=== PATIENT | male | born 1950 | race Caucasian/White ===

== ENCOUNTER → 2018-11-25 | Outpatient (CLI) | payer MEDICARE ==
[2018-11-25 10:20] LABS: Appearance,Urine Clear (Clear); Bilirubin,Urine Negative (Negative); Blood,Urine Small (Negative); Color,Urine Yellow; Glucose,Urine (UA) Negative (Negative); Ketones,Urine Negative (Negative); Leukocyte Esterase,Urine Negative (Negative); Mucus,Urine Rare /hpf; Nitrite,Urine Negative (Negative); Protein,Urine 1+ (Negative); RBC,Urine 2 /hpf (0-5); Specific Gravity,Urine 1.014 (1.001-1.035); Urobilinogen,Urine <2.0 mg/dL (<2.0); WBC,Urine 1 /hpf (0-5)
[2018-11-25 10:28] LABS: HCT 48.7 % (39.0-53.0); HGB 15.4 gm/dL (13.0-17.5); MCH 28.7 pg (25.0-35.0); MCHC 31.6 g/dL (31.0-37.0); MCV 90.8 fL (80.0-100.0); Mean Platelet Volume 8.1; Platelet Count 191 k/uL (150-450); RBC 5.37 m/uL (4.30-5.90); RDW 14.4 % (11.5-15.5); WBC 5.9 k/uL (3.8-10.6)
[2018-11-25 17:35] LABS: Albumin 4.3 g/dL (3.80-4.90); Albumin/Globulin Ratio 1.87 (1.20-2.10); Anion Gap 11.8 mmol/L (4.00-12.00); Carbon Dioxide 26.2 mmol/L (21.6-31.8); Globulin 2.3 g/dL (1.6-3.3); Potassium 4.6 mmol/L (3.5-5.5); Total Bilirubin 0.5 mg/dL (0.2-1.2); Total Protein 6.6 g/dL (6.2-8.2); Uric Acid 7.5 mg/dL (3.7-8.7)
[2018-11-25 17:38] LABS: Iron Saturation 29.25 (15.00-50.00)
[2018-11-25 17:46] LABS: Vitamin D 25 Hydroxy 50.9 ng/mL (30.0-100.0)
[2018-11-25 22:37] LABS: Hemoglobin A1C 7.3 % (4.0-6.0)
== END | disposition home or self-care (01) ==
LOC: LABWHC1 09:20
PROVIDERS: ATTEND Nurse Practitioner Adult Health
DX: E11.65 Type 2 diabetes mellitus with hyperglycemia (principal); I10 Essential (primary) hypertension; E78.5 Hyperlipidemia, unspecified; G47.33 Obstructive sleep apnea (adult) (pediatric); R53.83 Other fatigue
CPT/HCPCS: 80061; 80053; 84443; 82607; 83540; 83550; 84550; 85027; 81001; 82306; 82043; 82570; 83036; 36415; G0103

== ENCOUNTER 2018-12-29 10:50 | Observation (INO) | payer MEDICARE ==
[2018-12-29] MEDS ORDERED: SODIUM CHLORIDE 0.9% 1,000 ML IV STA (11:23)
[2018-12-29] MEDS ORDERED: MECLIZINE 12.5 MG TAB PO STA (11:23)
--- NOTE | 2018-12-29 11:37 | ED ---
General Adult HPI - General Chief complaint: Neuro Symptoms/Deficit Stated complaint: Weakness Time Seen by Provider: 12/29/18 11:15 Source: patient, RN notes reviewed Mode of arrival: wheelchair Limitations: no limitations - History of Present Illness Initial comments: Patient is a pleasant 68-year-old male presenting to the emergency Department with complaints of generalized weakness. Symptoms started a couple of months ago and seem worse over the past day or 2. Patient questions if he may have had some slurred speech this morning however did not notice this. Patient states there is none at this point. Patient feels weak all over and has difficulty getting up and performing his regular tasks. Patient admits to feeling dizzy which she further describes as lightheadedness. Patient denies any isolated area of isolated weakness. No confusion. Patient states his blood sugars have been running high, up to the 400s. - Related Data Home Medications Medication Instructions Recorded Confirmed Chlorthalidone 25 mg PO DAILY 12/29/18 12/29/18 Insulin NPH Hum/Reg Insulin Hm 45 - 50 unit SQ BID 12/29/18 12/29/18 [NovoLIN 70-30 100 UNIT/ML VIAL] Insulin Regular, Human [NovoLIN R] 20 unit SQ AC-TID 12/29/18 12/29/18 Allergies Allergy/AdvReac Type Severity Reaction Status Date / Time glipizide Allergy Swelling Verified 12/29/18 11:46 lisinopril Allergy Swelling Verified 12/29/18 11:46 losartan Allergy Swelling Verified 12/29/18 11:52 amlodipine [From Norvasc] AdvReac DEPRESSION Verified 12/29/18 11:46 atorvastatin [From Lipitor] AdvReac WEAKNESS Verified 12/29/18 11:46 metformin AdvReac Cough Verified 12/29/18 11:46 Review of Systems ROS Statement: Those systems with pertinent positive or pertinent negative responses have been documented in the HPI. ROS Other: All systems not noted in ROS Statement are negative. Constitutional: Denies: fever, chills Eyes: Denies: eye pain ENT: Denies: ear pain Respiratory: Denies: cough, dyspnea Cardiovascular: Denies: chest pain Endocrine: Reports: fatigue Gastrointestinal: Denies: abdominal pain, vomiting Genitourinary: Denies: dysuria Musculoskeletal: Denies: back pain Skin: Denies: rash Neurological: Denies: headache, confusion Past Medical History Past Medical History: Atrial Fibrillation, Diabetes Mellitus, Hyperlipidemia, Hypertension History of Any Multi-Drug Resistant Organisms: None Reported Past Surgical History: Back Surgery, Orthopedic Surgery Past Psychological History: No Psychological Hx Reported Smoking Status: Never smoker Past Alcohol Use History: None Reported Past Drug Use History: None Reported General Exam Limitations: no limitations General appearance: alert, in no apparent distress Head exam: Present: atraumatic, normocephalic Eye exam: Present: normal appearance, PERRL, EOMI. Absent: nystagmus ENT exam: Present: normal oropharynx Neck exam: Present: normal inspection Respiratory exam: Present: normal lung sounds bilaterally Cardiovascular Exam: Present: regular rate, normal rhythm GI/Abdominal exam: Present: soft. Absent: distended, tenderness Extremities exam: Present: normal inspection Neurological exam: Present: alert, oriented X3, CN II-XII intact. Absent: motor sensory deficit Psychiatric exam: Present: normal affect, normal mood Skin exam: Present: normal color Course Vital Signs 12/29/18 12/29/18 12/29/18 10:57 12:48 14:03 Temperature 99.0 F Pulse Rate 76 85 71 Respiratory 18 18 18 Rate Blood Pressure 208/90 173/86 159/95 O2 Sat by Pulse 98 100 95 Oximetry 12/29/18 15:58 Temperature Pulse Rate 80 Respiratory 18 Rate Blood Pressure 161/98 O2 Sat by Pulse 100 Oximetry EKG Findings - EKG Comments: EKG Findings:: Sinus rhythm at 82. MA 154. QRS 100. QT 414. QTC 483. Normal axis. Normal QRS. Inferior and lateral T wave inversion. Medical Decision Making - Medical Decision Making Patient reevaluated. Patient was an related however had difficulty after walking through the department and had to rest. Patient states that has become normal for him at this point. Patient family updated on results and plan. Case was discussed with Dr. Kahn who did come evaluate the patient and will admit. - Lab Data Result diagrams: 12/29/18 11:15 12/29/18 11:15 Lab Results 12/29/18 12/29/18 12/29/18 Range/Units 11:15 11:15 11:15 WBC 8.1 (3.8-10.6) k/uL RBC 5.72 (4.30-5.90) m/uL Hgb 17.1 (13.0-17.5) gm/dL Hct 50.3 (39.0-53.0) % MCV 87.9 (80.0-100.0) fL MCH 30.0 (25.0-35.0) pg MCHC 34.1 (31.0-37.0) g/dL RDW 14.0 (11.5-15.5) % Plt Count 196 (150-450) k/uL Neutrophils % 62 % Lymphocytes % 29 % Monocytes % 6 % Eosinophils % 1 % Basophils % 1 % Neutrophils # 5.0 (1.3-7.7) k/uL Lymphocytes # 2.4 (1.0-4.8) k/uL Monocytes # 0.5 (0-1.0) k/uL Eosinophils # 0.1 (0-0.7) k/uL Basophils # 0.1 (0-0.2) k/uL PT (9.0-12.0) sec INR (<1.2) APTT (22.0-30.0) sec Sodium 141 (137-145) mmol/L Potassium 3.4 L (3.5-5.1) mmol/L Chloride 101 (98-107) mmol/L Carbon Dioxide 28 (22-30) mmol/L Anion Gap 12 mmol/L BUN 30 H (9-20) mg/dL Creatinine 0.87 (0.66-1.25) mg/dL Est GFR (CKD-EPI)AfAm >90 (>60 ml/min/1.73 sqM) Est GFR (CKD-EPI)NonAf 89 (>60 ml/min/1.73 sqM) Glucose 255 H (74-99) mg/dL POC Glucose (mg/dL) (75-99) mg/dL POC Glu Floor Covering Printer Assistant ID Plasma Lactic Acid Celestino (0.7-2.0) mmol/L Calcium 10.1 (8.4-10.2) mg/dL Phosphorus 3.2 (2.5-4.5) mg/dL Magnesium 1.6 (1.6-2.3) mg/dL Total Bilirubin 0.6 (0.2-1.3) mg/dL AST 30 (17-59) U/L ALT 20 L (21-72) U/L Alkaline Phosphatase 140 H (38-126) U/L Total Creatine Kinase 138 (55-170) U/L CK-MB (CK-2) 1.2 (0.0-2.4) ng/mL CK-MB (CK-2) Rel Index 0.9 Troponin I <0.012 (0.000-0.034) ng/mL Total Protein 7.8 (6.3-8.2) g/dL Albumin 4.7 (3.5-5.0) g/dL TSH 1.600 (0.465-4.680) mIU/L Free T4 1.17 (0.78-2.19) ng/dL Free T3 pg/mL 3.5 (2.8-5.3) pg/ml Urine Color Urine Appearance (Clear) Urine pH (5.0-8.0) Ur Specific Carlotta (1.001-1.035) Urine Protein (Negative) Urine Glucose (UA) (Negative) Urine Ketones (Negative) Urine Blood (Negative) Urine Nitrite (Negative) Urine Bilirubin (Negative) Urine Urobilinogen (<2.0) mg/dL Ur Leukocyte Esterase (Negative) Urine RBC (0-5) /hpf Urine WBC (0-5) /hpf Hyaline Casts (0-2) /lpf Urine Mucus (None) /hpf Influenza Type A RNA (Not Detectd) Influenza Type B (PCR) (Not Detectd) 12/29/18 12/29/18 12/29/18 Range/Units 11:15 11:55 11:55 WBC (3.8-10.6) k/uL RBC (4.30-5.90) m/uL Hgb (13.0-17.5) gm/dL Hct (39.0-53.0) % MCV (80.0-100.0) fL MCH (25.0-35.0) pg MCHC (31.0-37.0) g/dL RDW (11.5-15.5) % Plt Count (150-450) k/uL Neutrophils % % Lymphocytes % % Monocytes % % Eosinophils % % Basophils % % Neutrophils # (1.3-7.7) k/uL Lymphocytes # (1.0-4.8) k/uL Monocytes # (0-1.0) k/uL Eosinophils # (0-0.7) k/uL Basophils # (0-0.2) k/uL PT 10.1 (9.0-12.0) sec INR 0.9 (<1.2) APTT 22.6 (22.0-30.0) sec Sodium (137-145) mmol/L Potassium (3.5-5.1) mmol/L Chloride (98-107) mmol/L Carbon Dioxide (22-30) mmol/L Anion Gap mmol/L BUN (9-20) mg/dL Creatinine (0.66-1.25) mg/dL Est GFR (CKD-EPI)AfAm (>60 ml/min/1.73 sqM) Est GFR (CKD-EPI)NonAf (>60 ml/min/1.73 sqM) Glucose (74-99) mg/dL POC Glucose (mg/dL) (75-99) mg/dL POC Glu Floor Covering Printer Assistant ID Plasma Lactic Acid Celestino 1.7 (0.7-2.0) mmol/L Calcium (8.4-10.2) mg/dL Phosphorus (2.5-4.5) mg/dL Magnesium (1.6-2.3) mg/dL Total Bilirubin (0.2-1.3) mg/dL AST (17-59) U/L ALT (21-72) U/L Alkaline Phosphatase (38-126) U/L Total Creatine Kinase (55-170) U/L CK-MB (CK-2) (0.0-2.4) ng/mL CK-MB (CK-2) Rel Index Troponin I (0.000-0.034) ng/mL Total Protein (6.3-8.2) g/dL Albumin (3.5-5.0) g/dL TSH (0.465-4.680) mIU/L Free T4 (0.78-2.19) ng/dL Free T3 pg/mL (2.8-5.3) pg/ml Urine Color Yellow Urine Appearance Clear (Clear) Urine pH 5.5 (5.0-8.0) Ur Specific Carlotta 1.018 (1.001-1.035) Urine Protein 1+ H (Negative) Urine Glucose (UA) Negative (Negative) Urine Ketones Negative (Negative) Urine Blood Trace H (Negative) Urine Nitrite Negative (Negative) Urine Bilirubin Negative (Negative) Urine Urobilinogen <2.0 (<2.0) mg/dL Ur Leukocyte Esterase Negative (Negative) Urine RBC 4 (0-5) /hpf Urine WBC 1 (0-5) /hpf Hyaline Casts 3 H (0-2) /lpf Urine Mucus Rare H (None) /hpf Influenza Type A RNA (Not Detectd) Influenza Type B (PCR) (Not Detectd) 12/29/18 12/29/18 Range/Units 12:05 14:37 WBC (3.8-10.6) k/uL RBC (4.30-5.90) m/uL Hgb (13.0-17.5) gm/dL Hct (39.0-53.0) % MCV (80.0-100.0) fL MCH (25.0-35.0) pg MCHC (31.0-37.0) g/dL RDW (11.5-15.5) % Plt Count (150-450) k/uL Neutrophils % % Lymphocytes % % Monocytes % % Eosinophils % % Basophils % % Neutrophils # (1.3-7.7) k/uL Lymphocytes # (1.0-4.8) k/uL Monocytes # (0-1.0) k/uL Eosinophils # (0-0.7) k/uL Basophils # (0-0.2) k/uL PT (9.0-12.0) sec INR (<1.2) APTT (22.0-30.0) sec Sodium (137-145) mmol/L Potassium (3.5-5.1) mmol/L Chloride (98-107) mmol/L Carbon Dioxide (22-30) mmol/L Anion Gap mmol/L BUN (9-20) mg/dL Creatinine (0.66-1.25) mg/dL Est GFR (CKD-EPI)AfAm (>60 ml/min/1.73 sqM) Est GFR (CKD-EPI)NonAf (>60 ml/min/1.73 sqM) Glucose (74-99) mg/dL POC Glucose (mg/dL) 198 H (75-99) mg/dL POC Glu Floor Covering Printer Assistant Jodi Antonio Plasma Lactic Acid Celestino (0.7-2.0) mmol/L Calcium (8.4-10.2) mg/dL Phosphorus (2.5-4.5) mg/dL Magnesium (1.6-2.3) mg/dL Total Bilirubin (0.2-1.3) mg/dL AST (17-59) U/L ALT (21-72) U/L Alkaline Phosphatase (38-126) U/L Total Creatine Kinase (55-170) U/L CK-MB (CK-2) (0.0-2.4) ng/mL CK-MB (CK-2) Rel Index Troponin I (0.000-0.034) ng/mL Total Protein (6.3-8.2) g/dL Albumin (3.5-5.0) g/dL TSH (0.465-4.680) mIU/L Free T4 (0.78-2.19) ng/dL Free T3 pg/mL (2.8-5.3) pg/ml Urine Color Urine Appearance (Clear) Urine pH (5.0-8.0) Ur Specific Carlotta (1.001-1.035) Urine Protein (Negative) Urine Glucose (UA) (Negative) Urine Ketones (Negative) Urine Blood (Negative) Urine Nitrite (Negative) Urine Bilirubin (Negative) Urine Urobilinogen (<2.0) mg/dL Ur Leukocyte Esterase (Negative) Urine RBC (0-5) /hpf Urine WBC (0-5) /hpf Hyaline Casts (0-2) /lpf Urine Mucus (None) /hpf Influenza Type A RNA Not Detected (Not Detectd) Influenza Type B (PCR) Not Detected (Not Detectd) - Radiology Data Radiology results: report reviewed (Computed tomography scan of the brain shows no acute renal process. Suggestion of minimal periventricular white matter changes.), image reviewed (Chest x-ray shows elevated right hemidiaphragm, no acute process otherwise.) Disposition Clinical Impression: Fatigue, T wave inversion in EKG Disposition: ADMITTED IP TO THIS HOSP Is patient prescribed a controlled substance at d/c from ED?: No Referrals: Ovi Gallagher MD [Primary Care Provider] - 1-2 days Decision Time: 16:49
[2018-12-29 11:39] LABS: Basophils # (A) 0.1 k/uL (0-0.2); Basophils % (A) 1 %; Eosinophils # (A) 0.1 k/uL (0-0.7); Eosinophils % (A) 1 %; HCT 50.3 % (39.0-53.0); HGB 17.1 gm/dL (13.0-17.5); Lymphocytes # (A) 2.4 k/uL (1.0-4.8); Lymphocytes % (A) 29 %; MCHC 34.1 g/dL (31.0-37.0); MCV 87.9 fL (80.0-100.0); Mean Platelet Volume 7.4; Monocytes # (A) 0.5 k/uL (0-1.0); Monocytes % (A) 6 %; Neutrophils % (A) 62 %; Platelet Count 196 k/uL (150-450); RBC 5.72 m/uL (4.30-5.90); WBC 8.1 k/uL (3.8-10.6)
[2018-12-29 11:52] LABS: ALT 20 U/L (21-72); AST 30 U/L (17-59); Albumin 4.7 g/dL (3.5-5.0); Alkaline Phosphatase 140 U/L (38-126); Anion Gap 12 mmol/L; Blood Urea Nitrogen 30 mg/dL (9-20); Calcium 10.1 mg/dL (8.4-10.2); Carbon Dioxide 28 mmol/L (22-30); Chloride 101 mmol/L (98-107); Glucose 255 mg/dL (74-99); Magnesium 1.6 mg/dL (1.6-2.3); Phosphorus 3.2 mg/dL (2.5-4.5); Potassium 3.4 mmol/L (3.5-5.1); Sodium 141 mmol/L (137-145); Total Bilirubin 0.6 mg/dL (0.2-1.3); Total Protein 7.8 g/dL (6.3-8.2)
[2018-12-29 11:56] LABS: Creatine Kinase 138 U/L (55-170)
[2018-12-29 11:59] LABS: INR 0.9 (<1.2); Partial Thromboplastin Time 22.6 sec (22.0-30.0); Prothrombin Time 10.1 sec (9.0-12.0)
[2018-12-29 12:08] LABS: Creatine Kinase MB 1.2 ng/mL (0.0-2.4); Troponin I <0.012 ng/mL (0.000-0.034)
[2018-12-29 12:12] LABS: T4, Free (Free Thyroxine) 1.17 ng/dL (0.78-2.19)
[2018-12-29 12:33] LABS: Appearance,Urine Clear (Clear); Bilirubin,Urine Negative (Negative); Blood,Urine Trace (Negative); Color,Urine Yellow; Glucose,Urine (UA) Negative (Negative); Hyaline Casts,Urine 3 /lpf (0-2); Ketones,Urine Negative (Negative); Leukocyte Esterase,Urine Negative (Negative); Mucus,Urine Rare /hpf; Nitrite,Urine Negative (Negative); PH, Urine 5.5 (5.0-8.0); Protein,Urine 1+ (Negative); RBC,Urine 4 /hpf (0-5); Specific Gravity,Urine 1.018 (1.001-1.035); Urobilinogen,Urine <2.0 mg/dL (<2.0); WBC,Urine 1 /hpf (0-5)
--- NOTE | 2018-12-29 13:11 | CT ---
EXAMINATION TYPE: CT brain wo con DATE OF EXAM: 12/29/2018 COMPARISON: INDICATION: Weakness DLP: 1134.4 mGycm, Automated exposure control for dose reduction was used. CONTRAST: None CT of the brain is performed utilizing 3 mm thick sections through the posterior fossa and 3 mm thick sections through the remaining calvarium. Study is performed within 24 hours of arrival to the hosp ital. No abnormal hyperdensity is present to suggest an acute intracranial hemorrhage. No mass lesion is evident. No acute infarcts are evident. Minimal periventricular white matter hypodensity may be present compat ible some chronic white matter ischemic type changes. Ventricles and sulci are appropriate for the patient age. Paranasal sinuses and mastoid air cells within the [id number] are clear. IMPRESSIONS: 1. Suggestion of minimal periventricular white matter ischemic changes. 2. No acute intracranial process.
--- NOTE | 2018-12-29 13:30 | XR ---
EXAMINATION TYPE: XR chest 2V DATE OF EXAM: 12/29/2018 COMPARISON: 02/03/2013 INDICATION: Weakness TECHNIQUE: Frontal and lateral views of the chest are obtained. FINDINGS: The heart size is normal. The pulmonary vasculature is normal. The lungs are clear. There is elevation of the right diaphragm. This is an interval change. EKG lead s overlie the chest IMPRESSION: 1. No acute pulmonary process. 2. Elevation of the right diaphragm.
[2018-12-29 15:27] LABS: Glucose,Whole Blood 198 mg/dL (75-99)
[2018-12-29] MEDS ORDERED: NALOXONE 0.4 MG/ML 1 ML VIAL IV PRN (16:35)
[2018-12-29] MEDS ORDERED: ONDANSETRON 4 MG/2 ML VIAL IVP PRN (16:35)
[2018-12-29] MEDS ORDERED: ACETAMINOPHEN TAB 325 MG TAB PO PRN (16:35)
--- NOTE | 2018-12-29 16:35 | P.HPIM ---
History of Present Illness H&P Date: 12/29/18 Chief Complaint: fatigue weakness /elevated BP/slurred speech The patient is a left-hand dominant 66-year-old obese male with a past medical history of type 2 diabetes, essential hypertension, dyslipidemia, obstructive sleep apnea on CPAP who presents to the ER via private vehicle with his complaining of increasing lower extremity weakness described as heaviness, fatigue and generalized weakness. Apparently the patient reports these generalized symptoms for the last month, today in particular the patient reports some slurred speech and left facial droop early this morning which seems to have resolved for the most part. He also complains of lightheadedness and dizziness. The patient reports that the patient has been having difficulty finding words over the last month and that his blood sugars have been uncontrolled often in the high 300-400 range. The patient complains of increasing thirst, dry mouth, nocturia and polyuria. The patient reports multiple adverse reactions to blood pressure and diabetic medications and reports that he only takes chlorthalidone and insulin at this time. He reports severe ALLERGY to lisinopril losartan causing swelling and weakness and statin causing myalgias and weakness. The patient denied any shortness of breath chest pain or palpitations or lower extremity swelling. He reports to having an A1c done approximately 2 weeks ago that was approximately 7.5. In the ER the patient was noted to have elevated blood pressures , CT of the head was negative for any acute intracranial pathology only showed periventricular white matter disease, EKG indicated sinus mechanism with nonspecific T-wave changes troponin was negative less than 0.012. The patient' s blood sugar was approximately 198 Review of Systems Pertinent positives per HPI all other review of systems otherwise negative Past Medical History Past Medical History: Atrial Fibrillation, Diabetes Mellitus, Hyperlipidemia, Hypertension History of Any Multi-Drug Resistant Organisms: None Reported Past Surgical History: Back Surgery, Orthopedic Surgery Past Psychological History: No Psychological Hx Reported Smoking Status: Never smoker Past Alcohol Use History: None Reported Past Drug Use History: None Reported - Past Family History Brother(s) Family Medical History: Coronary Artery Disease (CAD), Hypertension Mother Family Medical History: Diabetes Mellitus Additional Family Medical History / Comment(s): in mva Father Additional Family Medical History / Comment(s): bad thyroid Medications and Allergies Home Medications Medication Instructions Recorded Confirmed Type Chlorthalidone 25 mg PO DAILY 12/29/18 12/29/18 History Insulin NPH Hum/Reg Insulin Hm 45 - 50 unit SQ BID 12/29/18 12/29/18 History [NovoLIN 70-30 100 UNIT/ML VIAL] Insulin Regular, Human [NovoLIN R] 20 unit SQ AC-TID 12/29/18 12/29/18 History Allergies Allergy/AdvReac Type Severity Reaction Status Date / Time glipizide Allergy Swelling Verified 12/29/18 11:46 lisinopril Allergy Swelling Verified 12/29/18 11:46 losartan Allergy Swelling Verified 12/29/18 11:52 amlodipine [From Norvasc] AdvReac DEPRESSION Verified 12/29/18 11:46 atorvastatin [From Lipitor] AdvReac WEAKNESS Verified 12/29/18 11:46 metformin AdvReac Cough Verified 12/29/18 11:46 Physical Exam Vitals: Vital Signs Temp Pulse Resp BP Pulse Ox 12/29/18 15:58 80 18 161/98 100 12/29/18 14:03 71 18 159/95 95 12/29/18 12:48 85 18 173/86 100 12/29/18 10:57 99.0 F 76 18 208/90 98 Intake and Output 12/29/18 12/29/18 12/29/18 06:59 14:59 22:59 Other: Weight 136.078 kg Constitutional: No acute distress, conversant, pleasant Eyes: Anicteric sclerae, moist conjunctiva, no lid-lag, PERRLA ENMT: NC/AT,Oropharynx clear, no erythema, exudates Neck:Supple, FROM, no masses, or JVD, No carotid bruits; No thyromegaly Lungs: Clear to auscultation, Clear to percussion, Normal respiratory effort, no accessory muscle use Cardiovascular: Heart regular in rate and rhythm, No murmurs, gallops, or rubs no peripheral edema Abdominal: Soft Nontender, nom distended, no guarding, no rebound or rigidity, Normoactive bowel sounds No hepatomegaly, No splenomegaly, No palpable mass No abdominal wall hernia noted Skin: Normal temperature, tone, texture, turgor, No induration No subcutaneous nodules, No rash, lesions, No ulcers Extremities:No digital cyanosis No clubbing, Pedal pulses intact and symmetrical Radial pulses intact and symmetrical Normal gait and station, No calf tenderness Psychiatric: Alert and oriented to person, place and time, Appropriate affect Intact judgement Neuro: Muscles Strength 5/5 in all 4 extremities, Sensation to light touch grossly present throughout, Cranial nerves II-XII grossly intact. No focal sensory deficits Results CBC & Chem 7: 12/30/18 05:42 12/30/18 05:42 Labs: Abnormal Lab Results - Last 24 Hours (Table) 12/29/18 12/29/18 12/29/18 Range/Units 11:15 11:55 14:37 Potassium 3.4 L (3.5-5.1) mmol/L BUN 30 H (9-20) mg/dL Glucose 255 H (74-99) mg/dL POC Glucose (mg/dL) 198 H (75-99) mg/dL ALT 20 L (21-72) U/L Alkaline Phosphatase 140 H (38-126) U/L Urine Protein 1+ H (Negative) Urine Blood Trace H (Negative) Hyaline Casts 3 H (0-2) /lpf Urine Mucus Rare H (None) /hpf Assessment and Plan (1) TIA (transient ischemic attack) Current Visit: Yes Status: Acute Code(s): G45.9 - TRANSIENT CEREBRAL ISCHEMIC ATTACK, UNSPECIFIED SNOMED Code(s): 072510084 (2) Hypertensive urgency Current Visit: Yes Status: Acute Code(s): I16.0 - HYPERTENSIVE URGENCY SNOMED Code(s): 472954569 (3) Type 2 diabetes mellitus with hyperglycemia Current Visit: Yes Status: Acute Code(s): E11.65 - TYPE 2 DIABETES MELLITUS WITH HYPERGLYCEMIA SNOMED Code(s): 768131518546686 (4) Hypokalemia Current Visit: Yes Status: Acute Code(s): E87.6 - HYPOKALEMIA SNOMED Code( s): 00030375 Plan: The patient is admitted anticipate a less than 2 midnight stay with concern for TIA after presenting with generalized weakness lower extremity swelling, and slurred speech and dizziness which is now resolved. Continue workup with echocardiogram, carotid Dopplers, and MRI. The patient does have uncontrolled is factors including uncontrolled type 2 diabetes with hyperglycemia, and hypertensive urgency and likely has dyslipidemia. We'll trend his cardiac markers, start antiplatelet therapy with aspirin and resume his home blood pressure medications and add Norvasc and metoprolol to his regimen. We'll also check A1c Accu-Cheks resume his insulin regimen along with correctional scale coverage Continue to monitor his vitals. Place the patient on DVT prophylaxis with SCDs CODE STATUS full Anticipated discharge 1-2 days discussed plan of care with : Dagmar Carlos Time with Patient: Greater than 30
[2018-12-29] MEDS ORDERED: amLODIPine 10 MG TAB PO STA (16:40)
[2018-12-29] MEDS ORDERED: METOPROLOL SUCCINATE (ER) 50 MG TAB.ER.24H PO STA (16:40)
[2018-12-29] MEDS ORDERED: ASPIRIN 81 MG PO STA (16:50)
[2018-12-29] MEDS ORDERED: NITROGLYCERIN SL TABS 0.4 MG TAB SUBLINGUAL PRN (16:50)
[2018-12-29] MEDS ORDERED: POTASSIUM CHLORIDE ER 20 MEQ TAB.ER PO ONE (17:34)
[2018-12-29] MEDS: INSULIN ASPART (NovoLOG) 100 UNIT/ML VIAL SQ SCH ×3 (17:40→21:21)
[2018-12-29 17:44] LABS: Glucose,Whole Blood 202 mg/dL (75-99)
[2018-12-29 19:03] LABS: Creatine Kinase MB 1.2 ng/mL (0.0-2.4)
[2018-12-29] MEDS ORDERED: POTASSIUM CHLORIDE ER 20 MEQ TAB.ER PO STA (20:01)
--- NOTE | 2018-12-29 20:57 | US ---
EXAMINATION TYPE: US carotid duplex BILAT DATE OF EXAM: 12/29/2018 COMPARISON: NONE CLINICAL HISTORY: TIA. Fatigue, dizziness EXAM MEASUREMENTS: RIGHT: Peak Systolic Velocity (PSV) cm/sec ----- Right CCA: 58.1 ----- Right ICA: 75.7 ----- Right ECA: 138.7 ICA/CCA ratio: 1.3 RIGHT: End Diastole cm/sec ----- Right CCA: 13.1 ----- Right ICA: 29.6 ----- Right ECA: 11.1 LEFT: Peak Systolic Velocity (PSV) cm/sec ----- Left CCA: 91.9 ----- Left ICA: 125.8 ----- Left ECA: 99.5 ICA/CCA ratio: 1.4 LEFT: End Diastole cm/sec ----- Left CCA: 16.0 ----- Left ICA: 40.2 ----- Left ECA: 11.5 VERTEBRALS (direction of flow): Right Vertebral: Antegrade Left Vertebral: Antegrade Rhythm: Normal Mild plaque bilateral bifurcations. No evidence of significant stenosis IMPRESSION: 1. Atheromatous plaquing contributing to moderate left internal carotid artery stenosis estimated bet ween 50 and 69% based on velocity Criteria for Assigning % of Stenosis / Diameter reduction (Estimation based on the indirect measurements of the internal carotid artery velocities (ICA PSV). 1. Normal (no stenosis)=ICA PSV < 125 cm/s: ratio < 2.0: ICA EDV<40 cm/s. 2. Less than 50% stenosis=ICA PSV < 125 cm/s: ratio < 2.0: ICA EDV<40 cm/s. 3. 50 to 69% stenosis=ICA PSV of 125 to 230 cm/s: ration 2.0 ? 4.0: ICA EDV 40-100 cm/s. 4. Greater than 70% stenosis to near occlusion= ICA PSV > 230 cm/s: ratio > 4.0: ICA EDV > 100 cm/s. 5. Near occlusion= ICA PSV velocities may be low or undetectable: variable ratio and ICA EDV. 6. Total occlusion=unable to detect flow.
[2018-12-29 21:13] LABS: Glucose,Whole Blood 199 mg/dL (75-99)
[2018-12-29] MEDS: INSULIN DETEMIR (LEVEMIR) 100 UNIT/ML SYR SQ SCH (21:21)
[2018-12-30 00:26] LABS: Troponin I 0.017 ng/mL (0.000-0.034)
[2018-12-30 06:27] LABS: Glucose,Whole Blood 204 mg/dL (75-99)
[2018-12-30 06:28] LABS: Basophils % (A) 1 %; Eosinophils # (A) 0.1 k/uL (0-0.7); Eosinophils % (A) 1 %; HCT 45.9 % (39.0-53.0); HGB 14.7 gm/dL (13.0-17.5); Lymphocytes # (A) 2.7 k/uL (1.0-4.8); Lymphocytes % (A) 36 %; MCH 28.6 pg (25.0-35.0); MCHC 32.1 g/dL (31.0-37.0); MCV 89.1 fL (80.0-100.0); Monocytes # (A) 0.5 k/uL (0-1.0); Monocytes % (A) 6 %; Neutrophils % (A) 54 %; Platelet Count 181 k/uL (150-450); RBC 5.15 m/uL (4.30-5.90); WBC 7.4 k/uL (3.8-10.6)
[2018-12-30 06:38] LABS: ALT 14 U/L (21-72); AST 21 U/L (17-59); Albumin 3.9 g/dL (3.5-5.0); Alkaline Phosphatase 110 U/L (38-126); Anion Gap 8 mmol/L; Blood Urea Nitrogen 23 mg/dL (9-20); Calcium 9.5 mg/dL (8.4-10.2); Carbon Dioxide 29 mmol/L (22-30); Chloride 105 mmol/L (98-107); Cholesterol 217 mg/dL (<200); Glucose 247 mg/dL (74-99); HDL Cholesterol 38 mg/dL (40-60); LDL Cholesterol,Calculated 126 mg/dL (0-99); Potassium 3.7 mmol/L (3.5-5.1); Sodium 142 mmol/L (137-145); Total Bilirubin 0.6 mg/dL (0.2-1.3); Total Protein 6.7 g/dL (6.3-8.2); Triglycerides 266 mg/dL (<150)
[2018-12-30] MEDS: INSULIN ASPART (NovoLOG) 100 UNIT/ML VIAL SQ SCH ×7 (07:12→22:20)
[2018-12-30] MEDS: CHLORTHALIDONE 25 MG TAB PO SCH (08:43)
[2018-12-30] MEDS: amLODIPine 10 MG TAB PO SCH (08:43)
[2018-12-30] MEDS: INSULIN DETEMIR (LEVEMIR) 100 UNIT/ML SYR SQ SCH (08:43)
[2018-12-30] MEDS ORDERED: ASPIRIN 325 MG TAB PO SCH (09:00)
--- NOTE | 2018-12-30 10:04 | P.CRDCN ---
History of Present Illness Consult date: 12/30/18 Requesting physician: Chaitanya Kahn Reason for Consult (text): Uncontrolled hypertension, lightheadedness Chief complaint: Lightheadedness History of present illness: This is a pleasant 68-year-old gentleman who has lived in [place] for the past 5 years and recently moved back to this area. He has a known history of hypertension, uncontrolled diabetes, hyperlipidemia, sleep apnea for which she uses a CPAP every night, he is a nonsmoker, no EtOH. Patient states that he has been on most of the statins as well as Crestor and has severe muscle weakening from them. He presents to the hospital on this occasion with symptoms of lightheadedness, weakness and feeling at times like he is going to pass out. According to the patient, his blood sugars for quite some time has been all over the place. He states that in recent weeks due to they have been up in the 500 range of 300 range except for a period according to the patient he could not afford the insulin that he was primarily put on and therefore takes regular insulin as well as 7030, adjusting it himself. He has however been running extremely high blood sugars. He also states that his blood pressure at times has been high. He was in [place] yesterday, states that it was very warm, and he felt lightheaded, like he may pass out. CAT scan of the brain was performed on arrival here, suggestion of minimal periventricular white matter ischemic change, no acute process. Chest x-ray did not reveal any acute pulmonary process. EKG shows a normal sinus rhythm with nonspecific ST-T wave changes. Carotid Doppler study shows atheromatous plaquing contributing to moderate left internal carotid artery stenosis between 50 and 69%. Blood pressure on arrival here 208/90, heart rate in the 70s, 90% on room air. Temperature 99.0. Blood pressure this morning 144/90, heart rate in the 50s, temperature 97.9, 95% on room air. Laboratory data was reviewed, white blood cell count 7.4, hemoglobin 14.7, platelet count 181. Sodium 142, potassium 3.7 , potassium was 3.4 on admission, BUN 23 and creatinine 0.7. Blood sugar on arrival 255, 247 this morning. Magnesium 1.6. ALT 20 alk phos 140 on admission , 14 and 110 this morning. Troponins 0.012, 0.017. Influenza A and B-. At the time of my examination this morning, patient is sitting up in his chair at bedside, he denies any lightheadedness or dizziness this morning, he does feel weak. Cholesterol level 266, LDL 126, HDL 38, and triglycerides 266. Past Medical History Past Medical History: Atrial Fibrillation, Diabetes Mellitus, Hyperlipidemia, Hypertension, Pneumonia, Sleep Apnea/CPAP/BIPAP Additional Past Medical History / Comment(s): uses c-pap at home, pneu as child almost History of Any Multi-Drug Resistant Organisms: None Reported Past Surgical History: Back Surgery, Orthopedic Surgery, Prostate Surgery, Tonsillectomy Additional Past Surgical History / Comment(s): , total left hip, gato carpel tunnel, wire mesh in umbical area, Past Anesthesia/Blood Transfusion Reactions: Previous Problems w/ Anesthesia Additional Past Anesthesia/Blood Transfusion Reaction / Comment(s): last time no problems with anesthia but did have previously Past Psychological History: No Psychological Hx Reported Smoking Status: Never smoker Past Alcohol Use History: None Reported Past Drug Use History: None Reported - Past Family History Brother(s) Family Medical History: Coronary Artery Disease (CAD), Hypertension Mother Family Medical History: Diabetes Mellitus Additional Family Medical History / Comment(s): in mva Father Additional Family Medical History / Comment(s): bad thyroid Medications and Allergies Home Medications Medication Instructions Recorded Confirmed Type Chlorthalidone 25 mg PO DAILY 12/29/18 12/29/18 History Insulin NPH Hum/Reg Insulin Hm 45 - 50 unit SQ BID 12/29/18 12/29/18 History [NovoLIN 70-30 100 UNIT/ML VIAL] Insulin Regular, Human [NovoLIN R] 20 unit SQ AC-TID 12/29/18 12/29/18 History Allergies Allergy/AdvReac Type Severity Reaction Status Date / Time glipizide Allergy Swelling Verified 12/29/18 11:46 lisinopril Allergy Swelling Verified 12/29/18 11:46 losartan Allergy Swelling Verified 12/29/18 11:52 amlodipine [From Norvasc] AdvReac DEPRESSION Verified 12/29/18 11:46 atorvastatin [From Lipitor] AdvReac WEAKNESS Verified 12/29/18 11:46 metformin AdvReac Cough Verified 12/29/18 11:46 Physical Exam Vitals: Vital Signs Temp Pulse Pulse Resp BP BP Pulse Ox 12/30/18 04:00 97.9 F 54 L 20 144/89 95 12/30/18 03:34 20 12/30/18 00:00 20 12/29/18 23:31 98.2 F 20 162/89 96 12/29/18 20:00 97.8 F 59 L 18 146/67 95 12/29/18 18:34 98.1 F 78 14 180/91 94 L 12/29/18 17:23 72 18 154/77 97 12/29/18 17:16 98.7 F 96 12/29/18 15:58 80 18 161/98 100 12/29/18 14:03 71 18 159/95 95 12/29/18 12:48 85 18 173/86 100 12/29/18 10:57 99.0 F 76 18 208/90 98 Intake and Output 12/29/18 12/30/18 12/30/18 22:59 06:59 14:59 Intake Total 300 700 240 Balance 300 700 240 Intake: Amount of Fluid Infused ( 300 ml) Intake, IV Titration 400 Amount Sodium Chloride 0.9% 1, 400 000 ml @ 100 mls/hr IV . Q10H STA Rx#:[id number] Oral 300 240 Other: Voiding Method Toilet Toilet # Voids 2 Weight 137.5 kg PHYSICAL EXAMINATION: GENERAL: 68-year-old gentleman in no acute distress at the time of my examination HEENT: Head is atraumatic, normocephalic. Pupils equal, round. Sclera anicteric. Conjunctiva are clear. Mucous membranes of the mouth are moist. Neck is supple. There is no elevated jugular venous pressure. No carotid bruit is heard. HEART EXAMINATION: Heart S1, S2 normal. No murmur or gallop heard. CHEST EXAMINATION: Lungs are clear to auscultation and precussion. No chest wall tenderness is noted on palpation or with deep breathing. ABDOMEN: Soft, obese, nontender. Bowel sounds are heard. No organomegaly noted. EXTREMITIES: 2+ peripheral pulses with no evidence of peripheral edema and no calf tenderness noted. NEUROLOGIC patient is awake, alert and oriented 3 . . Results 12/30/18 05:42 12/30/18 05:42 Cardiac Enzymes 12/29/18 12/29/18 12/29/18 Range/Units 11:15 11:15 18:16 AST 30 (17-59) U/L CK-MB (CK-2) 1.2 1.2 (0.0-2.4) ng/mL Troponin I <0.012 (0.000-0.034) ng/mL 12/29/18 12/30/18 Range/Units 23:22 05:42 AST 21 (17-59) U/L CK-MB (CK-2) 1.0 (0.0-2.4) ng/mL Troponin I 0.017 (0.000-0.034) ng/mL Coagulation 12/29/18 Range/Units 11:15 PT 10.1 (9.0-12.0) sec APTT 22.6 (22.0-30.0) sec Lipids 12/30/18 Range/Units 05:42 Triglycerides 266 H (<150) mg/dL Cholesterol 217 H (<200) mg/dL HDL Cholesterol 38 L (40-60) mg/dL CBC 12/29/18 12/30/18 Range/Units 11:15 05:42 WBC 8.1 7.4 (3.8-10.6) k/uL RBC 5.72 5.15 (4.30-5.90) m/uL Hgb 17.1 14.7 (13.0-17.5) gm/dL Hct 50.3 45.9 (39.0-53.0) % Plt Count 196 181 (150-450) k/uL Comprehensive Metabolic Panel 12/29/18 12/30/18 Range/Units 11:15 05:42 Sodium 141 142 (137-145) mmol/L Potassium 3.4 L 3.7 (3.5-5.1) mmol/L Chloride 101 105 (98-107) mmol/L Carbon Dioxide 28 29 (22-30) mmol/L BUN 30 H 23 H (9-20) mg/dL Creatinine 0.87 0.72 (0.66-1.25) mg/dL Glucose 255 H 247 H (74-99) mg/dL Calcium 10.1 9.5 (8.4-10.2) mg/dL AST 30 21 (17-59) U/L ALT 20 L 14 L (21-72) U/L Alkaline Phosphatase 140 H 110 (38-126) U/L Total Protein 7.8 6.7 (6.3-8.2) g/dL Albumin 4.7 3.9 (3.5-5.0) g/dL Current Medications Generic Name Dose Route Start Last Admin Trade Name Freq PRN Reason Stop Dose Admin Acetaminophen 650 mg 12/29/18 16:35 Tylenol Tab PO Q6HR PRN Mild Pain or Fever > 100.5 Amlodipine Besylate 10 mg 12/30/18 09:00 12/30/18 08:43 Norvasc PO 10 mg DAILY JELLY Administration Aspirin 325 mg 12/30/18 09:00 12/30/18 08:43 Aspirin PO 325 mg DAILY JELLY Administration Chlorthalidone 25 mg 12/30/18 09:00 12/30/18 08:43 Hygroton PO 25 mg DAILY JELLY Administration Insulin Aspart 20 unit 12/29/18 17:30 12/30/18 07:12 Novolog SQ 20 unit AC-TID JELLY Administration Insulin Aspart 0 unit 12/29/18 17:30 12/30/18 07:12 Novolog SQ 4 unit ACHS JELLY Administration Protocol Insulin Detemir 40 unit 12/29/18 21:00 12/30/18 08:43 Levemir SQ 40 unit BID JELLY Administration Metoprolol Succinate 25 mg 12/30/18 09:00 Toprol Xl PO DAILY [facility] Naloxone HCl 0.2 mg 12/29/18 16:35 Narcan IV Q2M PRN Opioid Reversal Nitroglycerin 0.4 mg 12/29/18 16:50 Nitrostat SUBLINGUAL Q5M PRN Chest Pain Ondansetron HCl 4 mg 12/29/18 16:35 Zofran IVP Q8HR PRN Nausea And Vomiting Intake and Output 12/29/18 12/30/18 12/30/18 22:59 06:59 14:59 Intake Total 300 700 240 Balance 300 700 240 Intake: Amount of Fluid Infused ( 300 ml) Intake, IV Titration 400 Amount Sodium Chloride 0.9% 1, 400 000 ml @ 100 mls/hr IV . Q10H STA Rx#:[id number] Oral 300 240 Other: Voiding Method Toilet Toilet # Voids 2 Weight 137.5 kg 12/30/18 05:42 12/30/18 05:42 EKG Interpretations (text) EKG shows a normal sinus rhythm with nonspecific ST-T wave changes. Assessment and Plan Plan: Assessment and plan #1 symptoms of lightheadedness, dizziness with associated weakness #2 uncontrolled diabetes #3 uncontrolled hypertension #4 hyperlipidemia, intolerant to statins and Crestor because of severe muscle aching #5 sleep apnea, patient regularly uses a CPAP #6 hypokalemia #7 hypomagnesemia Plan We will obtain an echocardiogram with Doppler study. We will also check orthostatic heart rate and blood pressure every shift. Decrease aspirin 81 mg daily. Replace potassium and magnesium. Continue to monitor for any tachycardia or bradycardia arrhythmias. Optimize blood pressure management. Social service consult regarding assistance with medication costs. Further recommendations to follow. DNP note has been reviewed, I agree with a documented findings and plan of care. Patient was seen and examined.
[2018-12-30 11:31] LABS: Glucose,Whole Blood 228 mg/dL (75-99)
[2018-12-30] MEDS: METOPROLOL SUCCINATE (ER) 25 MG TAB.ER.24H PO SCH (12:01)
--- NOTE | 2018-12-30 12:19 | P.PN ---
Subjective Progress Note Date: 12/30/18 Principal diagnosis: Dizziness Patient seen and examined. No acute events overnight. Patient reports complete resolution of his symptoms. He denies any dizziness, chest pain or shortness of breath. No palpitations. He does report generalized weakness, only when his blood glucoses supremely elevated. Objective - Vital Signs Vital signs: Vital Signs Temp 98 F 12/30/18 11:39 Pulse 52 L 12/30/18 11:39 Resp 16 12/30/18 11:39 BP 158/81 12/30/18 11:39 Pulse Ox 97 12/30/18 11:39 Intake & Output 12/29/18 12/30/18 12/30/18 18:59 06:59 18:59 Intake Total 300 700 240 Balance 300 700 240 Weight 136.078 kg 137.5 kg Intake: Amount of Fluid Infused ( 300 ml) Intake, IV Titration 400 Amount Sodium Chloride 0.9% 1, 400 000 ml @ 100 mls/hr IV . Q10H STA Rx#:[id number] Oral 300 240 Other: Voiding Method Toilet # Voids 2 # Bowel Movements 1 - Exam General: [non toxic], [no distress], [appears at stated age] Derm: [warm], [dry] Head: [atraumatic], [normocephalic], [symmetric] Eyes: [EOMI], [no lid lag], [anicteric sclera] Mouth: [no lip lesion], [mucus membranes moist] Cardiovascular: [S1S2 reg], [bradycardia], [positive posterior tibial pulse bilateral], Lungs: [CTA bilateral], [no rhonchi, no rales] , [no accessory muscle use] Abdominal: [soft], [ nontender to palpation], [no guarding], [no appreciable organomegaly] Ext: [no gross muscle atrophy], [no edema], [no contractures] Neuro: [no focal neuro deficits] Psych: [Alert], [oriented], [appropriate affect] - Labs CBC & Chem 7: 12/30/18 05:42 12/30/18 05:42 Labs: Abnormal Lab Results - Last 24 Hours (Table) 12/29/18 12/29/18 12/29/18 Range/Units 11:55 14:37 17:34 BUN (9-20) mg/dL Glucose (74-99) mg/dL POC Glucose (mg/dL) 198 H 202 H (75-99) mg/dL ALT (21-72) U/L Triglycerides (<150) mg/dL Cholesterol (<200) mg/dL LDL Cholesterol, Calc (0-99) mg/dL HDL Cholesterol (40-60) mg/dL Urine Protein 1+ H (Negative) Urine Blood Trace H (Negative) Hyaline Casts 3 H (0-2) /lpf Urine Mucus Rare H (None) /hpf 12/29/18 12/30/18 12/30/18 Range/Units 21:07 05:42 06:25 BUN 23 H (9-20) mg/dL Glucose 247 H (74-99) mg/dL POC Glucose (mg/dL) 199 H 204 H (75-99) mg/dL ALT 14 L (21-72) U/L Triglycerides 266 H (<150) mg/dL Cholesterol 217 H (<200) mg/dL LDL Cholesterol, Calc 126 H (0-99) mg/dL HDL Cholesterol 38 L (40-60) mg/dL Urine Protein (Negative) Urine Blood (Negative) Hyaline Casts (0-2) /lpf Urine Mucus (None) /hpf 12/30/18 Range/Units 11:29 BUN (9-20) mg/dL Glucose (74-99) mg/dL POC Glucose (mg/dL) 228 H (75-99) mg/dL ALT (21-72) U/L Triglycerides (<150) mg/dL Cholesterol (<200) mg/dL LDL Cholesterol, Calc (0-99) mg/dL HDL Cholesterol (40-60) mg/dL Urine Protein (Negative) Urine Blood (Negative) Hyaline Casts (0-2) /lpf Urine Mucus (None) /hpf Assessment and Plan Assessment: Assessment and Plan 1. TIA 2. Hypertension 3. Bradycardia 4. Diabetes Mellitus 5. DVT and GI Prophylaxis 1. Symptoms of dizziness and slurred speech is now resolved. CT brain shows no acute intracranial process. Carotid ultrasound shows moderate left internal carotid stenosis 50-69%. Lipid panel shows elevated LDL at 126, total cholesterol of 217. Initial troponin 0.017, less than 0.012 with EKG showing sinus rhythm, ACS ruled out. Will follow-up echocardiogram, MRI brain, orthostatic vital results. Vascular surgery consulted for carotid stenosis. Follow PT consult. Follow cardiology consult for abnormal EKG. Neurochecks. Telemetry monitoring. 2. BP 158/80. Continue amlodipine 10 mg PO QD, chlorthalidone 25 mg PO QD, metoprolol 25 mg PO QD. Monitor vitals, adjust medications as necessary. 3. Heart rate in the 50s. Possibly secondary to metoprolol. Will rule out ACS. Telemetry monitoring. Follow Cardiology consult. 4. POC glucose 228. Continue Levemir 40 units SUBCUT BID and Lispro 20 units TID along with ISS. Follow A1c results. 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 inclusion paraeducator. Hypoglycemic precautions. Regular accuchecks. Patient admitted for TIA workup. Cardiology following for Bradycardia. Pending MRI and Echocardiogram. Possible discharge in 1-2 days.
[2018-12-30 13:36] LABS: Hemoglobin A1C 8.6 % (4.0-6.0)
--- NOTE | 2018-12-30 14:28 | CONS ---
CONSULTATION This is a 68-year-old gentleman who presented to the emergency room with history of lower extremity weakness and heaviness seen feeling with history of fatigue and generalized weakness. He is having these symptoms for the past 1 month. Then he felt some slurred speech and lightheadedness on the left facial droop which completely recovered. MEDICAL HISTORY: Patient has history of atrial fibrillation, history of diabetes mellitus, history of hyperlipidemia and hypertension and sleep apnea. PERSONAL HISTORY: Never smoked. PHYSICAL EXAMINATION: Patient was seen in his room. He is sitting comfortably. Neck is no bruit appreciated. CHEST: Clear to auscultation. Cardiovascular: 1st and 2nd sounds with regular rate and rhythm. ABDOMEN: Soft, nontender. CENTRAL NERVOUS SYSTEM: Oriented to time and place. No evidence of any motor weakness or symptoms. The patient had a CT of the brain suggestive of no acute intracranial process. The patient had a carotid ultrasound done which showed there is a plaque formation noted in the left internal carotid artery, stenosis with 50-69 percent stenosis per velocity. The patient is scheduled to have a MRI of the brain this evening. In the meantime, the patient is stable. We will follow with you. We will wait for the MRI report. We will discuss Internal Medicine if the patient has to be on antiplatelet therapy. Follow with you. Thank you very much for the consultation. MMODL / IJN: [id number] /
[2018-12-30 16:55] LABS: Glucose,Whole Blood 212 mg/dL (75-99)
[2018-12-30 21:12] LABS: Glucose,Whole Blood 290 mg/dL (75-99)
[2018-12-31] MEDS: INSULIN DETEMIR (LEVEMIR) 100 UNIT/ML SYR SQ SCH ×3 (00:08→21:50)
[2018-12-31 06:07] LABS: Glucose,Whole Blood 201 mg/dL (75-99)
[2018-12-31] MEDS: CHLORTHALIDONE 25 MG TAB PO SCH (08:51)
[2018-12-31] MEDS: INSULIN ASPART (NovoLOG) 100 UNIT/ML VIAL SQ SCH ×7 (08:52→21:51)
[2018-12-31] MEDS: amLODIPine 10 MG TAB PO SCH (08:52)
[2018-12-31] MEDS: ASPIRIN 81 MG PO SCH (08:52)
[2018-12-31] MEDS: METOPROLOL SUCCINATE (ER) 25 MG TAB.ER.24H PO SCH (08:55)
--- NOTE | 2018-12-31 10:45 | P.PN ---
Subjective Progress Note Date: 12/31/18 Principal diagnosis: Weakness Patient was seen and examined. No acute events overnight. Patient reports no symptoms this morning. He denies dizziness, chest pain or shortness of breath. Able to ambulate without any problems. MRI attempted yesterday, patient is too big to fit. Objective - Vital Signs Vital signs: Vital Signs Temp 98.1 F 12/31/18 04:00 Pulse 63 12/31/18 04:00 Resp 18 12/31/18 04:00 BP 126/69 12/31/18 04:00 Pulse Ox 96 12/31/18 04:00 Intake & Output 12/30/18 12/31/18 12/31/18 18:59 06:59 18:59 Intake Total 720 480 Balance 720 480 Weight 138.8 kg Intake: Oral 720 480 Other: Voiding Method Toilet # Voids 2 2 # Bowel Movements 0 - Exam General: [non toxic], [no distress], [appears at stated age] Derm: [warm], [dry] Head: [atraumatic], [normocephalic], [symmetric] Eyes: [EOMI], [no lid lag], [anicteric sclera] Mouth: [no lip lesion], [mucus membranes moist] Cardiovascular: [S1S2 reg], [diastolic murmur], [positive DP pulse bilateral] Lungs: [CTA bilateral], [no rhonchi, no rales] , [no accessory muscle use] Abdominal: [soft], [ nontender to palpation], [no guarding], [no appreciable organomegaly] Ext: [no gross muscle atrophy], [no edema], [no contractures] Neuro: [no focal neuro deficits] Psych: [Alert], [oriented], [appropriate affect] - Labs CBC & Chem 7: 12/30/18 05:42 12/30/18 05:42 Labs: Abnormal Lab Results - Last 24 Hours (Table) 12/29/18 12/30/18 12/30/18 Range/Units 11:15 11:29 16:50 POC Glucose (mg/dL) 228 H 212 H (75-99) mg/dL Hemoglobin A1c 8.6 H (4.0-6.0) % 12/30/18 12/31/18 Range/Units 21:11 06:06 POC Glucose (mg/dL) 290 H 201 H (75-99) mg/dL Hemoglobin A1c (4.0-6.0) % Assessment and Plan Assessment: Assessment and Plan 1. TIA 2. Hypertension 3. Bradycardia 4. Diabetes Mellitus 5. DVT and GI Prophylaxis 1. Symptoms of dizziness and slurred speech is now resolved. CT brain shows no acute intracranial process. Carotid ultrasound shows moderate left internal carotid stenosis 50-69%. Lipid panel shows elevated LDL at 126, total cholesterol of 217. Initial troponin 0.017, less than 0.012 with EKG showing sinus rhythm, ACS ruled out. Orthostats negative. Will follow-up echocardiogram, MRI brain, MRA head and neck. Patient is PT cleared. Follow cardiology consult for abnormal EKG. Follow-up vascular surgery recommendations. Neurochecks. Telemetry monitoring. 2. BP 126/69. Continue amlodipine 10 mg PO QD, chlorthalidone 25 mg PO QD. Monitor vitals, adjust medications as necessary. 3. Heart rate in the 50s. Resolved with discontinuation of metoprolol. Troponin less than 0.0122, ACS ruled out. Telemetry monitoring. Follow Cardiology consult. 4. POC glucose 201. Continue Levemir 40 units SUBCUT BID and Lispro 20 units TID along with ISS. A1c 8.6. 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 Hypoglycemic precautions. Regular accuchecks. 5. Lovenox 40 mg subcutaneous daily. Patient admitted for TIA workup. Patient unable to fit an MRI machine. Social work will attempt to get patient to [place] or outside facility for MRI, MRA. Cardiology following for Bradycardia. Discharge after workup is complete.
--- NOTE | 2018-12-31 11:18 | ECHOF ---
Referral Reason:tia/elevated blood pressure MEASUREMENTS -------- HEIGHT: 185.4 cm WEIGHT: 138.8 kg BP: 145/87 RVIDd: 3.2 cm (< 3.3) IVSd: 1.4 cm (0.6 - 1.1) LVIDd: 4.7 cm (3.9 - 5.3) LVPWd: 1.5 cm (0.6 - 1.1) IVSs: 1.8 cm LVIDs: 3.5 cm LVPWs: 1.7 cm LA Diam: 4.0 cm (2.7 - 3.8) LAESV Index (A-L): 26.68 ml/m Ao Diam: 3.3 cm (2.0 - 3.7) AV Cusp: 2.6 cm (1.5 - 2.6) MV EXCURSION: 20.477 mm (> 18.000) MV EF SLOPE: 89 mm/s (70 - 150) EPSS: 0.6 cm MV E Mohinder: 0.75 m/s MV DecT: 317 ms MV A Mohinder: 0.69 m/s MV E/A Ratio: 1.09 RAP: 5.00 mmHg RVSP: 20.05 mmHg FINDINGS -------- Sinus rhythm. This was a technically adequate study. The left ventricular size is normal. There is moderate concentric left ventricular hypertrophy. O verall left ventricular systolic function is normal with, an EF between 60 - 65 %. The right ventricle is normal in size. Normal LA size by volume 22+/-6 ml/m2. The right atrium is normal in size. There is mild aortic valve sclerosis. Mild mitral annular calcification present. [id number] mitral regurgitation is present. Mild tricuspid regurgitation present. Right ventricular systolic pressure is normal at < 35 mmHg. The pulmonic valve was not well visualized. The aortic root size is normal. IVC Not well visulized. There is no pericardial effusion. CONCLUSIONS -------- 1. Sinus rhythm. 2. This was a technically adequate study. 3. The left ventricular size is normal. 4. There is moderate concentric left ventricular hypertrophy. 5. Overall left ventricular systolic function is normal with, an EF between 60 - 65 %. 6. The right ventricle is normal in size. 7. Normal LA size by volume 22+/-6 ml/m2. 8. The right atrium is normal in size. 9. There is mild aortic valve sclerosis. 10. Mild mitral annular calcification present. 11. [id number] mitral regurgitation is present. 12. Mild tricuspid regurgitation present. 13. Right ventricular systolic pressure is normal at < 35 mmHg. 14. The pulmonic valve was not well visualized. 15. The aortic root size is normal. 16. IVC Not well visulized. 17. There is no pericardial effusion. BARISTA: Jennie Serna RDCS
[2018-12-31 11:45] LABS: Glucose,Whole Blood 160 mg/dL (75-99)
[2018-12-31] MEDS ORDERED: LORazepam 2 MG/ML INJ IV STA (12:09)
[2018-12-31] MEDS: ENOXAPARIN 40 MG/0.4 ML SYRINGE SQ SCH (12:19)
--- NOTE | 2018-12-31 12:54 | PN ---
PROGRESS NOTE Mr. Bills has been admitted with a history of TIA, hypertension, bradycardia, diabetes mellitus. This patient since admission has no evidence of dizziness. No history of slurred speech. No history of any motor deficit. CT scan of the brain, no acute infarcts noted. Patient had a carotid ultrasound which showed 50%-69% stenosis on the left side. Patient is scheduled to have a MRI, but patient does not fit into the MRI machine, most likely patient will go out of the facility for MRI of the brain. At this point, patient is stable. Follow with you. MMODL / IJN: [id number] /
--- NOTE | 2018-12-31 13:51 | P.PN ---
Subjective Progress Note Date: 12/31/18 This is a pleasant 68-year-old gentleman who has lived in [place] for the past 5 years and recently moved back to this area. He has a known history of hypertension, uncontrolled diabetes, hyperlipidemia, sleep apnea for which she uses a CPAP every night, he is a nonsmoker, no EtOH. Patient states that he has been on most of the statins as well as Crestor and has severe muscle weakening from them. He presents to the hospital on this occasion with symptoms of lightheadedness, weakness and feeling at times like he is going to pass out. According to the patient, his blood sugars for quite some time has been all over the place. He states that in recent weeks due to they have been up in the 500 range of 300 range except for a period according to the patient he could not afford the insulin that he was primarily put on and therefore takes regular insulin as well as 7030, adjusting it himself. He has however been running extremely high blood sugars. He also states that his blood pressure at times has been high. He was in [place] yesterday, states that it was very warm, and he felt lightheaded, like he may pass out. CAT scan of the brain was performed on arrival here, suggestion of minimal periventricular white matter ischemic change, no acute process. Chest x-ray did not reveal any acute pulmonary process. EKG shows a normal sinus rhythm with nonspecific ST-T wave changes. Carotid Doppler study shows atheromatous plaquing contributing to moderate left internal carotid artery stenosis between 50 and 69%. Blood pressure on arrival here 208/90, heart rate in the 70s, 90% on room air. Temperature 99.0. Blood pressure this morning 144/90, heart rate in the 50s, temperature 97.9, 95% on room air. Laboratory data was reviewed, white blood cell count 7.4, hemoglobin 14.7, platelet count 181. Sodium 142, potassium 3.7 , potassium was 3.4 on admission, BUN 23 and creatinine 0.7. Blood sugar on arrival 255, 247 this morning. Magnesium 1.6. ALT 20 alk phos 140 on admission , 14 and 110 this morning. Troponins 0.012, 0.017. Influenza A and B-. At the time of my examination this morning, patient is sitting up in his chair at bedside, he denies any lightheadedness or dizziness this morning, he does feel weak. Cholesterol level 266, LDL 126, HDL 38, and triglycerides 266. 12/31/2018 A shunt seen and examined this morning, blood pressure is significantly improved at 126/70. Echo revealed a normal left ventricular systolic function. Mild to moderate MR with mild TR noted. Patient refusing to take beta ngozi , apparently he has taken it in the past and his heart rate has gone quite slow. From our perspective we will continue with current medications. Plan on possible discharge home in the morning from our perspective. He is scheduled today to undergo an MRI of the brain. Objective - Vital Signs Vital signs: Vital Signs Temp 98.1 F 12/31/18 08:00 Pulse 77 12/31/18 12:00 Resp 18 12/31/18 12:00 BP 162/77 12/31/18 12:00 Pulse Ox 94 L 12/31/18 12:00 Intake & Output 12/30/18 12/31/18 12/31/18 18:59 06:59 18:59 Intake Total 720 480 Balance 720 480 Weight 138.8 kg Intake: Oral 720 480 Other: Voiding Method Toilet # Voids 2 2 2 # Bowel Movements 0 - Exam PHYSICAL EXAMINATION: GENERAL: 68-year-old gentleman in no acute distress at the time of my examination HEENT: Head is atraumatic, normocephalic. Pupils equal, round. Sclera anicteric. Conjunctiva are clear. Mucous membranes of the mouth are moist. Neck is supple. There is no elevated jugular venous pressure. No carotid bruit is heard. HEART EXAMINATION: Heart S1, S2 systolic murmur heard. CHEST EXAMINATION: Lungs are clear to auscultation and precussion. No chest wall tenderness is noted on palpation or with deep breathing. ABDOMEN: Soft, obese, nontender. Bowel sounds are heard. No organomegaly noted. EXTREMITIES: 2+ peripheral pulses with no evidence of peripheral edema and no calf tenderness noted. NEUROLOGIC patient is awake, alert and oriented 3 . - Labs CBC & Chem 7: 12/30/18 05:42 12/30/18 05:42 Labs: Abnormal Lab Results - Last 24 Hours (Table) 12/30/18 12/30/18 12/31/18 Range/Units 16:50 21:11 06:06 POC Glucose (mg/dL) 212 H 290 H 201 H (75-99) mg/dL 12/31/18 Range/Units 11:43 POC Glucose (mg/dL) 160 H (75-99) mg/dL Assessment and Plan Plan: Assessment and plan #1 symptoms of lightheadedness, dizziness with associated weakness #2 uncontrolled diabetes #3 uncontrolled hypertension #4 hyperlipidemia, intolerant to statins and Crestor because of severe muscle aching #5 sleep apnea, patient regularly uses a CPAP #6 hypokalemia #7 hypomagnesemia Plan Echocardiogram with Doppler study revealed a normal left ventricular systolic function with mild to moderate mitral regurgitation. We would recommend to continue the patient on his current medications. Patient wishes not to take a beta ngozi because of history of bradycardia on beta blockers in the past. He has been encouraged to try and take the medication while here so we can monitor his heart rate. MRI of the brain scheduled for today. DNP note has been reviewed, I agree with a documented findings and plan of care. Patient was seen and examined.
[2018-12-31] MEDS: EZETIMIBE 10 MG TAB PO SCH (13:56)
[2018-12-31 16:39] LABS: Glucose,Whole Blood 224 mg/dL (75-99)
[2018-12-31 21:38] LABS: Glucose,Whole Blood 184 mg/dL (75-99)
[2019-01-01 05:54] LABS: Glucose,Whole Blood 221 mg/dL (75-99)
[2019-01-01 06:02] LABS: Anion Gap 9 mmol/L; Blood Urea Nitrogen 25 mg/dL (9-20); Calcium 9.4 mg/dL (8.4-10.2); Carbon Dioxide 28 mmol/L (22-30); Chloride 101 mmol/L (98-107); Glucose 254 mg/dL (74-99); Potassium 3.6 mmol/L (3.5-5.1); Sodium 138 mmol/L (137-145)
[2019-01-01] MEDS: INSULIN ASPART (NovoLOG) 100 UNIT/ML VIAL SQ SCH ×4 (06:58→12:14)
[2019-01-01] MEDS: amLODIPine 10 MG TAB PO SCH (08:33)
[2019-01-01] MEDS: ENOXAPARIN 40 MG/0.4 ML SYRINGE SQ SCH (08:33)
[2019-01-01] MEDS: ASPIRIN 81 MG PO SCH (08:33)
[2019-01-01] MEDS: CHLORTHALIDONE 25 MG TAB PO SCH (08:33)
[2019-01-01] MEDS: METOPROLOL SUCCINATE (ER) 25 MG TAB.ER.24H PO SCH (08:33)
[2019-01-01] MEDS: EZETIMIBE 10 MG TAB PO SCH (08:37)
[2019-01-01] MEDS: INSULIN DETEMIR (LEVEMIR) 100 UNIT/ML SYR SQ SCH (08:37)
[2019-01-01 11:26] LABS: Glucose,Whole Blood 150 mg/dL (75-99)
--- NOTE | 2019-01-01 11:39 | P.PN ---
Subjective Progress Note Date: 01/01/19 Principal diagnosis: Hyperglycemia Patient was seen and examined. No acute events overnight. Underwent MRI, MRA have been head and neck at [place] yesterday. He denies any dizziness, shortness of breath, chest pain or palpitations. No nausea or vomiting. No fever or chills. No changes in urination or bowel habits. Objective - Vital Signs Vital signs: Vital Signs Temp 98.3 F 01/01/19 08:41 Pulse 59 L 01/01/19 08:42 Resp 20 01/01/19 08:42 BP 151/88 01/01/19 08:41 Pulse Ox 98 01/01/19 08:41 Intake & Output 12/31/18 01/01/19 01/01/19 18:59 06:59 18:59 Intake Total 720 480 Output Total 425 Balance 720 55 Weight 138.6 kg Intake: Oral 720 480 Output: Urine 425 Other: Voiding Method Toilet Toilet # Voids 2 1 1 - Exam General: [non toxic], [no distress], [appears at stated age] Derm: [warm], [dry] Head: [atraumatic], [normocephalic], [symmetric] Eyes: [EOMI], [no lid lag], [anicteric sclera] Mouth: [no lip lesion], [mucus membranes moist] Cardiovascular: [S1S2 reg], [diastolic murmur], [positive DP pulse bilateral] Lungs: [CTA bilateral], [no rhonchi, no rales] , [no accessory muscle use] Abdominal: [soft], [ nontender to palpation], [no guarding], [no appreciable organomegaly] Ext: [no gross muscle atrophy], [1+ lower extremity pitting edema], [no contractures] Neuro: [no focal neuro deficits] Psych: [Alert], [oriented], [appropriate affect] - Labs CBC & Chem 7: 12/30/18 05:42 01/01/19 05:19 Labs: Abnormal Lab Results - Last 24 Hours (Table) 12/31/18 12/31/18 12/31/18 Range/Units 11:43 16:37 21:37 BUN (9-20) mg/dL Glucose (74-99) mg/dL POC Glucose (mg/dL) 160 H 224 H 184 H (75-99) mg/dL 01/01/19 01/01/19 01/01/19 Range/Units 05:19 05:38 11:21 BUN 25 H (9-20) mg/dL Glucose 254 H (74-99) mg/dL POC Glucose (mg/dL) 221 H 150 H (75-99) mg/dL Assessment and Plan Assessment: Assessment and Plan 1. TIA 2. Hypertension 3. Bradycardia 4. Diabetes Mellitus 5. DVT and GI Prophylaxis 1. Symptoms of dizziness and slurred speech is now resolved. CT brain shows no acute intracranial process. Carotid ultrasound shows moderate left internal carotid stenosis 50-69%. Lipid panel shows elevated LDL at 126, total cholesterol of 217. Initial troponin 0.017, less than 0.012 with EKG showing sinus rhythm, ACS ruled out. Orthostats negative. Echocardiogram shows EF 60- 65% with moderate LVH. MRI brain and MRA head and neck done, pending read. Patient is PT cleared. Follow cardiology consult for abnormal EKG. Follow-up vascular surgery recommendations. Neurochecks. Telemetry monitoring. 2. BP 151/88. Continue amlodipine 10 mg PO QD, chlorthalidone 25 mg PO QD. Monitor vitals, adjust medications as necessary. 3. Heart rate in the 50s. Resolved with discontinuation of metoprolol. Troponin less than 0.0122, ACS ruled out. Telemetry monitoring. Follow Cardiology consult. 4. POC glucose 150. Continue Levemir 40 units SUBCUT BID and Lispro 20 units TID along with ISS. A1c 8.6. 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 Regular accuchecks. 5. Lovenox 40 mg subcutaneous daily. Patient admitted for TIA workup. Patient unable to fit an MRI machine. MRI and MRA complete, pending read. Will follow-up vascular surgery recommendations. Likely discharge today.
[2019-01-01 11:45] VITALS: BP 160/70; PULSE 55; RESP 18; TEMP 98.4
--- NOTE | 2019-01-01 15:12 | P.PN ---
Subjective Progress Note Date: 01/01/19 This is a pleasant 68-year-old gentleman who has lived in [place] for the past 5 years and recently moved back to this area. He has a known history of hypertension, uncontrolled diabetes, hyperlipidemia, sleep apnea for which she uses a CPAP every night, he is a nonsmoker, no EtOH. Patient states that he has been on most of the statins as well as Crestor and has severe muscle weakening from them. He presents to the hospital on this occasion with symptoms of lightheadedness, weakness and feeling at times like he is going to pass out. According to the patient, his blood sugars for quite some time has been all over the place. He states that in recent weeks due to they have been up in the 500 range of 300 range except for a period according to the patient he could not afford the insulin that he was primarily put on and therefore takes regular insulin as well as 7030, adjusting it himself. He has however been running extremely high blood sugars. He also states that his blood pressure at times has been high. He was in latter day yesterday, states that it was very warm, and he felt lightheaded, like he may pass out. CAT scan of the brain was performed on arrival here, suggestion of minimal periventricular white matter ischemic change, no acute process. Chest x-ray did not reveal any acute pulmonary process. EKG shows a normal sinus rhythm with nonspecific ST-T wave changes. Carotid Doppler study shows atheromatous plaquing contributing to moderate left internal carotid artery stenosis between 50 and 69%. Blood pressure on arrival here 208/90, heart rate in the 70s, 90% on room air. Temperature 99.0. Blood pressure this morning 144/90, heart rate in the 50s, temperature 97.9, 95% on room air. Laboratory data was reviewed, white blood cell count 7.4, hemoglobin 14.7, platelet count 181. Sodium 142, potassium 3.7 , potassium was 3.4 on admission, BUN 23 and creatinine 0.7. Blood sugar on arrival 255, 247 this morning. Magnesium 1.6. ALT 20 alk phos 140 on admission , 14 and 110 this morning. Troponins 0.012, 0.017. Influenza A and B-. At the time of my examination this morning, patient is sitting up in his chair at bedside, he denies any lightheadedness or dizziness this morning, he does feel weak. Cholesterol level 266, LDL 126, HDL 38, and triglycerides 266. 12/31/2018 Patient seen and examined this morning, blood pressure is significantly improved at 126/70. Echo revealed a normal left ventricular systolic function. Mild to moderate MR with mild TR noted. Patient refusing to take beta ngozi , apparently he has taken it in the past and his heart rate has gone quite slow. From our perspective we will continue with current medications. Plan on possible discharge home in the morning from our perspective. He is scheduled today to undergo an MRI of the brain. 01/01/2019 Patient seen and examined this morning, refusing to take beta ngozi. Anticipating discharge home today. From our perspective he may be able to be discharged to follow-up with Dr. Vazquez in the office post discharge. Objective - Vital Signs Vital signs: Vital Signs Temp 98.4 F 01/01/19 11:44 Pulse 55 L 01/01/19 11:44 Resp 18 01/01/19 11:44 BP 160/70 01/01/19 11:44 Pulse Ox 95 01/01/19 11:44 Intake & Output 12/31/18 01/01/19 01/01/19 18:59 06:59 18:59 Intake Total 720 720 Output Total 425 Balance 720 295 Weight 138.6 kg Intake: Oral 720 720 Output: Urine 425 Other: Voiding Method Toilet Toilet # Voids 2 1 1 - Exam PHYSICAL EXAMINATION: GENERAL: 68-year-old gentleman in no acute distress at the time of my examination HEENT: Head is atraumatic, normocephalic. Pupils equal, round. Sclera anicteric. Conjunctiva are clear. Mucous membranes of the mouth are moist. Neck is supple. There is no elevated jugular venous pressure. No carotid bruit is heard. HEART EXAMINATION: Heart S1, S2 systolic murmur heard. CHEST EXAMINATION: Lungs are clear to auscultation and precussion. No chest wall tenderness is noted on palpation or with deep breathing. ABDOMEN: Soft, obese, nontender. Bowel sounds are heard. No organomegaly noted. EXTREMITIES: 2+ peripheral pulses with no evidence of peripheral edema and no calf tenderness noted. NEUROLOGIC patient is awake, alert and oriented 3 . - Labs CBC & Chem 7: 12/30/18 05:42 01/01/19 05:19 Labs: Abnormal Lab Results - Last 24 Hours (Table) 12/31/18 12/31/18 01/01/19 Range/Units 16:37 21:37 05:19 BUN 25 H (9-20) mg/dL Glucose 254 H (74-99) mg/dL POC Glucose (mg/dL) 224 H 184 H (75-99) mg/dL 01/01/19 01/01/19 Range/Units 05:38 11:21 BUN (9-20) mg/dL Glucose (74-99) mg/dL POC Glucose (mg/dL) 221 H 150 H (75-99) mg/dL Assessment and Plan Plan: Assessment and plan #1 symptoms of lightheadedness, dizziness with associated weakness #2 uncontrolled diabetes #3 uncontrolled hypertension #4 hyperlipidemia, intolerant to statins and Crestor because of severe muscle aching #5 sleep apnea, patient regularly uses a CPAP #6 hypokalemia #7 hypomagnesemia Plan Echocardiogram with Doppler study revealed a normal left ventricular systolic function with mild to moderate mitral regurgitation. We would recommend to continue the patient on his current medications. Patient wishes not to take a beta ngozi because of history of bradycardia on beta blockers in the past. He may be able to be discharged home today. We'll make him a follow-up appointment to see Dr. Vazquez in the office in 2 weeks. DNP note has been reviewed, I agree with a documented findings and plan of care. Patient was seen and examined.
--- NOTE | 2019-01-14 11:52 | P.DS ---
Providers Date of admission: 12/29/18 16:25 Expected date of discharge: 01/01/19 Attending physician: Chaitanya Kahn MD Consults: 12/29/18 16:50 Consult Physician Urgent Consulting Provider: Paul Yin Consult Reason/Comments: fatigue, t wave inversion Do you want consulting provider notified?: Yes 12/30/18 10:29 Consult Physician Stat Consulting Provider: Salvatore Gutierrez Consult Reason/Comments: Carotid stenosis Do you want consulting provider notified?: Yes Primary care physician: [facility] Course: The patient is a left-hand dominant 66-year-old obese male with a past medical history of type 2 diabetes, essential hypertension, dyslipidemia, obstructive sleep apnea on CPAP who presents to the ER via private vehicle with his complaining of increasing lower extremity weakness described as heaviness, fatigue and generalized weakness. Apparently the patient reports these generalized symptoms for the last month, today in particular the patient reports some slurred speech and left facial droop early this morning which seems to have resolved for the most part. He also complains of lightheadedness and dizziness. The patient reports that the patient has been having difficulty finding words over the last month and that his blood sugars have been uncontrolled often in the high 300-400 range. The patient complains of increasing thirst, dry mouth, nocturia and polyuria. The patient reports multiple adverse reactions to blood pressure and diabetic medications and reports that he only takes chlorthalidone and insulin at this time. He reports severe ALLERGY to lisinopril losartan causing swelling and weakness and statin causing myalgias and weakness. The patient denied any shortness of breath chest pain or palpitations or lower extremity swelling. He reports to having an A1c done approximately 2 weeks ago that was approximately 7.5. In the ER the patient was noted to have elevated blood pressures , CT of the head was negative for any acute intracranial pathology only showed periventricular white matter disease, EKG indicated sinus mechanism with nonspecific T-wave changes troponin was negative less than 0.012. The patient' s blood sugar was approximately 198. Regarding his symptoms of dizziness and slurred speech, this had resolved since admission. Carotid ultrasound showed moderate left internal carotid stenosis at 50-69%. Lipid panel showed an elevated LDL at 126 and total cholesterol of 217. Initial troponin was 0.017, less than 0.012 with EKG showing sinus rhythm , ACS was ruled out. Orthostats sets were obtained and were negative. Echocardiogram was obtained which showed an EF of 60-65% with moderate LVH. Patient was transferred to [facility] due to inability to fit in her current MR admission. MRI brain and MRA head and neck were done and negative. Vascular surgery was consulted and recommended outpatient follow-up. Cardiology was consulted for management of hypertension. His blood pressure was controlled with amlodipine, chlorthalidone. Patient was noted to be bradycardic during his hospitalization and metoprolol was discontinued. Assessment and Plan 1. TIA 2. Hypertension 3. Bradycardia 4. Diabetes Mellitus 5. DVT and GI Prophylaxis 1. Symptoms of dizziness and slurred speech is now resolved. CT brain shows no acute intracranial process. Carotid ultrasound shows moderate left internal carotid stenosis 50-69%. Lipid panel shows elevated LDL at 126, total cholesterol of 217. Initial troponin 0.017, less than 0.012 with EKG showing sinus rhythm, ACS ruled out. Orthostats negative. Echocardiogram shows EF 60- 65% with moderate LVH. MRI brain and MRA head and neck unremarkable. Patient is PT cleared. Follow cardiology consult for abnormal EKG. vascular surgery consulted, recommends outpatient follow-up. Neurochecks. Telemetry monitoring. 2. BP 151/88. Continue amlodipine 10 mg PO QD, chlorthalidone 25 mg PO QD. Monitor vitals, adjust medications as necessary. 3. Heart rate in the 50s. Resolved with discontinuation of metoprolol. Troponin less than 0.0122, ACS ruled out. Telemetry monitoring. Follow Cardiology consult. 4. POC glucose 150. Continue Levemir 40 units SUBCUT BID and Lispro 20 units TID along with ISS. A1c 8.6. 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 Regular accuchecks. 5. Lovenox 40 mg subcutaneous daily. His complex discharge took greater than 30 minutes. Pertinent Studies: Carotid Doppler Echocardiogram Brain CT Brain MRI/MRA at [facility] Patient Condition at Discharge: Good Plan - Discharge Summary Discharge Rx Participant: No New Discharge Prescriptions: New amLODIPine [Norvasc] 10 mg PO DAILY #30 tab Aspirin 81 mg PO DAILY #30 chew Chlorthalidone [Hygroton] 25 mg PO DAILY #30 tab Ezetimibe [Zetia] 10 mg PO DAILY #30 tab Continue Chlorthalidone 25 mg PO DAILY Insulin Regular, Human [NovoLIN R] 20 unit SQ AC-TID #1 vial Changed Insulin NPH Hum/Reg Insulin Hm [NovoLIN 70-30 100 UNIT/ML VIAL] 40 unit SQ BID #1 vial Discharge Medication List Chlorthalidone 25 mg PO DAILY 12/29/18 [History] Aspirin 81 mg PO DAILY #30 chew 01/01/19 [Rx] Chlorthalidone [Hygroton] 25 mg PO DAILY #30 tab 01/01/19 [Rx] Ezetimibe [Zetia] 10 mg PO DAILY #30 tab 01/01/19 [Rx] Insulin NPH Hum/Reg Insulin Hm [NovoLIN 70-30 100 UNIT/ML VIAL] 40 unit SQ BID # 1 vial 01/01/19 [Rx] Insulin Regular, Human [NovoLIN R] 20 unit SQ AC-TID #1 vial 01/01/19 [Rx] amLODIPine [Norvasc] 10 mg PO DAILY #30 tab 01/01/19 [Rx] Follow up Appointment(s)/Referral(s): Iron Vazquez MD [STAFF PHYSICIAN] - 01/15/19 11:15 am (Sunday) Lulu Palacios NPC [Nurse Practitioner] - 01/08/19 1:30 pm (Sunday) Salvatore Gutierrez MD [STAFF PHYSICIAN] - (Appointment cancelled per pt request) Activity/Diet/Wound Care/Special Instructions: Diet; diabetic and heart healthy Please take all medications as advised. Discharge Disposition: HOME SELF-CARE
== END 2019-01-01 15:13 | disposition home or self-care (01) ==
LOC: EC 10:50 → 3SCARD 16:25
PROVIDERS: ADMIT Family Medicine; ATTEND Family Medicine
DX: G45.9 Transient cerebral ischemic attack, unspecified (principal); R53.83 Other fatigue; R53.1 Weakness; R47.81 Slurred speech; R42 Dizziness and giddiness; E66.9 Obesity, unspecified; R00.1 Bradycardia, unspecified; Z68.41 Body mass index [BMI] 40.0-44.9, adult; I10 Essential (primary) hypertension; I34.0 Nonrheumatic mitral (valve) insufficiency; E11.65 Type 2 diabetes mellitus with hyperglycemia; E78.5 Hyperlipidemia, unspecified; E83.42 Hypomagnesemia; E87.6 Hypokalemia; G47.33 Obstructive sleep apnea (adult) (pediatric); I16.0 Hypertensive urgency; I48.91 Unspecified atrial fibrillation; I65.22 Occlusion and stenosis of left carotid artery; Z79.4 Long term (current) use of insulin; Z79.899 Other long term (current) drug therapy; Z82.49 Family history of ischemic heart disease and other diseases of the circulatory system; Z83.3 Family history of diabetes mellitus; Z86.73 Personal history of transient ischemic attack (TIA), and cerebral infarction without residual deficits; Z88.8 Allergy status to other drugs, medicaments and biological substances; Z99.89 Dependence on other enabling machines and devices
CPT/HCPCS: 96372 ×2; 96360; 96361; 99285; 36415; 93005; 93306; 97161; 84439; 84481; 80061; 80053 ×2; 80048; 82550; 82553; 83605; 83735; 84100; 84443; 84484 ×2; 85025 ×2; 85610; 85730; 81001; 87502; 83036; 71046; 93880; 70450; G0378 ×4; J1650 ×2

== ENCOUNTER → 2019-07-07 | Outpatient (CLI) | payer MEDICARE ==
[2019-07-07 11:34] LABS: Urine Creatinine 157.6 mg/dL
[2019-07-07 16:43] LABS: African American GFR (CKD) 100.6 (60.0-200.0); Anion Gap 14.4 mmol/L (4.00-12.00); BUN/Creat Ratio 24.44 Ratio (12.00-20.00); Calcium 9.5 mg/dL (8.7-10.3); Carbon Dioxide 28.6 mmol/L (21.6-31.8); Chol/HDL Ratio 5.81; LDL Cholesterol,Calculated 122.4 mg/dL (0.0-131.0); Non-African American GFR(CKD) 86.8 (60.0-200.0); Potassium 3.3 mmol/L (3.5-5.5); VLDL Calculation 50.6 mg/dL (5.00-40.00)
[2019-07-07 19:32] LABS: Hemoglobin A1C 8.8 % (4.0-6.0)
== END | disposition home or self-care (01) ==
LOC: LABWHC1 07:09
PROVIDERS: ATTEND Nurse Practitioner Adult Health
DX: E11.69 Type 2 diabetes mellitus with other specified complication (principal); E78.5 Hyperlipidemia, unspecified; R53.83 Other fatigue
CPT/HCPCS: 36415; 80048; 80061; 82043; 82570; 83036; 84402; 84403; 84443

== ENCOUNTER 2019-11-07 15:10 | Emergency (ER) | payer MEDICARE ==
[2019-11-07 15:19] VITALS: TEMP 98.1
[2019-11-07] MEDS ORDERED: LIDOCAINE 1% INJ 10MG/ML (20 ML MDV) SQ ONE (15:23)
--- NOTE | 2019-11-07 15:30 | ED ---
Wound/Laceration HPI - General Chief Complaint: Wound/Laceration Stated Complaint: R Hand Injury Time Seen by Provider: 11/07/19 15:20 Source: patient, RN notes reviewed Mode of arrival: ambulatory Limitations: no limitations - History of Present Illness Initial Comments: 69-year-old male presents emergency Department chief complaint laceration to his second digit. Patient states he is using a thin cranial states that it broke into 3 pieces causing a laceration to his right hand. He is up-to-date on his tetanus with the last 5 years has full range of motion no paresthesias. Patient offers no other complaints. - Related Data Home Medications Medication Instructions Recorded Confirmed Chlorthalidone 25 mg PO DAILY 12/29/18 12/29/18 Previous Rx's Medication Instructions Recorded Aspirin 81 mg PO DAILY #30 chew 01/01/19 Chlorthalidone [Hygroton] 25 mg PO DAILY #30 tab 01/01/19 Ezetimibe [Zetia] 10 mg PO DAILY #30 tab 01/01/19 Insulin NPH Hum/Reg Insulin Hm 40 unit SQ BID #1 vial 01/01/19 [NovoLIN 70-30 100 UNIT/ML VIAL] Insulin Regular, Human [NovoLIN R] 20 unit SQ AC-TID #1 vial 01/01/19 amLODIPine [Norvasc] 10 mg PO DAILY #30 tab 01/01/19 Allergies Allergy/AdvReac Type Severity Reaction Status Date / Time glipizide Allergy Swelling Verified 11/07/19 15:19 lisinopril Allergy Swelling Verified 11/07/19 15:19 losartan Allergy Swelling Verified 11/07/19 15:19 amlodipine [From Norvasc] AdvReac DEPRESSION Verified 11/07/19 15:19 atorvastatin [From Lipitor] AdvReac WEAKNESS Verified 11/07/19 15:19 metformin AdvReac Cough Verified 11/07/19 15:19 Review of Systems ROS Statement: Those systems with pertinent positive or pertinent negative responses have been documented in the HPI. ROS Other: All systems not noted in ROS Statement are negative. Past Medical History Past Medical History: Atrial Fibrillation, Diabetes Mellitus, Hyperlipidemia, Hypertension Additional Past Medical History / Comment(s): uses c-pap at home, pneu as child almost History of Any Multi-Drug Resistant Organisms: None Reported Past Surgical History: Back Surgery, Orthopedic Surgery Additional Past Surgical History / Comment(s): , total left hip, gato carpel tunnel, wire mesh in umbical area, Past Anesthesia/Blood Transfusion Reactions: Previous Problems w/ Anesthesia Additional Past Anesthesia/Blood Transfusion Reaction / Comment(s): last time no problems with anesthia but did have previously Past Psychological History: No Psychological Hx Reported Smoking Status: Never smoker Past Alcohol Use History: None Reported Past Drug Use History: None Reported - Past Family History Brother(s) Family Medical History: Coronary Artery Disease (CAD), Hypertension Mother Family Medical History: Diabetes Mellitus Additional Family Medical History / Comment(s): in mva Father Additional Family Medical History / Comment(s): bad thyroid General Exam Limitations: no limitations General appearance: alert, in no apparent distress Head exam: Present: atraumatic, normocephalic, normal inspection Eye exam: Present: normal appearance, PERRL, EOMI. Absent: scleral icterus, conjunctival injection, periorbital swelling Respiratory exam: Present: normal lung sounds bilaterally. Absent: respiratory distress, wheezes, rales, rhonchi, stridor Cardiovascular Exam: Present: regular rate, normal rhythm, normal heart sounds. Absent: systolic murmur, diastolic murmur, rubs, gallop, clicks Extremities exam: Present: other (Right hand second digit there is 3 cm laceration full range of motion neurovascular intact) Neurological exam: Present: alert, oriented X3 Skin exam: Present: warm, dry, intact, normal color. Absent: rash Course Vital Signs 11/07/19 15:16 Temperature 98.1 F Pulse Rate 74 Respiratory 16 Rate Blood Pressure 168/88 O2 Sat by Pulse 96 Oximetry Procedures - Laceration Laceration #1 Consent Obtained: verbal consent Indication: laceration Site: hand (Right hand second digit) Size (cm): 3 Description: irregular Depth: simple, single layer Anesthetic Used: lidocaine 1%, without epi Anesthesia Technique: local infiltration Amount (mls): 5 Pre-repair: wound explored, irrigated extensively, deep structures intact Type of Sutures: nylon Size of Sutures: 4-0 Number of Sutures: 4 Technique: simple, interrupted Patient Tolerated Procedure: well, no complications Medical Decision Making - Medical Decision Making Patient's laceration was thoroughly cleaned, closed patient we discharged on Anaprox will follow-up with orthopedics. Disposition Clinical Impression: Open fracture of finger of right hand, Laceration of finger, right Disposition: HOME SELF-CARE Condition: Stable Instructions (If sedation given, give patient instructions): Care For Your Stitches (ED), Finger Laceration (ED) Additional Instructions: Have sutures removed in 10 days.Please return to the Emergency Department if symptoms worsen or any other concerns. Is patient prescribed a controlled substance at d/c from ED?: No Referrals: Ovi Gallagher MD [Primary Care Provider] - 1-2 days Cristóbal Neumann DO [Medical Doctor] - 1-2 days Time of Disposition: 16:07
[2019-11-07] MEDS ORDERED: CEPHALEXIN 500MG STARTER PACK 4 CAP BTL PO STA (15:47)
--- NOTE | 2019-11-07 15:57 | XR ---
Second digit right hand HISTORY: Laceration 3 views of the second digit of the right hand Soft tissue swelling is present. Small ossific density present at the level of the distal interphalan geal joint laterally is thought likely to be chronic. There is a lucency involving the proximal aspec t of the proximal phalanx of the second digit of the right hand which is thought to extend toward the joint, small ossific density also present at this level is well-corticated and not felt likely to be acute. Marginal spurring present. Distal interphalangeal joints show hypertrophic change with joint space loss. IMPRESSION: Difficult to exclude nondisplaced fracture of the proximal phalanx. Osteoarthritic change s are noted incidentally.
[2019-11-07 16:34] VITALS: BP 140/78; PULSE 85; RESP 18
== END 2019-11-07 16:34 | disposition home or self-care (01) ==
LOC: EC 15:10
DX: S62.640A Nondisplaced fracture of proximal phalanx of right index finger, initial encounter for closed fracture (principal); S61.210A Laceration without foreign body of right index finger without damage to nail, initial encounter; I10 Essential (primary) hypertension; E11.9 Type 2 diabetes mellitus without complications; Z79.4 Long term (current) use of insulin; Z88.8 Allergy status to other drugs, medicaments and biological substances; W26.8XXA Contact with other sharp object(s), not elsewhere classified, initial encounter; Y93.89 Activity, other specified; Y92.009 Unspecified place in unspecified non-institutional (private) residence as the place of occurrence of the external cause
CPT/HCPCS: 73140; 12002; 99283; J2001

== ENCOUNTER → 2021-07-27 | Outpatient (CLI) | payer MEDICARE ==
--- NOTE | 2021-07-27 14:20 | CT ---
EXAMINATION TYPE: CT abdomen pelvis wo con DATE OF EXAM: 07/27/2021 COMPARISON: None INDICATION: gross hematuria DLP: 3470..8 mGycm, Automated exposure control for dose reduction was used. CONTRAST: 0 mL of Isovue 300. Study performed without Oral Contrast TECHNIQUE: Axial images were obtained from above the diaphragm to the pubic rami in the axial plane a t 5 mm thick sections. Reconstructed images are reviewed on the computer in the coronal plane. FINDINGS: Limited CT sections are obtained the lung bases. There is a small area of pneumonitis within the rig ht lung base. Example image series 7 image 8. This is nonspecific and may be related to atelectasis. Follow-up can be performed CT ABDOMEN: Liver: Normal Spleen: Normal Pancreas: Normal Adrenal glands: The adrenal glands are normal. Gallbladder: Normal Kidneys: No masses are evident. No hydronephrosis is present. There may be a complex cyst measuring 34 Hounsfield units 2.2 cm along the superior right kidney. Consider evaluation with ultrasound. No renal stones are identified. Aorta: Vascular calcification is within the aorta. Inferior vena cava: Normal. CT PELVIS: There is some limitation along the inferior pelvis due to beam hardening artifact from lef t hip prosthesis. Loops of bowel within the abdomen and pelvis are normal. Scattered diverticuli are present within the colon. No adjacent inflammatory change to suggest acute diverticulitis is evident. There are loop s of bowel which are incompletely distended or lack oral contrast limiting their evaluation. Appendix: Normal as visualized. Urinary bladder: Normal. Genitourinary structures: Prostate is prominent. Osseous structures: No suspicious lytic or sclerotic lesions. IMPRESSIONS: 1. No suspicious abnormality to account for gross hematuria. 2. Complex cyst or mass on the superior right kidney. Additional workup with ultrasound is recommende d. 3. Diverticulosis without evidence of acute diverticulitis.
== END | disposition home or self-care (01) ==
LOC: RADCTMAIN 12:19
PROVIDERS: ATTEND Urology
DX: K57.90 Diverticulosis of intestine, part unspecified, without perforation or abscess without bleeding (principal); R31.0 Gross hematuria
CPT/HCPCS: 74176

== ENCOUNTER → 2022-04-13 | Outpatient (CLI) | payer MEDICARE ==
[2022-04-13 22:20] LABS: Appearance,Urine Cloudy (Clear); Bacteria,Urine Moderate /hpf; Bilirubin,Urine Negative (Negative); Blood,Urine Large (Negative); Color,Urine Yellow; Glucose,Urine (UA) 3+ (Negative); Ketones,Urine Negative (Negative); Leukocyte Esterase,Urine Large (Negative); Mucus,Urine Rare /hpf; Nitrite,Urine Negative (Negative); Protein,Urine 1+ (Negative); RBC,Urine >182 /hpf (0-5); Specific Gravity,Urine 1.016 (1.001-1.035); Urobilinogen,Urine <2.0 mg/dL (<2.0); WBC,Urine 128 /hpf (0-5)
[2022-04-13 23:05] LABS: African American GFR (CKD) 84.7 (60.0-200.0); BUN/Creat Ratio 28.04 Ratio (12.00-20.00); Blood Urea Nitrogen 28.6 mg/dL (9.0-27.0); Calcium 9.5 mg/dL (8.7-10.3); Carbon Dioxide 26.3 mmol/L (20.0-27.5); Non-African American GFR(CKD) 73.1 (60.0-200.0); Potassium 3.8 mmol/L (3.5-5.5)
[2022-04-13 23:23] LABS: Basophils # (A) 0.07 X 10*3/uL (0.00-0.10); Basophils % (A) 0.7 %; HCT 37.1 % (39.6-50.0); HGB 11.4 g/dL (13.0-17.0); Immature Grans, Automated 0.6 %; Lymphocytes % (A) 19.5 %; MCH 29.8 pg (27.0-32.0); MCHC 30.7 g/dL (32.0-37.0); MCV 96.9 fL (80.0-97.0); Mean Platelet Volume 12.4 fL (9.5-12.2); Monocytes % (A) 7.2 %; NRBC Per 100 WBC 0 /100 WBCS (0.0-0.0); Neutrophils # (A) 6.89 X 10*3/uL (1.80-7.70); Platelet Count 282 X 10*3/uL (140-440); RBC 3.83 X 10*6/uL (4.40-5.60); RDW 14.7 % (11.5-14.5); WBC 9.72 X 10*3/uL (4.50-10.00)
== END | disposition home or self-care (01) ==
LOC: LABPAT 16:48
PROVIDERS: ATTEND Urology
DX: Z01.812 Encounter for preprocedural laboratory examination (principal); N40.1 Benign prostatic hyperplasia with lower urinary tract symptoms
CPT/HCPCS: 36415; 80048; 81001; 85025; 87086

== ENCOUNTER 2022-04-20 10:06 | Day surgery (SDC) | payer MEDICARE ==
[2022-04-18 10:36] VITALS: BMI 40.2
--- NOTE | 2022-04-19 22:27 | P.GSHP ---
History of Present Illness H&P Date: 04/19/22 Chief Complaint: Urinary clot retention The patient is a 72-year-old white male who underwent a Greenlight laser TURP in approximately 2015. He developed gross hematuria in late June 2021. Ultrasound showed a 2.5 cm right renal cyst and a possible bladder mass. CT scan without contrast showed a 2.2 cm right complex renal lesion but was otherwise unremarkable. 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 It was presumed that the prostate was the source of the hematuria. He states that his urine since that time has been dark at times, and he developed urinary clot retention last month which required cystoscopy, evacuation of clot, fulguration of bleeders from the left lateral prostatic lobe. Significant left- sided residual prostatic tissue was seen at that time. The Lezama catheter remains in place. - Constitutional Constitutional: Denies chills, Denies fever - Genitourinary (Male) Genitourinary: Reports as per HPI Past Medical History Past Medical History: Atrial Fibrillation, Diabetes Mellitus, Hypertension, Prostate Disorder Additional Past Medical History / Comment(s): uses c-pap at home, pneumonia as child almost , enlarged prostate History of Any Multi-Drug Resistant Organisms: None Reported Past Surgical History: Back Surgery, Hernia Repair, Orthopedic Surgery Additional Past Surgical History / Comment(s): total left hip, gato carpel tunnel, Greenlight laser TURP 2015, gato shoulder rotator cuff, cystoscopy 03/26/22 Past Anesthesia/Blood Transfusion Reactions: Previous Problems w/ Anesthesia Additional Past Anesthesia/Blood Transfusion Reaction / Comment(s): previous surgery had diff waking up "too much anesthesia" Smoking Status: Never smoker - Past Family History Brother(s) Family Medical History: Coronary Artery Disease (CAD), Hypertension Mother Family Medical History: No Reported History Additional Family Medical History / Comment(s): in mva Father Additional Family Medical History / Comment(s): bad thyroid Medications and Allergies Home Medications Medication Instructions Recorded Confirmed Type Ascorbic Acid [Vitamin C] 500 mg PO DAILY 03/26/22 04/18/22 History Chlorthalidone 50 mg PO QAM 03/26/22 04/18/22 History Cholecalciferol [Vitamin D3 (125 125 mcg PO DAILY 03/26/22 04/18/22 History Mcg = 5000 Iu)] Multivitamins, Thera Liquid 5 ml PO DAILY 03/26/22 04/18/22 History [Theragran Liquid (formulary)] Potassium Chloride ER [K-Dur 20] 20 meq PO BID 03/26/22 04/18/22 History lisinopriL [Zestril] 20 mg PO DAILY 03/26/22 04/18/22 History Apixaban [Eliquis] 5 mg PO BID 30 Days #60 tab 03/27/22 04/18/22 Rx Metoprolol Tartrate [Lopressor] 25 mg PO BID tab 03/28/22 04/18/22 Rx Insulin Aspart [NovoLOG Flexpen] 12 units SQ TID-W/MEALS 04/18/22 04/18/22 History Insulin Glargine,Hum.rec.anlog 40 unit SQ HS 04/18/22 04/18/22 History [Lantus Solostar Pen] Allergies Allergy/AdvReac Type Severity Reaction Status Date / Time glipizide Allergy Swelling Verified 04/18/22 10:10 losartan Allergy Swelling Verified 04/18/22 10:10 amlodipine [From Norvasc] AdvReac DEPRESSION Verified 04/18/22 10:10 atorvastatin [From Lipitor] AdvReac WEAKNESS Verified 04/18/22 10:10 Iodinated Contrast Media AdvReac Rash/Hives Verified 04/18/22 10:10 metformin AdvReac Cough Verified 04/18/22 10:10 Surgical - Exam - General well developed, well nourished, no distress - Respiratory normal respiratory effort - Abdomen Abdomen: soft, non tender, no guarding, no rigid, no rebound - Genitourinary normal penis with no external lesions, testicles non-tender - Psychiatric oriented to time, oriented to person, oriented to place, speech is normal, memory intact Assessment and Plan (1) Benign prostatic hyperplasia with lower urinary tract symptoms Status: Acute Code(s): N40.1 - BENIGN PROSTATIC HYPERPLASIA WITH LOWER URINARY TRACT SYMP SNOMED Code(s): 185873940 Plan: Cystoscopy, bipolar transurethral resection of prostate (TURP). The procedure has been reviewed in detail with the patient and his family. They are aware of potential risks, which include anesthesia, persistent bleeding, infection, incontinence, and development of a urethral stricture.
[~2022-04-20 10:06] MED LIST: DEXAMETHASONE SOD PHOSPHATE 4 MG/ML 1 ML VIAL IV ONE; GENTAMICIN 150 MG in SODIUM CHLORIDE 0.9% 100 ML IVPB PRN; HYDROmorphone 0.5 MG/0.5 ML SYRINGE IVP PRN; LACTATED RINGERS 1,000 ML IV SCH; ONDANSETRON 4 MG/2 ML VIAL IVP ONE; ceFAZolin 3 GM in SODIUM CHLORIDE 0.9% 100 ML IVPB PRN
[2022-04-20 10:47] LABS: Glucose,Whole Blood 268 mg/dL (75-99)
[2022-04-20] MEDS ORDERED: INSULIN ASPART (NovoLOG) 100 UNIT/ML VIAL SQ ONE ×2 (10:52→10:54)
[2022-04-20 13:40] LABS: Glucose,Whole Blood 240 mg/dL (75-99)
[2022-04-20] MEDS ORDERED: HYDROmorphone (PF) 1 MG/ML ONE (14:00)
[2022-04-20] MEDS ORDERED: PHENYLEPHRINE-0.9% NACL SYG 1,000 MCG/10 ML SYRINGE ONE (14:00)
[2022-04-20] MEDS ORDERED: ROCURONIUM 10 MG/ML (5 ML VIAL) IV ONE (14:00)
[2022-04-20] MEDS ORDERED: PROPOFOL 10 MG/ML 20 ML VIAL IV ONE (14:00)
[2022-04-20] MEDS ORDERED: NEOSTIGMINE 1 MG/ML 10 ML VIAL ONE (14:00)
[2022-04-20] MEDS ORDERED: LIDOCAINE 2% INJ 20 MG/ML (2 ML VIAL) ONE (14:00)
[2022-04-20] MEDS ORDERED: SUCCINYLCHOLINE CHLORIDE VIAL 200 MG/10 ML VIAL IV ONE (14:00)
[2022-04-20] MEDS ORDERED: fentaNYL (PF) 50 MCG/ML 2 ML AMP ONE (14:00)
[2022-04-20] MEDS ORDERED: MIDAZOLAM 2 MG/2 ML VIAL ONE (14:00)
[2022-04-20] MEDS ORDERED: GLYCOPYRROLATE 0.2 MG/ML 2 ML VIAL ONE (14:00)
[2022-04-20] MEDS ORDERED: LACTATED RINGERS 1,000 ML IV ONE (16:25)
[2022-04-20 16:40] VITALS: TEMP 97.8
--- NOTE | 2022-04-20 16:41 | P.OP ---
Date of Procedure: 04/20/22 Preoperative Diagnosis: BPH with obstruction Postoperative Diagnosis: Same Procedure(s) Performed: Cystoscopy, bipolar transurethral resection of prostate (TURP) Anesthesia: ISAIAS Surgeon: Bert Davis Estimated Blood Loss (ml): 50 IV fluids (ml): 200 Pathology: other (Prostate chips) Condition: stable Disposition: PACU Indications for Procedure: The patient is a 72-year-old white male who underwent a Greenlight laser TURP in approximately 2015. He developed gross hematuria in late June 2021. Ultrasound showed a 2.5 cm right renal cyst and a possible bladder mass. CT scan without contrast showed a 2.2 cm right complex renal lesion but was othe rwise unremarkable. 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 It was presumed that the prostate was the source of the hematuria. He states that his urine since that time has been dark at times, and he developed urinary clot retention last month which required cystoscopy, evacuation of clot, fulguration of bleeders from the left lateral prostatic lobe. Significant left-sided residual prostatic tissue was seen at that time. The Lezama catheter remains in place. Operative Findings: Significant left lateral lobe prostatic regrowth. Description of Procedure: The patient was taken in the operating room and placed in the dorsolithotomy position. The external genitalia was prepped and draped sterilely. [place] urethrotome was used to incise the urethra to 25-Swiss. The 25-Swiss A[employer] resectoscope sheath was introduced into the bladder under direct vision. The bladder was inspected. Both ureteral orifices were of normal anatomic location and configuration. No tumors or foreign bodies were seen. There was evidence of catheter cystitis. Examination of the prostate revealed complete obstruction, with significant left lateral lobe prostatic regrowth. Using the bipolar cutting loop, the left lateral lobes was resected down to the surgical capsule. The floor of the prostate was then resected, proximal to the verumontanum. It was noted that the prior resection was subtrigonal, and the vesical neck was resected in the midline to reduce the size of the posterior vesicle neck "lip". The residual apical tissue was then carefully resected, with care taken to avoid injury to the external urinary sphincter. Attention was then paid to the right lateral lobe. This required less resection than the left. Some apical tissue was left on the right side. The prostatic fossa was then carefully examined, and any areas of bleeding were controlled with electrocautery. Excellent hemostasis was attained. The resectoscope was withdrawn into the bulbous urethra. The external urinary sphincter remained intact. The prostatic fossa was open. The [employer] evacuator was used to remove all prostate chips from the bladder. These were saved and sent for pathologic examination. The resectoscope was removed, and an 18 Swiss Lezama catheter was placed. Catheter placement required the use of a catheter guide. The return was essentially clear. The patient tolerated the procedure well was taken to the recovery room in stable condition.
[2022-04-20 16:42] LABS: Glucose,Whole Blood 216 mg/dL (75-99)
[2022-04-20] MEDS ORDERED: FUROSEMIDE 10 MG/ML 2 ML VIAL IV ONE (16:50)
[2022-04-20 17:56] VITALS: BP 135/74; PULSE 74; RESP 16
== END 2022-04-20 18:15 | disposition home or self-care (01) ==
LOC: OR 10:06
PROVIDERS: ATTEND Urology
DX: N40.1 Benign prostatic hyperplasia with lower urinary tract symptoms (principal); N13.8 Other obstructive and reflux uropathy; E11.9 Type 2 diabetes mellitus without complications; F31.9 Bipolar disorder, unspecified; I10 Essential (primary) hypertension; I48.91 Unspecified atrial fibrillation; Z79.01 Long term (current) use of anticoagulants; Z79.4 Long term (current) use of insulin; Z82.49 Family history of ischemic heart disease and other diseases of the circulatory system; Z83.49 Family history of other endocrine, nutritional and metabolic diseases; Z88.8 Allergy status to other drugs, medicaments and biological substances; Z90.79 Acquired absence of other genital organ(s)
CPT/HCPCS: 52224; 55875; J2250; J0330; J1940; J2710; J0690; J2405; J3010; J1580; J1170; J2370; J2704; J2001; 88305

== ENCOUNTER 2022-07-18 06:53 | Inpatient (IN) | payer MEDICARE ==
[2022-07-18] MEDS ORDERED: ENALAPRILAT 1.25 MG/ML 1 ML VIAL IVP STA (07:00)
[2022-07-18] MEDS ORDERED: FUROSEMIDE 10 MG/ML 4 ML VIAL IV STA (07:16)
[2022-07-18 07:21] LABS: Basophils # (A) 0.1 k/uL (0-0.2); Basophils % (A) 1 %; Eosinophils # (A) 0.1 k/uL (0-0.7); Eosinophils % (A) 1 %; HCT 50.4 % (39.0-53.0); HGB 15.7 gm/dL (13.0-17.5); Hypochromasia Slight; Lymphocytes # (A) 5.4 k/uL (1.0-4.8); Lymphocytes % (A) 31 %; MCH 28.4 pg (25.0-35.0); MCHC 31.2 g/dL (31.0-37.0); MCV 91.2 fL (80.0-100.0); Mean Platelet Volume 9.3; Monocytes % (A) 6 %; Neutrophils # (A) 10.6 k/uL (1.3-7.7); Neutrophils % (A) 60 %; Platelet Count 367 k/uL (150-450); RBC 5.53 m/uL (4.30-5.90); RDW 14.8 % (11.5-15.5); WBC 17.6 k/uL (3.8-10.6)
--- NOTE | 2022-07-18 07:26 | XR ---
EXAMINATION TYPE: XR chest 1V portable DATE OF EXAM: 07/18/2022 COMPARISON: Chest x-ray December 29, 2018 HISTORY: Shortness of breath TECHNIQUE: Single AP portable frontal upright view of the chest is obtained. FINDINGS: Bilateral increased opacities in the mid to lower lungs current study. The cardiac silhou ette size remains within normal limits. The osseous structures are intact. IMPRESSION: Diffuse moderate to severe bilateral mid to lower lung edema and/or atypical infiltrates . Correlate clinically.
[2022-07-18 07:33] LABS: Albumin 4.3 g/dL (3.5-5.0); Calcium 10.3 mg/dL (8.4-10.2); Magnesium 1.4 mg/dL (1.6-2.3); Partial Thromboplastin Time 22.6 sec (22.0-30.0); Potassium 3.6 mmol/L (3.5-5.1); Prothrombin Time 10.9 sec (9.0-12.0); Total Bilirubin 0.5 mg/dL (0.2-1.3)
[2022-07-18] MEDS ORDERED: LORazepam 2 MG/ML INJ IV STA (08:01)
[2022-07-18] MEDS ORDERED: HEPARIN SODIUM 1,000 UN/ML (10ML VL) IV ONE (08:11)
[2022-07-18] MEDS ORDERED: HEPARIN SODIUM 1,000 UN/ML (10ML VL) IV PRN (08:11)
[2022-07-18] MEDS ORDERED: HEPARIN SOD,PORK IN 0.45% NACL 25,000 UNIT in 0.45% NACL 1 250ML.BAG IV SCH (08:15)
[2022-07-18] MEDS: NOREPINEPHRINE 4 MG in SODIUM CHLORIDE 0.9% 250 ML IV SCH ×2 (08:38→18:45)
[2022-07-18] MEDS ORDERED: cefTRIAXone IN SWFI 1,000 MG/10 ML SYRINGE IVP STA (09:02)
[2022-07-18] MEDS ORDERED: methylPREDNISolone SOD SUCCI 125 MG/2 ML VIAL IV STA (09:03)
[2022-07-18] MEDS ORDERED: AZITHROMYCIN 500 MG in SODIUM CHLORIDE 0.9% 250 ML IVPB STA (09:03)
[2022-07-18] MEDS ORDERED: NITROGLYCERIN SL TABS 0.4 MG TAB SUBLINGUAL PRN (09:38)
--- NOTE | 2022-07-18 09:38 | ED ---
General Adult HPI - General Source: patient, EMS, RN notes reviewed Mode of arrival: EMS Limitations: no limitations <Dell Roman - Last Filed: 07/19/22 06:05> <Summer Madison - Last Filed: 07/24/22 17:06> - General Chief complaint: Shortness of Breath Stated complaint: DICKSON Time Seen by Provider: 07/18/22 06:57 - History of Present Illness Initial comments: This a 72-year-old male presents emergency from via EMS with complaints of dyspnea. Patient presented in respiratory distress. Patient was placed on CPAP by EMS. Patient states he has not been feeling well for one day. Patient symptoms worsened overnight pain. Patient reportedly took an extra dose of metoprolol per . Patient is on our request for atrial fibrillation, has a history of hyperlipidemia and diabetes. Patient states he has some tightness in his chest. Denies being a smoker. Patient does use CPAP at nighttime. (Dell Roman) - Related Data Home Medications Medication Instructions Recorded Confirmed Ascorbic Acid [Vitamin C] 500 mg PO DAILY 03/26/22 07/18/22 Chlorthalidone 50 mg PO DAILY 03/26/22 07/18/22 Cholecalciferol [Vitamin D3 (125 125 mcg PO DAILY 03/26/22 07/18/22 Mcg = 5000 Iu)] Potassium Chloride ER [K-Dur 20] 40 meq PO BID 03/26/22 07/18/22 Insulin Aspart [NovoLOG Flexpen] 18 units SQ TID-W/MEALS 04/18/22 07/18/22 Aspirin EC [Ecotrin Low Dose] 81 mg PO DAILY 07/18/22 07/18/22 Cod Liver Oil 1 cap PO DAILY 07/18/22 07/18/22 Ginkgo Biloba [place] Extract [Ginkgo 125 mg PO DAILY 07/18/22 07/18/22 Biloba] Insulin Detemir (Levemir) [Levemir] 30 unit SQ BID 07/18/22 07/18/22 Metoprolol Tartrate [Lopressor] 25 mg PO DAILY 07/18/22 07/18/22 Metoprolol Tartrate [Lopressor] 50 mg PO HS 07/18/22 07/18/22 Allergies Allergy/AdvReac Type Severity Reaction Status Date / Time glipizide Allergy Anaphylaxis Verified 07/18/22 09:55 Iodinated Contrast Media Allergy Rash/Hives Verified 07/18/22 09:55 losartan Allergy Anaphylaxis Verified 07/18/22 09:55 amlodipine [From Norvasc] AdvReac DEPRESSION Verified 07/18/22 09:55 atorvastatin [From Lipitor] AdvReac WEAKNESS Verified 07/18/22 09:55 metformin AdvReac Cough Verified 07/18/22 09:55 rosuvastatin [From Crestor] AdvReac WEAKNESS Verified 07/18/22 09:55 Review of Systems ROS Other: All systems not noted in ROS Statement are negative. <Dell Roman - Last Filed: 07/19/22 06:05> ROS Other: All systems not noted in ROS Statement are negative. <Summer Madison - Last Filed: 07/24/22 17:06> ROS Statement: Those systems with pertinent positive or pertinent negative responses have been documented in the HPI. Past Medical History Past Medical History: Atrial Fibrillation, Diabetes Mellitus, Hyperlipidemia, Hypertension Additional Past Medical History / Comment(s): uses c-pap at home, pneu as child almost History of Any Multi-Drug Resistant Organisms: None Reported Past Surgical History: Back Surgery, Orthopedic Surgery Additional Past Surgical History / Comment(s): total left hip, gato carpel tunnel, wire mesh in umbical area, Greenlight laser TURP 2016 Past Anesthesia/Blood Transfusion Reactions: Previous Problems w/ Anesthesia Additional Past Anesthesia/Blood Transfusion Reaction / Comment(s): last time no problems with anesthia but did have previously Past Psychological History: No Psychological Hx Reported Smoking Status: Never smoker - Past Family History Brother(s) Family Medical History: Coronary Artery Disease (CAD), Hypertension Mother Family Medical History: No Reported History Additional Family Medical History / Comment(s): in mva Father Additional Family Medical History / Comment(s): bad thyroid <Dell Roman - Last Filed: 07/19/22 06:05> General Exam Limitations: no limitations General appearance: alert, in distress Head exam: Present: atraumatic, normocephalic, normal inspection Eye exam: Present: normal appearance, PERRL, EOMI. Absent: scleral icterus, conjunctival injection, periorbital swelling Respiratory exam: Present: respiratory distress, rales. Absent: normal lung sounds bilaterally, wheezes, rhonchi, stridor Cardiovascular Exam: Present: tachycardia, irregular rhythm, normal heart sounds. Absent: normal rhythm, systolic murmur, diastolic murmur, rubs, gallop, clicks GI/Abdominal exam: Present: soft, normal bowel sounds. Absent: distended, tenderness, guarding, rebound, rigid <Dedoe,Dell M - Last Filed: 07/19/22 06:05> Course Vital Signs 07/18/22 07/18/22 07/18/22 06:55 07:03 07:24 Temperature 97.9 F Pulse Rate 80 129 H Respiratory 42 H 34 H Rate Blood Pressure 178/128 128/86 O2 Sat by Pulse 85 L 98 Oximetry Fraction of 100 Inspired Oxygen (FIO2) 07/18/22 07/18/22 07/18/22 07:34 08:00 08:19 Temperature Pulse Rate 116 H 105 H Respiratory 36 H 30 H Rate Blood Pressure 91/30 61/42 O2 Sat by Pulse 98 99 Oximetry Fraction of 70 Inspired Oxygen (FIO2) 07/18/22 07/18/22 07/18/22 08:25 08:42 09:10 Temperature Pulse Rate 105 H 96 82 Respiratory 30 H 25 H 28 H Rate Blood Pressure 71/40 67/48 102/62 O2 Sat by Pulse 98 98 98 Oximetry Fraction of Inspired Oxygen (FIO2) 07/18/22 07/18/22 07/18/22 09:17 09:30 10:15 Temperature Pulse Rate 95 90 Respiratory 26 H 25 H Rate Blood Pressure 125/56 111/72 O2 Sat by Pulse 98 99 Oximetry Fraction of 50 Inspired Oxygen (FIO2) 07/18/22 07/18/22 07/18/22 10:43 11:02 12:00 Temperature Pulse Rate 97 90 99 Respiratory 25 H 25 H 26 H Rate Blood Pressure 101/72 123/66 133/61 O2 Sat by Pulse 97 99 98 Oximetry Fraction of Inspired Oxygen (FIO2) 07/18/22 07/18/22 07/18/22 12:30 12:45 12:55 Temperature Pulse Rate 117 H 105 H 103 H Respiratory 26 H 26 H 26 H Rate Blood Pressure 111/74 85/54 77/53 O2 Sat by Pulse 100 100 99 Oximetry Fraction of Inspired Oxygen (FIO2) 07/18/22 07/18/22 07/18/22 12:57 13:00 13:05 Temperature Pulse Rate 98 95 100 Respiratory 24 26 H 26 H Rate Blood Pressure 85/54 100/64 100/64 O2 Sat by Pulse 99 100 99 Oximetry Fraction of Inspired Oxygen (FIO2) 07/18/22 07/18/22 07/18/22 13:15 13:27 13:30 Temperature Pulse Rate 92 96 93 Respiratory 26 H 26 H 26 H Rate Blood Pressure 96/56 96/66 105/76 O2 Sat by Pulse 100 99 100 Oximetry Fraction of Inspired Oxygen (FIO2) 07/18/22 07/18/22 07/18/22 13:45 14:00 14:15 Temperature Pulse Rate 91 101 H 92 Respiratory 26 H 26 H 26 H Rate Blood Pressure 110/86 109/77 112/67 O2 Sat by Pulse 100 100 100 Oximetry Fraction of Inspired Oxygen (FIO2) 07/18/22 07/18/22 07/18/22 14:30 14:45 15:08 Temperature Pulse Rate 102 H 101 H 97 Respiratory 26 H 26 H 28 H Rate Blood Pressure 110/75 112/82 109/86 O2 Sat by Pulse 100 100 100 Oximetry Fraction of Inspired Oxygen (FIO2) 07/18/22 07/18/22 07/18/22 15:11 15:15 15:30 Temperature Pulse Rate 98 98 99 Respiratory 26 H 26 H 26 H Rate Blood Pressure 108/78 112/79 108/82 O2 Sat by Pulse 100 100 100 Oximetry Fraction of Inspired Oxygen (FIO2) 07/18/22 07/18/22 07/18/22 15:32 15:45 16:00 Temperature Pulse Rate 101 H 96 Respiratory 26 H 26 H Rate Blood Pressure 103/89 110/66 O2 Sat by Pulse 100 100 Oximetry Fraction of 40 Inspired Oxygen (FIO2) 07/18/22 07/18/22 07/18/22 16:30 16:45 17:00 Temperature Pulse Rate 98 101 H 112 H Respiratory 26 H 26 H 26 H Rate Blood Pressure 101/78 114/67 122/77 O2 Sat by Pulse 100 100 100 Oximetry Fraction of Inspired Oxygen (FIO2) 07/18/22 07/18/22 07/18/22 17:15 17:30 17:33 Temperature Pulse Rate 111 H 131 H Respiratory 26 H 26 H Rate Blood Pressure 111/90 123/97 O2 Sat by Pulse 100 100 Oximetry Fraction of 40 Inspired Oxygen (FIO2) 07/18/22 07/18/22 07/18/22 17:45 18:00 18:15 Temperature 98.6 F Pulse Rate 101 H 90 108 H Respiratory 26 H 26 H 26 H Rate Blood Pressure 126/71 97/68 117/82 O2 Sat by Pulse 100 100 100 Oximetry Fraction of Inspired Oxygen (FIO2) 07/18/22 07/18/22 07/18/22 18:45 19:00 19:15 Temperature Pulse Rate 104 H 105 H 93 Respiratory 28 H 28 H 24 Rate Blood Pressure 105/72 115/85 109/80 O2 Sat by Pulse 98 98 98 Oximetry Fraction of 50 50 50 Inspired Oxygen (FIO2) 07/18/22 07/18/22 07/18/22 19:20 19:30 19:45 Temperature Pulse Rate 100 Respiratory 34 H 26 H Rate Blood Pressure 110/72 109/73 O2 Sat by Pulse 98 Oximetry Fraction of 50 Inspired Oxygen (FIO2) 07/18/22 07/18/22 07/18/22 20:00 20:12 20:15 Temperature Pulse Rate 101 H 98 102 H Respiratory 20 29 H 20 Rate Blood Pressure 107/74 120/72 120/72 O2 Sat by Pulse 97 98 98 Oximetry Fraction of Inspired Oxygen (FIO2) 07/18/22 20:30 Temperature Pulse Rate 111 H Respiratory 27 H Rate Blood Pressure 114/81 O2 Sat by Pulse 98 Oximetry Fraction of Inspired Oxygen (FIO2) Procedures - Sepsis Sepsis Focused Exam #1 Time Sepsis Criteria Met: 10:00 Sepsis Focused Exam Date: 07/18/22 Sepsis Focused Exam Time: 10:31 Sepsis Focused Exam Complete: Yes Vital Signs & RN Notes Reviewed: Yes Capillary Refill: < 2 Seconds: Fingers, Toes Peripheral Pulses: Normal: Radial (R), Radial (L), Posterior Tibialis (R), Posterior Tibialis (L), Dorsalis Pedis (R), Dorsalis Pedis (L) Skin Color: Normal for Patient Respiratory Exam: rales Cardiovascular Exam: tachycardia, irregular rhythm <Dell Roman - Last Filed: 07/19/22 06:05> Medical Decision Making - Lab Data Result diagrams: 07/19/22 02:52 07/19/22 02:52 <Dell Roman - Last Filed: 07/19/22 06:05> - Lab Data Result diagrams: 07/24/22 04:15 07/24/22 04:15 <Summer Madison - Last Filed: 07/24/22 17:06> - Medical Decision Making 72 year-old male presented from chief complaint of dyspnea. Patient presented respiratory distress on CPAP. Patient was placed on BiPAP immediately upon arrival. Patient Be Hypertensive Initial Blood Pressure Control Was Given. Patient did have 1 view portable chest x-ray which showed bilateral pulmonary edema, patient had bilateral rales. Patient was given Lasix given that symptoms seem to be consistent with CHF, pulmonary edema. Patient's breathing did improve though patient blood pressure initially dropped. Patient did have mild leukocytosis, x-ray shows pulmonary edema possible infiltrate atypical anaerobic coverage was provided. Patient's case discussed with Dr. Brunson by Dr madison patient will be evaluated from will have stuck echocardiogram. Discussed with Dr. Suarez. Patient be admitted to cardiac stepdown patient will continue on BiPAP, close monitoring. Patient was evaluated by Dr. Brunson in the emergency department and felt this may relate to infection. Clinically patient has fluid overload, has no productive cough and has slightly reactive leukocytosis. Patient will be given fluid bolus of 30 mi./kg secondary to 4 evidence of pulmonary edema, respiratory distress. Patient did have blood cultures, antibiotics ordered (Dell Roman) - Lab Data Lab Results 07/18/22 07/18/22 07/18/22 Range/Units 07:10 07:10 07:10 WBC 17.6 H (3.8-10.6) k/uL RBC 5.53 (4.30-5.90) m/uL Hgb 15.7 (13.0-17.5) gm/dL Hct 50.4 (39.0-53.0) % MCV 91.2 (80.0-100.0) fL MCH 28.4 (25.0-35.0) pg MCHC 31.2 (31.0-37.0) g/dL RDW 14.8 (11.5-15.5) % Plt Count 367 (150-450) k/uL MPV 9.3 Neutrophils % 60 % Lymphocytes % 31 % Monocytes % 6 % Eosinophils % 1 % Basophils % 1 % Neutrophils # 10.6 H (1.3-7.7) k/uL Lymphocytes # 5.4 H (1.0-4.8) k/uL Monocytes # 1.0 (0-1.0) k/uL Eosinophils # 0.1 (0-0.7) k/uL Basophils # 0.1 (0-0.2) k/uL Manual Slide Review Performed Hypochromasia Slight PT 10.9 (9.0-12.0) sec INR 1.0 (<1.2) APTT 22.6 (22.0-30.0) sec Sodium 142 (137-145) mmol/L Potassium 3.6 (3.5-5.1) mmol/L Chloride 99 (98-107) mmol/L Carbon Dioxide 24 (22-30) mmol/L Anion Gap 19 mmol/L BUN 29 H (9-20) mg/dL Creatinine 1.08 (0.66-1.25) mg/dL Est GFR (CKD-EPI)AfAm 79 (>60 ml/min/1.73 sqM) Est GFR (CKD-EPI)NonAf 68 (>60 ml/min/1.73 sqM) Glucose 221 H (74-99) mg/dL Lactic Ac Sepsis Rflx Plasma Lactic Acid Cel[place] (0.7-2.0) mmol/L Calcium 10.3 H (8.4-10.2) mg/dL Magnesium 1.4 L (1.6-2.3) mg/dL Total Bilirubin 0.5 (0.2-1.3) mg/dL AST 49 (17-59) U/L ALT 15 (4-49) U/L Alkaline Phosphatase 154 H (38-126) U/L Troponin I (0.000-0.034) ng/mL NT-Pro-B Natriuret Pep pg/mL Total Protein 8.0 (6.3-8.2) g/dL Albumin 4.3 (3.5-5.0) g/dL 07/18/22 07/18/22 07/18/22 Range/Units 07:10 07:10 07:10 WBC (3.8-10.6) k/uL RBC (4.30-5.90) m/uL Hgb (13.0-17.5) gm/dL Hct (39.0-53.0) % MCV (80.0-100.0) fL MCH (25.0-35.0) pg MCHC (31.0-37.0) g/dL RDW (11.5-15.5) % Plt Count (150-450) k/uL MPV Neutrophils % % Lymphocytes % % Monocytes % % Eosinophils % % Basophils % % Neutrophils # (1.3-7.7) k/uL Lymphocytes # (1.0-4.8) k/uL Monocytes # (0-1.0) k/uL Eosinophils # (0-0.7) k/uL Basophils # (0-0.2) k/uL Manual Slide Review Hypochromasia PT (9.0-12.0) sec INR (<1.2) APTT (22.0-30.0) sec Sodium (137-145) mmol/L Potassium (3.5-5.1) mmol/L Chloride (98-107) mmol/L Carbon Dioxide (22-30) mmol/L Anion Gap mmol/L BUN (9-20) mg/dL Creatinine (0.66-1.25) mg/dL Est GFR (CKD-EPI)AfAm (>60 ml/min/1.73 sqM) Est GFR (CKD-EPI)NonAf (>60 ml/min/1.73 sqM) Glucose (74-99) mg/dL Lactic Ac Sepsis Rflx Plasma Lactic Acid Cel[place] 5.4 H* (0.7-2.0) mmol/L Calcium (8.4-10.2) mg/dL Magnesium (1.6-2.3) mg/dL Total Bilirubin (0.2-1.3) mg/dL AST (17-59) U/L ALT (4-49) U/L Alkaline Phosphatase (38-126) U/L Troponin I 2.580 H* (0.000-0.034) ng/mL NT-Pro-B Natriuret Pep 1530 pg/mL Total Protein (6.3-8.2) g/dL Albumin (3.5-5.0) g/dL 07/18/22 Range/Units 07:41 WBC (3.8-10.6) k/uL RBC (4.30-5.90) m/uL Hgb (13.0-17.5) gm/dL Hct (39.0-53.0) % MCV (80.0-100.0) fL MCH (25.0-35.0) pg MCHC (31.0-37.0) g/dL RDW (11.5-15.5) % Plt Count (150-450) k/uL MPV Neutrophils % % Lymphocytes % % Monocytes % % Eosinophils % % Basophils % % Neutrophils # (1.3-7.7) k/uL Lymphocytes # (1.0-4.8) k/uL Monocytes # (0-1.0) k/uL Eosinophils # (0-0.7) k/uL Basophils # (0-0.2) k/uL Manual Slide Review Hypochromasia PT (9.0-12.0) sec INR (<1.2) APTT (22.0-30.0) sec Sodium (137-145) mmol/L Potassium (3.5-5.1) mmol/L Chloride (98-107) mmol/L Carbon Dioxide (22-30) mmol/L Anion Gap mmol/L BUN (9-20) mg/dL Creatinine (0.66-1.25) mg/dL Est GFR (CKD-EPI)AfAm (>60 ml/min/1.73 sqM) Est GFR (CKD-EPI)NonAf (>60 ml/min/1.73 sqM) Glucose (74-99) mg/dL Lactic Ac Sepsis Rflx Y Plasma Lactic Acid [place] (0.7-2.0) mmol/L Calcium (8.4-10.2) mg/dL Magnesium (1.6-2.3) mg/dL Total Bilirubin (0.2-1.3) mg/dL AST (17-59) U/L ALT (4-49) U/L Alkaline Phosphatase (38-126) U/L Troponin I (0.000-0.034) ng/mL NT-Pro-B Natriuret Pep pg/mL Total Protein (6.3-8.2) g/dL Albumin (3.5-5.0) g/dL Critical Care Time Critical Care Time: Yes Total Critical Care Time: 35 <Dell Roman - Last Filed: 07/19/22 06:05> Disposition Time of Disposition: 09:38 <Dell Roman - Last Filed: 07/19/22 06:05> <Summer Madison - Last Filed: 07/24/22 17:06> Clinical Impression: Acute respiratory failure with hypoxia, Pulmonary edema, NSTEMI (non-ST elevated myocardial infarction) Disposition: ADMITTED IP TO THIS HOSP Condition: Serious
[2022-07-18] MEDS: MAGNESIUM SULFATE-D5W PMX 1 GM in DEXTROSE/WATER 1 100ML.BAG IVPB SCH ×5 (09:59→18:05)
--- NOTE | 2022-07-18 10:12 | P.HPIM ---
History of Present Illness 70-year-old pleasant male came in with complaints of shortness of breath which started today morning patient is on CPAP at this time. Patient denied any chest pain patient doesn't have any smoking history does have history of atrial fibrillation does take Eliquis at home. Patient is on metoprolol. Patient is was hypotensive and is on norepinephrine. Patient is found to have elevated troponin of around 2.5, elevated lactic acid of around 5.4. She was also having orthopnea patient does have history of sleep apnea and uses CPAP machine at nighttime. Patient had a chest x-ray which showed diffuse infiltrate consistent consistent with congestive heart failure previous x-ray from 2089 did not show any infiltrate. Patient has mildly elevated BNP of 4 1500. Patient does have leukocytosis without any fever. Patient denied any smoking history previous patient had a previous echo in month of March which showed EF of around 40-45%. REVIEW OF SYSTEMS: CONSTITUTIONAL: No fever, no malaise, no fatigue. HEENT: No recent visual problems or hearing problems. Denied any sore throat. CARDIOVASCULAR: No chest pain, orthopnea, PND, no palpitations, no syncope. PULMONARY: no hemoptysis. GASTROINTESTINAL: No diarrhea, no nausea, no vomiting, no abdominal pain. NEUROLOGICAL: No headaches, no weakness, no numbness. HEMATOLOGICAL: Denies any bleeding or petechiae. GENITOURINARY: Denies any burning micturition, frequency, or urgency. MUSCULOSKELETAL/RHEUMATOLOGICAL: Denies any joint pain, swelling, or any muscle pain. ENDOCRINE: Denies any polyuria or polydipsia. The rest of the 14-point review of systems is negative. PHYSICAL EXAMINATION: GENERAL: The patient is alert and oriented x3, not in any acute distress. Well developed, well nourished. On BiPAP comfortable on BiPAP HEENT: Pupils are round and equally reacting to light. EOMI. No scleral icterus. No conjunctival pallor. Normocephalic, atraumatic. No pharyngeal erythema. No thyromegaly. CARDIOVASCULAR: S1 and S2 present. No murmurs, rubs, or gallops. PULMONARY: Mild bibasilar crackles ABDOMEN: Soft, nontender, nondistended, normoactive bowel sounds. No palpable organomegaly. MUSCULOSKELETAL: No joint swelling or deformity. EXTREMITIES: No cyanosis, clubbing, or pedal edema. NEUROLOGICAL: Gross neurological examination did not reveal any focal deficits. SKIN: No rashes. Assessment and plan -Possible non-ST elevation myocardial infarction: Patient is on anticoagulation, etiology will evaluate the patient. Patient IV heparin is being held as patient was on Eliquis at home. -Pulmonary edema: Congestive heart failure patient does have chronic systolic dysfunction with acute exacerbation of pulmonary edema may be related to atrial fibrillation and the may be microinfarction as well. Patient was started on Lasix -Atrial fibrillation, patient's heart rate is fairly well controlled at this time patient will be resumed on 50 mg twice a day of metoprolol -Lactic acidosis secondary to hypoperfusion probably due to microinfarction probably will not need any IV fluids at this time -Hypotension secondary to possibly cardiac shock, patient is on low-dose of norepinephrine which is being weaned off at this time -Hypertension and patient was started on Lasix and chlorthalidone will be held -Benign prostatic hypertrophy -Leukocytosis: Reactive DVT prophylaxis: On anticoagulation as mentioned above Past Medical History Past Medical History: Atrial Fibrillation, Diabetes Mellitus, Hyperlipidemia, Hypertension Additional Past Medical History / Comment(s): uses c-pap at home, pneu as child almost History of Any Multi-Drug Resistant Organisms: None Reported Past Surgical History: Back Surgery, Orthopedic Surgery Additional Past Surgical History / Comment(s): total left hip, gato carpel tunnel, wire mesh in umbical area, Greenlight laser TURP 2015 Past Anesthesia/Blood Transfusion Reactions: Previous Problems w/ Anesthesia Additional Past Anesthesia/Blood Transfusion Reaction / Comment(s): last time no problems with anesthia but did have previously Past Psychological History: No Psychological Hx Reported Smoking Status: Never smoker - Past Family History Brother(s) Family Medical History: Coronary Artery Disease (CAD), Hypertension Mother Family Medical History: No Reported History Additional Family Medical History / Comment(s): in mva Father Additional Family Medical History / Comment(s): bad thyroid Medications and Allergies Home Medications Medication Instructions Recorded Confirmed Type Ascorbic Acid [Vitamin C] 500 mg PO DAILY 03/26/22 07/18/22 History Chlorthalidone 50 mg PO DAILY 03/26/22 07/18/22 History Cholecalciferol [Vitamin D3 (125 125 mcg PO DAILY 03/26/22 07/18/22 History Mcg = 5000 Iu)] Potassium Chloride ER [K-Dur 20] 40 meq PO BID 03/26/22 07/18/22 History Insulin Aspart [NovoLOG Flexpen] 18 units SQ TID-W/MEALS 04/18/22 07/18/22 History Aspirin EC [Ecotrin Low Dose] 81 mg PO DAILY 07/18/22 07/18/22 History Cod Liver Oil 1 cap PO DAILY 07/18/22 07/18/22 History Ginkgo Biloba [place] Extract [Ginkgo 125 mg PO DAILY 07/18/22 07/18/22 History Biloba] Insulin Detemir (Levemir) [Levemir] 30 unit SQ BID 07/18/22 07/18/22 History Metoprolol Tartrate [Lopressor] 25 mg PO DAILY 07/18/22 07/18/22 History Metoprolol Tartrate [Lopressor] 50 mg PO HS 07/18/22 07/18/22 History Allergies Allergy/AdvReac Type Severity Reaction Status Date / Time glipizide Allergy Anaphylaxis Verified 07/18/22 09:55 Iodinated Contrast Media Allergy Rash/Hives Verified 07/18/22 09:55 losartan Allergy Anaphylaxis Verified 07/18/22 09:55 amlodipine [From Norvasc] AdvReac DEPRESSION Verified 07/18/22 09:55 atorvastatin [From Lipitor] AdvReac WEAKNESS Verified 07/18/22 09:55 metformin AdvReac Cough Verified 07/18/22 09:55 rosuvastatin [From Crestor] AdvReac WEAKNESS Verified 07/18/22 09:55 Physical Exam Vitals: Vital Signs Temp Pulse Resp BP Pulse Ox FiO2 07/18/22 09:30 95 26 H 125/56 98 07/18/22 09:17 50 07/18/22 09:10 82 28 H 102/62 98 07/18/22 08:42 96 25 H 67/48 98 07/18/22 08:25 105 H 30 H 71/40 98 07/18/22 08:19 105 H 30 H 61/42 99 07/18/22 08:00 116 H 36 H 91/30 98 07/18/22 07:34 70 07/18/22 07:24 129 H 34 H 128/86 98 07/18/22 07:03 100 07/18/22 06:55 97.9 F 80 42 H 178/128 85 L Intake and Output 07/17/22 07/18/22 07/18/22 22:59 06:59 14:59 Other: Weight 136.078 kg Results CBC & Chem 7: 07/18/22 07:10 07/18/22 07:10 Labs: Abnormal Lab Results - Last 24 Hours (Table) 07/18/22 07/18/22 07/18/22 Range/Units 07:10 07:10 07:10 WBC 17.6 H (3.8-10.6) k/uL Neutrophils # 10.6 H (1.3-7.7) k/uL Lymphocytes # 5.4 H (1.0-4.8) k/uL BUN 29 H (9-20) mg/dL Glucose 221 H (74-99) mg/dL Plasma Lactic Acid Celestino 5.4 H* (0.7-2.0) mmol/L Calcium 10.3 H (8.4-10.2) mg/dL Magnesium 1.4 L (1.6-2.3) mg/dL Alkaline Phosphatase 154 H (38-126) U/L Troponin I (0.000-0.034) ng/mL 07/18/22 Range/Units 07:10 WBC (3.8-10.6) k/uL Neutrophils # (1.3-7.7) k/uL Lymphocytes # (1.0-4.8) k/uL BUN (9-20) mg/dL Glucose (74-99) mg/dL Plasma Lactic Acid Cel[place] (0.7-2.0) mmol/L Calcium (8.4-10.2) mg/dL Magnesium (1.6-2.3) mg/dL Alkaline Phosphatase (38-126) U/L Troponin I 2.580 H* (0.000-0.034) ng/mL
[2022-07-18] MEDS: APIXABAN 5 MG TAB PO SCH ×3 (11:03→21:39)
--- NOTE | 2022-07-18 11:46 | P.CRDCN ---
History of Present Illness History of present illness: This is a pleasant 72-year-old male past medical history significant for type 2 diabetes, hypertension, dyslipidemia, obstructive sleep apnea on CPAP, Hematuria, TURP 2016. He does not follow with a security professionals. We have been asked to see in consultation for atrial fibrillation. Patient presents emergency department with worsening shortness of breath for about 2 days. He states that he felt he was in A. fib overnight, he had symptoms of shortness of breath and palpitations. He also states that he felt congested over the past couple days as well. He denies any chest pain, lightheadedness, dizziness, syncope or near syncope. Denies any cough, fever, chills. On admission patient was hypoxic and tachypneic. Oxygen saturations were 85%. Also tachycardic in A fib with RVR. Patient was placed on BiPAP. He was also hypotensive with blood pressure of 178/128, patient was given 2.5 mg of IV Vasotec and blood pressure suddenly dropped to 60s/40s. Started on Levo. DIAGNOSTICS * EKG reveals atrial fibrillation with HR 130, there are some nonspecific ST-T wave abnormalities and inferior leads and V4-V6. * Telemetry tracings indicate atrial fibrillation RVR * Laboratory reviewed, WBC 17.6, lactate 5.4, sodium 142, potassium 3.6, BUN 29, serum creatinine 1.08, troponin 2.5, proBNP 1530 * Recent echocardiogram 03/2022 revealed an EF of 4045 percent, mild to moderate mitral regurgitation * Current home medications include metoprolol titrate 25 mg daily, potassium chloride, metoprolol titrate 50 mg nightly, chlorthalidone 50 mg daily, aspirin 81 mg daily * [address] Merritt in the office. He underwent Cardiolite stress test shows fixed defect in inferior wall without reversible ischemia, fixed inferior wall likely soft tissue attenuation. * 2014 patient underwent an event monitor which revealed sinus rhythm, sinus tachycardia and occasional PACs. No arrhythmia noted. REVIEW OF SYSTEMS At the time of my exam: CONSTITUTIONAL: Denies fever or chills. CARDIOVASCULAR: Reports shortness of breath and palpitations Denies chest pain, , orthopnea, PND RESPIRATORY: Reports congestion GASTROINTESTINAL: Denies abdominal pain, diarrhea, constipation, nausea or vomiting. MUSCULOSKELETAL: Denies myalgias. NEUROLOGIC: Denies numbness, tingling, headacbe or weakness. ENDOCRINE: Denies fatigue, weight change, polydipsia or polyurina. GENITOURINARY: Denies burning, hematuria or urgency with micturation. HEMATOLOGIC: Denies history of anemia or bleeding. PHYSICAL EXAMINATION Vitals reviewed CONSTITUTIONAL: No apparent distress. HEENT: Head is normocephalic. Pupils are equal, round. Sclerae anicteric. Mucous membranes of the mouth are moist. No JVD. CHEST EXAMINATION: Lungs are rhonchi,crackles in bases bilaterally to auscultation. No chest wall tenderness is noted on palpation or with deep breathing. HEART EXAMINATION: Irregular rate and rhythm. S1, S2 heard. Systolic ejection murmur at apex, No gallops or rub. ABDOMEN: Soft, nontender. Positive bowel sounds. EXTREMITIES: 2+ peripheral pulses, no lower extremity edema and no calf tenderness. SKIN: warm, dry NEUROLOGIC EXAMINATION: Patient is awake, alert and oriented x3. ASSESSMENT Acute hypoxic respiratory failure, likely secondary to pneumonia, with combination of A fib with RVR and CHF Paroxysmal atrial fibrillation with RVR -[id number] score 3, on Eliquis at home, recently stopped by patient Acute on chronic heart failure with mildly reduced ejection fraction, most recent EF 4045% Elevated troponin, likely type II VT secondary to supply and demand mismatch Hypertension Hypotension, possible sepsis Lactic acidosis Leukocytosis History of Cystoscopy, internal urethrotomy, evacuation of clot, fulguration of bleeders on 03/26/22 Type 2 diabetes PLAN Continue anticoagulation with Eliquis IV antibiotics started in ED Restart metoprolol Trend troponins IV Lasix 40mg BID for 24 hours Monitor renal function and electrolytes Continue cardiac telemetry Repeat EKG in morning Further recommendations based on clinical course Nurse practitioner note has been reviewed by physician. Signing provider agrees with the documented findings, assessment, and plan of care. Past Medical History Past Medical History: Atrial Fibrillation, Diabetes Mellitus, Hyperlipidemia, Hypertension Additional Past Medical History / Comment(s): uses c-pap at home, pneu as child almost History of Any Multi-Drug Resistant Organisms: None Reported Past Surgical History: Back Surgery, Orthopedic Surgery Additional Past Surgical History / Comment(s): total left hip, gato carpel tunnel, wire mesh in umbical area, Greenlight laser TURP 2015 Past Anesthesia/Blood Transfusion Reactions: Previous Problems w/ Anesthesia Additional Past Anesthesia/Blood Transfusion Reaction / Comment(s): last time no problems with anesthia but did have previously Past Psychological History: No Psychological Hx Reported Smoking Status: Never smoker - Past Family History Brother(s) Family Medical History: Coronary Artery Disease (CAD), Hypertension Mother Family Medical History: No Reported History Additional Family Medical History / Comment(s): in mva Father Additional Family Medical History / Comment(s): bad thyroid Medications and Allergies Home Medications Medication Instructions Recorded Confirmed Type Ascorbic Acid [Vitamin C] 500 mg PO DAILY 03/26/22 07/18/22 History Chlorthalidone 50 mg PO DAILY 03/26/22 07/18/22 History Cholecalciferol [Vitamin D3 (125 125 mcg PO DAILY 03/26/22 07/18/22 History Mcg = 5000 Iu)] Potassium Chloride ER [K-Dur 20] 40 meq PO BID 03/26/22 07/18/22 History Insulin Aspart [NovoLOG Flexpen] 18 units SQ TID-W/MEALS 04/18/22 07/18/22 History Aspirin EC [Ecotrin Low Dose] 81 mg PO DAILY 07/18/22 07/18/22 History Cod Liver Oil 1 cap PO DAILY 07/18/22 07/18/22 History Ginkgo Biloba [place] Extract [Ginkgo 125 mg PO DAILY 07/18/22 07/18/22 History Biloba] Insulin Detemir (Levemir) [Levemir] 30 unit SQ BID 07/18/22 07/18/22 History Metoprolol Tartrate [Lopressor] 25 mg PO DAILY 07/18/22 07/18/22 History Metoprolol Tartrate [Lopressor] 50 mg PO HS 07/18/22 07/18/22 History Allergies Allergy/AdvReac Type Severity Reaction Status Date / Time glipizide Allergy Anaphylaxis Verified 07/18/22 09:55 Iodinated Contrast Media Allergy Rash/Hives Verified 07/18/22 09:55 losartan Allergy Anaphylaxis Verified 07/18/22 09:55 amlodipine [From Norvasc] AdvReac DEPRESSION Verified 07/18/22 09:55 atorvastatin [From Lipitor] AdvReac WEAKNESS Verified 07/18/22 09:55 metformin AdvReac Cough Verified 07/18/22 09:55 rosuvastatin [From Crestor] AdvReac WEAKNESS Verified 07/18/22 09:55 Physical Exam Vitals: Vital Signs Temp Pulse Resp BP Pulse Ox FiO2 07/18/22 10:15 90 25 H 111/72 99 07/18/22 09:30 95 26 H 125/56 98 07/18/22 09:17 50 07/18/22 09:10 82 28 H 102/62 98 07/18/22 08:42 96 25 H 67/48 98 07/18/22 08:25 105 H 30 H 71/40 98 07/18/22 08:19 105 H 30 H 61/42 99 07/18/22 08:00 116 H 36 H 91/30 98 07/18/22 07:34 70 07/18/22 07:24 129 H 34 H 128/86 98 07/18/22 07:03 100 07/18/22 06:55 97.9 F 80 42 H 178/128 85 L Intake and Output 07/17/22 07/18/22 07/18/22 22:59 06:59 14:59 Other: Weight 136.078 kg Results 07/18/22 07:10 07/18/22 07:10 Cardiac Enzymes 07/18/22 07/18/22 Range/Units 07:10 07:10 AST 49 (17-59) U/L Troponin I 2.580 H* (0.000-0.034) ng/mL Coagulation 07/18/22 Range/Units 07:10 PT 10.9 (9.0-12.0) sec APTT 22.6 (22.0-30.0) sec CBC 07/18/22 Range/Units 07:10 WBC 17.6 H (3.8-10.6) k/uL RBC 5.53 (4.30-5.90) m/uL Hgb 15.7 (13.0-17.5) gm/dL Hct 50.4 (39.0-53.0) % Plt Count 367 (150-450) k/uL Comprehensive Metabolic Panel 07/18/22 Range/Units 07:10 Sodium 142 (137-145) mmol/L Potassium 3.6 (3.5-5.1) mmol/L Chloride 99 (98-107) mmol/L Carbon Dioxide 24 (22-30) mmol/L BUN 29 H (9-20) mg/dL Creatinine 1.08 (0.66-1.25) mg/dL Glucose 221 H (74-99) mg/dL Calcium 10.3 H (8.4-10.2) mg/dL AST 49 (17-59) U/L ALT 15 (4-49) U/L Alkaline Phosphatase 154 H (38-126) U/L Total Protein 8.0 (6.3-8.2) g/dL Albumin 4.3 (3.5-5.0) g/dL Current Medications Generic Name Dose Route Start Last Admin Trade Name Freq PRN Reason Stop Dose Admin Aspirin 81 mg 07/19/22 09:00 Aspirin 81 Mg PO DAILY [facility] Furosemide 40 mg 07/18/22 21:00 Furosemide 10 Mg/Ml 4 Ml Vial IV Q12HR [facility] Norepinephrine Bitartrate 4 mg 254 mls @ 25.923 mls/hr 07/18/22 08:30 07/18/22 08:38 / Sodium Chloride IV 0.05 mcg/kg/min .Q9H48M [facility] 25.923 mls/hr Administration Protocol 0.05 MCG/KG/MIN Magnesium Sulfate/Dextrose 1 100 mls @ 100 mls/hr 07/18/22 11:00 gm/ IV Solution IVPB 07/18/22 13:59 Q1H [facility] Insulin Detemir 30 unit 07/18/22 21:00 Insulin Detemir (Levemir) 100 Unit/Ml Syr SQ BID [facility] Metoprolol Tartrate 50 mg 07/18/22 21:00 Metoprolol Tartrate 50 Mg Tab PO BID [facility] Nitroglycerin 0.4 mg 07/18/22 09:38 Nitroglycerin Sl Tabs 0.4 Mg Tab SUBLINGUAL Q5M PRN Chest Pain Intake and Output 07/17/22 07/18/22 07/18/22 22:59 06:59 14:59 Other: Weight 136.078 kg 07/18/22 07:10 07/18/22 07:10
[2022-07-18] MEDS ORDERED: LORazepam 2 MG/ML INJ IV PRN (13:00)
[2022-07-18 15:44] LABS: Glucose,Whole Blood 373 mg/dL (70-110)
--- NOTE | 2022-07-18 16:55 | P.CNPUL ---
History of Present Illness Consult date: 07/18/22 Requesting physician: Eduarda Suarez Reason for consult: dyspnea, hypoxemia, abnormal CXR/CT Chief complaint: Shortness of breath History of present illness: Very pleasant 72-year-old male patient who has a history of diabetes mellitus, uncontrolled, hyperlipidemia, hypertension, morbid obesity, obstructive sleep apnea maintained on CPAP, atrial fibrillation not on anticoagulants currently, BPH with recent surgery and clot evacuation in March and then again in April and the patient did have hematuria and is Eliquis that time. He presented to the emergency room following this morning with difficulty in breathing. He also had some increased swelling of his lower extremities. Chest x-ray revealed diffuse moderate to severe bilateral lower lung edema and/or atypical infiltrates. EKG revealed atrial fibrillation with a rapid ventricular response and nonspecific ST and T wave abnormalities. Lactic acid 2.4, troponin 2.1, 2.38, blood glucose 373. White count 17.6. Hemoglobin 15.7. INR 1.0. Sodium 142. Potassium 3.6. Bicarb 24. BUN 29. Creatinine 1.08. He ST 49. ALT 15. ProBNP 1530. His oxygen saturation was 85% on room air at presentation. He is seen today in consultation in the emergency department. He's currently on BiPAP at 18/10 and 40% FiO2 with O2 saturations in the 90s. Mostly BiPAP dependent since admission. He is also hypotensive requiring norepinephrine currently at 0.05 mcg/kg/m. He's been given Lasix 40 mg IVP 1 with minimal urine output. He is also initiated on ceftriaxone and azithromycin. He was initiated back on Eliquis. Review of Systems REVIEW OF SYSTEMS: CONSTITUTIONAL: Denies any recent significant weight loss or weight gain. EYES: Denies change in vision. EARS, NOSE, MOUTH, THROAT: Denies headaches, denies sore throat. CARDIOVASCULAR: Denies chest pain, palpitations or syncopal episodes. RESPIRATORY: Positive for shortness of breath, cough, congestion no hemoptysis. GASTROINTESTINAL: Denies change in appetite, denies abdominal pain GENITOURINARY: Difficulty with urination. MUSKULOSKELETAL: Positive for lower extremity edema. INTEGUMENTARY: Denies rash, denies eczema. NEUROLOGICAL: Denies recent memory loss, no recent seizure activity. PSYCHIATRIC: Denies anxiety, denies depression. HEMATOLOGIC/LYMPHATIC: Denies anemia, denies enlarged lymph nodes. Past Medical History Past Medical History: Atrial Fibrillation, Diabetes Mellitus, Hyperlipidemia, Hypertension, Pneumonia, Prostate Disorder, Sleep Apnea/CPAP/BIPAP Additional Past Medical History / Comment(s): IDDM type II, neuropathy bilateral feet, INDERJIT with cpap use, pneumonia as a child/nearly , BPH with obstructionn/surgeries, hematuria History of Any Multi-Drug Resistant Organisms: None Reported Past Surgical History: Back Surgery, Orthopedic Surgery Additional Past Surgical History / Comment(s): total left hip, gato carpel tunnel, wire mesh in umbical area, Greenlight laser TURP 2015, cysto's/fulguration of bleeders, 04/20/22 cysto/TURP Past Anesthesia/Blood Transfusion Reactions: Previous Problems w/ Anesthesia Additional Past Anesthesia/Blood Transfusion Reaction / Comment(s): Difficulty waking one time Smoking Status: Never smoker - Past Family History Brother(s) Family Medical History: Coronary Artery Disease (CAD), Hypertension Mother Family Medical History: No Reported History Additional Family Medical History / Comment(s): in mva Father Family Medical History: Thyroid Disorder Additional Family Medical History / Comment(s): bad thyroid Medications and Allergies Home Medications Medication Instructions Recorded Confirmed Type Ascorbic Acid [Vitamin C] 500 mg PO DAILY 03/26/22 07/18/22 History Chlorthalidone 50 mg PO DAILY 03/26/22 07/18/22 History Cholecalciferol [Vitamin D3 (125 125 mcg PO DAILY 03/26/22 07/18/22 History Mcg = 5000 Iu)] Potassium Chloride ER [K-Dur 20] 40 meq PO BID 03/26/22 07/18/22 History Insulin Aspart [NovoLOG Flexpen] 18 units SQ TID-W/MEALS 04/18/22 07/18/22 History Aspirin EC [Ecotrin Low Dose] 81 mg PO DAILY 07/18/22 07/18/22 History Cod Liver Oil 1 cap PO DAILY 07/18/22 07/18/22 History Ginkgo Biloba [place] Extract [Ginkgo 125 mg PO DAILY 07/18/22 07/18/22 History Biloba] Insulin Detemir (Levemir) [Levemir] 30 unit SQ BID 07/18/22 07/18/22 History Metoprolol Tartrate [Lopressor] 25 mg PO DAILY 07/18/22 07/18/22 History Metoprolol Tartrate [Lopressor] 50 mg PO HS 07/18/22 07/18/22 History Allergies Allergy/AdvReac Type Severity Reaction Status Date / Time glipizide Allergy Anaphylaxis Verified 07/18/22 09:55 Iodinated Contrast Media Allergy Rash/Hives Verified 07/18/22 09:55 losartan Allergy Anaphylaxis Verified 07/18/22 09:55 amlodipine [From Norvasc] AdvReac DEPRESSION Verified 07/18/22 09:55 atorvastatin [From Lipitor] AdvReac WEAKNESS Verified 07/18/22 09:55 metformin AdvReac Cough Verified 07/18/22 09:55 rosuvastatin [From Crestor] AdvReac WEAKNESS Verified 07/18/22 09:55 Physical Exam Vitals: Vital Signs Temp Pulse Resp BP Pulse Ox FiO2 07/18/22 15:32 40 07/18/22 15:08 97 28 H 109/86 100 07/18/22 13:27 96 26 H 96/66 99 07/18/22 13:05 100 26 H 100/64 99 07/18/22 12:57 98 24 85/54 99 07/18/22 12:55 103 H 26 H 77/53 99 07/18/22 12:00 99 26 H 133/61 98 07/18/22 11:02 90 25 H 123/66 99 07/18/22 10:43 97 25 H 101/72 97 07/18/22 10:15 90 25 H 111/72 99 07/18/22 09:30 95 26 H 125/56 98 07/18/22 09:17 50 07/18/22 09:10 82 28 H 102/62 98 07/18/22 08:42 96 25 H 67/48 98 07/18/22 08:25 105 H 30 H 71/40 98 07/18/22 08:19 105 H 30 H 61/42 99 07/18/22 08:00 116 H 36 H 91/30 98 07/18/22 07:34 70 07/18/22 07:24 129 H 34 H 128/86 98 07/18/22 07:03 100 07/18/22 06:55 97.9 F 80 42 H 178/128 85 L Intake and Output 07/18/22 07/18/22 07/18/22 06:59 14:59 22:59 Intake Total 89.866 Output Total 180 Balance -90.134 Intake: Intake, IV Titration 89.866 Amount Norepinephrine 4 mg In 89.866 Sodium Chloride 0.9% 250 ml @ 0.05 MCG/KG/MIN 25. 923 mls/hr IV .Q9H48M [facility] Rx#:[id number] Output: Urine 180 Other: # Voids 1 Weight 136.078 kg 136.078 kg GENERAL EXAM: Alert, doesn't obese 72-year-old male patient on BiPAP 18/10 and 40% FiO2, fairly comfortable in no apparent distress. HEAD: Normocephalic. EYES: Normal reaction of pupils, equal size. NOSE: Clear with pink turbinates. THROAT: No erythema or exudates. NECK: No masses, no JVD. CHEST: No chest wall deformity. LUNGS: Equal air entry with crackles in the bilateral bases. CVS: S1 and S2 normal with no audible murmur, regular rhythm. ABDOMEN: No hepatosplenomegaly, normal bowel sounds, no guarding or rigidity. SPINE: No scoliosis or deformity SKIN: No rashes CENTRAL NERVOUS SYSTEM: No focal deficits, tone is normal in all 4 extremities. EXTREMITIES: There is one plus peripheral edema. No clubbing, no cyanosis. Peripheral pulses are intact. Results - Laboratory Findings CBC and BMP: 07/18/22 07:10 07/18/22 07:10 PT/INR, D-dimer PT 10.9 sec (9.0-12.0) 07/18/22 07:10 INR 1.0 (<1.2) 07/18/22 07:10 Abnormal lab findings: Abnormal Labs 07/18/22 07/18/22 07/18/22 07:10 07:10 07:10 WBC 17.6 H Neutrophils # 10.6 H Lymphocytes # 5.4 H BUN 29 H Glucose 221 H POC Glucose (mg/dL) Plasma Lactic Acid [place] 5.4 H* Calcium 10.3 H Magnesium 1.4 L Alkaline Phosphatase 154 H Troponin I 07/18/22 07/18/22 07/18/22 07:10 10:34 10:34 WBC Neutrophils # Lymphocytes # BUN Glucose POC Glucose (mg/dL) Plasma Lactic Acid [place] 2.4 H* Calcium Magnesium Alkaline Phosphatase Troponin I 2.580 H* 2.120 H* 07/18/22 07/18/22 07/18/22 14:22 14:22 15:42 WBC Neutrophils # Lymphocytes # BUN Glucose POC Glucose (mg/dL) 373 H Plasma Lactic Acid [place] 2.1 H* Calcium Magnesium Alkaline Phosphatase Troponin I 2.380 H* - Diagnostic Findings Chest x-ray: image reviewed Assessment and Plan Assessment: Acute hypoxemic respiratory failure secondary to acute exacerbation of chronic systolic congestive heart failure. Previous echocardiogram from March 2022 revealed impaired left ventricular systolic function with ejection fraction 40- 45%. Less likely community-acquired pneumonia. Continue antibiotics. Pro-c alcitonin pending. D-dimer pending. Elevated troponin possible non-ST segment elevation myocardial infarction Atrial fibrillation with rapid ventricular response. The patient had not been on Eliquis for the past 2-3 months due to hematuria Hypotension secondary to above, requiring norepinephrine Benign prosthetic hypertrophy with recent surgery in March and then again in April 2022 Morbid obesity, body mass index of 40.7 History of hypertension Diabetes mellitus, poorly controlled Urinary retention secondary to BPH Known history of obstructive sleep apnea maintained on CPAP therapy on o utpatient basis Previous history of hematuria for that reason the patient took himself off anticoagulation Previous history of cystoscopy on bipolar transurethral resection of the prostate/TURP for symptoms of BPH Plan: The patient was seen and evaluated Chest x-ray, EKG, labs reviewed Echocardiogram pending Check a pro-calcitonin Check a d-dimer Continue antibiotics for now Continue diuretics May require coud catheter placement We will admit to the intensive care unit for closer monitoring We will continue to follow and make further recommendations based on his clinical status I have personally seen and examined the patient, performed the documentation and the assessment and plan as written. Number of minutes spent on the visit: 20. I have personally seen and examined the patient and reviewed the documentation. I performed a joint evaluation with the nurse practitioner in this evaluation was done more than 20 minutes. I fully agree with the documentation above and the plan of care. Presentation is most typical of acute non-ST segment myocardial infarction, decompensated CHF, Atrial fibrillation with rapid ventricular response and the patient likely pulmonary edema currently on BiPAP for respiratory support and the patient is being diuresis. The patient will obviously need a Lezama catheter that the patient has BPH and recent urologic intervention very much concerned that he may have an underlying obstructive uropathy. We'll continue diuretics for now. Continue BiPAP at a pressure 18/10 cm of water. Patient is not infected or vaccinated for COVID 19. We will need to repeat his echocardiogram. His previous echocardiogram at shown mild impairment of LV function with an ejection fraction of 40-45%. We'll continue to follow make further recommendations based on her progress
[2022-07-18 17:59] LABS: Appearance,Urine Cloudy (Clear); Bilirubin,Urine Negative (Negative); Blood,Urine Large (Negative); Color,Urine Yellow; Glucose,Urine (UA) Trace (Negative); Hyaline Casts,Urine 11 /lpf (0-2); Ketones,Urine 1+ (Negative); Leukocyte Esterase,Urine Large (Negative); Mucus,Urine Rare /hpf; Nitrite,Urine Negative (Negative); PH, Urine 5.5 (5.0-8.0); Protein,Urine 1+ (Negative); RBC,Urine 38 /hpf (0-5); Squamous Epithelial Cell,Urine <1 /hpf (0-4); Urobilinogen,Urine <2.0 mg/dL (<2.0); WBC,Urine 165 /hpf (0-5)
[2022-07-18 18:47] LABS: Glucose,Whole Blood 386 mg/dL (70-110)
[2022-07-18 20:03] LABS: Glucose,Whole Blood 396 mg/dL (70-110)
[2022-07-18] MEDS: INSULIN ASPART (NovoLOG) 100 UNIT/ML VIAL SQ SCH (20:09)
[2022-07-18] MEDS: FUROSEMIDE 10 MG/ML 4 ML VIAL IV SCH (20:09)
[2022-07-18 20:54] LABS: Glucose,Whole Blood 408 mg/dL (70-110)
[2022-07-18] MEDS ORDERED: DEXTROSE 50% SYRINGE 50 ML IVP PRN ×2 (21:35)
[2022-07-18] MEDS: INSULIN DETEMIR (LEVEMIR) 100 UNIT/ML SYR SQ SCH (21:38)
[2022-07-18] MEDS: METOPROLOL TARTRATE 50 MG TAB PO SCH (21:39)
[2022-07-18 22:25] LABS: Glucose,Whole Blood 414 mg/dL (70-110)
[2022-07-18] MEDS: INSULIN REGULAR 100 UNIT in SODIUM CHLORIDE 0.9% 100 ML IV SCH (22:25)
[2022-07-18 23:11] LABS: Glucose,Whole Blood 459 mg/dL (70-110)
[2022-07-19 01:20] LABS: Glucose,Whole Blood 371 mg/dL (70-110)
[2022-07-19 01:40] LABS: Glucose,Whole Blood 368 mg/dL (70-110)
[2022-07-19 02:40] LABS: Glucose,Whole Blood 266 mg/dL (70-110)
[2022-07-19 03:39] LABS: Glucose,Whole Blood 230 mg/dL (70-110)
[2022-07-19] MEDS: NOREPINEPHRINE 4 MG in SODIUM CHLORIDE 0.9% 250 ML IV SCH ×2 (03:40→14:24)
[2022-07-19 04:23] LABS: Basophils % (A) 0 %; Eosinophils % (A) 0 %; HCT 46.4 % (39.0-53.0); HGB 14.6 gm/dL (13.0-17.5); Lymphocytes # (A) 2.2 k/uL (1.0-4.8); Lymphocytes % (A) 17 %; MCH 28.4 pg (25.0-35.0); MCHC 31.4 g/dL (31.0-37.0); MCV 90.6 fL (80.0-100.0); Mean Platelet Volume 10.1; Monocytes # (A) 0.7 k/uL (0-1.0); Monocytes % (A) 5 %; Neutrophils # (A) 9.8 k/uL (1.3-7.7); Neutrophils % (A) 77 %; Platelet Count 261 k/uL (150-450); RBC 5.12 m/uL (4.30-5.90); RDW 14.7 % (11.5-15.5); WBC 12.8 k/uL (3.8-10.6)
[2022-07-19 04:29] LABS: African American GFR (CKD) 62 (>60 ml/min/1.73 sqM); Anion Gap 19 mmol/L; Blood Urea Nitrogen 45 mg/dL (9-20); Calcium 9.8 mg/dL (8.4-10.2); Carbon Dioxide 23 mmol/L (22-30); Chloride 97 mmol/L (98-107); Glucose 251 mg/dL (74-99); Magnesium 1.8 mg/dL (1.6-2.3); Non-African American GFR(CKD) 54 (>60 ml/min/1.73 sqM); Potassium 3.6 mmol/L (3.5-5.1); Sodium 139 mmol/L (137-145)
[2022-07-19] MEDS ORDERED: Potassium Replacement Protocol 1 EACH MISC MISCELLANE PRN (04:30)
[2022-07-19] MEDS ORDERED: Magnesium Replacement Protocol 1 EACH MISC MISCELLANE PRN (04:30)
[2022-07-19] MEDS: MAGNESIUM SULFATE-D5W PMX 1 GM in DEXTROSE/WATER 1 100ML.BAG IVPB SCH ×2 (04:48→06:37)
[2022-07-19 04:56] LABS: Glucose,Whole Blood 134 mg/dL (70-110)
[2022-07-19] MEDS ORDERED: POTASSIUM CHLORIDE ER 20 MEQ TAB.ER PO SCH ×3 (05:00→17:00)
[2022-07-19 05:57] LABS: Glucose,Whole Blood 145 mg/dL (70-110)
[2022-07-19 06:55] LABS: Glucose,Whole Blood 176 mg/dL (70-110)
[2022-07-19] MEDS: INSULIN ASPART (NovoLOG) 100 UNIT/ML VIAL SQ SCH ×7 (06:59→21:07)
[2022-07-19] MEDS: APIXABAN 5 MG TAB PO SCH ×2 (08:09→21:08)
[2022-07-19] MEDS: METOPROLOL TARTRATE 50 MG TAB PO SCH ×3 (08:10→21:08)
[2022-07-19] MEDS: ASPIRIN 81 MG PO SCH (08:13)
[2022-07-19] MEDS: INSULIN DETEMIR (LEVEMIR) 100 UNIT/ML SYR SQ SCH ×2 (08:15→21:08)
[2022-07-19] MEDS: FUROSEMIDE 10 MG/ML 4 ML VIAL IV SCH (08:16)
--- NOTE | 2022-07-19 08:21 | XR ---
EXAMINATION TYPE: XR chest 1V portable DATE OF EXAM: 07/19/2022 COMPARISON: 07/18/2022 HISTORY: Shortness of breath TECHNIQUE: Single frontal view of the chest is obtained. FINDINGS: Bilateral increased opacities in the mid to lower lungs current study. The cardiac silhoue tte size remains within normal limits. The osseous structures are intact. IMPRESSION: Bilateral patchy infiltrates greater on the left, improved from prior exam given differe nces in technique.
[2022-07-19] MEDS ORDERED: AZITHROMYCIN 500 MG TAB PO SCH (09:00)
[2022-07-19 09:09] LABS: Chol/HDL Ratio 5.13 Ratio; LDL Cholesterol,Calculated 170.5 mg/dL (0.0-131.0); VLDL Calculation 17.86 mg/dL (5.00-40.00)
--- NOTE | 2022-07-19 09:14 | P.PN ---
Subjective Progress Note Date: 07/19/22 The patient is 72-year-old male with multiple comorbid conditions, who presented to the hospital with worsening shortness of breath. He was in A. fib with RVR at the time of his admission. Chest x-ray shows bilateral patchy infiltrates, worse on the left. He was subsequently transferred to the ICU for hypoxic respiratory failure and hypotension. The patient was interviewed and examined sitting up in the recliner chair on nasal cannula. He states he is having some difficulty breathing, and states he is unable to take in a deep breath. He has slightly labored with talking. No chest pain or chest pressure. No dizziness when ambulating to the chair. GENERAL: Well-appearing, obese male and in mild respiratory distress NECK: Supple without JVD or thyromegaly. LUNGS: Breath sounds diminished to auscultation bilaterally, with fine crackles in the bases. Respiration equal. HEART: Irregular rate and rhythm without murmurs, rubs or gallops. S1 and S2 heard. EXTREMITIES: Normal range of motion, mild edema on the right. No clubbing or cyanosis. Peripheral pulses intact and strong. VITALS: Blood pressure 119/79, heart rate 123, temp 97.8F, respiratory rate 24, SpO2 88% on 4 L nasal cannula TELEMETRY: Atrial fibrillation with heart rates in the 120s LABS: WBC 12.8, hemoglobin 14.6, hematocrit 46.4, platelet 261, sodium 139, potassium 3.6, BUN 45, creatinine 1.32, lactic acid 2.6, triglycerides 89, LDL 170, HDL 45, magnesium 1.8 IMPRESSION: Acute hypoxic respiratory failure, likely secondary to pneumonia Paroxysmal A. fib with RVR, currently on beta ngozi Acute on chronic heart failure with mildly reduced ejection fraction, previous echo 40-45% Elevated troponin, likely type II HI secondary to supply demand mismatch Lactic acidosis Leukocytosis PLAN: Increase beta ngozi to 50 mg 3 times a day for rate control Continue anticoagulation Aggressive pulmonary hygiene Further recommendations to be based upon clinical course I am dictating on behalf of Dr Mick Brunson's history/physical and assessment/plan. Objective - Vital Signs Vital signs: Vital Signs Temp 97.8 F 07/19/22 08:00 Pulse 123 H 07/19/22 08:00 Resp 24 07/19/22 08:00 BP 119/79 07/19/22 08:00 Pulse Ox 89 L 07/19/22 08:00 FiO2 40 07/19/22 00:00 Intake & Output 07/18/22 07/19/22 07/19/22 18:59 06:59 18:59 Intake Total 238.923 297.101 40 Output Total 180 850 150 Balance 58.923 -552.899 -110 Weight 136.078 kg 143.4 kg Intake: IV 140 40 KVO 140 40 Intake, IV Titration 238.923 157.101 Amount Insulin Regular 100 unit 77.000 In Sodium Chloride 0.9% 100 ml @ Titrate IV .Q0M JE[facility] Rx#:[id number] Norepinephrine 4 mg In 238.923 80.101 Sodium Chloride 0.9% 250 ml @ 0.05 MCG/KG/MIN 25. 923 mls/hr IV .Q9H48M JELLY Rx#:[id number] Output: Urine 180 850 150 Other: Voiding Method Indwelling Catheter # Voids 1 - Labs CBC & Chem 7: 07/19/22 02:52 07/19/22 02:52 Labs: Abnormal Lab Results - Last 24 Hours (Table) 07/18/22 07/18/22 07/18/22 Range/Units 10:34 10:34 14:22 WBC (3.8-10.6) k/uL Neutrophils # (1.3-7.7) k/uL D-Dimer (<0.60) mg/L FEU Chloride (98-107) mmol/L BUN (9-20) mg/dL Creatinine (0.66-1.25) mg/dL Glucose (74-99) mg/dL POC Glucose (mg/dL) (70-110) mg/dL Plasma Lactic Acid Celestino 2.4 H* (0.7-2.0) mmol/L Troponin I 2.120 H* 2.380 H* (0.000-0.034) ng/mL Urine Protein (Negative) Urine Glucose (UA) (Negative) Urine Ketones (Negative) Urine Blood (Negative) Ur Leukocyte Esterase (Negative) Urine RBC (0-5) /hpf Urine WBC (0-5) /hpf Hyaline Casts (0-2) /lpf Urine Mucus (None) /hpf 07/18/22 07/18/22 07/18/22 Range/Units 14:22 15:42 16:20 WBC (3.8-10.6) k/uL Neutrophils # (1.3-7.7) k/uL D-Dimer 1.21 H (<0.60) mg/L FEU Chloride (98-107) mmol/L BUN (9-20) mg/dL Creatinine (0.66-1.25) mg/dL Glucose (74-99) mg/dL POC Glucose (mg/dL) 373 H (70-110) mg/dL Plasma Lactic Acid Celestino 2.1 H* (0.7-2.0) mmol/L Troponin I (0.000-0.034) ng/mL Urine Protein (Negative) Urine Glucose (UA) (Negative) Urine Ketones (Negative) Urine Blood (Negative) Ur Leukocyte Esterase (Negative) Urine RBC (0-5) /hpf Urine WBC (0-5) /hpf Hyaline Casts (0-2) /lpf Urine Mucus (None) /hpf 07/18/22 07/18/22 07/18/22 Range/Units 17:30 17:43 18:45 WBC (3.8-10.6) k/uL Neutrophils # (1.3-7.7) k/uL D-Dimer (<0.60) mg/L FEU Chloride (98-107) mmol/L BUN (9-20) mg/dL Creatinine (0.66-1.25) mg/dL Glucose (74-99) mg/dL POC Glucose (mg/dL) 386 H (70-110) mg/dL Plasma Lactic Acid Celestino 2.7 H* (0.7-2.0) mmol/L Troponin I (0.000-0.034) ng/mL Urine Protein 1+ H (Negative) Urine Glucose (UA) Trace H (Negative) Urine Ketones 1+ H (Negative) Urine Blood Large H (Negative) Ur Leukocyte Esterase Large H (Negative) Urine RBC 38 H (0-5) /hpf Urine WBC 165 H (0-5) /hpf Hyaline Casts 11 H (0-2) /lpf Urine Mucus Rare H (None) /hpf 07/18/22 07/18/22 07/18/22 Range/Units 19:56 20:52 21:31 WBC (3.8-10.6) k/uL Neutrophils # (1.3-7.7) k/uL D-Dimer (<0.60) mg/L FEU Chloride (98-107) mmol/L BUN (9-20) mg/dL Creatinine (0.66-1.25) mg/dL Glucose (74-99) mg/dL POC Glucose (mg/dL) 396 H 408 H (70-110) mg/dL Plasma Lactic Acid Celestino 2.4 H* (0.7-2.0) mmol/L Troponin I (0.000-0.034) ng/mL Urine Protein (Negative) Urine Glucose (UA) (Negative) Urine Ketones (Negative) Urine Blood (Negative) Ur Leukocyte Esterase (Negative) Urine RBC (0-5) /hpf Urine WBC (0-5) /hpf Hyaline Casts (0-2) /lpf Urine Mucus (None) /hpf 07/18/22 07/18/22 07/19/22 Range/Units 22:24 23:10 00:39 WBC (3.8-10.6) k/uL Neutrophils # (1.3-7.7) k/uL D-Dimer (<0.60) mg/L FEU Chloride (98-107) mmol/L BUN (9-20) mg/dL Creatinine (0.66-1.25) mg/dL Glucose (74-99) mg/dL POC Glucose (mg/dL) 414 H 459 H 371 H (70-110) mg/dL Plasma Lactic Acid Celestino (0.7-2.0) mmol/L Troponin I (0.000-0.034) ng/mL Urine Protein (Negative) Urine Glucose (UA) (Negative) Urine Ketones (Negative) Urine Blood (Negative) Ur Leukocyte Esterase (Negative) Urine RBC (0-5) /hpf Urine WBC (0-5) /hpf Hyaline Casts (0-2) /lpf Urine Mucus (None) /hpf 07/19/22 07/19/22 07/19/22 Range/Units 01:38 02:37 02:52 WBC 12.8 H (3.8-10.6) k/uL Neutrophils # 9.8 H (1.3-7.7) k/uL D-Dimer (<0.60) mg/L FEU Chloride (98-107) mmol/L BUN (9-20) mg/dL Creatinine (0.66-1.25) mg/dL Glucose (74-99) mg/dL POC Glucose (mg/dL) 368 H 266 H (70-110) mg/dL Plasma Lactic Acid Celestino (0.7-2.0) mmol/L Troponin I (0.000-0.034) ng/mL Urine Protein (Negative) Urine Glucose (UA) (Negative) Urine Ketones (Negative) Urine Blood (Negative) Ur Leukocyte Esterase (Negative) Urine RBC (0-5) /hpf Urine WBC (0-5) /hpf Hyaline Casts (0-2) /lpf Urine Mucus (None) /hpf 07/19/22 07/19/22 07/19/22 Range/Units 02:52 03:37 03:39 WBC (3.8-10.6) k/uL Neutrophils # (1.3-7.7) k/uL D-Dimer (<0.60) mg/L FEU Chloride 97 L (98-107) mmol/L BUN 45 H (9-20) mg/dL Creatinine 1.32 H (0.66-1.25) mg/dL Glucose 251 H (74-99) mg/dL POC Glucose (mg/dL) 230 H (70-110) mg/dL Plasma Lactic Acid Celestino 2.6 H* (0.7-2.0) mmol/L Troponin I (0.000-0.034) ng/mL Urine Protein (Negative) Urine Glucose (UA) (Negative) Urine Ketones (Negative) Urine Blood (Negative) Ur Leukocyte Esterase (Negative) Urine RBC (0-5) /hpf Urine WBC (0-5) /hpf Hyaline Casts (0-2) /lpf Urine Mucus (None) /hpf 07/19/22 07/19/22 07/19/22 Range/Units 04:53 05:56 06:54 WBC (3.8-10.6) k/uL Neutrophils # (1.3-7.7) k/uL D-Dimer (<0.60) mg/L FEU Chloride (98-107) mmol/L BUN (9-20) mg/dL Creatinine (0.66-1.25) mg/dL Glucose (74-99) mg/dL POC Glucose (mg/dL) 134 H 145 H 176 H (70-110) mg/dL Plasma Lactic Acid Celestino (0.7-2.0) mmol/L Troponin I (0.000-0.034) ng/mL Urine Protein (Negative) Urine Glucose (UA) (Negative) Urine Ketones (Negative) Urine Blood (Negative) Ur Leukocyte Esterase (Negative) Urine RBC (0-5) /hpf Urine WBC (0-5) /hpf Hyaline Casts (0-2) /lpf Urine Mucus (None) /hpf Microbiology - Last 24 Hours (Table) 07/18/22 17:30 Urine Culture - Preliminary Urine,Clean Catch
--- NOTE | 2022-07-19 11:08 | CA ---
Transthoracic Echo Report Name: Melvin Bills Age: 72 Gender: M : 1950 Exam Date: 07/18/2022 13:25 Exam Location: [facility] Ht (in): 70 Wt (lb): 300 Ordering Physician: Summer Hubbard DO Attending/Referring Phys: [id number], Haydee Spindraw Operator Chichi Pavon, BHAVNA Procedure CPT: Indications: elevated trop, hypotension Cardiac Hx: Technical Quality: Technically difficult study Contrast 1: Lumason Total Dose (mL): 1 Contrast 2: Total Dose (mL): MEASUREMENTS (Male / Female) Normal Values 2D ECHO LV Diastolic Diameter PLAX 4.2 cm 4.2 - 5.9 / 3.9 - 5.3 cm LV Systolic Diameter PLAX 2.3 cm IVS Diastolic Thickness 1.3 cm 0.6 - 1.0 / 0.6 - 0.9 cm LVPW Diastolic Thickness 1.3 cm 0.6 - 1.0 / 0.6 - 0.9 cm LV Relative Wall Thickness 0.6 FINDINGS Left Ventricle Mildly increased septal wall thickness. Left ventricular ejection fraction is estimated at 60%. Right Ventricle Right Atrium Left Atrium Mitral Valve Aortic Valve Tricuspid Valve Pulmonic Valve Pericardium No pericardial effusion. Aorta CONCLUSIONS Technically difficult study Mild LVH Normal left ventricular EF 60% Previewed by: Dr. Mitchel Kowalski DO (Electronically Signed) Final Date: 19 July 2022 11:08
--- NOTE | 2022-07-19 11:26 | P.PN ---
Subjective Progress Note Date: 07/19/22 Very pleasant 72-year-old male patient who has a history of diabetes mellitus, uncontrolled, hyperlipidemia, hypertension, morbid obesity, obstructive sleep apnea maintained on CPAP, atrial fibrillation not on anticoagulants currently, BPH with recent surgery and clot evacuation in March and then again in April and the patient did have hematuria and is Eliquis that time. He presented to the emergency room following this morning with difficulty in breathing. He also had some increased swelling of his lower extremities. Chest x-ray revealed diffuse moderate to severe bilateral lower lung edema and/or atypical infiltrates. EKG revealed atrial fibrillation with a rapid ventricular response and nonspecific ST and T wave abnormalities. Lactic acid 2.4, troponin 2.1, 2.38, blood glucose 373. White count 17.6. Hemoglobin 15.7. INR 1.0. Sodium 142. Potassium 3.6. Bicarb 24. BUN 29. Creatinine 1.08. He ST 49. ALT 15. ProBNP 1530. His oxygen saturation was 85% on room air at presentation. He is seen today in consultation in the emergency department. He's currently on BiPAP at 18/10 and 40% FiO2 with O2 saturations in the 90s. Mostly BiPAP dependent since admission. He is also hypotensive requiring norepinephrine currently at 0.05 mcg/kg/m. He's been given Lasix 40 mg IVP 1 with minimal urine output. He is also initiated on ceftriaxone and azithromycin. He was initiated back on Eliquis. On 07/19/2022, the patient is sitting better compared to yesterday. A Lezama catheter was inserted yesterday. The patient is producing adequate amount of urine output and the patient is a negative fluid balance of at least 1 L over the past 24 hours. He spent the night on BiPAP at a pressure 15/10 cm of water and FiO2 of 50%. This morning, the patient was taken off the BiPAP and the patient is currently on 4 L of O2 nasal cannula. The patient was also taken off the norepinephrine infusion since 10 PM yesterday. Remains on a combination of Rocephin and Zithromax. Repeat chest x-ray from today shows residual infiltration of the left although improved. Infiltration of the right is also improved. The patient is hemodynamically stable. The patient is afebrile. The white cell count of 12.8. Normal coagulation profile. BUN is a 45 and a creatinine of 1.3. The hemoglobin A1c was 11 indicating it for blood sugar control. Sodium level is at 139. Urine cultures still negative for now. A limited echocardiogram was done in the emergency department and the patient had a technically difficult study. There was mild LVH. There was normal LV function with an ejection fraction of 60%. The patient remains in atrial fibrillation. The patient is also on anticoagulation with Eliquis 5 mg by mouth twice a day. Objective - Vital Signs Vital signs: Vital Signs Temp 97.8 F 07/19/22 08:00 Pulse 106 H 07/19/22 11:00 Resp 24 07/19/22 11:00 BP 89/69 07/19/22 11:00 Pulse Ox 96 07/19/22 11:08 FiO2 50 07/19/22 11:08 Intake & Output 07/18/22 07/19/22 07/19/22 18:59 06:59 18:59 Intake Total 238.923 297.101 130 Output Total 180 850 620 Balance 58.923 -552.899 -490 Weight 136.078 kg 143.4 kg Intake: IV 140 80 KVO 140 80 Intake, IV Titration 238.923 157.101 50 Amount Insulin Regular 100 unit 77.000 In Sodium Chloride 0.9% 100 ml @ Titrate IV .Q0M JE[facility] Rx#:[id number] Norepinephrine 4 mg In 238.923 80.101 Sodium Chloride 0.9% 250 ml @ 0.05 MCG/KG/MIN 25. 923 mls/hr IV .Q9H48M JELLY Rx#:[id number] cefTRIAXone 1 gm In 50 Sodium Chloride 0.9% 50 ml @ 100 mls/hr IVPB Q24HR JE[facility] Rx#:[id number] Output: Urine 180 850 620 Other: Voiding Method Indwelling Catheter Indwelling Catheter # Voids 1 - Exam GENERAL EXAM: Alert, doesn't obese 72-year-old male patient on BiPAP 18/10 and 40% FiO2, fairly comfortable in no apparent distress. The patient was taken off the BiPAP this morning and placed on 40 to approximately nasal cannula. Awake and alert and following commands and answering questions appropriately. HEAD: Normocephalic. EYES: Normal reaction of pupils, equal size. NOSE: Clear with pink turbinates. THROAT: No erythema or exudates. NECK: No masses, no JVD. CHEST: No chest wall deformity. LUNGS: Equal air entry with crackles in the bilateral bases. CVS: S1 and S2 normal with no audible murmur, regular rhythm. ABDOMEN: No hepatosplenomegaly, normal bowel sounds, no guarding or rigidity. SPINE: No scoliosis or deformity SKIN: No rashes CENTRAL NERVOUS SYSTEM: No focal deficits, tone is normal in all 4 extremities. EXTREMITIES: There is one plus peripheral edema. No clubbing, no cyanosis. Peripheral pulses are intact. - Labs CBC & Chem 7: 07/19/22 02:52 07/19/22 08:49 Labs: Abnormal Lab Results - Last 24 Hours (Table) 07/18/22 07/18/22 07/18/22 Range/Units 10:34 14:22 14:22 WBC (3.8-10.6) k/uL Neutrophils # (1.3-7.7) k/uL D-Dimer (<0.60) mg/L FEU Chloride (98-107) mmol/L BUN (9-20) mg/dL Creatinine (0.66-1.25) mg/dL Glucose (74-99) mg/dL POC Glucose (mg/dL) (70-110) mg/dL Hemoglobin A1c (0.0-6.0) % Plasma Lactic Acid Celestino 2.1 H* (0.7-2.0) mmol/L Troponin I 2.120 H* 2.380 H* (0.000-0.034) ng/mL Cholesterol (0.00-200.00) mg/dL LDL Cholesterol, Calc (0.0-131.0) mg/dL Urine Protein (Negative) Urine Glucose (UA) (Negative) Urine Ketones (Negative) Urine Blood (Negative) Ur Leukocyte Esterase (Negative) Urine RBC (0-5) /hpf Urine WBC (0-5) /hpf Hyaline Casts (0-2) /lpf Urine Mucus (None) /hpf 07/18/22 07/18/22 07/18/22 Range/Units 15:42 16:20 17:30 WBC (3.8-10.6) k/uL Neutrophils # (1.3-7.7) k/uL D-Dimer 1.21 H (<0.60) mg/L FEU Chloride (98-107) mmol/L BUN (9-20) mg/dL Creatinine (0.66-1.25) mg/dL Glucose (74-99) mg/dL POC Glucose (mg/dL) 373 H (70-110) mg/dL Hemoglobin A1c (0.0-6.0) % Plasma Lactic Acid Celestino (0.7-2.0) mmol/L Troponin I (0.000-0.034) ng/mL Cholesterol (0.00-200.00) mg/dL LDL Cholesterol, Calc (0.0-131.0) mg/dL Urine Protein 1+ H (Negative) Urine Glucose (UA) Trace H (Negative) Urine Ketones 1+ H (Negative) Urine Blood Large H (Negative) Ur Leukocyte Esterase Large H (Negative) Urine RBC 38 H (0-5) /hpf Urine WBC 165 H (0-5) /hpf Hyaline Casts 11 H (0-2) /lpf Urine Mucus Rare H (None) /hpf 07/18/22 07/18/22 07/18/22 Range/Units 17:43 18:45 19:56 WBC (3.8-10.6) k/uL Neutrophils # (1.3-7.7) k/uL D-Dimer (<0.60) mg/L FEU Chloride (98-107) mmol/L BUN (9-20) mg/dL Creatinine (0.66-1.25) mg/dL Glucose (74-99) mg/dL POC Glucose (mg/dL) 386 H 396 H (70-110) mg/dL Hemoglobin A1c (0.0-6.0) % Plasma Lactic Acid Celestino 2.7 H* (0.7-2.0) mmol/L Troponin I (0.000-0.034) ng/mL Cholesterol (0.00-200.00) mg/dL LDL Cholesterol, Calc (0.0-131.0) mg/dL Urine Protein (Negative) Urine Glucose (UA) (Negative) Urine Ketones (Negative) Urine Blood (Negative) Ur Leukocyte Esterase (Negative) Urine RBC (0-5) /hpf Urine WBC (0-5) /hpf Hyaline Casts (0-2) /lpf Urine Mucus (None) /hpf 07/18/22 07/18/22 07/18/22 Range/Units 20:52 21:31 22:24 WBC (3.8-10.6) k/uL Neutrophils # (1.3-7.7) k/uL D-Dimer (<0.60) mg/L FEU Chloride (98-107) mmol/L BUN (9-20) mg/dL Creatinine (0.66-1.25) mg/dL Glucose (74-99) mg/dL POC Glucose (mg/dL) 408 H 414 H (70-110) mg/dL Hemoglobin A1c (0.0-6.0) % Plasma Lactic Acid Celestino 2.4 H* (0.7-2.0) mmol/L Troponin I (0.000-0.034) ng/mL Cholesterol (0.00-200.00) mg/dL LDL Cholesterol, Calc (0.0-131.0) mg/dL Urine Protein (Negative) Urine Glucose (UA) (Negative) Urine Ketones (Negative) Urine Blood (Negative) Ur Leukocyte Esterase (Negative) Urine RBC (0-5) /hpf Urine WBC (0-5) /hpf Hyaline Casts (0-2) /lpf Urine Mucus (None) /hpf 07/18/22 07/19/22 07/19/22 Range/Units 23:10 00:39 01:38 WBC (3.8-10.6) k/uL Neutrophils # (1.3-7.7) k/uL D-Dimer (<0.60) mg/L FEU Chloride (98-107) mmol/L BUN (9-20) mg/dL Creatinine (0.66-1.25) mg/dL Glucose (74-99) mg/dL POC Glucose (mg/dL) 459 H 371 H 368 H (70-110) mg/dL Hemoglobin A1c (0.0-6.0) % Plasma Lactic Acid Celestino (0.7-2.0) mmol/L Troponin I (0.000-0.034) ng/mL Cholesterol (0.00-200.00) mg/dL LDL Cholesterol, Calc (0.0-131.0) mg/dL Urine Protein (Negative) Urine Glucose (UA) (Negative) Urine Ketones (Negative) Urine Blood (Negative) Ur Leukocyte Esterase (Negative) Urine RBC (0-5) /hpf Urine WBC (0-5) /hpf Hyaline Casts (0-2) /lpf Urine Mucus (None) /hpf 07/19/22 07/19/22 07/19/22 Range/Units 02:37 02:52 02:52 WBC 12.8 H (3.8-10.6) k/uL Neutrophils # 9.8 H (1.3-7.7) k/uL D-Dimer (<0.60) mg/L FEU Chloride 97 L (98-107) mmol/L BUN 45 H (9-20) mg/dL Creatinine 1.32 H (0.66-1.25) mg/dL Glucose 251 H (74-99) mg/dL POC Glucose (mg/dL) 266 H (70-110) mg/dL Hemoglobin A1c (0.0-6.0) % Plasma Lactic Acid Celestino (0.7-2.0) mmol/L Troponin I (0.000-0.034) ng/mL Cholesterol 234.00 H (0.00-200.00) mg/dL LDL Cholesterol, Calc 170.5 H (0.0-131.0) mg/dL Urine Protein (Negative) Urine Glucose (UA) (Negative) Urine Ketones (Negative) Urine Blood (Negative) Ur Leukocyte Esterase (Negative) Urine RBC (0-5) /hpf Urine WBC (0-5) /hpf Hyaline Casts (0-2) /lpf Urine Mucus (None) /hpf 07/19/22 07/19/22 07/19/22 Range/Units 02:52 03:37 03:39 WBC (3.8-10.6) k/uL Neutrophils # (1.3-7.7) k/uL D-Dimer (<0.60) mg/L FEU Chloride (98-107) mmol/L BUN (9-20) mg/dL Creatinine (0.66-1.25) mg/dL Glucose (74-99) mg/dL POC Glucose (mg/dL) 230 H (70-110) mg/dL Hemoglobin A1c 11.0 H (0.0-6.0) % Plasma Lactic Acid Celestino 2.6 H* (0.7-2.0) mmol/L Troponin I (0.000-0.034) ng/mL Cholesterol (0.00-200.00) mg/dL LDL Cholesterol, Calc (0.0-131.0) mg/dL Urine Protein (Negative) Urine Glucose (UA) (Negative) Urine Ketones (Negative) Urine Blood (Negative) Ur Leukocyte Esterase (Negative) Urine RBC (0-5) /hpf Urine WBC (0-5) /hpf Hyaline Casts (0-2) /lpf Urine Mucus (None) /hpf 07/19/22 07/19/22 07/19/22 Range/Units 04:53 05:56 06:54 WBC (3.8-10.6) k/uL Neutrophils # (1.3-7.7) k/uL D-Dimer (<0.60) mg/L FEU Chloride (98-107) mmol/L BUN (9-20) mg/dL Creatinine (0.66-1.25) mg/dL Glucose (74-99) mg/dL POC Glucose (mg/dL) 134 H 145 H 176 H (70-110) mg/dL Hemoglobin A1c (0.0-6.0) % Plasma Lactic Acid Celestino (0.7-2.0) mmol/L Troponin I (0.000-0.034) ng/mL Cholesterol (0.00-200.00) mg/dL LDL Cholesterol, Calc (0.0-131.0) mg/dL Urine Protein (Negative) Urine Glucose (UA) (Negative) Urine Ketones (Negative) Urine Blood (Negative) Ur Leukocyte Esterase (Negative) Urine RBC (0-5) /hpf Urine WBC (0-5) /hpf Hyaline Casts (0-2) /lpf Urine Mucus (None) /hpf Microbiology - Last 24 Hours (Table) 07/18/22 17:30 Urine Culture - Preliminary Urine,Clean Catch Assessment and Plan Assessment: Acute hypoxemic respiratory failure secondary to acute exacerbation of chronic systolic congestive heart failure. Previous echocardiogram from March 2022 revealed impaired left ventricular systolic function with ejection fraction 40- 45%. Less likely community-acquired pneumonia. Continue antibiotics. Pro-ca lcitonin pending. D-dimer pending. Clinically improving and the patient is currently on 4 L O2 nasal cannula and the patient was taken off the BiPAP. Echocardiogram was limited and showed a normal ejection fraction of 60% contrary to the previous echocardiogram findings from March 2022. The patient is on examination bronchodilators, diuretics and antibiotics. Chest x-ray showing improvement of the bilateral pulmonary infiltrates although there is some residual infiltration on the left. Elevated troponin possible non-ST segment elevation myocardial infarction Atrial fibrillation with rapid ventricular response. The patient had not been on Eliquis for the past 2-3 months due to hematuria, the patient was placed back on anticoagulation with Eliquis. Hypotension secondary to above, requiring norepinephrine, recovered and the patient is currently off norepinephrine infusion Benign prosthetic hypertrophy with recent surgery in March and then again in April 2022 Morbid obesity, body mass index of 40.7 History of hypertension Diabetes mellitus, poorly controlled Urinary retention secondary to BPH Known history of obstructive sleep apnea maintained on CPAP therapy on outpatient basis Previous history of hematuria for that reason the patient took himself off anticoagulation Previous history of cystoscopy on bipolar transurethral resection of the prostate/TURP for symptoms of BPH Plan: Clinically improving Continue diuresis Keep the Lezama catheter in place Take the patient off the BiPAP this morning and put him on 4 L approximately 2 cannula with understanding that the patient may go back on a BiPAP overnight Repeat echocardiogram was noted and this was a poor window Awaiting LEVEL of pro-calcitonin Continue Lasix Continue same antibiotic coverage Monitor renal function Cardiology consultation BiPAP overnight We'll keep the patient ICU for another 24 hours
[2022-07-19 11:57] LABS: Glucose,Whole Blood 364 mg/dL (70-110)
[2022-07-19] MEDS: IBUPROFEN 400 MG TAB PO PRN (12:29)
[2022-07-19 15:51] LABS: Calcium 8.8 mg/dL (8.4-10.2); Potassium 3.6 mmol/L (3.5-5.1)
[2022-07-19 16:44] LABS: Glucose,Whole Blood 375 mg/dL (70-110)
[2022-07-19] MEDS ORDERED: INSULIN ASPART (NovoLOG) 100 UNIT/ML VIAL SQ SCH (17:30)
[2022-07-19] MEDS ORDERED: DILTIAZEM DRIP BOLUS FROM BAG 1 MG SOLN IV ONE (17:35)
[2022-07-19] MEDS ORDERED: FUROSEMIDE 10 MG/ML 4 ML VIAL IV STA (17:36)
[2022-07-19] MEDS: DILTIAZEM 125 MG in SODIUM CHLORIDE 0.9% 100 ML IV SCH (18:10)
[2022-07-19] MEDS: ALBUTEROL NEBULIZED 2.5 MG/3 ML INHALATION PRN (19:44)
[2022-07-19 20:07] LABS: Glucose,Whole Blood 321 mg/dL (70-110)
--- NOTE | 2022-07-19 20:55 | P.PN ---
Subjective 61-year-old pleasant female came in with compensative chest pain on the left side of the chest lasted for 5 minutes 7/10 in severity associated with lightheadedness denied any shortness of breath possible diaphoresis as well. Chest pain radiates to the right side of the chest and also to the mandible nausea. Chest pain is nonpruritic in nature not associated with food pressure- like sensation appears to be nonexertional patient had a stress test in 2019 patient denied any other cardiac history does have history of hypertension. Patient had nonspecific ST-T wave changes in the inferior leads and intraventricular conduction delay with a split QRS complex in the lateral leads. No previous EKG to compare with 07/19/2022 Patient this morning was seen in the ICU, he was sitting in bed, fully awake and oriented, tired looking, slightly tachypneic, he got short of breath easily when he tried to talk. He used to BiPAP overnight and he was using 4 L of oxygen per minute. His throat is secondary to CHF exacerbation, less likely pneumonia. Patient on IV Lasix and ceftriaxone and Zithromax, Lasix no swelling be lowered to 40 mg twice daily down to once daily from tomorrow. Chest x-ray showing improvement. Blood pressure is borderline as well as slightly tachycardic and tachypneic. Rubber Off on the case and increase the metoprolol to 50 mg 3 times daily. glucose was getting out of control and patient was placed on insulin drip today. Also patient is some Cardizem drip Patient currently is on Eliquis 5 mg as well. Home dose of aspirin 81 mg Review of systems CONSTITUTIONAL: No fever, no malaise, no fatigue. HEENT: No recent visual problems or hearing problems. Denied any sore throat. CARDIOVASCULAR: no palpitations, no syncope. PULMONARY: No chest wall tenderness, no hemoptysis. GASTROINTESTINAL: No diarrhea, no nausea, no vomiting, no abdominal pain. Normoactive bowel sounds. NEUROLOGICAL: No headaches, no weakness, no numbness. HEMATOLOGICAL: Denies any bleeding or petechiae. GENITOURINARY: Denies any burning micturition, frequency, or urgency. Active Medications Generic Name Dose Route Start Last Admin Trade Name Freq PRN Reason Stop Dose Admin Albuterol Sulfate 2.5 mg 07/18/22 16:58 07/19/22 19:44 Albuterol Nebulized 2.5 Mg/3 Ml INHALATION 2.5 mg RT-QID PRN Administration Shortness Of Breath Apixaban 5 mg 07/18/22 10:30 07/19/22 08:09 Apixaban 5 Mg Tab PO 5 mg BID JELLY Administration Protocol Aspirin 81 mg 07/19/22 09:00 07/19/22 08:13 Aspirin 81 Mg PO 81 mg DAILY JELLY Administration Azithromycin 500 mg 07/19/22 09:00 07/19/22 08:13 Azithromycin 500 Mg Tab PO 07/20/22 09:01 500 mg DAILY JELLY Administration Protocol Dextrose/Water 25 ml 07/18/22 21:35 Dextrose 50% Syringe 50 Ml IVP PER PROTOCOL PRN Hypoglycemia Protocol Dextrose/Water 50 ml 07/18/22 21:35 Dextrose 50% Syringe 50 Ml IVP PER PROTOCOL PRN Hypoglycemia Protocol Furosemide 40 mg 07/20/22 09:00 Furosemide 10 Mg/Ml 4 Ml Vial IV DAILY [facility] Norepinephrine Bitartrate 4 mg 254 mls @ 25.923 mls/hr 07/18/22 08:30 07/19/22 14:24 / Sodium Chloride IV Not Given .Q9H48M JELLY Protocol 0.05 MCG/KG/MIN Ceftriaxone Sodium 1 gm/ 50 mls @ 100 mls/hr 07/19/22 09:00 07/19/22 08:10 Sodium Chloride IVPB 100 mls/hr Q24HR JELLY Administration Protocol Insulin Human Regular 100 unit 100 mls @ 0 mls/hr 07/18/22 22:00 07/19/22 04:57 / Sodium Chloride IV 0 units/hr .Q0M JELLY 0 mls/hr Titration Protocol Titrate Diltiazem HCl 125 mg/ Sodium 125 mls @ 0 mls/hr 07/19/22 18:15 07/19/22 18:10 Chloride IV 5 mg/hr .Q0M JELLY 5 mls/hr Administration Protocol Per Protocol Ibuprofen 400 mg 07/19/22 11:59 07/19/22 12:29 Ibuprofen 400 Mg Tab PO 400 mg Q6HR PRN Administration Pain Insulin Aspart 0 unit 07/18/22 21:00 07/19/22 16:55 Insulin Aspart (Novolog) 100 Unit/Ml Vial SQ 10 unit ACHS JELLY Administration Protocol Insulin Aspart 6 unit 07/19/22 21:00 Insulin Aspart (Novolog) 100 Unit/Ml Vial SQ AC-TID JELLY Insulin Detemir 30 unit 07/18/22 21:00 07/19/22 08:15 Insulin Detemir (Levemir) 100 Unit/Ml Syr SQ 30 unit BID JELLY Administration Lorazepam 1 mg 07/19/22 12:24 Lorazepam 1 Mg/0.5 Ml Vial IV Q4HR PRN Anxiety Metoprolol Tartrate 50 mg 07/19/22 16:00 07/19/22 17:10 Metoprolol Tartrate 50 Mg Tab PO 50 mg TID JELLY Administration Miscellaneous Information 1 each 07/19/22 04:30 Potassium Replacement Protocol 1 [facility] [place]CE[place] DAILY PRN Per Protocol Protocol Miscellaneous Information 1 each 07/19/22 04:30 Magnesium Replacement Protocol 1 [facility] [place] MISCELLANE DAILY PRN Per Protocol Protocol Nitroglycerin 0.4 mg 07/18/22 09:38 Nitroglycerin Sl Tabs 0.4 Mg Tab SUBLINGUAL Q5M PRN Chest Pain Objective - Vital Signs Vital signs: Vital Signs Temp 97.8 F 07/19/22 08:00 Pulse 121 H 07/19/22 10:00 Resp 28 H 07/19/22 10:00 BP 98/79 07/19/22 10:00 Pulse Ox 96 07/19/22 10:00 FiO2 50 07/19/22 10:00 Intake & Output 07/18/22 07/19/22 07/19/22 18:59 06:59 18:59 Intake Total 238.923 297.101 110 Output Total 180 850 530 Balance 58.923 -552.899 -420 Weight 136.078 kg 143.4 kg Intake: IV 140 60 KVO 140 60 Intake, IV Titration 238.923 157.101 50 Amount Insulin Regular 100 unit 77.000 In Sodium Chloride 0.9% 100 ml @ Titrate IV .Q0M JELLY Rx#:[id number] Norepinephrine 4 mg In 238.923 80.101 Sodium Chloride 0.9% 250 ml @ 0.05 MCG/KG/MIN 25. 923 mls/hr IV .Q9H48M JELLY Rx#:[id number] cefTRIAXone 1 gm In 50 Sodium Chloride 0.9% 50 ml @ 100 mls/hr IVPB Q24HR JELLY Rx#:[id number] Output: Urine 180 850 530 Other: Voiding Method Indwelling Catheter # Voids 1 - Exam -GENERAL: The patient is alert and oriented x3, not in any acute distress. Morbidly obese HEENT: Pupils are round and equally reacting to light. EOMI. No scleral icterus. No conjunctival pallor. Normocephalic, atraumatic. No pharyngeal erythema. No thyromegaly. CARDIOVASCULAR: S1 and S2 present. No murmurs, rubs, or gallops. -PULMONARY: Chest is clear to auscultation, no wheezing. Bilateral basal crepitation ABDOMEN: Soft, nontender, nondistended, normoactive bowel sounds. No palpable organomegaly. MUSCULOSKELETAL: No joint swelling or deformity. -EXTREMITIES: No cyanosis, clubbing,. 1+ bilateral pitting like edema NEUROLOGICAL: Gross neurological examination did not reveal any focal deficits. SKIN: No rashes. no petechiae. - Labs CBC & Chem 7: 07/19/22 02:52 07/19/22 15:20 Labs: Abnormal Lab Results - Last 24 Hours (Table) 07/18/22 07/18/22 07/18/22 Range/Units 10:34 10:34 14:22 WBC (3.8-10.6) k/uL Neutrophils # (1.3-7.7) k/uL D-Dimer (<0.60) mg/L FEU Chloride (98-107) mmol/L BUN (9-20) mg/dL Creatinine (0.66-1.25) mg/dL Glucose (74-99) mg/dL POC Glucose (mg/dL) (70-110) mg/dL Hemoglobin A1c (0.0-6.0) % Plasma Lactic Acid Celestino 2.4 H* (0.7-2.0) mmol/L Troponin I 2.120 H* 2.380 H* (0.000-0.034) ng/mL Cholesterol (0.00-200.00) mg/dL LDL Cholesterol, Calc (0.0-131.0) mg/dL Urine Protein (Negative) Urine Glucose (UA) (Negative) Urine Ketones (Negative) Urine Blood (Negative) Ur Leukocyte Esterase (Negative) Urine RBC (0-5) /hpf Urine WBC (0-5) /hpf Hyaline Casts (0-2) /lpf Urine Mucus (None) /hpf 07/18/22 07/18/22 07/18/22 Range/Units 14:22 15:42 16:20 WBC (3.8-10.6) k/uL Neutrophils # (1.3-7.7) k/uL D-Dimer 1.21 H (<0.60) mg/L FEU Chloride (98-107) mmol/L BUN (9-20) mg/dL Creatinine (0.66-1.25) mg/dL Glucose (74-99) mg/dL POC Glucose (mg/dL) 373 H (70-110) mg/dL Hemoglobin A1c (0.0-6.0) % Plasma Lactic Acid Celestino 2.1 H* (0.7-2.0) mmol/L Troponin I (0.000-0.034) ng/mL Cholesterol (0.00-200.00) mg/dL LDL Cholesterol, Calc (0.0-131.0) mg/dL Urine Protein (Negative) Urine Glucose (UA) (Negative) Urine Ketones (Negative) Urine Blood (Negative) Ur Leukocyte Esterase (Negative) Urine RBC (0-5) /hpf Urine WBC (0-5) /hpf Hyaline Casts (0-2) /lpf Urine Mucus (None) /hpf 07/18/22 07/18/22 07/18/22 Range/Units 17:30 17:43 18:45 WBC (3.8-10.6) k/uL Neutrophils # (1.3-7.7) k/uL D-Dimer (<0.60) mg/L FEU Chloride (98-107) mmol/L BUN (9-20) mg/dL Creatinine (0.66-1.25) mg/dL Glucose (74-99) mg/dL POC Glucose (mg/dL) 386 H (70-110) mg/dL Hemoglobin A1c (0.0-6.0) % Plasma Lactic Acid Celestino 2.7 H* (0.7-2.0) mmol/L Troponin I (0.000-0.034) ng/mL Cholesterol (0.00-200.00) mg/dL LDL Cholesterol, Calc (0.0-131.0) mg/dL Urine Protein 1+ H (Negative) Urine Glucose (UA) Trace H (Negative) Urine Ketones 1+ H (Negative) Urine Blood Large H (Negative) Ur Leukocyte Esterase Large H (Negative) Urine RBC 38 H (0-5) /hpf Urine WBC 165 H (0-5) /hpf Hyaline Casts 11 H (0-2) /lpf Urine Mucus Rare H (None) /hpf 07/18/22 07/18/22 07/18/22 Range/Units 19:56 20:52 21:31 WBC (3.8-10.6) k/uL Neutrophils # (1.3-7.7) k/uL D-Dimer (<0.60) mg/L FEU Chloride (98-107) mmol/L BUN (9-20) mg/dL Creatinine (0.66-1.25) mg/dL Glucose (74-99) mg/dL POC Glucose (mg/dL) 396 H 408 H (70-110) mg/dL Hemoglobin A1c (0.0-6.0) % Plasma Lactic Acid Celestino 2.4 H* (0.7-2.0) mmol/L Troponin I (0.000-0.034) ng/mL Cholesterol (0.00-200.00) mg/dL LDL Cholesterol, Calc (0.0-131.0) mg/dL Urine Protein (Negative) Urine Glucose (UA) (Negative) Urine Ketones (Negative) Urine Blood (Negative) Ur Leukocyte Esterase (Negative) Urine RBC (0-5) /hpf Urine WBC (0-5) /hpf Hyaline Casts (0-2) /lpf Urine Mucus (None) /hpf 07/18/22 07/18/22 07/19/22 Range/Units 22:24 23:10 00:39 WBC (3.8-10.6) k/uL Neutrophils # (1.3-7.7) k/uL D-Dimer (<0.60) mg/L FEU Chloride (98-107) mmol/L BUN (9-20) mg/dL Creatinine (0.66-1.25) mg/dL Glucose (74-99) mg/dL POC Glucose (mg/dL) 414 H 459 H 371 H (70-110) mg/dL Hemoglobin A1c (0.0-6.0) % Plasma Lactic Acid Celestino (0.7-2.0) mmol/L Troponin I (0.000-0.034) ng/mL Cholesterol (0.00-200.00) mg/dL LDL Cholesterol, Calc (0.0-131.0) mg/dL Urine Protein (Negative) Urine Glucose (UA) (Negative) Urine Ketones (Negative) Urine Blood (Negative) Ur Leukocyte Esterase (Negative) Urine RBC (0-5) /hpf Urine WBC (0-5) /hpf Hyaline Casts (0-2) /lpf Urine Mucus (None) /hpf 07/19/22 07/19/22 07/19/22 Range/Units 01:38 02:37 02:52 WBC 12.8 H (3.8-10.6) k/uL Neutrophils # 9.8 H (1.3-7.7) k/uL D-Dimer (<0.60) mg/L FEU Chloride (98-107) mmol/L BUN (9-20) mg/dL Creatinine (0.66-1.25) mg/dL Glucose (74-99) mg/dL POC Glucose (mg/dL) 368 H 266 H (70-110) mg/dL Hemoglobin A1c (0.0-6.0) % Plasma Lactic Acid Celestino (0.7-2.0) mmol/L Troponin I (0.000-0.034) ng/mL Cholesterol (0.00-200.00) mg/dL LDL Cholesterol, Calc (0.0-131.0) mg/dL Urine Protein (Negative) Urine Glucose (UA) (Negative) Urine Ketones (Negative) Urine Blood (Negative) Ur Leukocyte Esterase (Negative) Urine RBC (0-5) /hpf Urine WBC (0-5) /hpf Hyaline Casts (0-2) /lpf Urine Mucus (None) /hpf 07/19/22 07/19/22 07/19/22 Range/Units 02:52 02:52 03:37 WBC (3.8-10.6) k/uL Neutrophils # (1.3-7.7) k/uL D-Dimer (<0.60) mg/L FEU Chloride 97 L (98-107) mmol/L BUN 45 H (9-20) mg/dL Creatinine 1.32 H (0.66-1.25) mg/dL Glucose 251 H (74-99) mg/dL POC Glucose (mg/dL) 230 H (70-110) mg/dL Hemoglobin A1c 11.0 H (0.0-6.0) % Plasma Lactic Acid Celestino (0.7-2.0) mmol/L Troponin I (0.000-0.034) ng/mL Cholesterol 234.00 H (0.00-200.00) mg/dL LDL Cholesterol, Calc 170.5 H (0.0-131.0) mg/dL Urine Protein (Negative) Urine Glucose (UA) (Negative) Urine Ketones (Negative) Urine Blood (Negative) Ur Leukocyte Esterase (Negative) Urine RBC (0-5) /hpf Urine WBC (0-5) /hpf Hyaline Casts (0-2) /lpf Urine Mucus (None) /hpf 07/19/22 07/19/22 07/19/22 Range/Units 03:39 04:53 05:56 WBC (3.8-10.6) k/uL Neutrophils # (1.3-7.7) k/uL D-Dimer (<0.60) mg/L FEU Chloride (98-107) mmol/L BUN (9-20) mg/dL Creatinine (0.66-1.25) mg/dL Glucose (74-99) mg/dL POC Glucose (mg/dL) 134 H 145 H (70-110) mg/dL Hemoglobin A1c (0.0-6.0) % Plasma Lactic Acid Celestino 2.6 H* (0.7-2.0) mmol/L Troponin I (0.000-0.034) ng/mL Cholesterol (0.00-200.00) mg/dL LDL Cholesterol, Calc (0.0-131.0) mg/dL Urine Protein (Negative) Urine Glucose (UA) (Negative) Urine Ketones (Negative) Urine Blood (Negative) Ur Leukocyte Esterase (Negative) Urine RBC (0-5) /hpf Urine WBC (0-5) /hpf Hyaline Casts (0-2) /lpf Urine Mucus (None) /hpf 07/19/22 Range/Units 06:54 WBC (3.8-10.6) k/uL Neutrophils # (1.3-7.7) k/uL D-Dimer (<0.60) mg/L FEU Chloride (98-107) mmol/L BUN (9-20) mg/dL Creatinine (0.66-1.25) mg/dL Glucose (74-99) mg/dL POC Glucose (mg/dL) 176 H (70-110) mg/dL Hemoglobin A1c (0.0-6.0) % Plasma Lactic Acid Celestino (0.7-2.0) mmol/L Troponin I (0.000-0.034) ng/mL Cholesterol (0.00-200.00) mg/dL LDL Cholesterol, Calc (0.0-131.0) mg/dL Urine Protein (Negative) Urine Glucose (UA) (Negative) Urine Ketones (Negative) Urine Blood (Negative) Ur Leukocyte Esterase (Negative) Urine RBC (0-5) /hpf Urine WBC (0-5) /hpf Hyaline Casts (0-2) /lpf Urine Mucus (None) /hpf Microbiology - Last 24 Hours (Table) 07/18/22 17:30 Urine Culture - Preliminary Urine,Clean Catch Assessment and Plan Assessment: Acute congestive heart failure, diastolic with ejection fraction 60% Bilateral pneumonia, felt less likely. Acute hypoxic respiratory failure Paroxysmal A. fib with RVR Elevated troponin most likely type II myocardial infarction secondary to hypoxia History of BPH Morbid obesity with BMI of 42.9 Diabetes mellitus with hyperglycemia Plan: This is a pleasant 72 years old male who presents with hypoxia, CHF, pneumonia less likely Continue with IV Lasix and follow creatinine and input and output Continue with Zithromax and ceftriaxone and follow-up forcalcitonin Continue with the liquids Continue with IV Lasix Continue with metoprolol Continue with insulin Cardiology and pulmonary consult on the case Labs and medication were reviewed.. Continue same treatment. Continue with symptomatic treatment. Resume home medication. Monitor lytes and vitals. DVT and GI prophylaxis. Further recommendations as per clinical course of the patient DVT prophylaxis: Eliquis GI Prophylaxis: Pepcid PT/OT: Pending Prognosis is guarded
[2022-07-19] MEDS: FAMOTIDINE 20 MG/2 ML VIAL IV SCH (21:08)
[2022-07-20] MEDS: ALBUTEROL NEBULIZED 2.5 MG/3 ML INHALATION PRN ×2 (01:32→07:29)
[2022-07-20 06:19] LABS: Basophils % (A) 0 %; Eosinophils # (A) 0.1 k/uL (0-0.7); Eosinophils % (A) 1 %; HCT 43.1 % (39.0-53.0); HGB 13.5 gm/dL (13.0-17.5); Hypochromasia Slight; Lymphocytes # (A) 2.2 k/uL (1.0-4.8); Lymphocytes % (A) 14 %; MCH 28.2 pg (25.0-35.0); MCHC 31.3 g/dL (31.0-37.0); MCV 90.2 fL (80.0-100.0); Mean Platelet Volume 9.6; Monocytes % (A) 6 %; Neutrophils # (A) 12.6 k/uL (1.3-7.7); Neutrophils % (A) 79 %; Platelet Count 277 k/uL (150-450); RBC 4.78 m/uL (4.30-5.90); RDW 14.8 % (11.5-15.5)
[2022-07-20 06:29] LABS: Glucose,Whole Blood 307 mg/dL (70-110)
[2022-07-20 06:30] LABS: Calcium 9.2 mg/dL (8.4-10.2); Potassium 3.6 mmol/L (3.5-5.1)
[2022-07-20] MEDS: INSULIN ASPART (NovoLOG) 100 UNIT/ML VIAL SQ SCH ×7 (06:50→20:42)
[2022-07-20] MEDS ORDERED: POTASSIUM CHLORIDE ER 20 MEQ TAB.ER PO SCH (08:00)
--- NOTE | 2022-07-20 08:17 | XR ---
EXAMINATION TYPE: XR chest 1V portable DATE OF EXAM: 07/20/2022 COMPARISON: 07/19/2022 HISTORY: Cough TECHNIQUE: Single frontal view of the chest is obtained. FINDINGS: Bilateral areas of consolidation and opacity greater on the left. No sizable pneumothorax. Heart size normal. Pleural thickening. Hypertrophic change of the spine. Arthropathy of the shoulder . IMPRESSION: Multifocal infiltrate stable from prior exam
--- NOTE | 2022-07-20 08:59 | P.PN ---
Subjective Progress Note Date: 07/20/22 The patient is 72-year-old male with multiple comorbid conditions, who presented to the hospital with worsening shortness of breath. He was in A. fib with RVR at the time of his admission. Chest x-ray shows bilateral patchy infiltrates, worse on the left. He was subsequently transferred to the ICU for hypoxic respiratory failure and hypotension. He continues to use BiPAP for respirtory distress. The patient states he cannot tolerate the nasal cannula more than several minutes. The patient was interviewed and examined lying in bed on BiPAP. He states he is having some difficulty breathing, but is more comfortable with his BiPAP. No chest pain or chest pressure. GENERAL: Well-appearing, obese male NECK: Supple without JVD or thyromegaly. LUNGS: Breath sounds diminished to auscultation bilaterally.Respiration equal. Labored breathing. HEART: Irregular rate and rhythm without murmurs, rubs or gallops. S1 and S2 heard. EXTREMITIES: Normal range of motion, mild edema on the right. No clubbing or cyanosis. Peripheral pulses intact and strong. VITALS: Blood pressure 109/79, pulse 120, respiratory rate 25, SpO2 92% on 50% BiPAP TELEMETRY: Atrial fibrillation with heart rates in the 120s. Currently on Cardizem. LABS: WBC 16.0, hemoglobin 13.5, hematocrit 43.1, platelet 277, sodium 136, potassium 3.6, BUN 52, creatinine 1.13, magnesium 2.0 IMPRESSION: Acute hypoxic respiratory failure, likely secondary to pneumonia Paroxysmal A. fib with RVR, currently on beta ngozi Acute on chronic heart failure with mildly reduced ejection fraction, previous echo 40-45% Elevated troponin, likely type II MT secondary to supply demand mismatch Lactic acidosis Leukocytosis PLAN: Continue beta blockers and IV Cardizem Continue anticoagulation Aggressive pulmonary hygiene Further recommendations to be based upon clinical course I am dictating on behalf of Dr Mick Brunson's history/physical and assessment/plan. Objective - Vital Signs Vital signs: Vital Signs Temp 98.4 F 07/20/22 00:00 Pulse 110 H 07/20/22 07:45 Resp 19 07/20/22 07:00 BP 109/79 07/20/22 07:00 Pulse Ox 89 L 07/20/22 07:00 FiO2 50 07/20/22 07:25 Intake & Output 08/07/20/22 07/20/22 18:59 06:59 18:59 Intake Total 270 462 20 Output Total 930 795 55 Balance -660 -333 -35 Weight 142.8 kg Intake: IV 220 240 20 KVO 220 240 20 Intake, IV Titration 50 Amount cefTRIAXone 1 gm In 50 Sodium Chloride 0.9% 50 ml @ 100 mls/hr IVPB Q24HR [facility] Rx#:[id number] Oral 222 Output: Urine 930 795 55 Stool 0 0 Other: Voiding Method Indwelling Catheter Indwelling Catheter - Labs CBC & Chem 7: 07/20/22 05:41 07/20/22 05:41 Labs: Abnormal Lab Results - Last 24 Hours (Table) 07/19/22 07/19/22 07/19/22 Range/Units 02:52 02:52 02:52 WBC (3.8-10.6) k/uL Neutrophils # (1.3-7.7) k/uL Sodium (137-145) mmol/L Chloride (98-107) mmol/L BUN (9-20) mg/dL Glucose (74-99) mg/dL POC Glucose (mg/dL) (70-110) mg/dL Hemoglobin A1c 11.0 H (0.0-6.0) % Cholesterol 234.00 H (0.00-200.00) mg/dL LDL Cholesterol, Calc 170.5 H (0.0-131.0) mg/dL Procalcitonin 0.48 H (0.02-0.09) ng/mL 07/19/22 07/19/22 07/19/22 Range/Units 11:55 15:20 16:42 WBC (3.8-10.6) k/uL Neutrophils # (1.3-7.7) k/uL Sodium 134 L (137-145) mmol/L Chloride 97 L (98-107) mmol/L BUN 50 H (9-20) mg/dL Glucose 372 H (74-99) mg/dL POC Glucose (mg/dL) 364 H 375 H (70-110) mg/dL Hemoglobin A1c (0.0-6.0) % Cholesterol (0.00-200.00) mg/dL LDL Cholesterol, Calc (0.0-131.0) mg/dL Procalcitonin (0.02-0.09) ng/mL 07/19/22 07/20/22 07/20/22 Range/Units 20:05 05:41 05:41 WBC 16.0 H (3.8-10.6) k/uL Neutrophils # 12.6 H (1.3-7.7) k/uL Sodium 136 L (137-145) mmol/L Chloride 97 L (98-107) mmol/L BUN 52 H (9-20) mg/dL Glucose 282 H (74-99) mg/dL POC Glucose (mg/dL) 321 H (70-110) mg/dL Hemoglobin A1c (0.0-6.0) % Cholesterol (0.00-200.00) mg/dL LDL Cholesterol, Calc (0.0-131.0) mg/dL Procalcitonin (0.02-0.09) ng/mL 07/20/22 Range/Units 06:28 WBC (3.8-10.6) k/uL Neutrophils # (1.3-7.7) k/uL Sodium (137-145) mmol/L Chloride (98-107) mmol/L BUN (9-20) mg/dL Glucose (74-99) mg/dL POC Glucose (mg/dL) 307 H (70-110) mg/dL Hemoglobin A1c (0.0-6.0) % Cholesterol (0.00-200.00) mg/dL LDL Cholesterol, Calc (0.0-131.0) mg/dL Procalcitonin (0.02-0.09) ng/mL Microbiology - Last 24 Hours (Table) 07/18/22 09:50 Blood Culture - Preliminary Blood No Growth after 24 hours 07/18/22 09:35 Blood Culture - Preliminary Blood No Growth after 24 hours
[2022-07-20] MEDS: METOPROLOL TARTRATE 50 MG TAB PO SCH ×4 (09:47→21:45)
[2022-07-20] MEDS: ASPIRIN 81 MG PO SCH (09:47)
[2022-07-20] MEDS: FAMOTIDINE 20 MG/2 ML VIAL IV SCH ×2 (09:47→20:42)
[2022-07-20] MEDS: APIXABAN 5 MG TAB PO SCH ×2 (09:47→20:41)
[2022-07-20] MEDS: FUROSEMIDE 10 MG/ML 4 ML VIAL IV SCH (09:48)
[2022-07-20] MEDS: LEVOFLOXACIN 750MG-D5W PMX 750 MG in DEXTROSE/WATER 1 150ML.BAG IVPB SCH (10:13)
[2022-07-20] MEDS: INSULIN DETEMIR (LEVEMIR) 100 UNIT/ML SYR SQ SCH ×2 (10:13→20:42)
[2022-07-20] MEDS: NOREPINEPHRINE 4 MG in SODIUM CHLORIDE 0.9% 250 ML IV SCH ×3 (10:23→20:07)
[2022-07-20 11:19] LABS: Glucose,Whole Blood 309 mg/dL (70-110)
[2022-07-20] MEDS: IBUPROFEN 400 MG TAB PO PRN ×2 (11:52→20:41)
--- NOTE | 2022-07-20 11:56 | P.PN ---
Subjective Progress Note Date: 07/20/22 Very pleasant 72-year-old male patient who has a history of diabetes mellitus, uncontrolled, hyperlipidemia, hypertension, morbid obesity, obstructive sleep apnea maintained on CPAP, atrial fibrillation not on anticoagulants currently, BPH with recent surgery and clot evacuation in March and then again in April and the patient did have hematuria and is Eliquis that time. He presented to the emergency room following this morning with difficulty in breathing. He also had some increased swelling of his lower extremities. Chest x-ray revealed diffuse moderate to severe bilateral lower lung edema and/or atypical infiltrates. EKG revealed atrial fibrillation with a rapid ventricular response and nonspecific ST and T wave abnormalities. Lactic acid 2.4, troponin 2.1, 2.38, blood glucose 373. White count 17.6. Hemoglobin 15.7. INR 1.0. Sodium 142. Potassium 3.6. Bicarb 24. BUN 29. Creatinine 1.08. He ST 49. ALT 15. ProBNP 1530. His oxygen saturation was 85% on room air at presentation. He is seen today in consultation in the emergency department. He's currently on BiPAP at 18/10 and 40% FiO2 with O2 saturations in the 90s. Mostly BiPAP dependent since admission. He is also hypotensive requiring norepinephrine currently at 0.05 mcg/kg/m. He's been given Lasix 40 mg IVP 1 with minimal urine output. He is also initiated on ceftriaxone and azithromycin. He was initiated back on Eliquis. On 07/19/2022, the patient is sitting better compared to yesterday. A Lezama catheter was inserted yesterday. The patient is producing adequate amount of urine output and the patient is a negative fluid balance of at least 1 L over the past 24 hours. He spent the night on BiPAP at a pressure 15/10 cm of water and FiO2 of 50%. This morning, the patient was taken off the BiPAP and the patient is currently on 4 L of O2 nasal cannula. The patient was also taken off the norepinephrine infusion since 10 PM yesterday. Remains on a combination of Rocephin and Zithromax. Repeat chest x-ray from today shows residual infiltration of the left although improved. Infiltration of the right is also improved. The patient is hemodynamically stable. The patient is afebrile. The white cell count of 12.8. Normal coagulation profile. BUN is a 45 and a creatinine of 1.3. The hemoglobin A1c was 11 indicating it for blood sugar control. Sodium level is at 139. Urine cultures still negative for now. A limited echocardiogram was done in the emergency department and the patient had a technically difficult study. There was mild LVH. There was normal LV function with an ejection fraction of 60%. The patient remains in atrial fibrillation. The patient is also on anticoagulation with Eliquis 5 mg by mouth twice a day. 07/20/2022, the patient is BiPAP dependent. He did have some time while off the BiPAP yesterday. Nevertheless, subsequently became short of breath and he was on the BiPAP and this morning is still on the BiPAP at a pressure of 18/10 cm of water and FiO2 of 50%. He is degenerative tidal volume is around 900 mL with a respiratory rate of 22. He seems to be quite dependent on the BiPAP. The chest x-ray showing resolving pulmonary edema. There is extensive consolidation of the left lower lobe consistent with an underlying pneumonia. The patient was receiving a combination of Rocephin and Zithromax. I'm going to modify the antibiotic coverage for now and step of the antibiotic coverage. Cultures are negative thus far. The patient is hemodynamically stable. Is currently off pressors. In fact he is normotensive and tachycardic with atrial fibrillation. He was started on Cardizem drip at 5 mg an hour for rate control in addition to metoprolol 50 mg by mouth 3 times a day. His pro-calcitonin level was at 0.48. His white cell count is still mildly elevated at 16 with a hemoglobin 13.5 and a platelet count of 277. His BUN is at 52 with a creatinine of 1.1 and sodium level of 136 and a chloride level of 97 with a bicarb level of 25. Blood sugars are elevated. He is awake and oriented to his communicating. His underlying LV function is essentially within normal limits and he remains on long-term and coagulation with Eliquis. Objective - Vital Signs Vital signs: Vital Signs Temp 97.9 F 07/20/22 08:00 Pulse 110 H 07/20/22 11:00 Resp 23 07/20/22 11:00 BP 95/66 07/20/22 11:00 Pulse Ox 93 L 07/20/22 11:00 FiO2 50 07/20/22 11:12 Intake & Output 0807/20/22 07/20/22 18:59 06:59 18:59 Intake Total 270 462 210 Output Total 930 795 495 Balance -969 -049 -324 Weight 142.8 kg 142.8 kg Intake: IV 220 240 60 KVO 220 240 60 Intake, IV Titration 50 150 Amount Levofloxacin 750Mg-D5w 150 Pmx 750 mg In Dextrose/ Water 1 150ml.bag @ 100 mls/hr IVPB Q24H JELLY Rx#: [id number] cefTRIAXone 1 gm In 50 Sodium Chloride 0.9% 50 ml @ 100 mls/hr IVPB Q24HR JELLY Rx#:[id number] Oral 222 Output: Urine 930 795 495 Stool 0 0 Other: Voiding Method Indwelling Catheter Indwelling Catheter Indwelling Catheter - Exam GENERAL EXAM: Alert, doesn't obese 72-year-old male patient on BiPAP 05/09 and with an FiO2 of 50% . Awake and alert and following commands and answering questions appropriately. Breathing is slightly labored and the patient is tachypneic and he is able to communicate. Is alert and oriented 3 HEAD: Normocephalic. EYES: Normal reaction of pupils, equal size. NOSE: Clear with pink turbinates. THROAT: No erythema or exudates. NECK: No masses, no JVD. CHEST: No chest wall deformity. LUNGS: Equal air entry with crackles in the bilateral bases. CVS: S1 and S2 normal with no audible murmur, regular rhythm. ABDOMEN: No hepatosplenomegaly, normal bowel sounds, no guarding or rigidity. SPINE: No scoliosis or deformity SKIN: No rashes CENTRAL NERVOUS SYSTEM: No focal deficits, tone is normal in all 4 extremities. EXTREMITIES: There is one plus peripheral edema. No clubbing, no cyanosis. Peripheral pulses are intact. - Labs CBC & Chem 7: 07/20/22 05:41 07/20/22 05:41 Labs: Abnormal Lab Results - Last 24 Hours (Table) 07/19/22 07/19/22 07/19/22 Range/Units 02:52 11:55 15:20 WBC (3.8-10.6) k/uL Neutrophils # (1.3-7.7) k/uL Sodium 134 L (137-145) mmol/L Chloride 97 L (98-107) mmol/L BUN 50 H (9-20) mg/dL Glucose 372 H (74-99) mg/dL POC Glucose (mg/dL) 364 H (70-110) mg/dL Procalcitonin 0.48 H (0.02-0.09) ng/mL 07/19/22 07/19/22 07/20/22 Range/Units 16:42 20:05 05:41 WBC (3.8-10.6) k/uL Neutrophils # (1.3-7.7) k/uL Sodium 136 L (137-145) mmol/L Chloride 97 L (98-107) mmol/L BUN 52 H (9-20) mg/dL Glucose 282 H (74-99) mg/dL POC Glucose (mg/dL) 375 H 321 H (70-110) mg/dL Procalcitonin (0.02-0.09) ng/mL 07/20/22 07/20/22 07/20/22 Range/Units 05:41 06:28 11:17 WBC 16.0 H (3.8-10.6) k/uL Neutrophils # 12.6 H (1.3-7.7) k/uL Sodium (137-145) mmol/L Chloride (98-107) mmol/L BUN (9-20) mg/dL Glucose (74-99) mg/dL POC Glucose (mg/dL) 307 H 309 H (70-110) mg/dL Procalcitonin (0.02-0.09) ng/mL Microbiology - Last 24 Hours (Table) 07/18/22 17:30 Urine Culture - Final Urine,Clean Catch 07/18/22 09:50 Blood Culture - Preliminary Blood No Growth after 24 hours 07/18/22 09:35 Blood Culture - Preliminary Blood No Growth after 24 hours Assessment and Plan Assessment: Acute hypoxemic respiratory failure secondary to acute exacerbation of chronic systolic congestive heart failure and extensive lower lobe pneumonia more so on the left as the patient's chest x-ray showing dense consolidation of left lung. The pro-calcitonin level is at 0.48 and the patient was receiving a combination of Rocephin and Zithromax and the patient has some mild leukocytosis. His echocardiogram showing a preserved LV function with an ejection fraction of 60%. He is on antibiotics and is also being diuresis gently remains BiPAP dependent. Cultures are all negative thus far. COVID 19 testing is negative.. Elevated troponin possible non-ST segment elevation myocardial infarction Atrial fibrillation with rapid ventricular response. The patient had not been on Eliquis for the past 2-3 months due to hematuria, the patient was placed back on anticoagulation with Eliquis. The patient was also started on Cardizem drip for rate control at 5 mg an hour and the patient is taking metoprolol 50 mg by mouth 3 times a day Hypotension secondary to above, requiring norepinephrine, recovered and the patient is currently off norepinephrine infusion, remains off pressors Benign prosthetic hypertrophy with recent surgery in March and then again in April 2022 Morbid obesity, body mass index of 40.7 History of hypertension Diabetes mellitus, poorly controlled Urinary retention secondary to BPH Known history of obstructive sleep apnea maintained on CPAP therapy on outpatient basis Previous history of hematuria for that reason the patient took himself off anticoagulation Previous history of cystoscopy on bipolar transurethral resection of the prostate/TURP for symptoms of BPH Plan: Clinically the patient is same in BiPAP dependent impaired yesterday and the patient is requesting is BiPAP all the time for now at a pressure of 18/10 with an FiO2 of 50% Continue diuresis and I'm giving the patient dose of Lasix 4040 mg IV push Stop the Rocephin and Zithromax and put the patient a combination of Levaquin and cefepime Keep the Lezama catheter in place Keep BiPAP for now Monitor renal function Cardiology consultation is appreciated Monitor white cell count Monitor renal function Cultures are all negative Repeat chest x-ray in the morning We'll keep the patient ICU Discussed the case with Lyndsay's daughter There is an increased risk of him failing requiring intubation mechanical ventilation. He is a full CODE STATUS for now We'll keep the patient ICU for another 24 hours
[2022-07-20] MEDS: CEFEPIME 2 GM in SODIUM CHLORIDE 0.9% 100 ML IVPB SCH (16:24)
[2022-07-20 16:56] LABS: Glucose,Whole Blood 333 mg/dL (70-110)
[2022-07-20 20:34] LABS: Glucose,Whole Blood 376 mg/dL (70-110)
--- NOTE | 2022-07-20 22:08 | P.PN ---
Subjective 61-year-old pleasant female came in with compensative chest pain on the left side of the chest lasted for 5 minutes 7/10 in severity associated with lightheadedness denied any shortness of breath possible diaphoresis as well. Chest pain radiates to the right side of the chest and also to the mandible nausea. Chest pain is nonpruritic in nature not associated with food pressure- like sensation appears to be nonexertional patient had a stress test in 2019 patient denied any other cardiac history does have history of hypertension. Patient had nonspecific ST-T wave changes in the inferior leads and intraventricular conduction delay with a split QRS complex in the lateral leads. No previous EKG to compare with 07/19/2022 Patient this morning was seen in the ICU, he was sitting in bed, fully awake and oriented, tired looking, slightly tachypneic, he got short of breath easily when he tried to talk. He used to BiPAP overnight and he was using 4 L of oxygen per minute. His throat is secondary to CHF exacerbation, less likely pneumonia. Patient on IV Lasix and ceftriaxone and Zithromax, Lasix no swelling be lowered to 40 mg twice daily down to once daily from tomorrow. Chest x-ray showing improvement. Blood pressure is borderline as well as slightly tachycardic and tachypneic. Prison Officer on the case and increase the metoprolol to 50 mg 3 times daily. glucose was getting out of control and patient was placed on insulin drip today. Also patient is some Cardizem drip Patient currently is on Eliquis 5 mg as well. Home dose of aspirin 81 mg 07/20/2022 Patient remains in the ICU in critical condition. He still mildly hypoxic and tachypneic and tachycardic. His chest x-ray today showing similar appearance but increased infiltrate in the left lower lung which is suspicious for worsening pneumonia, therefore his antib iotics was adjusted Zithromax and ceftriaxone into cefepime and levofloxacin. While he is kept on IV Lasix 40 mg daily. Other than that his sugar remains elevated more than 300, his place on Levemir 40 units twice a day compared to 30 before and we increased his NovoLog 6 units and 212 units with meals Labs: Creatinine 1.1, WBC 12.8, Review of systems CONSTITUTIONAL: No fever, no malaise, no fatigue. HEENT: No recent visual problems or hearing problems. Denied any sore throat. CARDIOVASCULAR: no palpitations, no syncope. PULMONARY: No chest wall tenderness, no hemoptysis. GASTROINTESTINAL: No diarrhea, no nausea, no vomiting, no abdominal pain. Normoactive bowel sounds. NEUROLOGICAL: No headaches, no weakness, no numbness. HEMATOLOGICAL: Denies any bleeding or petechiae. GENITOURINARY: Denies any burning micturition, frequency, or urgency. Active Medications Generic Name Dose Route Start Last Admin Trade Name Freq PRN Reason Stop Dose Admin Albuterol Sulfate 2.5 mg 07/18/22 16:58 07/20/22 07:29 Albuterol Nebulized 2.5 Mg/3 Ml INHALATION 2.5 mg RT-QID PRN Administration Shortness Of Breath Apixaban 5 mg 07/18/22 10:30 07/20/22 20:41 Apixaban 5 Mg Tab PO 5 mg BID JELLY Administration Protocol Aspirin 81 mg 07/19/22 09:00 07/20/22 09:47 Aspirin 81 Mg PO 81 mg DAILY JELLY Administration Dextrose/Water 25 ml 07/18/22 21:35 Dextrose 50% Syringe 50 Ml IVP PER PROTOCOL PRN Hypoglycemia Protocol Dextrose/Water 50 ml 07/18/22 21:35 Dextrose 50% Syringe 50 Ml IVP PER PROTOCOL PRN Hypoglycemia Protocol Famotidine 20 mg 07/19/22 21:00 07/20/22 20:42 Famotidine 20 Mg/2 Ml Vial IV 20 mg Q12HR JELLY Administration Furosemide 40 mg 07/20/22 09:00 07/20/22 09:48 Furosemide 10 Mg/Ml 4 Ml Vial IV 40 mg DAILY JELLY Administration Norepinephrine Bitartrate 4 mg 254 mls @ 25.923 mls/hr 07/18/22 08:30 07/20/22 20:07 / Sodium Chloride IV Not Given .Q9H48M JELLY Protocol 0.05 MCG/KG/MIN Insulin Human Regular 100 unit 100 mls @ 0 mls/hr 07/18/22 22:00 07/19/22 04:57 / Sodium Chloride IV 0 units/hr .Q0M JELLY 0 mls/hr Titration Protocol Titrate Diltiazem HCl 125 mg/ Sodium 125 mls @ 0 mls/hr 07/19/22 18:15 07/19/22 18:10 Chloride IV 5 mg/hr .Q0M JELLY 5 mls/hr Administration Protocol Per Protocol Cefepime HCl 2 gm/ Sodium 100 mls @ 25 mls/hr 07/20/22 16:00 07/20/22 16:24 Chloride IVPB 25 mls/hr Q8HR JELLY Administration Protocol Levofloxacin 750 mg/ IV 150 mls @ 100 mls/hr 07/20/22 09:00 07/20/22 10:13 Solution IVPB 100 mls/hr Q24H JELLY Administration Protocol Ibuprofen 400 mg 07/19/22 11:59 07/20/22 20:41 Ibuprofen 400 Mg Tab PO 400 mg Q6HR PRN Administration Pain Insulin Aspart 0 unit 07/18/22 21:00 07/20/22 20:42 Insulin Aspart (Novolog) 100 Unit/Ml Vial SQ 10 unit ACHS JELLY Administration Protocol Insulin Aspart 6 unit 07/19/22 21:00 07/20/22 17:12 Insulin Aspart (Novolog) 100 Unit/Ml Vial SQ 6 unit AC-TID JELLY Administration Insulin Detemir 40 unit 07/20/22 09:00 07/20/22 20:42 Insulin Detemir (Levemir) 100 Unit/Ml Syr SQ 40 unit BID@0700,2100 JELLY Administration Lorazepam 1 mg 07/19/22 12:24 Lorazepam 1 Mg/0.5 Ml Vial IV Q4HR PRN Anxiety Metoprolol Tartrate 50 mg 07/19/22 16:00 07/20/22 21:45 Metoprolol Tartrate 50 Mg Tab PO 50 mg TID JELLY Administration Miscellaneous Information 1 each 07/19/22 04:30 Potassium Replacement Protocol 1 Each Misc MISCELLANE DAILY PRN Per Protocol Protocol Miscellaneous Information 1 each 07/19/22 04:30 Magnesium Replacement Protocol 1 Each Misc MISCELLANE DAILY PRN Per Protocol Protocol Nitroglycerin 0.4 mg 07/18/22 09:38 Nitroglycerin Sl Tabs 0.4 Mg Tab SUBLINGUAL Q5M PRN Chest Pain Objective - Vital Signs Vital signs: Vital Signs Temp 97.9 F 07/20/22 08:00 Pulse 110 H 07/20/22 11:00 Resp 23 07/20/22 11:00 BP 95/66 07/20/22 11:00 Pulse Ox 93 L 07/20/22 11:00 FiO2 50 07/20/22 08:00 Intake & Output 07/19/22 07/20/22 07/20/22 18:59 06:59 18:59 Intake Total 270 462 200 Output Total 930 795 245 Balance -660 -333 -45 Weight 142.8 kg 142.8 kg Intake: IV 220 240 50 KVO 220 240 50 Intake, IV Titration 50 150 Amount Levofloxacin 750Mg-D5w 150 Pmx 750 mg In Dextrose/ Water 1 150ml.bag @ 100 mls/hr IVPB Q24H JELLY Rx#: [id number] cefTRIAXone 1 gm In 50 Sodium Chloride 0.9% 50 ml @ 100 mls/hr IVPB Q24HR JELLY Rx#:[id number] Oral 222 Output: Urine 930 795 245 Stool 0 0 Other: Voiding Method Indwelling Catheter Indwelling Catheter Indwelling Catheter - Exam -GENERAL: The patient is alert and oriented x3, not in any acute distress. Morbidly obese HEENT: Pupils are round and equally reacting to light. EOMI. No scleral icterus. No conjunctival pallor. Normocephalic, atraumatic. No pharyngeal erythema. No thyromegaly. CARDIOVASCULAR: S1 and S2 present. No murmurs, rubs, or gallops. -PULMONARY: Chest is clear to auscultation, no wheezing. Bilateral basal crepitation ABDOMEN: Soft, nontender, nondistended, normoactive bowel sounds. No palpable organomegaly. MUSCULOSKELETAL: No joint swelling or deformity. -EXTREMITIES: No cyanosis, clubbing,. 1+ bilateral pitting like edema NEUROLOGICAL: Gross neurological examination did not reveal any focal deficits. SKIN: No rashes. no petechiae. - Labs CBC & Chem 7: 07/20/22 05:41 07/20/22 05:41 Labs: Abnormal Lab Results - Last 24 Hours (Table) 07/19/22 07/19/22 07/19/22 Range/Units 02:52 11:55 15:20 WBC (3.8-10.6) k/uL Neutrophils # (1.3-7.7) k/uL Sodium 134 L (137-145) mmol/L Chloride 97 L (98-107) mmol/L BUN 50 H (9-20) mg/dL Glucose 372 H (74-99) mg/dL POC Glucose (mg/dL) 364 H (70-110) mg/dL Procalcitonin 0.48 H (0.02-0.09) ng/mL 07/19/22 07/19/22 07/20/22 Range/Units 16:42 20:05 05:41 WBC (3.8-10.6) k/uL Neutrophils # (1.3-7.7) k/uL Sodium 136 L (137-145) mmol/L Chloride 97 L (98-107) mmol/L BUN 52 H (9-20) mg/dL Glucose 282 H (74-99) mg/dL POC Glucose (mg/dL) 375 H 321 H (70-110) mg/dL Procalcitonin (0.02-0.09) ng/mL 07/20/22 07/20/22 Range/Units 05:41 06:28 WBC 16.0 H (3.8-10.6) k/uL Neutrophils # 12.6 H (1.3-7.7) k/uL Sodium (137-145) mmol/L Chloride (98-107) mmol/L BUN (9-20) mg/dL Glucose (74-99) mg/dL POC Glucose (mg/dL) 307 H (70-110) mg/dL Procalcitonin (0.02-0.09) ng/mL Microbiology - Last 24 Hours (Table) 07/18/22 17:30 Urine Culture - Final Urine,Clean Catch 07/18/22 09:50 Blood Culture - Preliminary Blood No Growth after 24 hours 07/18/22 09:35 Blood Culture - Preliminary Blood No Growth after 24 hours Assessment and Plan Assessment: Acute congestive heart failure, diastolic with ejection fraction 60% Bilateral pneumonia, felt less likely. Acute hypoxic respiratory failure Paroxysmal A. fib with RVR Elevated troponin most likely type II myocardial infarction secondary to hypoxia History of BPH Morbid obesity with BMI of 42.9 Diabetes mellitus with hyperglycemia Plan: This is a pleasant 72 years old male who presents with hypoxia, CHF, pneumonia less likely Continue with IV Lasix and follow creatinine and input and output Continue with cefepime and Levaquin Continue with the Eliquis Continue with IV Lasix Continue with metoprolol Continue with insulin Cardiology and pulmonary consult on the case Labs and medication were reviewed.. Continue same treatment. Continue with symptomatic treatment. Resume home medication. Monitor lytes and vitals. DVT and GI prophylaxis. Further recommendations as per clinical course of the patient DVT prophylaxis: Eliquis GI Prophylaxis: Pepcid PT/OT: Pending Prognosis is guarded
--- NOTE | 2022-07-20 23:12 | P.CONS ---
History of Present Illness - Reason for Consult Consult date: 07/20/22 Pneumonia, questionable UTI Requesting physician: Kailee Bean - Chief Complaint Increasing shortness of breath x few days - History of Present Illness Patient is a 72-year-old male presenting to the hospital 2 days ago on 07/18/2022 for evaluation of increasing shortness of breath and this patient symptom has been going on for about a day before presentation to the hospital symptom has been mostly shortness of breath on minimal exertion and even at rest patient denies having any chest pain but denies having any cough or sputum production patient denies having any nausea no vomiting no abdominal pain no diarrhea with the symptom the patient has been evaluated on arrival to the ER patient was afebrile and no fever have been recorded subsequently patient was hypoxic and need for supplemental oxygen patient did have white count of 17.6 with a left shift which is trending down did have elevated lactic acid creatinine has been normal liver enzymes are normal Pro-Tony's mildly elevated urine has been positive COVID test checked today is negative patient did have a chest x-ray on admission diffuse moderate to severe bilateral mid to lower leg edema chest x-ray reported this morning multifocal infiltrate stable from prior exam patient has been treated with the cefepime and Levaquin was initially on Rocephin and Zithromax infectious disease was consulted for further management of antibiotic therapy Review of Systems Positive point has been mentioned in the HPI rest of the systems are negative Past Medical History Past Medical History: Atrial Fibrillation, Diabetes Mellitus, Hyperlipidemia, Hypertension Additional Past Medical History / Comment(s): uses c-pap at home, pneu as child almost History of Any Multi-Drug Resistant Organisms: None Reported Past Surgical History: Back Surgery, Orthopedic Surgery Additional Past Surgical History / Comment(s): total left hip, gato carpel tunnel, wire mesh in umbical area, Greenlight laser TURP 2016 Past Anesthesia/Blood Transfusion Reactions: Previous Problems w/ Anesthesia Additional Past Anesthesia/Blood Transfusion Reaction / Comm: last time no problems with anesthia but did have previously Past Psychological History: No Psychological Hx Reported Smoking Status: Never smoker - Past Family History Brother(s) Family Medical History: Coronary Artery Disease (CAD), Hypertension Mother Family Medical History: No Reported History Additional Family Medical History / Comment(s): in mva Father Family Medical History: Thyroid Disorder Additional Family Medical History / Comment(s): bad thyroid Medications and Allergies Home Medications Medication Instructions Recorded Confirmed Type Ascorbic Acid [Vitamin C] 500 mg PO DAILY 03/26/22 07/18/22 History Chlorthalidone 50 mg PO DAILY 03/26/22 07/18/22 History Cholecalciferol [Vitamin D3 (125 125 mcg PO DAILY 03/26/22 07/18/22 History Mcg = 5000 Iu)] Potassium Chloride ER [K-Dur 20] 40 meq PO BID 03/26/22 07/18/22 History Insulin Aspart [NovoLOG Flexpen] 18 units SQ TID-W/MEALS 04/18/22 07/18/22 History Aspirin EC [Ecotrin Low Dose] 81 mg PO DAILY 07/18/22 07/18/22 History Ginkgo Biloba [place] Extract [Ginkgo 125 mg PO DAILY 07/18/22 07/18/22 History Biloba] Insulin Detemir (Levemir) [Levemir] 30 unit SQ BID 07/18/22 07/18/22 History Metoprolol Tartrate [Lopressor] 25 mg PO DAILY 07/18/22 07/18/22 History Metoprolol Tartrate [Lopressor] 50 mg PO HS 07/18/22 07/18/22 History cod liver oiL [Cod Liver Oil] 1 cap PO DAILY 07/18/22 07/18/22 History Allergies Allergy/AdvReac Type Severity Reaction Status Date / Time glipizide Allergy Anaphylaxis Verified 07/18/22 09:55 Iodinated Contrast Media Allergy Rash/Hives Verified 07/18/22 09:55 losartan Allergy Anaphylaxis Verified 07/18/22 09:55 amlodipine [From Norvasc] AdvReac DEPRESSION Verified 07/18/22 09:55 atorvastatin [From Lipitor] AdvReac WEAKNESS Verified 07/18/22 09:55 metformin AdvReac Cough Verified 07/18/22 09:55 rosuvastatin [From Crestor] AdvReac WEAKNESS Verified 07/18/22 09:55 Physical Exam Vitals: Vital Signs Temp Pulse Resp BP Pulse Ox FiO2 07/20/22 07:45 110 H 07/20/22 07:29 110 H 07/20/22 07:25 50 07/20/22 07:00 120 H 19 109/79 89 L 07/20/22 06:00 103 H 27 H 125/73 92 L 50 07/20/22 05:00 108 H 28 H 104/75 93 L 50 07/20/22 04:16 50 07/20/22 04:00 114 H 19 94/73 93 L 50 07/20/22 03:00 112 H 22 117/59 91 L 50 07/20/22 02:00 116 H 27 H 103/76 90 L 50 07/20/22 01:39 105 H 07/20/22 01:33 102 H 07/20/22 01:00 105 H 27 H 100/70 93 L 07/20/22 00:30 109 H 27 H 115/76 90 L 07/20/22 00:10 50 07/20/22 00:00 98.4 F 105 H 29 H 103/87 92 L 50 07/19/22 23:30 107 H 29 H 95/73 91 L 07/19/22 23:00 92 27 H 111/53 93 L 07/19/22 22:30 101 H 27 H 84/70 92 L 07/19/22 22:00 107 H 29 H 107/70 91 L 07/19/22 21:33 109 H 17 117/70 07/19/22 21:00 105 H 23 98/52 95 07/19/22 20:30 103 H 28 H 92/69 95 50 07/19/22 20:05 93 07/19/22 20:00 98.7 F 101 H 28 H 92/65 96 07/19/22 19:44 107 H 50 07/19/22 19:30 94 27 H 95/55 93 L 07/19/22 19:03 43 H 86/58 92 L 07/19/22 19:00 92 15 91/69 92 L 50 07/19/22 18:30 109 H 25 H 87/66 92 L 07/19/22 18:00 104 H 22 96/36 93 L 50 07/19/22 17:30 112 H 26 H 109/54 92 L 07/19/22 17:20 122 H 28 H 109/54 84 L 07/19/22 17:00 118 H 13 97/34 94 L 50 07/19/22 16:30 112 H 27 H 97/62 95 07/19/22 16:00 105 H 22 96/62 95 50 07/19/22 15:00 112 H 23 96/63 95 50 07/19/22 14:50 50 07/19/22 14:00 110 H 24 111/76 93 L 50 07/19/22 13:00 112 H 32 H 106/74 95 07/19/22 12:00 126 H 24 98/79 92 L 07/19/22 11:08 96 50 07/19/22 11:06 50 07/19/22 11:00 106 H 24 89/69 95 50 Intake and Output 07/19/22 07/20/22 07/20/22 22:59 06:59 14:59 Intake Total 160 382 20 Output Total 360 560 55 Balance -200 -178 -35 Intake: IV 160 160 20 KVO 160 160 20 Oral 222 Output: Urine 360 560 55 Stool 0 0 0 Other: Voiding Method Indwelling Catheter Indwelling Catheter Weight 142.8 kg GENERAL DESCRIPTION: Elderly male lying in bed, no distress. No tachypnea or accessory muscle of respiration use. HEENT: Shows Pallor , no scleral icterus. Oral mucous membrane is dry. No pharyngeal erythema or thrush NECK: Trachea central, no thyromegaly. LUNGS: Unlabored breathing. Decreased intensity of breath sounds. No wheeze or crackle. HEART: S1, S2, regular rate and rhythm. No loud murmur ABDOMEN: Soft, no tenderness , guarding or rigidity, no organomegaly EXTREMITIES: No edema of feet. SKIN: No rash, no masses palpable. NEUROLOGICAL: The patient is awake, alert, oriented x2, mood and affect normal. Results CBC & Chem 7: 07/25/22 05:29 07/25/22 05:29 Labs: Abnormal Lab Results - Last 24 Hours (Table) 07/19/22 07/19/22 07/19/22 Range/Units 02:52 11:55 15:20 WBC (3.8-10.6) k/uL Neutrophils # (1.3-7.7) k/uL Sodium 134 L (137-145) mmol/L Chloride 97 L (98-107) mmol/L BUN 50 H (9-20) mg/dL Glucose 372 H (74-99) mg/dL POC Glucose (mg/dL) 364 H (70-110) mg/dL Procalcitonin 0.48 H (0.02-0.09) ng/mL 07/19/22 07/19/22 07/20/22 Range/Units 16:42 20:05 05:41 WBC (3.8-10.6) k/uL Neutrophils # (1.3-7.7) k/uL Sodium 136 L (137-145) mmol/L Chloride 97 L (98-107) mmol/L BUN 52 H (9-20) mg/dL Glucose 282 H (74-99) mg/dL POC Glucose (mg/dL) 375 H 321 H (70-110) mg/dL Procalcitonin (0.02-0.09) ng/mL 07/20/22 07/20/22 Range/Units 05:41 06:28 WBC 16.0 H (3.8-10.6) k/uL Neutrophils # 12.6 H (1.3-7.7) k/uL Sodium (137-145) mmol/L Chloride (98-107) mmol/L BUN (9-20) mg/dL Glucose (74-99) mg/dL POC Glucose (mg/dL) 307 H (70-110) mg/dL Procalcitonin (0.02-0.09) ng/mL Microbiology - Last 24 Hours (Table) 07/18/22 17:30 Urine Culture - Final Urine,Clean Catch 07/18/22 09:50 Blood Culture - Preliminary Blood No Growth after 24 hours 07/18/22 09:35 Blood Culture - Preliminary Blood No Growth after 24 hours Assessment and Plan (1) Pneumonia Status: Acute Code(s): J18.9 - PNEUMONIA, UNSPECIFIED ORGANISM SNOMED Code(s): 426683853 Plan: 1patient presented to hospital with increasing shortness of breath which is likely multifactorial in this patient with interstitial infiltrate high clinic suspicious for possible fluid related underlying pneumonia less likely but not entirely excluded in this patient with Negative COVID test. 2positive UA had concern for possible UTI likely from enteric gram-negative pathogen. 3we will check RSV and influenza PCR and check urine for Legionella antigen. 4continue with the cefepime and Levaquin while awaiting further work-up to be completed. We will follow on clinical condition and cultures to further adjust medication if needed Thank you for this consultation will follow this patient along with you Time with Patient: Greater than 30
[2022-07-21] MEDS: CEFEPIME 2 GM in SODIUM CHLORIDE 0.9% 100 ML IVPB SCH ×3 (00:27→16:54)
[2022-07-21] MEDS: LORazepam 1 MG/0.5 ML VIAL IV PRN (00:28)
[2022-07-21 02:42] LABS: ABG HCO3 30 mmol/L (21-25); ABG Hematocrit 42 % (34.0-46.0); ABG Oxygen Saturation 88.2 % (94-97); ABG PCO2 40 mmHg (35-45); ABG PH 7.48 (7.35-7.45); ABG TCO2 31 mmol/L (19-24); Allen Test Performed? Yes
[2022-07-21 02:45] LABS: ABG PO2 56 mmHg (83-108)
--- NOTE | 2022-07-21 03:09 | XR ---
EXAMINATION TYPE: XR chest 1V portable DATE OF EXAM: 07/21/2022 COMPARISON: 07/20/2022 HISTORY: Short of breath TECHNIQUE: FINDINGS: There is airspace infiltrates and consolidation in both lower lobes. This is more on the le ft side. There is also some pulmonary vascular congestion. There are chest leads. Bony thorax is inta ct IMPRESSION: Bilateral pneumonia that is worse on the left side. Mild heart failure is possible as wel l. No change compared to yesterday.
[2022-07-21] MEDS: NOREPINEPHRINE 4 MG in SODIUM CHLORIDE 0.9% 250 ML IV SCH ×3 (05:24→13:01)
[2022-07-21 06:40] LABS: Glucose,Whole Blood 200 mg/dL (70-110)
[2022-07-21] MEDS: INSULIN DETEMIR (LEVEMIR) 100 UNIT/ML SYR SQ SCH ×2 (06:59→21:30)
[2022-07-21] MEDS: INSULIN ASPART (NovoLOG) 100 UNIT/ML VIAL SQ SCH ×6 (06:59→17:58)
[2022-07-21 07:26] LABS: HCT 44.1 % (39.0-53.0); HGB 13.9 gm/dL (13.0-17.5); MCHC 31.4 g/dL (31.0-37.0); MCV 89.1 fL (80.0-100.0); Mean Platelet Volume 9.6; Platelet Count 227 k/uL (150-450); RBC 4.96 m/uL (4.30-5.90); RDW 14.9 % (11.5-15.5)
[2022-07-21 07:40] LABS: Potassium 3.4 mmol/L (3.5-5.1)
[2022-07-21] MEDS: ALBUTEROL NEBULIZED 2.5 MG/3 ML INHALATION PRN ×3 (08:22→19:46)
[2022-07-21] MEDS: FAMOTIDINE 20 MG/2 ML VIAL IV SCH ×2 (08:33→21:48)
[2022-07-21] MEDS: FUROSEMIDE 10 MG/ML 4 ML VIAL IV SCH (08:33)
[2022-07-21] MEDS: APIXABAN 5 MG TAB PO SCH ×2 (08:33→21:46)
[2022-07-21] MEDS: METOPROLOL TARTRATE 50 MG TAB PO SCH ×3 (08:33→21:46)
[2022-07-21] MEDS: ASPIRIN 81 MG PO SCH (08:33)
[2022-07-21] MEDS: POTASSIUM CHLORIDE ER 20 MEQ TAB.ER PO SCH ×2 (08:34→09:12)
[2022-07-21] MEDS: LEVOFLOXACIN 750MG-D5W PMX 750 MG in DEXTROSE/WATER 1 150ML.BAG IVPB SCH (08:34)
--- NOTE | 2022-07-21 08:51 | P.PN ---
Subjective Progress Note Date: 07/21/22 The patient is 72-year-old male with multiple comorbid conditions, who presented to the hospital with worsening shortness of breath. He was in A. fib with RVR at the time of his admission. Chest x-ray shows bilateral patchy infiltrates, worse on the left. He was subsequently transferred to the ICU for hypoxic respiratory failure and hypotension. Overnight the patients respiratory status continued to worsen. He is now up to 70% FiO2 on the BiPAP. The patient was interviewed and examined lying in bed on BiPAP. He states he is feeling better this morning on his increased oxygen requirements. No chest pain or chest pressure. GENERAL: Well-appearing, obese male NECK: Supple without JVD or thyromegaly. LUNGS: Breath sounds are coarse to auscultation with rhonchi throughout.Respiration equal. Labored breathing. HEART: Irregular rate and rhythm without murmurs, rubs or gallops. S1 and S2 he anna. EXTREMITIES: Normal range of motion, mild edema on the right. No clubbing or cyanosis. Peripheral pulses intact and strong. VITALS: Blood pressure 116/95, pulse 120, respiratory rate 30, SpO2 92% on 70% BiPAP TELEMETRY: Atrial fibrillation with heart rates in the 120-130s. Currently on Cardizem. LABS: WBC 13.0, hemoglobin 13.9, hematocrit 44.1, platelet 227, sodium 138, potassium 3.4, BUN 54, creatinine 1.05 IMPRESSION: Acute hypoxic respiratory failure, secondary to pneumonia Paroxysmal A. fib with RVR, currently on beta ngozi and IV Cardizem Acute on chronic heart failure with mildly reduced ejection fraction, previous echo 40-45% Elevated troponin, likely type II MN secondary to supply demand mismatch Lactic acidosis Leukocytosis PLAN: Increase cardizem to 10mg/hr as long as blood pressure will tolerate Continue anticoagulation Aggressive pulmonary hygiene Further recommendations to be based upon clinical course I am dictating on behalf of Dr Mick Brunson's history/physical and assessment/plan. Objective - Vital Signs Vital signs: Vital Signs Temp 98.4 F 07/21/22 04:00 Pulse 117 H 07/21/22 08:24 Resp 40 H 07/21/22 07:00 BP 116/95 07/21/22 07:00 Pulse Ox 92 L 07/21/22 08:24 FiO2 75 07/21/22 08:24 Intake & Output 07/20/22 07/21/22 07/21/22 18:59 06:59 18:59 Intake Total 380 240 10 Output Total 820 565 35 Balance -440 -325 -25 Weight 142.8 kg 143.9 kg Intake: IV 130 120 10 KVO 130 120 10 Intake, IV Titration 250 Amount Cefepime 2 gm In Sodium 100 Chloride 0.9% 100 ml @ 25 mls/hr IVPB Q8HR [facility] Rx# :[id number] Levofloxacin 750Mg-D5w 150 Pmx 750 mg In Dextrose/ Water 1 150ml.bag @ 100 mls/hr IVPB Q24H [facility] Rx#: [id number] Oral 120 Output: Urine 820 565 35 Stool 0 Other: Voiding Method Indwelling Catheter Indwelling Catheter - Labs CBC & Chem 7: 07/21/22 06:30 07/21/22 06:30 Labs: Abnormal Lab Results - Last 24 Hours (Table) 07/20/22 07/20/22 07/20/22 Range/Units 11:17 16:54 20:33 WBC (3.8-10.6) k/uL ABG pH (7.35-7.45) ABG pO2 (83-108) mmHg ABG HCO3 (21-25) mmol/L ABG Total CO2 (19-24) mmol/L ABG O2 Saturation (94-97) % Potassium (3.5-5.1) mmol/L BUN (9-20) mg/dL Glucose (74-99) mg/dL POC Glucose (mg/dL) 309 H 333 H 376 H (70-110) mg/dL 07/21/22 07/21/22 07/21/22 Range/Units 02:35 06:30 06:30 WBC 13.0 H (3.8-10.6) k/uL ABG pH 7.48 H (7.35-7.45) ABG pO2 56 L* (83-108) mmHg ABG HCO3 30 H (21-25) mmol/L ABG Total CO2 31 H (19-24) mmol/L ABG O2 Saturation 88.2 L (94-97) % Potassium 3.4 L (3.5-5.1) mmol/L BUN 54 H (9-20) mg/dL Glucose 192 H (74-99) mg/dL POC Glucose (mg/dL) (70-110) mg/dL 07/21/22 Range/Units 06:39 WBC (3.8-10.6) k/uL ABG pH (7.35-7.45) ABG pO2 (83-108) mmHg ABG HCO3 (21-25) mmol/L ABG Total CO2 (19-24) mmol/L ABG O2 Saturation (94-97) % Potassium (3.5-5.1) mmol/L BUN (9-20) mg/dL Glucose (74-99) mg/dL POC Glucose (mg/dL) 200 H (70-110) mg/dL Microbiology - Last 24 Hours (Table) 07/19/22 16:40 Blood Culture - Preliminary Blood No Growth after 24 hours 07/18/22 09:50 Blood Culture - Preliminary Blood No Growth after 48 hours 07/18/22 09:35 Blood Culture - Preliminary Blood No Growth after 48 hours 07/18/22 17:30 Urine Culture - Final Urine,Clean Catch
[2022-07-21] MEDS: DEXMEDETOMIDINE/0.9% NACL(PMX) 400 MCG in EMPTY BAG 1 BAG IV SCH ×2 (09:24→20:20)
[2022-07-21] MEDS: DILTIAZEM 125 MG in SODIUM CHLORIDE 0.9% 100 ML IV SCH (10:25)
[2022-07-21] MEDS: POTASSIUM CHLORIDE 10 MEQ in WATER FOR INJECTION 1 100ML.BAG IVPB SCH ×4 (10:33→13:54)
[2022-07-21] MEDS: HYDROmorphone 0.5 MG/0.5 ML SYRINGE IVP PRN ×2 (11:30→17:36)
[2022-07-21 12:46] LABS: Glucose,Whole Blood 218 mg/dL (70-110)
--- NOTE | 2022-07-21 13:39 | P.PN ---
Subjective Progress Note Date: 07/21/22 Very pleasant 72-year-old male patient who has a history of diabetes mellitus, uncontrolled, hyperlipidemia, hypertension, morbid obesity, obstructive sleep apnea maintained on CPAP, atrial fibrillation not on anticoagulants currently, BPH with recent surgery and clot evacuation in March and then again in April and the patient did have hematuria and is Eliquis that time. He presented to the emergency room following this morning with difficulty in breathing. He also had some increased swelling of his lower extremities. Chest x-ray revealed diffuse moderate to severe bilateral lower lung edema and/or atypical infiltrates. EKG revealed atrial fibrillation with a rapid ventricular response and nonspecific ST and T wave abnormalities. Lactic acid 2.4, troponin 2.1, 2.38, blood glucose 373. White count 17.6. Hemoglobin 15.7. INR 1.0. Sodium 142. Potassium 3.6. Bicarb 24. BUN 29. Creatinine 1.08. He ST 49. ALT 15. ProBNP 1530. His oxygen saturation was 85% on room air at presentation. He is seen today in consultation in the emergency department. He's currently on BiPAP at 18/10 and 40% FiO2 with O2 saturations in the 90s. Mostly BiPAP dependent since admission. He is also hypotensive requiring norepinephrine currently at 0.05 mcg/kg/m. He's been given Lasix 40 mg IVP 1 with minimal urine output. He is also initiated on ceftriaxone and azithromycin. He was initiated back on Eliquis. On 07/19/2022, the patient is sitting better compared to yesterday. A Lezama catheter was inserted yesterday. The patient is producing adequate amount of urine output and the patient is a negative fluid balance of at least 1 L over the past 24 hours. He spent the night on BiPAP at a pressure 15/10 cm of water and FiO2 of 50%. This morning, the patient was taken off the BiPAP and the patient is currently on 4 L of O2 nasal cannula. The patient was also taken off the norepinephrine infusion since 10 PM yesterday. Remains on a combination of Rocephin and Zithromax. Repeat chest x-ray from today shows residual infiltration of the left although improved. Infiltration of the right is also improved. The patient is hemodynamically stable. The patient is afebrile. The white cell count of 12.8. Normal coagulation profile. BUN is a 45 and a creatinine of 1.3. The hemoglobin A1c was 11 indicating it for blood sugar control. Sodium level is at 139. Urine cultures still negative for now. A limited echocardiogram was done in the emergency department and the patient had a technically difficult study. There was mild LVH. There was normal LV function with an ejection fraction of 60%. The patient remains in atrial fibrillation. The patient is also on anticoagulation with Eliquis 5 mg by mouth twice a day. 07/20/2022, the patient is BiPAP dependent. He did have some time while off the BiPAP yesterday. Nevertheless, subsequently became short of breath and he was on the BiPAP and this morning is still on the BiPAP at a pressure of 18/10 cm of water and FiO2 of 50%. He is degenerative tidal volume is around 900 mL with a respiratory rate of 22. He seems to be quite dependent on the BiPAP. The chest x-ray showing resolving pulmonary edema. There is extensive consolidation of the left lower lobe consistent with an underlying pneumonia. The patient was receiving a combination of Rocephin and Zithromax. I'm going to modify the antibiotic coverage for now and step of the antibiotic coverage. Cultures are negative thus far. The patient is hemodynamically stable. Is currently off pressors. In fact he is normotensive and tachycardic with atrial fibrillation. He was started on Cardizem drip at 5 mg an hour for rate control in addition to metoprolol 50 mg by mouth 3 times a day. His pro-calcitonin level was at 0.48. His white cell count is still mildly elevated at 16 with a hemoglobin 13.5 and a platelet count of 277. His BUN is at 52 with a creatinine of 1.1 and sodium level of 136 and a chloride level of 97 with a bicarb level of 25. Blood sugars are elevated. He is awake and oriented to his communicating. His underlying LV function is essentially within normal limits and he remains on long-term and coagulation with Eliquis. 07/21/2022, the patient is struggling with his breathing. Overnight, the patient continued to have difficulty with breathing and episodic oxygen desaturations. The patient would desaturate easily once off the BiPAP machine. Earlier this morning, evaluated the patient patient was having labored breathing. His aspiration was in the low 30s. He was on a BiPAP pressure of 18/10 cm of water and FiO2 of 75%. A repeat chest x-ray was done yesterday and showed persistent consolidation of left lower lobe. There is also evidence of some mild CHF and cardiomegaly. The patient remains on examination cefepime and Levaquin. The white cell count is at 13 with hemoglobin 15.9. The COVID 19 juan carlos ting was negative. Influenza a and B were both negative and the RSV by PCR was also negative. The patient's troponin down trended down to 0.8. The patient continues to be in atrial fibrillation. The Cardizem drip is being titrated to maintain a adequate heart rate at this point. Blood gases from today showed a pH of 7.48 with a pCO2 of 40 and pO2 of 66 and this was on FiO2 of 50%. Accordingly, the FiO2 was brought up. His breathing is labored. Is a high likelihood that the patient may require intubation mechanical ventilation. I give him additional dose of Lasix this morning. His BUN at 54 with a creatinine of 1.05. His sodium level is at 138. All of the blood cultures of been ne gative thus far. I also had a discussion with his daughter the bedside. Objective - Vital Signs Vital signs: Vital Signs Temp 96.5 F L 07/21/22 12:00 Pulse 90 07/21/22 13:00 Resp 20 07/21/22 13:00 BP 76/63 07/21/22 13:00 Pulse Ox 96 07/21/22 13:00 FiO2 80 07/21/22 13:00 Intake & Output 07/20/22 07/21/22 07/21/22 18:59 06:59 18:59 Intake Total 380 240 605.936 Output Total 820 565 840 Balance -440 -325 -234.064 Weight 142.8 kg 143.9 kg Intake: IV 130 120 440 Cefepime 2 gm In Sodium 100 Chloride 0.9% 100 ml @ 25 mls/hr IVPB Q8HR [facility] Rx# :[id number] KVO 130 120 40 Levofloxacin 750Mg-D5w 100 Pmx 750 mg In Dextrose/ Water 1 150ml.bag @ 100 mls/hr IVPB Q24H [facility] Rx#: [id number] Potassium Chloride 10 meq 200 In Water For Injection 1 100ml.bag @ 100 mls/hr IVPB Q1H [facility] Rx#: [id number] Intake, IV Titration 250 165.936 Amount Cefepime 2 gm In Sodium 100 Chloride 0.9% 100 ml @ 25 mls/hr IVPB Q8HR [facility] Rx# :[id number] Dexmedetomidine/0.9% NaCl 25.603 (Pmx) 400 mcg In Empty Bag 1 bag @ 0.2 MCG/KG/HR 7.195 mls/hr IV .[id number] [facility] Rx#:[id number] Diltiazem 125 mg In 140.333 Sodium Chloride 0.9% 100 ml @ Per Protocol IV .Q0M [facility] Rx#:[id number] Levofloxacin 750Mg-D5w 150 Pmx 750 mg In Dextrose/ Water 1 150ml.bag @ 100 mls/hr IVPB Q24H [facility] Rx#: [id number] Norepinephrine 4 mg In 0 Sodium Chloride 0.9% 250 ml @ 0.05 MCG/KG/MIN 25. 923 mls/hr IV .[id number] [facility] Rx#:[id number] Oral 120 Output: Urine 820 565 840 Stool 0 Other: Voiding Method Indwelling Catheter Indwelling Catheter - Exam GENERAL EXAM: Alert, doesn't obese 72-year-old male patient on BiPAP 18/10 and with an FiO2 of 75% . Awake and alert and following commands and answering questions appropriately. Breathing is slightly labored and the patient is tachypneic and he is able to communicate. Is alert and oriented 3. The patient continues to be tachypneic HEAD: Normocephalic. EYES: Normal reaction of pupils, equal size. NOSE: Clear with pink turbinates. THROAT: No erythema or exudates. NECK: No masses, no JVD. CHEST: No chest wall deformity. LUNGS: Equal air entry with crackles in the bilateral bases. The patient has crackles most on the left lung base CVS: S1 and S2 normal with no audible murmur, regular rhythm. ABDOMEN: No hepatosplenomegaly, normal bowel sounds, no guarding or rigidity. SPINE: No scoliosis or deformity SKIN: No rashes CENTRAL NERVOUS SYSTEM: No focal deficits, tone is normal in all 4 extremities. EXTREMITIES: There is one plus peripheral edema. No clubbing, no cyanosis. Peripheral pulses are intact. - Labs CBC & Chem 7: 07/21/22 06:30 07/21/22 06:30 Labs: Abnormal Lab Results - Last 24 Hours (Table) 07/20/22 07/20/22 07/21/22 Range/Units 16:54 20:33 02:35 WBC (3.8-10.6) k/uL ABG pH 7.48 H (7.35-7.45) ABG pO2 56 L* (83-108) mmHg ABG HCO3 30 H (21-25) mmol/L ABG Total CO2 31 H (19-24) mmol/L ABG O2 Saturation 88.2 L (94-97) % Potassium (3.5-5.1) mmol/L BUN (9-20) mg/dL Glucose (74-99) mg/dL POC Glucose (mg/dL) 333 H 376 H (70-110) mg/dL Troponin I (0.000-0.034) ng/mL 07/21/22 07/21/22 07/21/22 Range/Units 06:30 06:30 06:39 WBC 13.0 H (3.8-10.6) k/uL ABG pH (7.35-7.45) ABG pO2 (83-108) mmHg ABG HCO3 (21-25) mmol/L ABG Total CO2 (19-24) mmol/L ABG O2 Saturation (94-97) % Potassium 3.4 L (3.5-5.1) mmol/L BUN 54 H (9-20) mg/dL Glucose 192 H (74-99) mg/dL POC Glucose (mg/dL) 200 H (70-110) mg/dL Troponin I (0.000-0.034) ng/mL 07/21/22 07/21/22 Range/Units 09:21 12:45 WBC (3.8-10.6) k/uL ABG pH (7.35-7.45) ABG pO2 (83-108) mmHg ABG HCO3 (21-25) mmol/L ABG Total CO2 (19-24) mmol/L ABG O2 Saturation (94-97) % Potassium (3.5-5.1) mmol/L BUN (9-20) mg/dL Glucose (74-99) mg/dL POC Glucose (mg/dL) 218 H (70-110) mg/dL Troponin I 0.866 H* (0.000-0.034) ng/mL Microbiology - Last 24 Hours (Table) 07/18/22 09:50 Blood Culture - Preliminary Blood No Growth after 72 hours 07/18/22 09:35 Blood Culture - Preliminary Blood No Growth after 72 hours 07/19/22 16:40 Blood Culture - Preliminary Blood No Growth after 24 hours 07/18/22 17:30 Urine Culture - Final Urine,Clean Catch Assessment and Plan Assessment: Acute hypoxemic respiratory failure secondary to acute exacerbation of chronic systolic congestive heart failure and extensive lower lobe pneumonia more so on the left as the patient's chest x-ray showing dense consolidation of left lung. The chest x-ray findings are essentially unchanged. The pro-calcitonin level is at 0.48 and the patient was receiving a combination of Rocephin and Zithromax and the patient has some mild leukocytosis. His echocardiogram showing a preserved LV function with an ejection fraction of 60%. I switch his antibiotic coverage to a combination of Levaquin and cefepime. The patient continues to be BiPAP dependent. He remains on a BiPAP with an FiO2 of 75% with pressures of 18/10. FiO2 will be titrated to maintain a saturation above 90%. Based on lack of response and ongoing respiratory distress, is at increased likely that the patient may require intubation mechanical ventilation. Elevated troponin possible non-ST segment elevation myocardial infarction, downtrending and the most recent troponin level is down to 0.8 Atrial fibrillation with rapid ventricular response. The patient had not been on Eliquis for the past 2-3 months due to hematuria, the patient was placed back on anticoagulation with Eliquis. The patient was also started on Cardizem drip for rate control at 5 mg an hour and the patient is taking metoprolol 50 mg by mouth 3 times a day. The Cardizem drip will be titrated to maintain a heart rate of above 100 Hypotension secondary to above, requiring norepinephrine, recovered and the patient is currently off norepinephrine infusion, remains off pressors Benign prosthetic hypertrophy with recent surgery in March and then again in April 2022 Morbid obesity, body mass index of 40.7 History of hypertension Diabetes mellitus, poorly controlled Urinary retention secondary to BPH Known history of obstructive sleep apnea maintained on CPAP therapy on outpatient basis Previous history of hematuria for that reason the patient took himself off anticoagulation Previous history of cystoscopy on bipolar transurethral resection of the prostate/TURP for symptoms of BPH Plan: Clinically the patient is same in BiPAP dependent impaired yesterday and the patient is requesting is BiPAP all the time for now at a pressure of 18/10 with an FiO2 will be titrated to maintain a saturation above 90% Lack of any significant response since yesterday Continue with IV Lasix Continue IV cefepime and Levaquin Possible intubation within next few hours depending on his condition Seems to be quite anxious and he may benefit from low-dose Precedex The patient by mouth for now IV fluids to KVO Titrate the Cardizem drip to maintain a better heart rate Continue anticoagulation with Eliquis Blood work was noted We'll keep the patient ICU Discussed the case with Lyndsay's daughter There is an increased risk of him failing requiring intubation mechanical ventilation. He is a full CODE STATUS for now We'll keep the patient ICU for another 24 hours Time with Patient: Greater than 30
--- NOTE | 2022-07-21 16:42 | P.PN ---
Subjective Progress Note Date: 07/21/22 Principal diagnosis: Pneumonia Patient is a 72-year-old male presenting to the hospital for increasing shortness of breath in this patient with initial treatment for CHF without any improvement and concern for possible pneumonia. On today's evaluation that is 07/21/2022 the patient remains to be afebrile, patient is requiring low-dose pressor support per the nursing staff patient is currently on 75% FiO2 on the BiPAP patient denies having any chest pain had no worsening cough or sputum production no abdominal pain and no diarrhea Objective - Vital Signs Vital signs: Vital Signs Temp 96.5 F L 07/21/22 12:00 Pulse 96 07/21/22 14:00 Resp 25 H 07/21/22 14:00 BP 87/41 07/21/22 14:00 Pulse Ox 93 L 07/21/22 14:00 FiO2 80 07/21/22 13:00 Intake & Output 07/20/22 07/21/22 07/21/22 18:59 06:59 18:59 Intake Total 380 240 614.750 Output Total 820 565 840 Balance -440 -325 -225.250 Weight 142.8 kg 143.9 kg Intake: IV 130 120 440 Cefepime 2 gm In Sodium 100 Chloride 0.9% 100 ml @ 25 mls/hr IVPB Q8HR [facility] Rx# :[id number] KVO 130 120 40 Levofloxacin 750Mg-D5w 100 Pmx 750 mg In Dextrose/ Water 1 150ml.bag @ 100 mls/hr IVPB Q24H [facility] Rx#: [id number] Potassium Chloride 10 meq 200 In Water For Injection 1 100ml.bag @ 100 mls/hr IVPB Q1H [facility] Rx#: [id number] Intake, IV Titration 250 174.750 Amount Cefepime 2 gm In Sodium 100 Chloride 0.9% 100 ml @ 25 mls/hr IVPB Q8HR [facility] Rx# :[id number] Dexmedetomidine/0.9% NaCl 25.603 (Pmx) 400 mcg In Empty Bag 1 bag @ 0.2 MCG/KG/HR 7.195 mls/hr IV .[id number] [facility] Rx#:[id number] Diltiazem 125 mg In 140.333 Sodium Chloride 0.9% 100 ml @ Per Protocol IV .Q0M [facility] Rx#:[id number] Levofloxacin 750Mg-D5w 150 Pmx 750 mg In Dextrose/ Water 1 150ml.bag @ 100 mls/hr IVPB Q24H [facility] Rx#: [id number] Norepinephrine 4 mg In 8.814 Sodium Chloride 0.9% 250 ml @ 0.05 MCG/KG/MIN 25. 923 mls/hr IV .[id number] [facility] Rx#:[id number] Oral 120 Output: Urine 820 565 840 Stool 0 Other: Voiding Method Indwelling Catheter Indwelling Catheter Indwelling Catheter - Exam GENERAL DESCRIPTION: An elderly male up in the chair in no distress RESPIRATORY SYSTEM: Unlabored breathing , decreased breath sounds at bases HEART: S1 S2 regular rate and rhythm , ABDOMEN: Soft , no tenderness EXTREMITIES: No edema feet - Labs CBC & Chem 7: 07/21/22 06:30 07/21/22 06:30 Labs: Abnormal Lab Results - Last 24 Hours (Table) 07/20/22 07/20/22 07/21/22 Range/Units 16:54 20:33 02:35 WBC (3.8-10.6) k/uL ABG pH 7.48 H (7.35-7.45) ABG pO2 56 L* (83-108) mmHg ABG HCO3 30 H (21-25) mmol/L ABG Total CO2 31 H (19-24) mmol/L ABG O2 Saturation 88.2 L (94-97) % Potassium (3.5-5.1) mmol/L BUN (9-20) mg/dL Glucose (74-99) mg/dL POC Glucose (mg/dL) 333 H 376 H (70-110) mg/dL Troponin I (0.000-0.034) ng/mL 07/21/22 07/21/22 07/21/22 Range/Units 06:30 06:30 06:39 WBC 13.0 H (3.8-10.6) k/uL ABG pH (7.35-7.45) ABG pO2 (83-108) mmHg ABG HCO3 (21-25) mmol/L ABG Total CO2 (19-24) mmol/L ABG O2 Saturation (94-97) % Potassium 3.4 L (3.5-5.1) mmol/L BUN 54 H (9-20) mg/dL Glucose 192 H (74-99) mg/dL POC Glucose (mg/dL) 200 H (70-110) mg/dL Troponin I (0.000-0.034) ng/mL 07/21/22 07/21/22 Range/Units 09:21 12:45 WBC (3.8-10.6) k/uL ABG pH (7.35-7.45) ABG pO2 (83-108) mmHg ABG HCO3 (21-25) mmol/L ABG Total CO2 (19-24) mmol/L ABG O2 Saturation (94-97) % Potassium (3.5-5.1) mmol/L BUN (9-20) mg/dL Glucose (74-99) mg/dL POC Glucose (mg/dL) 218 H (70-110) mg/dL Troponin I 0.866 H* (0.000-0.034) ng/mL Microbiology - Last 24 Hours (Table) 07/18/22 09:50 Blood Culture - Preliminary Blood No Growth after 72 hours 07/18/22 09:35 Blood Culture - Preliminary Blood No Growth after 72 hours 07/19/22 16:40 Blood Culture - Preliminary Blood No Growth after 24 hours 07/18/22 17:30 Urine Culture - Final Urine,Clean Catch Assessment and Plan (1) UTI (urinary tract infection) Current Visit: Yes Status: Acute Code(s): N39.0 - URINARY TRACT INFECTION, SITE NOT SPECIFIED SNOMED Code(s): 70426778 (2) Pneumonia Current Visit: Yes Status: Acute Code(s): J18.9 - PNEUMONIA, UNSPECIFIED ORGANISM SNOMED Code(s): 441314687 Plan: 1patient presented to hospital with increasing shortness of breath which is likely multifactorial in this patient with interstitial infiltrate high clinic suspicious for possible fluid related underlying pneumonia less likely but not entirely excluded in this patient with Negative COVID test. 2positive UA had concern for possible UTI likely from enteric gram-negative pathogen, urine cultures have been negative so far. 3patient did have a negative RSV and influenza PCR however urine for Legionella antigen is currently pending. 4patient to continue with the cefepime and Levaquin while awaiting further wo rk-up to be completed. Time with Patient: Less than 30
[2022-07-21 17:51] LABS: Glucose,Whole Blood 232 mg/dL (70-110)
[2022-07-21] MEDS ORDERED: FUROSEMIDE 10 MG/ML 4 ML VIAL IV STA (18:30)
[2022-07-21] MEDS ORDERED: ACETAMINOPHEN IV (For NPO) 1,000 MG in EMPTY BAG 1 BAG IVPB PRN (18:35)
[2022-07-21 20:36] LABS: Glucose,Whole Blood 283 mg/dL (70-110)
[2022-07-22] MEDS: INSULIN ASPART (NovoLOG) 100 UNIT/ML VIAL SQ SCH ×3 (02:17→07:59)
[2022-07-22] MEDS: CEFEPIME 2 GM in SODIUM CHLORIDE 0.9% 100 ML IVPB SCH ×3 (02:18→20:11)
[2022-07-22] MEDS: NOREPINEPHRINE 4 MG in SODIUM CHLORIDE 0.9% 250 ML IV SCH ×4 (02:42→23:00)
[2022-07-22] MEDS: DEXMEDETOMIDINE/0.9% NACL(PMX) 400 MCG in EMPTY BAG 1 BAG IV SCH (03:30)
[2022-07-22 06:12] LABS: ABG Base Excess -4.9 mmol/L; ABG HCO3 20 mmol/L (21-25); ABG Hematocrit 45 % (34.0-46.0); ABG Oxygen Saturation 91.2 % (94-97); ABG PCO2 30 mmHg (35-45); ABG PH 7.43 (7.35-7.45); ABG PO2 68 mmHg (83-108); ABG TCO2 20 mmol/L (19-24); Allen Test Performed? Yes
[2022-07-22 06:35] LABS: Basophils # (A) 0.1 k/uL (0-0.2); Basophils % (A) 1 %; Eosinophils # (A) 0.1 k/uL (0-0.7); Eosinophils % (A) 0 %; HCT 46.3 % (39.0-53.0); HGB 14.7 gm/dL (13.0-17.5); Hypochromasia Slight; Lymphocytes # (A) 1.6 k/uL (1.0-4.8); Lymphocytes % (A) 13 %; MCH 28.8 pg (25.0-35.0); MCHC 31.6 g/dL (31.0-37.0); MCV 91.2 fL (80.0-100.0); Monocytes % (A) 8 %; Neutrophils # (A) 9.8 k/uL (1.3-7.7); Neutrophils % (A) 77 %; Platelet Count 213 k/uL (150-450); RBC 5.08 m/uL (4.30-5.90); WBC 12.7 k/uL (3.8-10.6)
[2022-07-22 06:45] LABS: Calcium 8.8 mg/dL (8.4-10.2); Potassium 5.1 mmol/L (3.5-5.1)
--- NOTE | 2022-07-22 07:00 | XR ---
EXAMINATION TYPE: XR chest 1V portable DATE OF EXAM: 07/22/2022 5:41 AM COMPARISON: Chest radiographs from 07/21/2022 TECHNIQUE: XR chest 1V portable Frontal view of the chest. CLINICAL INDICATION:Male, 72 years old with history of PNA; FINDINGS: Lungs/Pleura: Redemonstration of bibasilar airspace infiltrates and consolidation. Small bilateral pl eural effusions. No pneumothorax. Pulmonary vascularity: Some pulmonary vascular congestion. Heart/mediastinum: Cardiomediastinal silhouette is obscured due to overlying and adjacent opacities. Musculoskeletal: No acute osseous pathology. IMPRESSION: Overall no significant change in bilateral pneumonia and small bilateral pleural effusions with pulmo nary vascular congestion.
[2022-07-22 07:07] LABS: Glucose,Whole Blood 311 mg/dL (70-110)
[2022-07-22] MEDS: INSULIN DETEMIR (LEVEMIR) 100 UNIT/ML SYR SQ SCH (07:50)
[2022-07-22] MEDS: FUROSEMIDE 10 MG/ML 4 ML VIAL IV SCH (08:19)
[2022-07-22] MEDS: APIXABAN 5 MG TAB PO SCH ×2 (08:22→20:11)
[2022-07-22] MEDS: FAMOTIDINE 20 MG/2 ML VIAL IV SCH (08:22)
[2022-07-22] MEDS: ASPIRIN 81 MG PO SCH (08:23)
[2022-07-22] MEDS: METOPROLOL TARTRATE 50 MG TAB PO SCH ×3 (08:23→22:17)
--- NOTE | 2022-07-22 09:05 | P.PN ---
Subjective Progress Note Date: 07/21/22 Principal diagnosis: Acute hypoxemic respiratory failure secondary to acute exacerbation of chronic systolic congestive heart failure and extensive lower lobe pneumonia Elevated troponin possible non-ST segment elevation myocardial infarction Atrial fibrillation with rapid ventricular response Hypotension 72-year-old male patient who has a history of diabetes mellitus, uncontrolled, hyperlipidemia, hypertension, morbid obesity, obstructive sleep apnea maintained on CPAP, atrial fibrillation not on anticoagulants currently, BPH with recent surgery and clot evacuation in March and then again in April and the patient did have hematuria and is Eliquis that time. He presented to the emergency room following this morning with difficulty in breathing. He also had some increased swelling of his lower extremities. Chest x-ray revealed diffuse moderate to severe bilateral lower lung edema and/or atypical infiltrates. EKG revealed atrial fibrillation with a rapid ventricular response and nonspecific ST and T wave abnormalities. Lactic acid 2.4, troponin 2.1, 2.38, blood glucose 373. White count 17.6. Hemoglobin 15.7. INR 1.0. Sodium 142. Potassium 3.6. Bicarb 24. BUN 29. Creatinine 1.08. He ST 49. ALT 15. ProBNP 1530. His oxygen saturation was 85% on room air at presentation. He is seen today in consultation in the emergency department. He's currently on BiPAP at 18/10 and 40% FiO2 with O2 saturations in the 90s. Mostly BiPAP dependent since admission. He is also hypotensive requiring norepinephrine currently at 0.05 mcg/kg/m. He's been given Lasix 40 mg IVP 1 with minimal urine output. He is also initiated on ceftriaxone and azithromycin. He was initiated back on Eliquis. Objective - Vital Signs Vital signs: Vital Signs Temp 96.9 F L 07/21/22 08:00 Pulse 135 H 07/21/22 09:00 Resp 32 H 07/21/22 09:00 BP 140/95 07/21/22 09:00 Pulse Ox 84 L 07/21/22 09:00 FiO2 100 07/21/22 09:00 Intake & Output 07/20/22 07/21/22 07/21/22 18:59 06:59 18:59 Intake Total 380 240 345 Output Total 820 565 370 Balance -440 -325 -25 Weight 142.8 kg 143.9 kg Intake: IV 130 120 220 Cefepime 2 gm In Sodium 100 Chloride 0.9% 100 ml @ 25 mls/hr IVPB Q8HR [facility] Rx# :[id number] KVO 130 120 20 Levofloxacin 750Mg-D5w 100 Pmx 750 mg In Dextrose/ Water 1 150ml.bag @ 100 mls/hr IVPB Q24H [facility] Rx#: [id number] Intake, IV Titration 250 125 Amount Cefepime 2 gm In Sodium 100 Chloride 0.9% 100 ml @ 25 mls/hr IVPB Q8HR [facility] Rx# :[id number] Diltiazem 125 mg In 125 Sodium Chloride 0.9% 100 ml @ Per Protocol IV .Q0M [facility] Rx#:[id number] Levofloxacin 750Mg-D5w 150 Pmx 750 mg In Dextrose/ Water 1 150ml.bag @ 100 mls/hr IVPB Q24H [facility] Rx#: [id number] Oral 120 Output: Urine 820 565 370 Stool 0 Other: Voiding Method Indwelling Catheter Indwelling Catheter - Exam GENERAL EXAM: Awake and alert and following commands and answering questions appropriately. Breathing is slightly labored and the patient is tachypneic HEAD: Normocephalic. EYES: Normal reaction of pupils, equal size. NECK: No masses, no JVD. LUNGS: Equal air entry with crackles in the bilateral bases. The patient has crackles most on the left lung base CVS: S1 and S2 normal with no audible murmur, regular rhythm. ABDOMEN: No hepatosplenomegaly, normal bowel sounds, no guarding or rigidity. SKIN: No rashes CENTRAL NERVOUS SYSTEM: No focal deficits, tone is normal in all 4 extremities. EXTREMITIES: There is one plus peripheral edema. No clubbing, no cyanosis. Peripheral pulses are intact. - Labs CBC & Chem 7: 07/22/22 06:05 07/22/22 06:05 Labs: Abnormal Lab Results - Last 24 Hours (Table) 07/20/22 07/20/22 07/20/22 Range/Units 11:17 16:54 20:33 WBC (3.8-10.6) k/uL ABG pH (7.35-7.45) ABG pO2 (83-108) mmHg ABG HCO3 (21-25) mmol/L ABG Total CO2 (19-24) mmol/L ABG O2 Saturation (94-97) % Potassium (3.5-5.1) mmol/L BUN (9-20) mg/dL Glucose (74-99) mg/dL POC Glucose (mg/dL) 309 H 333 H 376 H (70-110) mg/dL 07/21/22 07/21/22 07/21/22 Range/Units 02:35 06:30 06:30 WBC 13.0 H (3.8-10.6) k/uL ABG pH 7.48 H (7.35-7.45) ABG pO2 56 L* (83-108) mmHg ABG HCO3 30 H (21-25) mmol/L ABG Total CO2 31 H (19-24) mmol/L ABG O2 Saturation 88.2 L (94-97) % Potassium 3.4 L (3.5-5.1) mmol/L BUN 54 H (9-20) mg/dL Glucose 192 H (74-99) mg/dL POC Glucose (mg/dL) (70-110) mg/dL 07/21/22 Range/Units 06:39 WBC (3.8-10.6) k/uL ABG pH (7.35-7.45) ABG pO2 (83-108) mmHg ABG HCO3 (21-25) mmol/L ABG Total CO2 (19-24) mmol/L ABG O2 Saturation (94-97) % Potassium (3.5-5.1) mmol/L BUN (9-20) mg/dL Glucose (74-99) mg/dL POC Glucose (mg/dL) 200 H (70-110) mg/dL Microbiology - Last 24 Hours (Table) 07/19/22 16:40 Blood Culture - Preliminary Blood No Growth after 24 hours 07/18/22 09:50 Blood Culture - Preliminary Blood No Growth after 48 hours 07/18/22 09:35 Blood Culture - Preliminary Blood No Growth after 48 hours 07/18/22 17:30 Urine Culture - Final Urine,Clean Catch Assessment and Plan Assessment: 1. Acute hypoxemic respiratory failure; multifactorial - Related to CHF exacerbation and pneumonia - Patient remains on BiPAP with FiO2 of 75%; plan is to titrate/green FiO2 keeping O2 saturation above 90% - Might require intubation and mechanical ventilation if respiratory status continues to worsen 2. Acute exacerbation systolic CHF; echocardiogram reveals preserved left ventricular function with EF of 90%; continue with current dose of IV Lasix; we will monitor strict KATINA's, daily weights, low salt and fluid restricted diet 3. Elevated troponin; possible non-ST segment elevation AR; troponin trending down and is down to 0.8 3. Extensive left lower lobe pneumonia; patient remains on IV cefepime and Levaquin; pro-calcitonin level at 0.48 with mild leukocytosis - We will continue with current IV antibiotics and monitor CBC, CRP and pro- calcitonin levels 4. Atrial fibrillation with RVR; patient was placed back on anticoagulation with Eliquis. The patient was also started on Cardizem drip for rate control at 5 mg an hour and the patient is taking metoprolol 50 mg by mouth 3 times a day. The Cardizem drip will be titrated to maintain a heart rate of above 100; patient remains anticoagulated with Eliquis 5. Diabetes mellitus; monitor Accu-Cheks every before meals and at bedtime with insulin sliding scale 6. Hypertension; currently hypotensive related to NSTEMI/CHF/pneumonia; patient has been taken off of pressors; we'll monitor blood pressure closely and initiate antihypertensive therapy once blood pressure improves 7. Urinary retention/BPH; patient has history of cystoscopy with transurethral resection of prostate/TURP DVT prophylaxis; SCDs/systemic anticoagulation CODE STATUS; full code
[2022-07-22] MEDS ORDERED: propofoL 100 ML IV ONE ×2 (09:31→11:42)
[2022-07-22] MEDS ORDERED: CISATRACURIUM 2 MG/ML 5 ML VIAL IV ONE ×2 (09:38)
[2022-07-22] MEDS ORDERED: SODIUM BICARB 8.4% 50 ML SYR (1 MEQ/ML) ONE (10:01)
[2022-07-22] MEDS ORDERED: SODIUM BICARB 8.4% 50 ML SYR (1 MEQ/ML) IV STA (10:01)
--- NOTE | 2022-07-22 10:09 | P.PN ---
Subjective Progress Note Date: 07/22/22 The patient is 72-year-old male with multiple comorbid conditions, who presented to the hospital with worsening shortness of breath. He was in A. fib with RVR at the time of his admission. Chest x-ray shows bilateral patchy infiltrates, worse on the left. He was subsequently transferred to the ICU for hypoxic respiratory failure and hypotension. Overnight the patients respiratory status continued to worsen. He is now up to 70% FiO2 on the BiPAP. The patient continues to clinically decline. He has now on 100% FiO2 on BiPAP. He is more labored. Blood pressure dropped overnight. Cardizem was discontinued and he is now on norepinephrine to maintain his blood pressure The patient was interviewed and examined lying in bed on BiPAP. Limited review of systems due to dyspnea. Pulmonology is discussing the possibility of intubation. GENERAL: Well-appearing, obese male NECK: Supple without JVD or thyromegaly. LUNGS: Breath sounds are coarse to auscultation with rhonchi throughout.Respiration equal. Labored breathing. HEART: Irregular rate and rhythm without murmurs, rubs or gallops. S1 and S2 heard. EXTREMITIES: Normal range of motion, mild edema on the right. No clubbing or cyanosis. Peripheral pulses intact and strong. VITALS: Blood pressure 101/80, respiratory rate 26, pulse 78, SpO2 91% on 100% FiO2 TELEMETRY: Atrial fibrillation with heart rates in the 70's LABS: WBC 12.7, hematocrit 46.3, hemoglobin 14.7, platelet 213, sodium 136, potassium 5.1, BUN 74, creatinine 2.3 IMPRESSION: Acute hypoxic respiratory failure, secondary to pneumonia Paroxysmal A. fib with RVR, currently rate controlled Acute on chronic heart failure with mildly reduced ejection fraction, previous echo 40-45% Elevated troponin, likely type II TN secondary to supply demand mismatch Lactic acidosis Leukocytosis PLAN: Continue supportive treatment Continue anticoagulation Aggressive pulmonary hygiene Further recommendations to be based upon clinical course I am dictating on behalf of Dr Mick Brunson's history/physical and assessment/plan. Objective - Vital Signs Vital signs: Vital Signs Temp 97.7 F 07/22/22 04:45 Pulse 78 07/22/22 07:15 Resp 26 H 07/22/22 07:15 BP 101/80 07/22/22 07:15 Pulse Ox 90 L 07/22/22 07:39 FiO2 100 07/22/22 09:45 Intake & Output 07/21/22 07/22/22 07/22/22 18:59 06:59 18:59 Intake Total 802.191 844.226 29.811 Output Total 1015 160 15 Balance -212.809 684.226 14.811 Weight 143 kg Intake: IV 570 270 10 Cefepime 2 gm In Sodium 100 150 Chloride 0.9% 100 ml @ 25 mls/hr IVPB Q8HR [facility] Rx# :[id number] KVO 70 120 10 Levofloxacin 750Mg-D5w 100 Pmx 750 mg In Dextrose/ Water 1 150ml.bag @ 100 mls/hr IVPB Q24H [facility] Rx#: [id number] Potassium Chloride 10 meq 300 In Water For Injection 1 100ml.bag @ 100 mls/hr IVPB Q1H [facility] Rx#: [id number] Intake, IV Titration 232.191 574.226 19.811 Amount ACETAMINOPHEN IV (For NPO 100 ) 1,000 mg In Empty Bag 1 bag @ 400 mls/hr IVPB Q6HR PRN Rx#:[id number] Dexmedetomidine/0.9% NaCl 53.665 183.583 7.195 (Pmx) 400 mcg In Empty Bag 1 bag @ 0.2 MCG/KG/HR 7.195 mls/hr IV .[id number] [facility] Rx#:[id number] Diltiazem 125 mg In 140.333 50.25 Sodium Chloride 0.9% 100 ml @ Per Protocol IV .Q0M [facility] Rx#:[id number] Norepinephrine 4 mg In 38.193 240.393 12.616 Sodium Chloride 0.9% 250 ml @ 0.05 MCG/KG/MIN 25. 923 mls/hr IV .[id number] [facility] Rx#:[id number] Output: Urine 1015 160 15 Other: Voiding Method Indwelling Catheter Indwelling Catheter - Labs CBC & Chem 7: 07/22/22 06:05 07/22/22 06:05 Labs: Abnormal Lab Results - Last 24 Hours (Table) 07/21/22 07/21/22 07/21/22 Range/Units 09:21 12:45 17:39 WBC (3.8-10.6) k/uL Neutrophils # (1.3-7.7) k/uL ABG pCO2 (35-45) mmHg ABG pO2 (83-108) mmHg ABG HCO3 (21-25) mmol/L ABG O2 Saturation (94-97) % Sodium (137-145) mmol/L Carbon Dioxide (22-30) mmol/L BUN (9-20) mg/dL Creatinine (0.66-1.25) mg/dL Glucose (74-99) mg/dL POC Glucose (mg/dL) 218 H 232 H (70-110) mg/dL Troponin I 0.866 H* (0.000-0.034) ng/mL 07/21/22 07/22/22 07/22/22 Range/Units 20:34 06:02 06:05 WBC 12.7 H (3.8-10.6) k/uL Neutrophils # 9.8 H (1.3-7.7) k/uL ABG pCO2 30 L (35-45) mmHg ABG pO2 68 L (83-108) mmHg ABG HCO3 20 L (21-25) mmol/L ABG O2 Saturation 91.2 L (94-97) % Sodium (137-145) mmol/L Carbon Dioxide (22-30) mmol/L BUN (9-20) mg/dL Creatinine (0.66-1.25) mg/dL Glucose (74-99) mg/dL POC Glucose (mg/dL) 283 H (70-110) mg/dL Troponin I (0.000-0.034) ng/mL 07/22/22 07/22/22 Range/Units 06:05 07:06 WBC (3.8-10.6) k/uL Neutrophils # (1.3-7.7) k/uL ABG pCO2 (35-45) mmHg ABG pO2 (83-108) mmHg ABG HCO3 (21-25) mmol/L ABG O2 Saturation (94-97) % Sodium 136 L (137-145) mmol/L Carbon Dioxide 18 L (22-30) mmol/L BUN 74 H (9-20) mg/dL Creatinine 2.13 H (0.66-1.25) mg/dL Glucose 299 H (74-99) mg/dL POC Glucose (mg/dL) 311 H (70-110) mg/dL Troponin I (0.000-0.034) ng/mL Microbiology - Last 24 Hours (Table) 07/19/22 16:40 Blood Culture - Preliminary Blood No Growth after 48 hours 07/18/22 09:50 Blood Culture - Preliminary Blood No Growth after 72 hours 07/18/22 09:35 Blood Culture - Preliminary Blood No Growth after 72 hours
[2022-07-22] MEDS ORDERED: IPRATROPIUM-ALBUTEROL 3 ML NEB INHALATION PRN (10:11)
[2022-07-22 10:17] LABS: ABG Base Excess -5.2 mmol/L; ABG HCO3 21 mmol/L (21-25); ABG Hematocrit 44 % (34.0-46.0); ABG PCO2 39 mmHg (35-45); ABG PH 7.33 (7.35-7.45); ABG TCO2 22 mmol/L (19-24)
[2022-07-22 10:20] LABS: ABG PO2 54 mmHg (83-108); Allen Test Performed? no
--- NOTE | 2022-07-22 10:21 | XR ---
EXAMINATION TYPE: XR chest 1V portable DATE OF EXAM: 07/22/2022 10:11 AM COMPARISON: Chest radiographs from 07/22/2022 TECHNIQUE: XR chest 1V portable Frontal view of the chest. CLINICAL INDICATION:Male, 72 years old with history of Post intubation/central line; FINDINGS: Lungs/Pleura: No pneumothorax. Redemonstration of bibasilar airspace infiltrates and consolidation. S mall bilateral pleural effusions. Pulmonary vascularity: Mild pulmonary vascular congestion. Heart/mediastinum: Cardiomediastinal silhouette is unremarkable. Musculoskeletal: No acute osseous pathology. Lines/Tubes: Endotracheal tube with distal tip 4.1 cm above the scott Left IJ central venous catheter tip terminating in the region of the brachiocephalic junction. Enteric tube demonstrated with distal tip poorly visualized. Tip may be at the distal esophagus. IMPRESSION: 1. Interval placement of endotracheal tube tip approximately 4.1 cm above the scott. 2. Interval placement of left IJ central venous catheter with tip terminating in the region of the b rachiocephalic junction. No pneumothorax. 3. Enteric tube demonstrated with distal tip poorly visualized. Tip may be at the distal esophagus. 4. No significant change in bilateral pneumonia and small bilateral pleural effusions with pulmonary vascular congestion.
[2022-07-22] MEDS: IPRATROPIUM-ALBUTEROL 3 ML NEB INHALATION SCH ×4 (11:32→23:11)
[2022-07-22] MEDS ORDERED: LEVOFLOXACIN 750MG-D5W PMX 750 MG in DEXTROSE/WATER 1 150ML.BAG IVPB SCH (12:00)
--- NOTE | 2022-07-22 13:07 | P.PN ---
Subjective Progress Note Date: 07/22/22 Very pleasant 72-year-old male patient who has a history of diabetes mellitus, uncontrolled, hyperlipidemia, hypertension, morbid obesity, obstructive sleep apnea maintained on CPAP, atrial fibrillation not on anticoagulants currently, BPH with recent surgery and clot evacuation in March and then again in April and the patient did have hematuria and is Eliquis that time. He presented to the emergency room following this morning with difficulty in breathing. He also had some increased swelling of his lower extremities. Chest x-ray revealed diffuse moderate to severe bilateral lower lung edema and/or atypical infiltrates. EKG revealed atrial fibrillation with a rapid ventricular response and nonspecific ST and T wave abnormalities. Lactic acid 2.4, troponin 2.1, 2.38, blood glucose 373. White count 17.6. Hemoglobin 15.7. INR 1.0. Sodium 142. Potassium 3.6. Bicarb 24. BUN 29. Creatinine 1.08. He ST 49. ALT 15. ProBNP 1530. His oxygen saturation was 85% on room air at presentation. He is seen today in consultation in the emergency department. He's currently on BiPAP at 18/10 and 40% FiO2 with O2 saturations in the 90s. Mostly BiPAP dependent since admission. He is also hypotensive requiring norepinephrine currently at 0.05 mcg/kg/m. He's been given Lasix 40 mg IVP 1 with minimal urine output. He is also initiated on ceftriaxone and azithromycin. He was initiated back on Eliquis. On 07/19/2022, the patient is sitting better compared to yesterday. A Lezama catheter was inserted yesterday. The patient is producing adequate amount of urine output and the patient is a negative fluid balance of at least 1 L over the past 24 hours. He spent the night on BiPAP at a pressure 15/10 cm of water and FiO2 of 50%. This morning, the patient was taken off the BiPAP and the patient is currently on 4 L of O2 nasal cannula. The patient was also taken off the norepinephrine infusion since 10 PM yesterday. Remains on a combination of Rocephin and Zithromax. Repeat chest x-ray from today shows residual infiltration of the left although improved. Infiltration of the right is also improved. The patient is hemodynamically stable. The patient is afebrile. The white cell count of 12.8. Normal coagulation profile. BUN is a 45 and a creatinine of 1.3. The hemoglobin A1c was 11 indicating it for blood sugar control. Sodium level is at 139. Urine cultures still negative for now. A limited echocardiogram was done in the emergency department and the patient had a technically difficult study. There was mild LVH. There was normal LV function with an ejection fraction of 60%. The patient remains in atrial fibrillation. The patient is also on anticoagulation with Eliquis 5 mg by mouth twice a day. 07/20/2022, the patient is BiPAP dependent. He did have some time while off the BiPAP yesterday. Nevertheless, subsequently became short of breath and he was on the BiPAP and this morning is still on the BiPAP at a pressure of 18/10 cm of water and FiO2 of 50%. He is degenerative tidal volume is around 900 mL with a respiratory rate of 22. He seems to be quite dependent on the BiPAP. The chest x-ray showing resolving pulmonary edema. There is extensive consolidation of the left lower lobe consistent with an underlying pneumonia. The patient was receiving a combination of Rocephin and Zithromax. I'm going to modify the antibiotic coverage for now and step of the antibiotic coverage. Cultures are negative thus far. The patient is hemodynamically stable. Is currently off pressors. In fact he is normotensive and tachycardic with atrial fibrillation. He was started on Cardizem drip at 5 mg an hour for rate control in addition to metoprolol 50 mg by mouth 3 times a day. His pro-calcitonin level was at 0.48. His white cell count is still mildly elevated at 16 with a hemoglobin 13.5 and a platelet count of 277. His BUN is at 52 with a creatinine of 1.1 and sodium level of 136 and a chloride level of 97 with a bicarb level of 25. Blood sugars are elevated. He is awake and oriented to his communicating. His underlying LV function is essentially within normal limits and he remains on long-term and coagulation with Eliquis. 07/21/2022, the patient is struggling with his breathing. Overnight, the patient continued to have difficulty with breathing and episodic oxygen desaturations. The patient would desaturate easily once off the BiPAP machine. Earlier this morning, evaluated the patient patient was having labored breathing. His aspiration was in the low 30s. He was on a BiPAP pressure of 18/10 cm of water and FiO2 of 75%. A repeat chest x-ray was done yesterday and showed persistent consolidation of left lower lobe. There is also evidence of some mild CHF and cardiomegaly. The patient remains on examination cefepime and Levaquin. The white cell count is at 13 with hemoglobin 15.9. The COVID 19 juan carlos ting was negative. Influenza a and B were both negative and the RSV by PCR was also negative. The patient's troponin down trended down to 0.8. The patient continues to be in atrial fibrillation. The Cardizem drip is being titrated to maintain a adequate heart rate at this point. Blood gases from today showed a pH of 7.48 with a pCO2 of 40 and pO2 of 66 and this was on FiO2 of 50%. Accordingly, the FiO2 was brought up. His breathing is labored. Is a high likelihood that the patient may require intubation mechanical ventilation. I give him additional dose of Lasix this morning. His BUN at 54 with a creatinine of 1.05. His sodium level is at 138. All of the blood cultures of been ne gative thus far. I also had a discussion with his daughter the bedside. 07/22/2022, the patient is being seen in for a follow-up. He continues to struggle with his breathing. Despite being on a BiPAP, the patient states that he is having hard time breathing and is unable to breathe comfortably or maintain his aspiration. This morning, the patient's was on Precedex at 0.2 mics and respiratory per hour. The patient was also on a BiPAP at a pressure 18/10 with an FiO2 of 100%. Blood gases from today showed a pH of 7.43 with a pCO2 of 30 and pO2 of 68. Nevertheless, the patient's chest x-ray showing extensive bilateral lower lobe consolidation along with cardiomegaly and the patient is currently covered with a combination of cefepime and Levaquin. At the same time, the patient was being diuresed due to concern of an underlying CHF. Along with diuresis, the patient became hypotensive and he was started on norepinephrine which was running at a dose of 0.03 mcg/kg per minute this mo rning and the patient also developed an acute kidney injury with a creatinine was found to be elevated at 2.1 with a 74. Serum bicarbonate of 18 with a sodium level of 136. Based on this decline in overall condition respirator status, I made decision to proceed with intubation mechanical ventilation. I intubated patient with a #8 endotracheal tube. I placed on a mechanical ventilator. Note that the patient was immediately given a total of 2 L of IV fluid normal saline and he was started on a maintenance of 100 mL an hour normal saline and the norepinephrine dose will be titrated accordingly to maintain a saturation above 90%. Post intubation chest x-ray showed adequate positioning of the oral check and orogastric tube. The patient also had a triple lumen catheter inserted in the left internal jugular vein without any complications and the catheter was in a good location. The patient is going to undergo a computed tomography scan of the chest once condition is more stabilized. He'll be kept on propofol which is running at 40 mcg/kg per minute at this point in time. Enteral feeding will be also initiated. Objective - Vital Signs Vital signs: Vital Signs Temp 98.2 F 07/22/22 07:45 Pulse 75 07/22/22 11:42 Resp 26 H 07/22/22 11:15 BP 109/90 07/22/22 11:15 Pulse Ox 97 07/22/22 11:15 FiO2 90 07/22/22 11:14 Intake & Output 07/21/22 07/22/22 07/22/22 18:59 06:59 18:59 Intake Total 802.191 844.226 88.657 Output Total 1015 160 15 Balance -212.809 684.226 73.657 Weight 143 kg Intake: IV 570 270 10 Cefepime 2 gm In Sodium 100 150 Chloride 0.9% 100 ml @ 25 mls/hr IVPB Q8HR [facility] Rx# :[id number] KVO 70 120 10 Levofloxacin 750Mg-D5w 100 Pmx 750 mg In Dextrose/ Water 1 150ml.bag @ 100 mls/hr IVPB Q24H [facility] Rx#: [id number] Potassium Chloride 10 meq 300 In Water For Injection 1 100ml.bag @ 100 mls/hr IVPB Q1H [facility] Rx#: [id number] Intake, IV Titration 232.191 574.226 78.657 Amount ACETAMINOPHEN IV (For NPO 100 ) 1,000 mg In Empty Bag 1 bag @ 400 mls/hr IVPB Q6HR PRN Rx#:[id number] Dexmedetomidine/0.9% NaCl 53.665 183.583 7.195 (Pmx) 400 mcg In Empty Bag 1 bag @ 0.2 MCG/KG/HR 7.195 mls/hr IV .[id number] [facility] Rx#:[id number] Diltiazem 125 mg In 140.333 50.25 Sodium Chloride 0.9% 100 ml @ Per Protocol IV .Q0M [facility] Rx#:[id number] Norepinephrine 4 mg In 38.193 240.393 71.462 Sodium Chloride 0.9% 250 ml @ 0.05 MCG/KG/MIN 25. 923 mls/hr IV .[id number] [facility] Rx#:[id number] Output: Urine 1015 160 15 Other: Voiding Method Indwelling Catheter Indwelling Catheter ABP, PAP, CO, CI - Last Documented Arterial Blood Pressure 92/65 - Exam GENERAL EXAM: Alert, doesn't obese 72-year-old male patient on mechanical ventilator and the patient is currently intubated on mechanical ventilator, sedated with propofol and orotracheal and orogastric tube are both in place. HEAD: Normocephalic. EYES: Normal reaction of pupils, equal size. NOSE: Clear with pink turbinates. THROAT: No erythema or exudates. NECK: No masses, no JVD., And the patient has a triple-lumen catheter in the left IJ CHEST: No chest wall deformity. LUNGS: Equal air entry with crackles in the bilateral bases. The patient has crackles most on the left lung base CVS: S1 and S2 normal with no audible murmur, regular rhythm. ABDOMEN: No hepatosplenomegaly, normal bowel sounds, no guarding or rigidity. SPINE: No scoliosis or deformity SKIN: No rashes CENTRAL NERVOUS SYSTEM: The patient was awake and alert prior to the intubation process. Currently is well sedated. EXTREMITIES: There is one plus peripheral edema. No clubbing, no cyanosis. Peripheral pulses are diminished as the patient developed hypotension postintubation. - Labs CBC & Chem 7: 07/22/22 06:05 07/22/22 06:05 Labs: Abnormal Lab Results - Last 24 Hours (Table) 07/21/22 07/21/22 07/22/22 Range/Units 17:39 20:34 06:02 WBC (3.8-10.6) k/uL Neutrophils # (1.3-7.7) k/uL ABG pH (7.35-7.45) ABG pCO2 30 L (35-45) mmHg ABG pO2 68 L (83-108) mmHg ABG HCO3 20 L (21-25) mmol/L ABG O2 Saturation 91.2 L (94-97) % Sodium (137-145) mmol/L Carbon Dioxide (22-30) mmol/L BUN (9-20) mg/dL Creatinine (0.66-1.25) mg/dL Glucose (74-99) mg/dL POC Glucose (mg/dL) 232 H 283 H (70-110) mg/dL 07/22/22 07/22/22 07/22/22 Range/Units 06:05 06:05 07:06 WBC 12.7 H (3.8-10.6) k/uL Neutrophils # 9.8 H (1.3-7.7) k/uL ABG pH (7.35-7.45) ABG pCO2 (35-45) mmHg ABG pO2 (83-108) mmHg ABG HCO3 (21-25) mmol/L ABG O2 Saturation (94-97) % Sodium 136 L (137-145) mmol/L Carbon Dioxide 18 L (22-30) mmol/L BUN 74 H (9-20) mg/dL Creatinine 2.13 H (0.66-1.25) mg/dL Glucose 299 H (74-99) mg/dL POC Glucose (mg/dL) 311 H (70-110) mg/dL 07/22/22 Range/Units 10:15 WBC (3.8-10.6) k/uL Neutrophils # (1.3-7.7) k/uL ABG pH 7.33 L (7.35-7.45) ABG pCO2 (35-45) mmHg ABG pO2 54 L* (83-108) mmHg ABG HCO3 (21-25) mmol/L ABG O2 Saturation 80.0 L (94-97) % Sodium (137-145) mmol/L Carbon Dioxide (22-30) mmol/L BUN (9-20) mg/dL Creatinine (0.66-1.25) mg/dL Glucose (74-99) mg/dL POC Glucose (mg/dL) (70-110) mg/dL Microbiology - Last 24 Hours (Table) 07/18/22 09:50 Blood Culture - Preliminary Blood No Growth after 96 hours 07/18/22 09:35 Blood Culture - Preliminary Blood No Growth after 96 hours 07/19/22 16:40 Blood Culture - Preliminary Blood No Growth after 48 hours Assessment and Plan Assessment: Acute hypoxemic respiratory failure secondary to extensive bilateral lower lobe pneumonia and consolidation. There was a component of interstitial edema and the patient got diuresed adequately to the point where the patient became hypovolemic and hypotensive and developed an acute kidney injury. Nevertheless, along with diuresis, there was no improvement in oxygenation and the patient clearly continued to have extensive consolidation lung bases bilaterally. Initial antibiotics with Rocephin and Zithromax and the patient was switched to Levaquin and cefepime for now. the patient failed BiPAP therapy and the patient is currently intubated on a mechanical ventilator. The pro-calcitonin level at the time of admission was 0.48 and the blood culture essentially negative for now. Acute kidney injury, secondary to diuresis intravascular volume depletion, and the patient is being replaced again with fluids Elevated troponin possible non-ST segment elevation myocardial infarction, downtrending and the most recent troponin level is down to 0.8 Atrial fibrillation with rapid ventricular response. The patient had not been on Eliquis for the past 2-3 months due to hematuria, the patient was placed back on anticoagulation with Eliquis. The patient is currently off the Cardizem drip and the patient is currently on Eliquis for long-term anticoagulation. Hypotension secondary to diuresis intravascular volume depletion, currently on fluids and pressors Benign prosthetic hypertrophy with recent surgery in March and then again in April 2022 Morbid obesity, body mass index of 40.7 History of hypertension Diabetes mellitus, poorly controlled Urinary retention secondary to BPH Known history of obstructive sleep apnea maintained on CPAP therapy on outpatient basis Previous history of hematuria for that reason the patient took himself off anticoagulation Previous history of cystoscopy on bipolar transurethral resection of the prostate/TURP for symptoms of BPH Plan: Keep the patient sedated with propofol Continue ventilator support This is a ventilator changes were done and the patient was brought up to PEEP of 18 with an FiO2 100% and a tidal volume of 400 and the rate of 26 Obtain sputum Gram stain and culture Obtain CAT scan of the chest with the patient's condition is more stable Possible bronchoscopy Continue normal saline after being given a total of 2 L Monitor renal function and monitor urine output No Lasix for now Continue anticoagulation with Eliquis Stop Cardizem drip Initiate enteral feeding for nutritional support cultures are all negative for now We'll keep the patient ICU Discussed the case with Lyndsay's daughter He is a full CODE STATUS for now We'll keep the patient ICU for another 24 hours Evaluation was done and more than 30 minutes and there is a critically care evaluation and this evaluation time excludes any time done and discussion and time spent and procedures Time with Patient: Greater than 30
--- NOTE | 2022-07-22 13:10 | P.PCN ---
Date of Procedure: 07/22/22 Preoperative Diagnosis: Acute hypoxic respiratory failure/pneumonia Postoperative Diagnosis: Acute hypoxic respiratory failure/pneumonia Procedure(s) Performed: Intubation Central line Arterial line Anesthesia: local Surgeon: Saman Cormier Estimated Blood Loss (ml): 0 Pathology: none sent Condition: critical Disposition: ICU Operative Findings: Intubation Indication: Respiratory compromise. A time-out was completed verifying correct patient, procedure, site, positioning, and implant(s) or special equipment if applicable. The patient was positioned appropriately and a #8 endotracheal tube was placed under direct laryngoscopy. The tube was anchored at 22 cm at the teeth. Correct placement was confirmed by presence of bilateral breath sounds without air sounds in the abdomen on auscultation. An end-tidal CO2 monitor was also used to confirm tracheal placement of the ET tube. A chest x-ray was ordered to assess for pneumothorax and verify endotracheal tube placement. The patient tolerated the procedure well and there were no complications. Central line Indication: Hemodynamic monitoring/Intravenous access. A time-out was completed verifying correct patient, procedure, site, positioning, and implant(s) or special equipment if applicable. The patient was placed in a dependent position appropriate for central line placement based on the vein to be cannulated. The patients shoulder left neck was prepped and draped in sterile fashion. 1% Lidocaine was used to anesthetize the surrounding skin area. A triple lumen 9F Cordis catheter was introduced into the left IJ/internal jugular vein using Seldinger technique. The catheter was threaded smoothly over the guide wire and appropriate blood return was obtained. Each lumen of the catheter was evacuated of air and flushed with sterile saline. The catheter was then sutured in place to the skin and a sterile dressing applied. Perfusion to the extremity distal to the point of catheter insertion was checked and found to be adequate. The patient tolerated the procedure well and there were no complications. Arterial line Indication: Hemodynamic monitoring. A time-out was completed verifying correct patient, procedure, site, positioning, and implant(s) or special equipment if applicable. Allens test was performed to ensure adequate perfusion. The patients left groin was prepped and draped in sterile fashion. 1% Lidocaine was used to anesthetize the area. An 18G Arrow arterial line was introduced into the left femoral artery. The catheter was threaded over the guide wire and the needle was removed with appropriate pulsatile blood return. Blood loss was minimal. The catheter was then sutured in place to the skin and a sterile dressing applied. Perfusion to the extremity distal to the point of catheter insertion was checked and found to be adequate. The patient tolerated the procedure well and there were no complications.
[2022-07-22 13:27] LABS: ABG Base Excess -14.2 mmol/L; ABG HCO3 13 mmol/L (21-25); ABG Hematocrit 44 % (34.0-46.0); ABG Oxygen Saturation 94.2 % (94-97); ABG PCO2 33 mmHg (35-45); ABG PH 7.23 (7.35-7.45); ABG PO2 104 mmHg (83-108); ABG TCO2 14 mmol/L (19-24)
[2022-07-22 13:29] LABS: Allen Test Performed? no
[2022-07-22 13:30] LABS: Glucose,Whole Blood 285 mg/dL (70-110)
[2022-07-22] MEDS: INSULIN REGULAR 100 UNIT in SODIUM CHLORIDE 0.9% 100 ML IV SCH ×3 (13:37→23:52)
[2022-07-22 14:01] LABS: Glucose,Whole Blood 266 mg/dL (70-110)
[2022-07-22 15:21] LABS: Glucose,Whole Blood 309 mg/dL (70-110)
[2022-07-22 16:35] LABS: Glucose,Whole Blood 256 mg/dL (70-110)
--- NOTE | 2022-07-22 18:12 | CT ---
EXAMINATION TYPE: CT chest wo con DATE OF EXAM: 07/22/2022 COMPARISON: Chest x-ray 07/22/2022 , CT abdomen pelvis 07/27/2021 HISTORY: persistent pneumonia CT DLP: 1486.1 mGycm. Automated Exposure Control for Dose Reduction was Utilized. TECHNIQUE: CT scan of the thorax is performed without IV contrast. FINDINGS: LUNGS: Moderate right and small left pleural effusion with compressive atelectasis. Visualized lung p arenchyma demonstrates patchy, multifocal airspace opacities with lindsay consolidative groundglass giang ges (series 201, image 28). No pneumothorax. MEDIASTINUM: Lack of IV contrast is noted to limit evaluation for mediastinal and especially hilar ad enopathy. There are no definitive greater than 1 cm hilar or mediastinal lymph nodes. Few calcified m ediastinal and right hilar lymph nodes. No cardiomegaly or pericardial effusion is seen. Few myers ry artery calcifications are noted. OTHER: Enteric tube is within the esophagus with distal tip terminating in the stomach. Left sided ce ntral venous catheter with distal tip in the superior vena cava. Endotracheal tube is in appropriate position. No acute osseous abnormalities. Visualized upper part of the abdomen is normal in appearanc e. IMPRESSION: 1. Bilateral pleural effusions with passive atelectasis. 2. Multifocal airspace consolidations concerning for acute infectious process such as multifocal pneu monia. 3. Support lines and tubes in appropriate position.
[2022-07-22 18:17] LABS: Glucose,Whole Blood 249 mg/dL (70-110)
[2022-07-22 19:04] LABS: ABG Base Excess -13.1 mmol/L; ABG HCO3 14 mmol/L (21-25); ABG Hematocrit 43 % (34.0-46.0); ABG Oxygen Saturation 97.6 % (94-97); ABG PCO2 31 mmHg (35-45); ABG PH 7.27 (7.35-7.45); ABG PO2 220 mmHg (83-108); ABG TCO2 15 mmol/L (19-24); Allen Test Performed? Yes
[2022-07-22 19:25] LABS: Glucose,Whole Blood 263 mg/dL (70-110)
[2022-07-22] MEDS: CHLORHEXIDINE GLUCONATE 15 ML CUP MUCOUS MEM SCH (20:11)
[2022-07-22 20:16] LABS: Glucose,Whole Blood 213 mg/dL (70-110)
[2022-07-22] MEDS: SODIUM CHLORIDE 0.9% 1,000 ML IV SCH ×4 (20:25→23:52)
[2022-07-22 21:26] LABS: Glucose,Whole Blood 268 mg/dL (70-110)
[2022-07-22 22:26] LABS: Glucose,Whole Blood 215 mg/dL (70-110)
[2022-07-22 23:08] LABS: Glucose,Whole Blood 213 mg/dL (70-110)
[2022-07-23 00:16] LABS: Glucose,Whole Blood 196 mg/dL (70-110)
[2022-07-23 01:30] LABS: Glucose,Whole Blood 200 mg/dL (70-110)
[2022-07-23 02:37] LABS: Glucose,Whole Blood 182 mg/dL (70-110)
[2022-07-23] MEDS: NOREPINEPHRINE 4 MG in SODIUM CHLORIDE 0.9% 250 ML IV SCH ×6 (02:39→22:29)
[2022-07-23 03:09] LABS: Glucose,Whole Blood 185 mg/dL (70-110)
[2022-07-23] MEDS: IPRATROPIUM-ALBUTEROL 3 ML NEB INHALATION SCH ×6 (03:25→23:19)
[2022-07-23 04:31] LABS: Glucose,Whole Blood 156 mg/dL (70-110)
[2022-07-23 04:48] LABS: Basophils # (A) 0.1 k/uL (0-0.2); Basophils % (A) 1 %; Eosinophils % (A) 0 %; HCT 41.1 % (39.0-53.0); HGB 13.2 gm/dL (13.0-17.5); Lymphocytes # (A) 2.5 k/uL (1.0-4.8); Lymphocytes % (A) 15 %; MCHC 32.2 g/dL (31.0-37.0); MCV 90.2 fL (80.0-100.0); Monocytes # (A) 1.1 k/uL (0-1.0); Monocytes % (A) 7 %; Neutrophils # (A) 12.8 k/uL (1.3-7.7); Neutrophils % (A) 77 %; Platelet Count 195 k/uL (150-450); RBC 4.56 m/uL (4.30-5.90); RDW 15.1 % (11.5-15.5); WBC 16.6 k/uL (3.8-10.6)
[2022-07-23 05:07] LABS: Calcium 7.5 mg/dL (8.4-10.2); Potassium 3.9 mmol/L (3.5-5.1)
[2022-07-23 05:12] LABS: Glucose,Whole Blood 169 mg/dL (70-110)
[2022-07-23 05:57] LABS: ABG Base Excess -9.2 mmol/L; ABG HCO3 17 mmol/L (21-25); ABG Hematocrit 40 % (34.0-46.0); ABG PCO2 32 mmHg (35-45); ABG PH 7.33 (7.35-7.45); ABG PO2 261 mmHg (83-108); ABG TCO2 18 mmol/L (19-24); Allen Test Performed? Yes
[2022-07-23 06:24] LABS: Glucose,Whole Blood 135 mg/dL (70-110)
[2022-07-23 07:17] LABS: Glucose,Whole Blood 130 mg/dL (70-110)
--- NOTE | 2022-07-23 07:43 | XR ---
EXAMINATION TYPE: XR chest 1V portable DATE OF EXAM: 07/23/2022 5:38 AM COMPARISON: Chest radiographs from 07/22/2022, CT chest 07/22/2022. TECHNIQUE: XR chest 1V portable Frontal view of the chest. CLINICAL INDICATION:Male, 72 years old with history of Tube placement; FINDINGS: Lungs/Pleura: No pneumothorax. Redemonstration of bibasilar airspace infiltrates and consolidation. S mall bilateral pleural effusions. Pulmonary vascularity: Unremarkable. Heart/mediastinum: Cardiomediastinal silhouette is unremarkable. Musculoskeletal: No acute osseous pa thology. Lines/Tubes: Endotracheal tube with distal tip 5.2 cm above the scott. Left IJ central venous catheter tip terminating in the high SVC. Enteric tube demonstrated with distal tip poorly visualized but was within the stomach on yesterday's CT. IMPRESSION: 1. Small bilateral pleural effusions with similar diffuse multifocal patchy airspace disease concerni ng for multifocal pneumonia. 2. Stable position of support lines and tubes.
[2022-07-23 07:49] LABS: Glucose,Whole Blood 150 mg/dL (70-110)
[2022-07-23] MEDS: CHLORHEXIDINE GLUCONATE 15 ML CUP MUCOUS MEM SCH ×2 (08:32→20:18)
[2022-07-23] MEDS: METOPROLOL TARTRATE 50 MG TAB PO SCH ×4 (08:32→23:25)
[2022-07-23] MEDS: FUROSEMIDE 10 MG/ML 4 ML VIAL IV SCH ×2 (08:33→09:07)
[2022-07-23] MEDS: FAMOTIDINE 20 MG/2 ML VIAL IV SCH (08:33)
[2022-07-23] MEDS: CEFEPIME 2 GM in SODIUM CHLORIDE 0.9% 100 ML IVPB SCH (08:34)
[2022-07-23] MEDS ORDERED: FUROSEMIDE 10 MG/ML 10 ML VIAL IV STA (08:37)
--- NOTE | 2022-07-23 08:41 | P.PN ---
Subjective Progress Note Date: 07/22/22 Principal diagnosis: Acute hypoxemic respiratory failure secondary to acute exacerbation of chronic systolic congestive heart failure and extensive lower lobe pneumonia Elevated troponin possible non-ST segment elevation myocardial infarction Atrial fibrillation with rapid ventricular response Hypotension 72-year-old male patient who has a history of diabetes mellitus, uncontrolled, hyperlipidemia, hypertension, morbid obesity, obstructive sleep apnea maintained on CPAP, atrial fibrillation not on anticoagulants currently, BPH with recent surgery and clot evacuation in March and then again in April and the patient did have hematuria and is Eliquis that time. He presented to the emergency room following this morning with difficulty in breathing. He also had some increased swelling of his lower extremities. Chest x-ray revealed diffuse moderate to severe bilateral lower lung edema and/or atypical infiltrates. EKG revealed atrial fibrillation with a rapid ventricular response and nonspecific ST and T wave abnormalities. Lactic acid 2.4, troponin 2.1, 2.38, blood glucose 373. White count 17.6. Hemoglobin 15.7. INR 1.0. Sodium 142. Potassium 3.6. Bicarb 24. BUN 29. Creatinine 1.08. He ST 49. ALT 15. ProBNP 1530. His oxygen saturation was 85% on room air at presentation. He is seen today in consultation in the emergency department. He's currently on BiPAP at 18/10 and 40% FiO2 with O2 saturations in the 90s. Mostly BiPAP dependent since admission. He is also hypotensive requiring norepinephrine currently at 0.05 mcg/kg/m. He's been given Lasix 40 mg IVP 1 with minimal urine output. He is also initiated on ceftriaxone and azithromycin. He was initiated back on Eliquis. 07/22/2022 Patient is seen and evaluated in ICU; remains on BiPAP with an FiO2 of 100%; continues to be in respiratory distress Blood gases from today showed a pH of 7.43 with a pCO2 of 30 and pO2 of 68; chest x-ray showing extensive bilateral lower lobe consolidation along with cardiomegaly patient is currently covered with a combination of cefepime and Levaquin. At the same time, the patient was being diuresed due to concern of an underlying CHF. Along with diuresis, the patient became hypotensive and he was started on norepinephrine which was running at a dose of 0.03 mcg/kg per minute this morning and the patient also developed an acute kidney injury with a creatinine was found to be elevated at 2.1 with a 74. Serum bicarbonate of 18 with a sodium level of 136. Patient was evaluated by mosaic layer service and was recommended intubation and mechanical ventilation Patient is to have CT of the chest once more stable with possible plan for bronchoscopy; sputum for Gram stain and culture is ordered; Lasix has been discontinued; patient remains on anticoagulation with Cardizem drip has been dis continued Objective - Vital Signs Vital signs: Vital Signs Temp 97.7 F 07/22/22 04:45 Pulse 78 07/22/22 07:15 Resp 26 H 07/22/22 07:15 BP 101/80 07/22/22 07:15 Pulse Ox 90 L 07/22/22 07:39 FiO2 55 07/22/22 07:39 Intake & Output 07/21/22 07/22/22 07/22/22 18:59 06:59 18:59 Intake Total 802.191 844.226 29.811 Output Total 1015 160 15 Balance -212.809 684.226 14.811 Weight 143 kg Intake: IV 570 270 10 Cefepime 2 gm In Sodium 100 150 Chloride 0.9% 100 ml @ 25 mls/hr IVPB Q8HR [facility] Rx# :[id number] KVO 70 120 10 Levofloxacin 750Mg-D5w 100 Pmx 750 mg In Dextrose/ Water 1 150ml.bag @ 100 mls/hr IVPB Q24H [facility] Rx#: [id number] Potassium Chloride 10 meq 300 In Water For Injection 1 100ml.bag @ 100 mls/hr IVPB Q1H [facility] Rx#: [id number] Intake, IV Titration 232.191 574.226 19.811 Amount ACETAMINOPHEN IV (For NPO 100 ) 1,000 mg In Empty Bag 1 bag @ 400 mls/hr IVPB Q6HR [facility]N Rx#:[id number] Dexmedetomidine/0.9% NaCl 53.665 183.583 7.195 (Pmx) 400 mcg In Empty Bag 1 bag @ 0.2 MCG/KG/HR 7.195 mls/hr IV .[id number] [facility] Rx#:[id number] Diltiazem 125 mg In 140.333 50.25 Sodium Chloride 0.9% 100 ml @ Per Protocol IV .Q0M [facility] Rx#:[id number] Norepinephrine 4 mg In 38.193 240.393 12.616 Sodium Chloride 0.9% 250 ml @ 0.05 MCG/KG/MIN 25. 923 mls/hr IV .Q9H48M [facility] Rx#:[id number] Output: Urine 1015 160 15 Other: Voiding Method Indwelling Catheter Indwelling Catheter - Exam GENERAL EXAM: Awake and alert and following commands and answering questions appropriately. Breathing is slightly labored and the patient is tachypneic HEAD: Normocephalic. EYES: Normal reaction of pupils, equal size. NECK: No masses, no JVD. LUNGS: Equal air entry with crackles in the bilateral bases. The patient has crackles most on the left lung base CVS: S1 and S2 normal with no audible murmur, regular rhythm. ABDOMEN: No hepatosplenomegaly, normal bowel sounds, no guarding or rigidity. SKIN: No rashes CENTRAL NERVOUS SYSTEM: No focal deficits, tone is normal in all 4 extremities. EXTREMITIES: There is one plus peripheral edema. No clubbing, no cyanosis. Peripheral pulses are intact. - Labs CBC & Chem 7: 07/23/22 04:30 07/23/22 04:30 Labs: Abnormal Lab Results - Last 24 Hours (Table) 07/21/22 07/21/22 07/21/22 Range/Units 09:21 12:45 17:39 WBC (3.8-10.6) k/uL Neutrophils # (1.3-7.7) k/uL ABG pCO2 (35-45) mmHg ABG pO2 (83-108) mmHg ABG HCO3 (21-25) mmol/L ABG O2 Saturation (94-97) % Sodium (137-145) mmol/L Carbon Dioxide (22-30) mmol/L BUN (9-20) mg/dL Creatinine (0.66-1.25) mg/dL Glucose (74-99) mg/dL POC Glucose (mg/dL) 218 H 232 H (70-110) mg/dL Troponin I 0.866 H* (0.000-0.034) ng/mL 07/21/22 07/22/22 07/22/22 Range/Units 20:34 06:02 06:05 WBC 12.7 H (3.8-10.6) k/uL Neutrophils # 9.8 H (1.3-7.7) k/uL ABG pCO2 30 L (35-45) mmHg ABG pO2 68 L (83-108) mmHg ABG HCO3 20 L (21-25) mmol/L ABG O2 Saturation 91.2 L (94-97) % Sodium (137-145) mmol/L Carbon Dioxide (22-30) mmol/L BUN (9-20) mg/dL Creatinine (0.66-1.25) mg/dL Glucose (74-99) mg/dL POC Glucose (mg/dL) 283 H (70-110) mg/dL Troponin I (0.000-0.034) ng/mL 07/22/22 07/22/22 Range/Units 06:05 07:06 WBC (3.8-10.6) k/uL Neutrophils # (1.3-7.7) k/uL ABG pCO2 (35-45) mmHg ABG pO2 (83-108) mmHg ABG HCO3 (21-25) mmol/L ABG O2 Saturation (94-97) % Sodium 136 L (137-145) mmol/L Carbon Dioxide 18 L (22-30) mmol/L BUN 74 H (9-20) mg/dL Creatinine 2.13 H (0.66-1.25) mg/dL Glucose 299 H (74-99) mg/dL POC Glucose (mg/dL) 311 H (70-110) mg/dL Troponin I (0.000-0.034) ng/mL Microbiology - Last 24 Hours (Table) 07/19/22 16:40 Blood Culture - Preliminary Blood No Growth after 48 hours 07/18/22 09:50 Blood Culture - Preliminary Blood No Growth after 72 hours 07/18/22 09:35 Blood Culture - Preliminary Blood No Growth after 72 hours Assessment and Plan Assessment: 1. Acute hypoxemic respiratory failure; multifactorial - Related to CHF exacerbation and pneumonia - Patient remains on BiPAP with FiO2 of 75%; plan is to titrate/green FiO2 keeping O2 saturation above 90% - Might require intubation and mechanical ventilation if respiratory status continues to worsen 2. Acute exacerbation systolic CHF; echocardiogram reveals preserved left ventricular function with EF of 90%; continue with current dose of IV Lasix; we will monitor strict KATINA's, daily weights, low salt and fluid restricted diet 3. Elevated troponin; possible non-ST segment elevation ID; troponin trending down and is down to 0.8 3. Extensive left lower lobe pneumonia; patient remains on IV cefepime and Levaquin; pro-calcitonin level at 0.48 with mild leukocytosis - We will continue with current IV antibiotics and monitor CBC, CRP and pro- calcitonin levels 4. Atrial fibrillation with RVR; patient was placed back on anticoagulation with Eliquis. The patient was also started on Cardizem drip for rate control at 5 mg an hour and the patient is taking metoprolol 50 mg by mouth 3 times a day. The Cardizem drip will be titrated to maintain a heart rate of above 100; patient remains anticoagulated with Eliquis 5. Diabetes mellitus; monitor Accu-Cheks every before meals and at bedtime with insulin sliding scale 6. Hypertension; currently hypotensive related to NSTEMI/CHF/pneumonia; patient has been taken off of pressors; we'll monitor blood pressure closely and initiate antihypertensive therapy once blood pressure improves 7. Urinary retention/BPH; patient has history of cystoscopy with transurethral resection of prostate/TURP DVT prophylaxis; SCDs/systemic anticoagulation CODE STATUS; full code
[2022-07-23] MEDS: HYDROmorphone 0.5 MG/0.5 ML SYRINGE IVP PRN (08:49)
[2022-07-23] MEDS: ASPIRIN 81 MG PO SCH (09:07)
[2022-07-23] MEDS: APIXABAN 5 MG TAB PO SCH ×2 (09:07→20:18)
[2022-07-23] MEDS ORDERED: CISATRACURIUM 2 MG/ML 5 ML VIAL IV ONE (09:25)
[2022-07-23 09:57] LABS: Glucose,Whole Blood 174 mg/dL (70-110)
--- NOTE | 2022-07-23 10:32 | P.NPCON ---
History of Present Illness - Reason for Consult acute renal failure - History of Present Illness Patient is a 70-year-old male with history of type 2 diabetes, hypertension, atrial fibrillation. Patient was admitted to the hospital with complaints of shortness of breath. His respiratory status subsequently worsened and patient was eventually intubated. Patient is being treated for pneumonia. He had been hypotensive for which he received fluid resuscitation with about 2-3 L. Urine output subsequently dropped and currently it is at 0-5 mL an hour. Patient is maintained on levo fed about 12-14 g. Serum creatinine was 1.0 on admission and increased to 2.1 yesterday and to date is at 3.39 mg/dL. No nephrotoxic agents noted currently but patient was on Motrin which was discontinued on 07/19/2022. Ejection fraction this admission was at 60% Currently maintained on IV fluids at 100 mL an hour. FiO2 is at 50% and PEEP is down to 15 from 18 Review of Systems As per HPI other systems negative Past Medical History Past Medical History: Atrial Fibrillation, Diabetes Mellitus, Hyperlipidemia, Hypertension Additional Past Medical History / Comment(s): uses c-pap at home, pneu as child almost History of Any Multi-Drug Resistant Organisms: None Reported Past Surgical History: Back Surgery, Orthopedic Surgery Additional Past Surgical History / Comment(s): total left hip, gato carpel tunnel, wire mesh in umbical area, Greenlight laser TURP 2015 Past Anesthesia/Blood Transfusion Reactions: Previous Problems w/ Anesthesia Additional Past Anesthesia/Blood Transfusion Reaction / Comment(s): last time no problems with anesthia but did have previously Past Psychological History: No Psychological Hx Reported Smoking Status: Never smoker - Past Family History Brother(s) Family Medical History: Coronary Artery Disease (CAD), Hypertension Mother Family Medical History: No Reported History Additional Family Medical History / Comment(s): in mva Father Family Medical History: Thyroid Disorder Additional Family Medical History / Comment(s): bad thyroid Medications and Allergies Home Medications Medication Instructions Recorded Confirmed Type Ascorbic Acid [Vitamin C] 500 mg PO DAILY 03/26/22 07/18/22 History Chlorthalidone 50 mg PO DAILY 03/26/22 07/18/22 History Cholecalciferol [Vitamin D3 (125 125 mcg PO DAILY 03/26/22 07/18/22 History Mcg = 5000 Iu)] Potassium Chloride ER [K-Dur 20] 40 meq PO BID 03/26/22 07/18/22 History Insulin Aspart [NovoLOG Flexpen] 18 units SQ TID-W/MEALS 04/18/22 07/18/22 History Aspirin EC [Ecotrin Low Dose] 81 mg PO DAILY 07/18/22 07/18/22 History Cod Liver Oil 1 cap PO DAILY 07/18/22 07/18/22 History Ginkgo Biloba [place] Extract [Ginkgo 125 mg PO DAILY 07/18/22 07/18/22 History Biloba] Insulin Detemir (Levemir) [Levemir] 30 unit SQ BID 07/18/22 07/18/22 History Metoprolol Tartrate [Lopressor] 25 mg PO DAILY 07/18/22 07/18/22 History Metoprolol Tartrate [Lopressor] 50 mg PO HS 07/18/22 07/18/22 History Allergies Allergy/AdvReac Type Severity Reaction Status Date / Time glipizide Allergy Anaphylaxis Verified 07/18/22 09:55 Iodinated Contrast Media Allergy Rash/Hives Verified 07/18/22 09:55 losartan Allergy Anaphylaxis Verified 07/18/22 09:55 amlodipine [From Norvasc] AdvReac DEPRESSION Verified 07/18/22 09:55 atorvastatin [From Lipitor] AdvReac WEAKNESS Verified 07/18/22 09:55 metformin AdvReac Cough Verified 07/18/22 09:55 rosuvastatin [From Crestor] AdvReac WEAKNESS Verified 07/18/22 09:55 Physical Exam Vitals: Vital Signs Temp Pulse Resp BP Pulse Ox FiO2 07/23/22 09:00 125 H 26 H 100 07/23/22 08:45 125 H 27 H 99 07/23/22 08:30 112 H 26 H 100 50 07/23/22 08:15 121 H 26 H 100 07/23/22 08:00 98.4 F 107 H 26 H 100 50 07/23/22 07:50 104 H 07/23/22 07:45 104 H 12 100 07/23/22 07:38 104 H 07/23/22 07:30 99 26 H 100 07/23/22 07:28 50 07/23/22 07:15 102 H 26 H 100 07/23/22 07:00 100 26 H 100 60 07/23/22 06:45 90 26 H 99 07/23/22 06:30 112 H 26 H 99 07/23/22 06:15 103 H 26 H 100 07/23/22 06:00 92 26 H 100 60 07/23/22 05:45 108 H 26 H 100 07/23/22 05:30 104 H 12 99 07/23/22 05:15 105 H 26 H 100 07/23/22 05:00 104 H 17 99 60 07/23/22 04:45 112 H 17 99 07/23/22 04:30 110 H 21 100 07/23/22 04:15 113 H 26 H 100 07/23/22 04:00 58 H 07/23/22 03:45 95 26 H 100 07/23/22 03:41 94 07/23/22 03:30 98.2 F 93 26 H 100 07/23/22 03:25 90 60 07/23/22 03:15 89 26 H 100 07/23/22 03:00 90 26 H 100 60 07/23/22 02:45 88 26 H 100 07/23/22 02:30 86 26 H 100 07/23/22 02:15 93 26 H 100 07/23/22 02:00 88 26 H 100 07/23/22 01:45 93 26 H 100 07/23/22 01:30 86 26 H 100 07/23/22 01:15 93 26 H 100 07/23/22 01:00 91 26 H 100 07/23/22 00:45 85 26 H 100 07/23/22 00:30 91 26 H 100 07/23/22 00:15 99 F 85 26 H 92/39 100 07/23/22 00:08 95 26 H 92/39 100 07/23/22 00:00 93 27 H 92/39 100 60 07/22/22 23:45 86 26 H 92/39 100 07/22/22 23:30 87 26 H 100 07/22/22 23:27 98 07/22/22 23:16 60 07/22/22 23:15 82 19 100 07/22/22 23:11 86 07/22/22 23:00 81 26 H 100 07/22/22 22:45 89 26 H 100 07/22/22 22:30 81 26 H 100 07/22/22 22:15 93 25 H 99 07/22/22 22:00 92 26 H 99 09/03/22 21:45 98 26 H 99 07/22/22 21:30 93 26 H 99 07/22/22 21:15 96 26 H 100 07/22/22 21:00 98.6 F 99 26 H 60 07/22/22 20:45 98 27 H 100 07/22/22 20:30 99 26 H 100 07/22/22 20:15 90 26 H 92/39 100 07/22/22 20:00 96 26 H 92/39 100 60 07/22/22 19:45 103 H 26 H 100 07/22/22 19:30 92 26 H 100 07/22/22 19:18 90 07/22/22 19:15 95 21 98 07/22/22 19:09 60 07/22/22 19:07 89 07/22/22 19:00 96 26 H 100 07/22/22 18:45 93 26 H 100 07/22/22 18:30 103 H 26 H 100 07/22/22 18:15 95 26 H 07/22/22 18:00 92/39 07/22/22 17:45 92/39 07/22/22 17:30 92/39 07/22/22 17:15 82 H 100 07/22/22 17:00 110 H 53 H 100 07/22/22 16:45 94 57 H 100 07/22/22 16:30 99 68 H 100 07/22/22 16:15 87 17 100 07/22/22 16:00 98.2 F 89 17 100 70 07/22/22 15:45 96 12 100 07/22/22 15:35 80 07/22/22 15:30 105 H 24 99 07/22/22 15:24 80 07/22/22 15:15 95 20 86/37 100 07/22/22 15:14 70 07/22/22 15:00 81 21 86/37 100 07/22/22 14:45 88 26 H 86/37 100 07/22/22 14:30 85 26 H 86/37 100 07/22/22 14:15 103 H 26 H 86/37 100 07/22/22 14:00 92 38 H 111/82 100 07/22/22 13:45 90 13 99 07/22/22 13:30 87 26 H 85/24 97 07/22/22 13:15 83 26 H 85/24 100 07/22/22 13:00 74 26 H 85/24 99 07/22/22 12:45 84 26 H 85/24 99 07/22/22 12:30 84 26 H 85/24 97 07/22/22 12:15 87 26 H 85/24 98 07/22/22 12:00 97.6 F 87 27 H 109/67 99 100 07/22/22 11:45 87 26 H 96 07/22/22 11:42 75 07/22/22 11:32 74 07/22/22 11:30 84 25 H 99/68 96 07/22/22 11:15 93 26 H 109/90 97 07/22/22 11:14 90 07/22/22 11:00 85 26 H 141/94 98 07/22/22 10:45 90 26 H 121/79 98 07/22/22 10:30 94 21 79 L Intake and Output 07/22/22 07/23/22 07/23/22 22:59 06:59 14:59 Intake Total 1168.661 2541.049 694 Output Total 80 100 30 Balance 4716.289 3616.049 664 Intake: IV 785 885 400 Cefepime 2 gm In Sodium 75 25 Chloride 0.9% 100 ml @ 25 mls/hr IVPB Q8HR [facility] Rx# :[id number] KVO 10 60 Sodium Chloride 0.9% 1, 700 800 400 000 ml @ 100 mls/hr IV . Q10H [facility] Rx#:[id number] Intake, IV Titration 745.981 867.049 254 Amount Insulin Regular 100 unit 66.700 113.500 In Sodium Chloride 0.9% 100 ml @ Titrate IV .Q0M [facility] Rx#:[id number] Norepinephrine 4 mg In 444.189 471.839 254 Sodium Chloride 0.9% 250 ml @ 0.05 MCG/KG/MIN 25. 923 mls/hr IV .Q9H48M [facility] Rx#:[id number] propofoL 1,000 mg In 235.092 281.710 Empty Bag 1 bag @ 40 MCG/ KG/MIN 34.32 mls/hr IV . Q2H55M [facility] Rx#:[id number] Tube Feeding 70 40 Other 60 Output: Urine 80 100 30 Other: Voiding Method Indwelling Catheter Indwelling Catheter Indwelling Catheter Weight 154 kg ABP, PAP, CO, CI - Last 8 Hours Arterial Blood Pressure 116/59 Arterial Blood Pressure 113/63 Arterial Blood Pressure 116/62 Arterial Blood Pressure 110/63 Arterial Blood Pressure 110/64 Arterial Blood Pressure 104/63 Arterial Blood Pressure 109/65 Arterial Blood Pressure 98/65 Arterial Blood Pressure 108/68 Arterial Blood Pressure 117/68 Arterial Blood Pressure 121/74 Arterial Blood Pressure 121/72 Arterial Blood Pressure 121/71 Arterial Blood Pressure 116/71 Arterial Blood Pressure 111/69 Arterial Blood Pressure 90/60 Arterial Blood Pressure 114/69 Arterial Blood Pressure 116/74 Arterial Blood Pressure 125/73 Arterial Blood Pressure 124/72 Arterial Blood Pressure 123/57 Arterial Blood Pressure 124/70 Arterial Blood Pressure 117/70 Arterial Blood Pressure 116/70 Arterial Blood Pressure 120/71 Arterial Blood Pressure 122/70 Arterial Blood Pressure 120/71 Patient is currently intubated Examination of the heart S1 and S2 Examination of the lungs bilateral breath sounds are heard Abdomen is soft obese Examination of lower extremity shows no significant edema PRODUCT INFO SPECIALIST exam could not be performed as patient is sedated Results - Lab Results Most recent lab results ABG pH 7.33 (7.35-7.45) L 07/23/22 05:52 ABG pCO2 32 mmHg (35-45) L 07/23/22 05:52 ABG pO2 261 mmHg (83-108) H 07/23/22 05:52 ABG HCO3 17 mmol/L (21-25) L 07/23/22 05:52 ABG O2 Saturation 98.0 % (94-97) H 07/23/22 05:52 Calcium 7.5 mg/dL (8.4-10.2) L 07/23/22 04:30 Magnesium 2.0 mg/dL (1.6-2.3) 07/20/22 05:41 07/23/22 04:30 07/23/22 04:30 Assessment and Plan Assessment: 1. Acute kidney injury oliguric ATN secondary to hypotension and sepsis. Patient was also on NSAIDs which is now discontinued. UA showed 1+ protein and large blood and significant WBCs. Urine culture is negative. Check urine eosinophils to rule out acute interstitial nephritis although unlikely. There is evidence of volume overload. Patient is scheduled to have Lasix 80 mg IV 1. If urine output does not improve patient will need renal replacement therapy. This is discussed with the family and they are agreeable 2. Acute hypoxic respiratory failure secondary to pneumonia, currently maintained on the vent 3. Pyuria with negative urine cultures 4. A. fib with RVSheela Elllucieis on hold 5. BPH with recent surgery and hematuria. History of TURP and cystoscopy 6. Metabolic acidosis associated with acute kidney injury Plan: Agree with Lasix 80 mg IV 1 Check CVP Change IV fluids to IV bicarb Check urine for eosinophils Check baseline serologies although unlikely to be an underlying GN If patient remains oliguric he will need renal replacement therapy. Family is agreeable. Thank you for the consultation, we'll continue to follow the patient with you during his hospitalization
[2022-07-23 11:16] VITALS: BMI 46.0
[2022-07-23] MEDS: DEXTROSE 5% IN WATER 1,000 ML with SODIUM BICARB (1 MEQ/ML) 150 ML IV SCH (11:26)
--- NOTE | 2022-07-23 11:51 | P.PN ---
Subjective Progress Note Date: 07/23/22 Very pleasant 72-year-old male patient who has a history of diabetes mellitus, uncontrolled, hyperlipidemia, hypertension, morbid obesity, obstructive sleep apnea maintained on CPAP, atrial fibrillation not on anticoagulants currently, BPH with recent surgery and clot evacuation in March and then again in April and the patient did have hematuria and is Eliquis that time. He presented to the emergency room following this morning with difficulty in breathing. He also had some increased swelling of his lower extremities. Chest x-ray revealed diffuse moderate to severe bilateral lower lung edema and/or atypical infiltrates. EKG revealed atrial fibrillation with a rapid ventricular response and nonspecific ST and T wave abnormalities. Lactic acid 2.4, troponin 2.1, 2.38, blood glucose 373. White count 17.6. Hemoglobin 15.7. INR 1.0. Sodium 142. Potassium 3.6. Bicarb 24. BUN 29. Creatinine 1.08. He ST 49. ALT 15. ProBNP 1530. His oxygen saturation was 85% on room air at presentation. He is seen today in consultation in the emergency department. He's currently on BiPAP at 18/10 and 40% FiO2 with O2 saturations in the 90s. Mostly BiPAP dependent since admission. He is also hypotensive requiring norepinephrine currently at 0.05 mcg/kg/m. He's been given Lasix 40 mg IVP 1 with minimal urine output. He is also initiated on ceftriaxone and azithromycin. He was initiated back on Eliquis. On 07/19/2022, the patient is sitting better compared to yesterday. A Lezama catheter was inserted yesterday. The patient is producing adequate amount of urine output and the patient is a negative fluid balance of at least 1 L over the past 24 hours. He spent the night on BiPAP at a pressure 15/10 cm of water and FiO2 of 50%. This morning, the patient was taken off the BiPAP and the patient is currently on 4 L of O2 nasal cannula. The patient was also taken off the norepinephrine infusion since 10 PM yesterday. Remains on a combination of Rocephin and Zithromax. Repeat chest x-ray from today shows residual infiltration of the left although improved. Infiltration of the right is also improved. The patient is hemodynamically stable. The patient is afebrile. The white cell count of 12.8. Normal coagulation profile. BUN is a 45 and a creatinine of 1.3. The hemoglobin A1c was 11 indicating it for blood sugar control. Sodium level is at 139. Urine cultures still negative for now. A limited echocardiogram was done in the emergency department and the patient had a technically difficult study. There was mild LVH. There was normal LV function with an ejection fraction of 60%. The patient remains in atrial fibrillation. The patient is also on anticoagulation with Eliquis 5 mg by mouth twice a day. 07/20/2022, the patient is BiPAP dependent. He did have some time while off the BiPAP yesterday. Nevertheless, subsequently became short of breath and he was on the BiPAP and this morning is still on the BiPAP at a pressure of 18/10 cm of water and FiO2 of 50%. He is degenerative tidal volume is around 900 mL with a respiratory rate of 22. He seems to be quite dependent on the BiPAP. The chest x-ray showing resolving pulmonary edema. There is extensive consolidation of the left lower lobe consistent with an underlying pneumonia. The patient was receiving a combination of Rocephin and Zithromax. I'm going to modify the antibiotic coverage for now and step of the antibiotic coverage. Cultures are negative thus far. The patient is hemodynamically stable. Is currently off pressors. In fact he is normotensive and tachycardic with atrial fibrillation. He was started on Cardizem drip at 5 mg an hour for rate control in addition to metoprolol 50 mg by mouth 3 times a day. His pro-calcitonin level was at 0.48. His white cell count is still mildly elevated at 16 with a hemoglobin 13.5 and a platelet count of 277. His BUN is at 52 with a creatinine of 1.1 and sodium level of 136 and a chloride level of 97 with a bicarb level of 25. Blood sugars are elevated. He is awake and oriented to his communicating. His underlying LV function is essentially within normal limits and he remains on long-term and coagulation with Eliquis. 07/21/2022, the patient is struggling with his breathing. Overnight, the patient continued to have difficulty with breathing and episodic oxygen desaturations. The patient would desaturate easily once off the BiPAP machine. Earlier this morning, evaluated the patient patient was having labored breathing. His aspiration was in the low 30s. He was on a BiPAP pressure of 18/10 cm of water and FiO2 of 75%. A repeat chest x-ray was done yesterday and showed persistent consolidation of left lower lobe. There is also evidence of some mild CHF and cardiomegaly. The patient remains on examination cefepime and Levaquin. The white cell count is at 13 with hemoglobin 15.9. The COVID 19 juan carlos ting was negative. Influenza a and B were both negative and the RSV by PCR was also negative. The patient's troponin down trended down to 0.8. The patient continues to be in atrial fibrillation. The Cardizem drip is being titrated to maintain a adequate heart rate at this point. Blood gases from today showed a pH of 7.48 with a pCO2 of 40 and pO2 of 66 and this was on FiO2 of 50%. Accordingly, the FiO2 was brought up. His breathing is labored. Is a high likelihood that the patient may require intubation mechanical ventilation. I give him additional dose of Lasix this morning. His BUN at 54 with a creatinine of 1.05. His sodium level is at 138. All of the blood cultures of been ne gative thus far. I also had a discussion with his daughter the bedside. 07/22/2022, the patient is being seen in for a follow-up. He continues to struggle with his breathing. Despite being on a BiPAP, the patient states that he is having hard time breathing and is unable to breathe comfortably or maintain his aspiration. This morning, the patient's was on Precedex at 0.2 mics and respiratory per hour. The patient was also on a BiPAP at a pressure 18/10 with an FiO2 of 100%. Blood gases from today showed a pH of 7.43 with a pCO2 of 30 and pO2 of 68. Nevertheless, the patient's chest x-ray showing extensive bilateral lower lobe consolidation along with cardiomegaly and the patient is currently covered with a combination of cefepime and Levaquin. At the same time, the patient was being diuresed due to concern of an underlying CHF. Along with diuresis, the patient became hypotensive and he was started on norepinephrine which was running at a dose of 0.03 mcg/kg per minute this mo rning and the patient also developed an acute kidney injury with a creatinine was found to be elevated at 2.1 with a 74. Serum bicarbonate of 18 with a sodium level of 136. Based on this decline in overall condition respirator status, I made decision to proceed with intubation mechanical ventilation. I intubated patient with a #8 endotracheal tube. I placed on a mechanical ventilator. Note that the patient was immediately given a total of 2 L of IV fluid normal saline and he was started on a maintenance of 100 mL an hour normal saline and the norepinephrine dose will be titrated accordingly to maintain a saturation above 90%. Post intubation chest x-ray showed adequate positioning of the oral check and orogastric tube. The patient also had a triple lumen catheter inserted in the left internal jugular vein without any complications and the catheter was in a good location. The patient is going to undergo a computed tomography scan of the chest once condition is more stabilized. He'll be kept on propofol which is running at 40 mcg/kg per minute at this point in time. Enteral feeding will be also initiated. On 07/23/2022, the patient is intubated on a mechanical ventilator. The patient is sedated with propofol which is running at 25 Spencer respiratory kilogram per minute. The patient is quite symptomatic and is a mechanical ventilator. His assist-control mode of mechanical ventilation with a rate of 26 and a tidal volume of 600 and FiO2 of 50% with a PEEP of 18. Peak airway pressures around 34. Pages of 7.33 with a pCO2 of 32 and pO2 of 261. The patient's chest x-ray shows consolidations and diffusion lung bases bilaterally. ET tube is in a good location. CAT scan of the chest was also done yesterday and the patient was found to have moderate-sized bilateral pleural effusion worse on the right and some atelectatic changes and bibasilar consolidation most of the lung bases bilaterally. The patient is not having a significant orotracheal secretions. A bronchoscopy was done at the bedside and bronchioloalveolar lavage of the right middle lobe was obtained. Cultures will be sent for further analysis. Meanwhile, the patient remains on a combination of cefepime and Levaquin. Is afebrile for now. Hemodynamically, he remains hypotensive and the patient remains on norepinephrine at 0.13 Spencer respiratory kilogram per minute. His urine output is in order of 5 mL an hour and he has a very poor urine output. Fluid balance is +6 L over the past 24 hours as the patient received a total of 3 L bolus and currently is on normal saline at the rate of 100 mL an hour. He remains in atrial fibrillation. Rate is controlled. He is currently off C ardizem. He is on insulin drip on and off for tighter blood sugar control. He is also on vital high protein at the rate of 10 mL an hour. On today's blood work, the patient's creatinine is on the rise as the patient developed an acute kidney injury and the patient's BUN is at 88 with a creatinine of 3.3. Sodium is at 13 with a potassium level of 3.9. Serum bicarbs at 16. The white cell count is 16.6 and hemoglobin 15.2 and platelet count of 195. Objective - Vital Signs Vital signs: Vital Signs Temp 98.4 F 07/23/22 08:00 Pulse 125 H 07/23/22 11:35 Resp 27 H 07/23/22 11:00 BP 92/39 07/23/22 10:45 Pulse Ox 97 07/23/22 11:00 FiO2 50 07/23/22 11:19 Intake & Output 07/22/22 07/23/22 07/23/22 18:59 06:59 18:59 Intake Total 4248.743 2697.488 904.000 Output Total 125 140 35 Balance 4123.743 2557.488 869.000 Weight 154 kg 154 kg Intake: IV 3610 1360 500 Cefepime 2 gm In Sodium 100 100 Chloride 0.9% 100 ml @ 25 mls/hr IVPB Q8HR [facility] Rx# :[id number] KVO 60 60 Levofloxacin 750Mg-D5w 150 Pmx 750 mg In Dextrose/ Water 1 150ml.bag @ 100 mls/hr IVPB Q24H [facility] Rx#: [id number] Sodium Chloride 0.9% 1, 300 1200 500 000 ml @ 100 mls/hr IV . Q10H [facility] Rx#:[id number] Sodium Chloride 0.9% 1, 3000 000 ml @ 999 mls/hr IV . Q1H1M [facility] Rx#:[id number] Intake, IV Titration 414.376 9666.488 354.000 Amount Dexmedetomidine/0.9% NaCl 7.195 (Pmx) 400 mcg In Empty Bag 1 bag @ 0.2 MCG/KG/HR 7.195 mls/hr IV .[id number] [facility] Rx#:[id number] Insulin Regular 100 unit 24.1 157.700 In Sodium Chloride 0.9% 100 ml @ Titrate IV .Q0M [facility] Rx#:[id number] Norepinephrine 4 mg In 433.560 706.874 254 Sodium Chloride 0.9% 250 ml @ 0.05 MCG/KG/MIN 25. 923 mls/hr IV .[id number] [facility] Rx#:[id number] propofoL 1,000 mg In 173.888 342.914 100.000 Empty Bag 1 bag @ 40 MCG/ KG/MIN 34.32 mls/hr IV . Q2H55M [facility] Rx#:[id number] Tube Feeding 70 50 Other 60 Output: Urine 125 140 35 Other: Voiding Method Indwelling Catheter Indwelling Catheter Indwelling Catheter ABP, PAP, CO, CI - Last Documented Arterial Blood Pressure 113/60 - Exam GENERAL EXAM: Alert, doesn't obese 72-year-old male patient on mechanical v entilator and the patient is currently intubated on mechanical ventilator, sedated with propofol and orotracheal and orogastric tube are both in place. HEAD: Normocephalic. EYES: Normal reaction of pupils, equal size. NOSE: Clear with pink turbinates. THROAT: No erythema or exudates. NECK: No masses, no JVD., And the patient has a triple-lumen catheter in the left IJ CHEST: No chest wall deformity. LUNGS: Equal air entry with crackles in the bilateral bases. The patient has crackles most on the left lung base CVS: S1 and S2 normal with no audible murmur, regular rhythm. ABDOMEN: No hepatosplenomegaly, normal bowel sounds, no guarding or rigidity. SPINE: No scoliosis or deformity SKIN: No rashes CENTRAL NERVOUS SYSTEM: The patient was awake and alert prior to the intubation process. Currently is well sedated. EXTREMITIES: There is one plus peripheral edema. No clubbing, no cyanosis. Peripheral pulses are diminished as the patient developed hypotension postintubation. - Labs CBC & Chem 7: 07/23/22 04:30 07/23/22 04:30 Labs: Abnormal Lab Results - Last 24 Hours (Table) 07/22/22 07/22/22 07/22/22 Range/Units 13:26 13:28 13:59 WBC (3.8-10.6) k/uL Neutrophils # (1.3-7.7) k/uL Monocytes # (0-1.0) k/uL ABG pH 7.23 L (7.35-7.45) ABG pCO2 33 L (35-45) mmHg ABG pO2 (83-108) mmHg ABG HCO3 13 L (21-25) mmol/L ABG Total CO2 14 L (19-24) mmol/L ABG O2 Saturation (94-97) % Carbon Dioxide (22-30) mmol/L BUN (9-20) mg/dL Creatinine (0.66-1.25) mg/dL Glucose (74-99) mg/dL POC Glucose (mg/dL) 285 H 266 H (70-110) mg/dL Calcium (8.4-10.2) mg/dL 07/22/22 07/22/22 07/22/22 Range/Units 15:19 16:33 18:14 WBC (3.8-10.6) k/uL Neutrophils # (1.3-7.7) k/uL Monocytes # (0-1.0) k/uL ABG pH (7.35-7.45) ABG pCO2 (35-45) mmHg ABG pO2 (83-108) mmHg ABG HCO3 (21-25) mmol/L ABG Total CO2 (19-24) mmol/L ABG O2 Saturation (94-97) % Carbon Dioxide (22-30) mmol/L BUN (9-20) mg/dL Creatinine (0.66-1.25) mg/dL Glucose (74-99) mg/dL POC Glucose (mg/dL) 309 H 256 H 249 H (70-110) mg/dL Calcium (8.4-10.2) mg/dL 07/22/22 07/22/22 07/22/22 Range/Units 18:58 19:23 20:15 WBC (3.8-10.6) k/uL Neutrophils # (1.3-7.7) k/uL Monocytes # (0-1.0) k/uL ABG pH 7.27 L (7.35-7.45) ABG pCO2 31 L (35-45) mmHg ABG pO2 220 H (83-108) mmHg ABG HCO3 14 L (21-25) mmol/L ABG Total CO2 15 L (19-24) mmol/L ABG O2 Saturation 97.6 H (94-97) % Carbon Dioxide (22-30) mmol/L BUN (9-20) mg/dL Creatinine (0.66-1.25) mg/dL Glucose (74-99) mg/dL POC Glucose (mg/dL) 263 H 213 H (70-110) mg/dL Calcium (8.4-10.2) mg/dL 07/22/22 07/22/22 07/22/22 Range/Units 21:24 22:24 23:07 WBC (3.8-10.6) k/uL Neutrophils # (1.3-7.7) k/uL Monocytes # (0-1.0) k/uL ABG pH (7.35-7.45) ABG pCO2 (35-45) mmHg ABG pO2 (83-108) mmHg ABG HCO3 (21-25) mmol/L ABG Total CO2 (19-24) mmol/L ABG O2 Saturation (94-97) % Carbon Dioxide (22-30) mmol/L BUN (9-20) mg/dL Creatinine (0.66-1.25) mg/dL Glucose (74-99) mg/dL POC Glucose (mg/dL) 268 H 215 H 213 H (70-110) mg/dL Calcium (8.4-10.2) mg/dL 07/23/22 07/23/22 07/23/22 Range/Units 00:15 01:27 02:36 WBC (3.8-10.6) k/uL Neutrophils # (1.3-7.7) k/uL Monocytes # (0-1.0) k/uL ABG pH (7.35-7.45) ABG pCO2 (35-45) mmHg ABG pO2 (83-108) mmHg ABG HCO3 (21-25) mmol/L ABG Total CO2 (19-24) mmol/L ABG O2 Saturation (94-97) % Carbon Dioxide (22-30) mmol/L BUN (9-20) mg/dL Creatinine (0.66-1.25) mg/dL Glucose (74-99) mg/dL POC Glucose (mg/dL) 196 H 200 H 182 H (70-110) mg/dL Calcium (8.4-10.2) mg/dL 07/23/22 07/23/22 07/23/22 Range/Units 03:07 04:30 04:30 WBC 16.6 H (3.8-10.6) k/uL Neutrophils # 12.8 H (1.3-7.7) k/uL Monocytes # 1.1 H (0-1.0) k/uL ABG pH (7.35-7.45) ABG pCO2 (35-45) mmHg ABG pO2 (83-108) mmHg ABG HCO3 (21-25) mmol/L ABG Total CO2 (19-24) mmol/L ABG O2 Saturation (94-97) % Carbon Dioxide 16 L (22-30) mmol/L BUN 88 H (9-20) mg/dL Creatinine 3.39 H (0.66-1.25) mg/dL Glucose 150 H (74-99) mg/dL POC Glucose (mg/dL) 185 H (70-110) mg/dL Calcium 7.5 L (8.4-10.2) mg/dL 07/23/22 07/23/22 07/23/22 Range/Units 04:30 05:10 05:52 WBC (3.8-10.6) k/uL Neutrophils # (1.3-7.7) k/uL Monocytes # (0-1.0) k/uL ABG pH 7.33 L (7.35-7.45) ABG pCO2 32 L (35-45) mmHg ABG pO2 261 H (83-108) mmHg ABG HCO3 17 L (21-25) mmol/L ABG Total CO2 18 L (19-24) mmol/L ABG O2 Saturation 98.0 H (94-97) % Carbon Dioxide (22-30) mmol/L BUN (9-20) mg/dL Creatinine (0.66-1.25) mg/dL Glucose (74-99) mg/dL POC Glucose (mg/dL) 156 H 169 H (70-110) mg/dL Calcium (8.4-10.2) mg/dL 07/23/22 07/23/22 07/23/22 Range/Units 06:23 07:15 07:48 WBC (3.8-10.6) k/uL Neutrophils # (1.3-7.7) k/uL Monocytes # (0-1.0) k/uL ABG pH (7.35-7.45) ABG pCO2 (35-45) mmHg ABG pO2 (83-108) mmHg ABG HCO3 (21-25) mmol/L ABG Total CO2 (19-24) mmol/L ABG O2 Saturation (94-97) % Carbon Dioxide (22-30) mmol/L BUN (9-20) mg/dL Creatinine (0.66-1.25) mg/dL Glucose (74-99) mg/dL POC Glucose (mg/dL) 135 H 130 H 150 H (70-110) mg/dL Calcium (8.4-10.2) mg/dL 07/23/22 Range/Units 09:56 WBC (3.8-10.6) k/uL Neutrophils # (1.3-7.7) k/uL Monocytes # (0-1.0) k/uL ABG pH (7.35-7.45) ABG pCO2 (35-45) mmHg ABG pO2 (83-108) mmHg ABG HCO3 (21-25) mmol/L ABG Total CO2 (19-24) mmol/L ABG O2 Saturation (94-97) % Carbon Dioxide (22-30) mmol/L BUN (9-20) mg/dL Creatinine (0.66-1.25) mg/dL Glucose (74-99) mg/dL POC Glucose (mg/dL) 174 H (70-110) mg/dL Calcium (8.4-10.2) mg/dL Microbiology - Last 24 Hours (Table) 07/22/22 19:27 Sputum Culture - Preliminary Sputum 07/19/22 16:40 Blood Culture - Preliminary Blood No Growth after 72 hours 07/18/22 09:50 Blood Culture - Preliminary Blood No Growth after 96 hours 07/18/22 09:35 Blood Culture - Preliminary Blood No Growth after 96 hours Assessment and Plan Assessment: Acute hypoxemic respiratory failure secondary to extensive bilateral lower lobe pneumonia and consolidation. On follow-up CAT scan of the chest, the patient had moderate-sized right-sided pleural effusion and atelectatic changes and infiltrates in lung bases bilaterally. Unfortunately, the patient has not given us any positive cultures and the patient is still covered with broad-spectrum antibiotics with a combination of cefepime and Levaquin. The patient also developed an acute kidney injury and he does have an acute on top of chronic heart failure secondary to diastolic heart failure further decompensated by Susanne cardoso RVR at time of admission. Note that the patient is currently on a mechanical ventilator with high PEEP and pO2 is improved. Acute kidney injury, secondary to diuresis intravascular volume depletion, and hypotension, and the patient is currently oliguric with a creatinine being at 3.39. He does have a component of mild anion gap metabolic acidosis. Elevated troponin possible non-ST segment elevation myocardial infarction, downtrending and the most recent troponin level is down to 0.8 Atrial fibrillation with rapid ventricular response At the time of the admission and the patient's heart is under better control Acute hypotension/shock currently on pressors with norepinephrine could become initial septic/cardiogenic Benign prosthetic hypertrophy with recent surgery in March and then again in April 2022 Morbid obesity, body mass index of 40.7 History of hypertension Diabetes mellitus, poorly controlled, currently on insulin drip for blood sugar control Urinary retention secondary to BPH Known history of obstructive sleep apnea maintained on CPAP therapy on outpatient basis Previous history of hematuria for that reason the patient took himself off anticoagulation Previous history of cystoscopy on bipolar transurethral resection of the prostate/TURP for symptoms of BPH Plan: Keep the patient sedated with propofol Continue ventilator support Bronchoscopy and the bronchioloalveolar lavage of the right middle lobe was done Drop the PEEP down to 15 acute FiO2 of 50% CAT scan of the chest was noted The patient developed an acute kidney injury and the patient may benefit from dialysis. Based on that, I consulted nephrology I'm going to give the patient 80 mg of Lasix IV push and monitor urine output May benefit from dialysis as long as the patient may stay hemodynamically stable Hold Eliquis for now in anticipation for dialysis catheter insertion Continue enteral feeding for nutritional support Keep same antibiotic coverage Monitor electrolytes Normal saline at the rate of 100 Prognosis poor CODE STATUS to full Evaluation was done and more than 30 minutes and there is a critically care evaluation Time with Patient: Greater than 30
--- NOTE | 2022-07-23 11:54 | P.PCN ---
Date of Procedure: 07/23/22 Preoperative Diagnosis: Bilateral pneumonia Postoperative Diagnosis: Bilateral pneumonia Procedure(s) Performed: Flexible bronchoscopy and the bronchioloalveolar lavage of the right middle lobe Anesthesia: ISAIAS Surgeon: Saman Cormier Estimated Blood Loss (ml): 0 Pathology: other Condition: critical Disposition: ICU Operative Findings: This procedure was done in the intensive care unit. The patient was already intubated on a mechanical ventilator. The patient was on propofol and the patient was given a dose of Nimbex to achieve adequate dialysis prior to the procedure. The procedure was done and the patient was adequately oxygenated and ventilated. The patient was hemodynamically stable on pressors during the procedure and there was no hypotension or oxygen desaturation. Using a disposable flexible bronchoscope, the procedure was completed. The bronchoscope was advanced with orotracheal tube and was moved to the lower trachea. The tip of the ET tube was seen around 3 cm above the scott. Distal trachea was within normal limits. 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 Nevertheless, there was no endobronchial lesions or any other foreign material or abnormalities noted. No respiratory secretions identified. An airway inspection was done and the distal trachea, bilateral mainstem bronchi, right upper lobe bronchus regular lobe bronchus and right lower lobe bronchus and the various 10 segments of the right in addition to the examination of the left side including the mainstem bronchus, left upper lobe bronchus lingular segment of lower lobe bronchus and the various 8 segments were done. Following that, the bronchus was wedged into the right middle lobe and the bronchial alveolar lavage was done. A total of 80 mL of fluid was infused and around 25 mL was aspirated without any major difficulties. The bronchioloalveolar lavage was sent for microbial cultures and analysis. The procedure was done without any complication the patient tolerated the procedure well without any major issues. Keep same antibiotics for now.
[2022-07-23 12:12] LABS: Glucose,Whole Blood 198 mg/dL (70-110)
[2022-07-23 13:11] LABS: Glucose,Whole Blood 210 mg/dL (70-110)
[2022-07-23] MEDS: INSULIN REGULAR 100 UNIT in SODIUM CHLORIDE 0.9% 100 ML IV SCH (13:14)
[2022-07-23] MEDS ORDERED: LIDOCAINE 1% INJ 10MG/ML (20 ML MDV) ONE (13:21)
--- NOTE | 2022-07-23 14:13 | P.GSCN ---
History of Present Illness History of present illness: 72-year-old gentleman patient was seen and discussed care unit been intubated with low urine output and acute kidney injury consulted for placement of urgent dialysis catheter graft medical history of atrial fibrillation, diabetes mellitus, hypertension, hyperlipidemia, Neck is supple patient has been intubated Chest has a crackles bilateral Abdomen soft nontender Femorals are 1+ patient has a arterial line right femoral femoral artery plan is placement of dialysis catheter left femoral approach risk and complication discussed Past Medical History Past Medical History: Atrial Fibrillation, Diabetes Mellitus, Hyperlipidemia, Hypertension Additional Past Medical History / Comment(s): uses c-pap at home, pneu as child almost History of Any Multi-Drug Resistant Organisms: None Reported Past Surgical History: Back Surgery, Orthopedic Surgery Additional Past Surgical History / Comment(s): total left hip, gato carpel tunnel, wire mesh in umbical area, Greenlight laser TURP 2015 Past Anesthesia/Blood Transfusion Reactions: Previous Problems w/ Anesthesia Additional Past Anesthesia/Blood Transfusion Reaction / Comm: last time no problems with anesthia but did have previously Past Psychological History: No Psychological Hx Reported Smoking Status: Never smoker - Past Family History Brother(s) Family Medical History: Coronary Artery Disease (CAD), Hypertension Mother Family Medical History: No Reported History Additional Family Medical History / Comment(s): in mva Father Family Medical History: Thyroid Disorder Additional Family Medical History / Comment(s): bad thyroid Medications and Allergies Home Medications Medication Instructions Recorded Confirmed Type Ascorbic Acid [Vitamin C] 500 mg PO DAILY 03/26/22 07/18/22 History Chlorthalidone 50 mg PO DAILY 03/26/22 07/18/22 History Cholecalciferol [Vitamin D3 (125 125 mcg PO DAILY 03/26/22 07/18/22 History Mcg = 5000 Iu)] Potassium Chloride ER [K-Dur 20] 40 meq PO BID 03/26/22 07/18/22 History Insulin Aspart [NovoLOG Flexpen] 18 units SQ TID-W/MEALS 04/18/22 07/18/22 History Aspirin EC [Ecotrin Low Dose] 81 mg PO DAILY 07/18/22 07/18/22 History Cod Liver Oil 1 cap PO DAILY 07/18/22 07/18/22 History Ginkgo Biloba [place] Extract [Ginkgo 125 mg PO DAILY 07/18/22 07/18/22 History Biloba] Insulin Detemir (Levemir) [Levemir] 30 unit SQ BID 07/18/22 07/18/22 History Metoprolol Tartrate [Lopressor] 25 mg PO DAILY 07/18/22 07/18/22 History Metoprolol Tartrate [Lopressor] 50 mg PO HS 07/18/22 07/18/22 History Allergies Allergy/AdvReac Type Severity Reaction Status Date / Time glipizide Allergy Anaphylaxis Verified 07/18/22 09:55 Iodinated Contrast Media Allergy Rash/Hives Verified 07/18/22 09:55 losartan Allergy Anaphylaxis Verified 07/18/22 09:55 amlodipine [From Norvasc] AdvReac DEPRESSION Verified 07/18/22 09:55 atorvastatin [From Lipitor] AdvReac WEAKNESS Verified 07/18/22 09:55 metformin AdvReac Cough Verified 07/18/22 09:55 rosuvastatin [From Crestor] AdvReac WEAKNESS Verified 07/18/22 09:55 Surgical - Exam Vital Signs Temp Pulse Resp BP Pulse Ox 97.9 F 80 42 H 178/128 85 L 07/18/22 06:55 07/18/22 06:55 07/18/22 06:55 07/18/22 06:55 07/18/22 06:55 Results - Labs 07/23/22 04:30 07/23/22 04:30 Abnormal Lab Results - Last 24 Hours (Table) 07/22/22 07/22/22 07/22/22 Range/Units 15:19 16:33 18:14 WBC (3.8-10.6) k/uL Neutrophils # (1.3-7.7) k/uL Monocytes # (0-1.0) k/uL ABG pH (7.35-7.45) ABG pCO2 (35-45) mmHg ABG pO2 (83-108) mmHg ABG HCO3 (21-25) mmol/L ABG Total CO2 (19-24) mmol/L ABG O2 Saturation (94-97) % Carbon Dioxide (22-30) mmol/L BUN (9-20) mg/dL Creatinine (0.66-1.25) mg/dL Glucose (74-99) mg/dL POC Glucose (mg/dL) 309 H 256 H 249 H (70-110) mg/dL Calcium (8.4-10.2) mg/dL 07/22/22 07/22/22 07/22/22 Range/Units 18:58 19:23 20:15 WBC (3.8-10.6) k/uL Neutrophils # (1.3-7.7) k/uL Monocytes # (0-1.0) k/uL ABG pH 7.27 L (7.35-7.45) ABG pCO2 31 L (35-45) mmHg ABG pO2 220 H (83-108) mmHg ABG HCO3 14 L (21-25) mmol/L ABG Total CO2 15 L (19-24) mmol/L ABG O2 Saturation 97.6 H (94-97) % Carbon Dioxide (22-30) mmol/L BUN (9-20) mg/dL Creatinine (0.66-1.25) mg/dL Glucose (74-99) mg/dL POC Glucose (mg/dL) 263 H 213 H (70-110) mg/dL Calcium (8.4-10.2) mg/dL 07/22/22 07/22/22 07/22/22 Range/Units 21:24 22:24 23:07 WBC (3.8-10.6) k/uL Neutrophils # (1.3-7.7) k/uL Monocytes # (0-1.0) k/uL ABG pH (7.35-7.45) ABG pCO2 (35-45) mmHg ABG pO2 (83-108) mmHg ABG HCO3 (21-25) mmol/L ABG Total CO2 (19-24) mmol/L ABG O2 Saturation (94-97) % Carbon Dioxide (22-30) mmol/L BUN (9-20) mg/dL Creatinine (0.66-1.25) mg/dL Glucose (74-99) mg/dL POC Glucose (mg/dL) 268 H 215 H 213 H (70-110) mg/dL Calcium (8.4-10.2) mg/dL 07/23/22 07/23/22 07/23/22 Range/Units 00:15 01:27 02:36 WBC (3.8-10.6) k/uL Neutrophils # (1.3-7.7) k/uL Monocytes # (0-1.0) k/uL ABG pH (7.35-7.45) ABG pCO2 (35-45) mmHg ABG pO2 (83-108) mmHg ABG HCO3 (21-25) mmol/L ABG Total CO2 (19-24) mmol/L ABG O2 Saturation (94-97) % Carbon Dioxide (22-30) mmol/L BUN (9-20) mg/dL Creatinine (0.66-1.25) mg/dL Glucose (74-99) mg/dL POC Glucose (mg/dL) 196 H 200 H 182 H (70-110) mg/dL Calcium (8.4-10.2) mg/dL 07/23/22 07/23/22 07/23/22 Range/Units 03:07 04:30 04:30 WBC 16.6 H (3.8-10.6) k/uL Neutrophils # 12.8 H (1.3-7.7) k/uL Monocytes # 1.1 H (0-1.0) k/uL ABG pH (7.35-7.45) ABG pCO2 (35-45) mmHg ABG pO2 (83-108) mmHg ABG HCO3 (21-25) mmol/L ABG Total CO2 (19-24) mmol/L ABG O2 Saturation (94-97) % Carbon Dioxide 16 L (22-30) mmol/L BUN 88 H (9-20) mg/dL Creatinine 3.39 H (0.66-1.25) mg/dL Glucose 150 H (74-99) mg/dL POC Glucose (mg/dL) 185 H (70-110) mg/dL Calcium 7.5 L (8.4-10.2) mg/dL 07/23/22 07/23/22 07/23/22 Range/Units 04:30 05:10 05:52 WBC (3.8-10.6) k/uL Neutrophils # (1.3-7.7) k/uL Monocytes # (0-1.0) k/uL ABG pH 7.33 L (7.35-7.45) ABG pCO2 32 L (35-45) mmHg ABG pO2 261 H (83-108) mmHg ABG HCO3 17 L (21-25) mmol/L ABG Total CO2 18 L (19-24) mmol/L ABG O2 Saturation 98.0 H (94-97) % Carbon Dioxide (22-30) mmol/L BUN (9-20) mg/dL Creatinine (0.66-1.25) mg/dL Glucose (74-99) mg/dL POC Glucose (mg/dL) 156 H 169 H (70-110) mg/dL Calcium (8.4-10.2) mg/dL 07/23/22 07/23/22 07/23/22 Range/Units 06:23 07:15 07:48 WBC (3.8-10.6) k/uL Neutrophils # (1.3-7.7) k/uL Monocytes # (0-1.0) k/uL ABG pH (7.35-7.45) ABG pCO2 (35-45) mmHg ABG pO2 (83-108) mmHg ABG HCO3 (21-25) mmol/L ABG Total CO2 (19-24) mmol/L ABG O2 Saturation (94-97) % Carbon Dioxide (22-30) mmol/L BUN (9-20) mg/dL Creatinine (0.66-1.25) mg/dL Glucose (74-99) mg/dL POC Glucose (mg/dL) 135 H 130 H 150 H (70-110) mg/dL Calcium (8.4-10.2) mg/dL 07/23/22 07/23/22 07/23/22 Range/Units 09:56 12:09 13:10 WBC (3.8-10.6) k/uL Neutrophils # (1.3-7.7) k/uL Monocytes # (0-1.0) k/uL ABG pH (7.35-7.45) ABG pCO2 (35-45) mmHg ABG pO2 (83-108) mmHg ABG HCO3 (21-25) mmol/L ABG Total CO2 (19-24) mmol/L ABG O2 Saturation (94-97) % Carbon Dioxide (22-30) mmol/L BUN (9-20) mg/dL Creatinine (0.66-1.25) mg/dL Glucose (74-99) mg/dL POC Glucose (mg/dL) 174 H 198 H 210 H (70-110) mg/dL Calcium (8.4-10.2) mg/dL Microbiology - Last 24 Hours (Table) 07/18/22 09:50 Blood Culture - Preliminary Blood No Growth after 120 hours 07/18/22 09:35 Blood Culture - Preliminary Blood No Growth after 120 hours 07/22/22 19:27 Sputum Culture - Preliminary Sputum 07/19/22 16:40 Blood Culture - Preliminary Blood No Growth after 72 hours Diabetes panel 07/23/22 Range/Units 04:30 Sodium 138 (137-145) mmol/L Potassium 3.9 (3.5-5.1) mmol/L Chloride 105 (98-107) mmol/L Carbon Dioxide 16 L (22-30) mmol/L BUN 88 H (9-20) mg/dL Creatinine 3.39 H (0.66-1.25) mg/dL Glucose 150 H (74-99) mg/dL Calcium 7.5 L (8.4-10.2) mg/dL Calcium panel 07/23/22 Range/Units 04:30 Calcium 7.5 L (8.4-10.2) mg/dL Pituitary panel 07/23/22 Range/Units 04:30 Sodium 138 (137-145) mmol/L Potassium 3.9 (3.5-5.1) mmol/L Chloride 105 (98-107) mmol/L Carbon Dioxide 16 L (22-30) mmol/L BUN 88 H (9-20) mg/dL Creatinine 3.39 H (0.66-1.25) mg/dL Glucose 150 H (74-99) mg/dL Calcium 7.5 L (8.4-10.2) mg/dL Adrenal panel 07/23/22 Range/Units 04:30 Sodium 138 (137-145) mmol/L Potassium 3.9 (3.5-5.1) mmol/L Chloride 105 (98-107) mmol/L Carbon Dioxide 16 L (22-30) mmol/L BUN 88 H (9-20) mg/dL Creatinine 3.39 H (0.66-1.25) mg/dL Glucose 150 H (74-99) mg/dL Calcium 7.5 L (8.4-10.2) mg/dL
--- NOTE | 2022-07-23 14:14 | P.PCN ---
Description of Procedure: Preoperative diagnosis acute kidney injury Posterior same Procedure ultrasound-guided dialysis catheter placed left femoral approach left groin was prepped and draped applied sterile manner 1% lidocaine for infected groin area. Ultrasound-guided micropuncture introducer right femoral vein micropuncture guidewire was passed and then we passed a 4-Italian dilator and regular guidewire passed without any resistance dilator was advanced on the top of guidewire then we placed a dialysis catheter on the top of guidewire flushed with heparin saline and Hep-Lock secured with 2-0 nylon dressing applied patient tolerated the procedure well
[2022-07-23 14:15] LABS: Glucose,Whole Blood 244 mg/dL (70-110)
[2022-07-23 15:36] LABS: Glucose,Whole Blood 259 mg/dL (70-110)
[2022-07-23] MEDS: LORazepam 1 MG/0.5 ML VIAL IV PRN (15:37)
--- NOTE | 2022-07-23 15:56 | P.PN ---
Subjective Progress Note Date: 07/23/22 Principal diagnosis: Acute hypoxemic respiratory failure secondary to acute exacerbation of chronic systolic congestive heart failure and extensive lower lobe pneumonia Elevated troponin possible non-ST segment elevation myocardial infarction Atrial fibrillation with rapid ventricular response Hypotension 72-year-old male patient who has a history of diabetes mellitus, uncontrolled, hyperlipidemia, hypertension, morbid obesity, obstructive sleep apnea maintained on CPAP, atrial fibrillation not on anticoagulants currently, BPH with recent surgery and clot evacuation in March and then again in April and the patient did have hematuria and is Eliquis that time. He presented to the emergency room following this morning with difficulty in breathing. He also had some increased swelling of his lower extremities. Chest x-ray revealed diffuse moderate to severe bilateral lower lung edema and/or atypical infiltrates. EKG revealed atrial fibrillation with a rapid ventricular response and nonspecific ST and T wave abnormalities. Lactic acid 2.4, troponin 2.1, 2.38, blood glucose 373. White count 17.6. Hemoglobin 15.7. INR 1.0. Sodium 142. Potassium 3.6. Bicarb 24. BUN 29. Creatinine 1.08. He ST 49. ALT 15. ProBNP 1530. His oxygen saturation was 85% on room air at presentation. He is seen today in consultation in the emergency department. He's currently on BiPAP at 18/10 and 40% FiO2 with O2 saturations in the 90s. Mostly BiPAP dependent since admission. He is also hypotensive requiring norepinephrine currently at 0.05 mcg/kg/m. He's been given Lasix 40 mg IVP 1 with minimal urine output. He is also initiated on ceftriaxone and azithromycin. He was initiated back on Eliquis. 07/22/2022 Patient is seen and evaluated in ICU; remains on BiPAP with an FiO2 of 100%; continues to be in respiratory distress Blood gases from today showed a pH of 7.43 with a pCO2 of 30 and pO2 of 68; chest x-ray showing extensive bilateral lower lobe consolidation along with cardiomegaly patient is currently covered with a combination of cefepime and Levaquin. At the same time, the patient was being diuresed due to concern of an underlying CHF. Along with diuresis, the patient became hypotensive and he was started on norepinephrine which was running at a dose of 0.03 mcg/kg per minute this morning and the patient also developed an acute kidney injury with a creatinine was found to be elevated at 2.1 with a 74. Serum bicarbonate of 18 with a sodium level of 136. Patient was evaluated by [employer] and was recommended intubation and mechanical ventilation Patient is to have CT of the chest once more stable with possible plan for bronchoscopy; sputum for Gram stain and culture is ordered; Lasix has been discontinued; patient remains on anticoagulation with Cardizem drip has been dis continued 07/23/2022 the patient is intubated on a mechanical ventilator. The patient is sedated with propofol ABGs 7.33 with a pCO2 of 32 and pO2 of 261. The patient's chest x-ray shows consolidations and diffusion lung bases bilaterally. ET tube is in a good location. CAT scan of the chest was also done yesterday and the patient was found to have moderate-sized bilateral pleural effusion worse on the right and some atelectatic changes and bibasilar consolidation most of the lung bases bilaterally. --A bronchoscopy was done at the bedside and bronchioloalveolar lavage of the right middle lobe was obtained. Cultures will be sent for further analysis. Meanwhile, the patient remains on a combination of cefepime and Levaquin. Is afebrile for now. Hemodynamically, he remains hypotensive and the patient remains on norepinephrine He remains in atrial fibrillation. Rate is controlled. He is currently off Cardizem. He is on insulin drip on and off for tighter blood sugar control. He is also on vital high protein at the rate of 10 mL an hour. On today's blood work, the patient's creatinine is on the rise as the patient developed an acute kidney injury and the patient's BUN is at 88 with a creatinine of 3.3. Sodium is at 13 with a potassium level of 3.9. Serum bicarbs at 16. The white cell count is 16.6 and hemoglobin 15.2 and platelet count of 195. Objective - Vital Signs Vital signs: Vital Signs Temp 98.4 F 07/23/22 08:00 Pulse 107 H 07/23/22 08:00 Resp 26 H 07/23/22 08:00 BP 92/39 07/23/22 04:30 Pulse Ox 100 07/23/22 08:00 FiO2 50 07/23/22 08:00 Intake & Output 07/22/22 07/23/22 07/23/22 18:59 06:59 18:59 Intake Total 4248.743 2697.488 220 Output Total 125 140 15 Balance 4123.743 2557.488 205 Weight 154 kg Intake: IV 3610 1360 200 Cefepime 2 gm In Sodium 100 100 Chloride 0.9% 100 ml @ 25 mls/hr IVPB Q8HR [facility] Rx# :[id number] KVO 60 60 Levofloxacin 750Mg-D5w 150 Pmx 750 mg In Dextrose/ Water 1 150ml.bag @ 100 mls/hr IVPB Q24H [facility] Rx#: [id number] Sodium Chloride 0.9% 1, 300 1200 200 000 ml @ 100 mls/hr IV . Q10H [facility] Rx#:[id number] Sodium Chloride 0.9% 1, 3000 000 ml @ 999 mls/hr IV . Q1H1M [facility] Rx#:[id number] Intake, IV Titration 096.008 1115.488 Amount Dexmedetomidine/0.9% NaCl 7.195 (Pmx) 400 mcg In Empty Bag 1 bag @ 0.2 MCG/KG/HR 7.195 mls/hr IV .[id number] [facility] Rx#:[id number] Insulin Regular 100 unit 24.1 157.700 In Sodium Chloride 0.9% 100 ml @ Titrate IV .Q0M [facility] Rx#:[id number] Norepinephrine 4 mg In 433.560 706.874 Sodium Chloride 0.9% 250 ml @ 0.05 MCG/KG/MIN 25. 923 mls/hr IV .Q9H48M [facility] Rx#:[id number] propofoL 1,000 mg In 173.888 342.914 Empty Bag 1 bag @ 40 MCG/ KG/MIN 34.32 mls/hr IV . Q2H55M [facility] Rx#:[id number] Tube Feeding 70 20 Other 60 Output: Urine 125 140 15 Other: Voiding Method Indwelling Catheter Indwelling Catheter ABP, PAP, CO, CI - Last Documented Arterial Blood Pressure 110/64 - Exam GENERAL EXAM: Awake and alert and following commands and answering questions appropriately. Breathing is slightly labored and the patient is tachypneic HEAD: Normocephalic. EYES: Normal reaction of pupils, equal size. NECK: No masses, no JVD. LUNGS: Equal air entry with crackles in the bilateral bases. The patient has crackles most on the left lung base CVS: S1 and S2 normal with no audible murmur, regular rhythm. ABDOMEN: No hepatosplenomegaly, normal bowel sounds, no guarding or rigidity. SKIN: No rashes CENTRAL NERVOUS SYSTEM: No focal deficits, tone is normal in all 4 extremities. EXTREMITIES: There is one plus peripheral edema. No clubbing, no cyanosis. P eripheral pulses are intact. - Labs CBC & Chem 7: 07/23/22 04:30 07/23/22 04:30 Labs: Abnormal Lab Results - Last 24 Hours (Table) 07/22/22 07/22/22 07/22/22 Range/Units 10:15 13:26 13:28 WBC (3.8-10.6) k/uL Neutrophils # (1.3-7.7) k/uL Monocytes # (0-1.0) k/uL ABG pH 7.33 L 7.23 L (7.35-7.45) ABG pCO2 33 L (35-45) mmHg ABG pO2 54 L* (83-108) mmHg ABG HCO3 13 L (21-25) mmol/L ABG Total CO2 14 L (19-24) mmol/L ABG O2 Saturation 80.0 L (94-97) % Carbon Dioxide (22-30) mmol/L BUN (9-20) mg/dL Creatinine (0.66-1.25) mg/dL Glucose (74-99) mg/dL POC Glucose (mg/dL) 285 H (70-110) mg/dL Calcium (8.4-10.2) mg/dL 07/22/22 07/22/22 07/22/22 Range/Units 13:59 15:19 16:33 WBC (3.8-10.6) k/uL Neutrophils # (1.3-7.7) k/uL Monocytes # (0-1.0) k/uL ABG pH (7.35-7.45) ABG pCO2 (35-45) mmHg ABG pO2 (83-108) mmHg ABG HCO3 (21-25) mmol/L ABG Total CO2 (19-24) mmol/L ABG O2 Saturation (94-97) % Carbon Dioxide (22-30) mmol/L BUN (9-20) mg/dL Creatinine (0.66-1.25) mg/dL Glucose (74-99) mg/dL POC Glucose (mg/dL) 266 H 309 H 256 H (70-110) mg/dL Calcium (8.4-10.2) mg/dL 07/22/22 07/22/22 07/22/22 Range/Units 18:14 18:58 19:23 WBC (3.8-10.6) k/uL Neutrophils # (1.3-7.7) k/uL Monocytes # (0-1.0) k/uL ABG pH 7.27 L (7.35-7.45) ABG pCO2 31 L (35-45) mmHg ABG pO2 220 H (83-108) mmHg ABG HCO3 14 L (21-25) mmol/L ABG Total CO2 15 L (19-24) mmol/L ABG O2 Saturation 97.6 H (94-97) % Carbon Dioxide (22-30) mmol/L BUN (9-20) mg/dL Creatinine (0.66-1.25) mg/dL Glucose (74-99) mg/dL POC Glucose (mg/dL) 249 H 263 H (70-110) mg/dL Calcium (8.4-10.2) mg/dL 07/22/22 07/22/22 07/22/22 Range/Units 20:15 21:24 22:24 WBC (3.8-10.6) k/uL Neutrophils # (1.3-7.7) k/uL Monocytes # (0-1.0) k/uL ABG pH (7.35-7.45) ABG pCO2 (35-45) mmHg ABG pO2 (83-108) mmHg ABG HCO3 (21-25) mmol/L ABG Total CO2 (19-24) mmol/L ABG O2 Saturation (94-97) % Carbon Dioxide (22-30) mmol/L BUN (9-20) mg/dL Creatinine (0.66-1.25) mg/dL Glucose (74-99) mg/dL POC Glucose (mg/dL) 213 H 268 H 215 H (70-110) mg/dL Calcium (8.4-10.2) mg/dL 07/22/22 07/23/22 07/23/22 Range/Units 23:07 00:15 01:27 WBC (3.8-10.6) k/uL Neutrophils # (1.3-7.7) k/uL Monocytes # (0-1.0) k/uL ABG pH (7.35-7.45) ABG pCO2 (35-45) mmHg ABG pO2 (83-108) mmHg ABG HCO3 (21-25) mmol/L ABG Total CO2 (19-24) mmol/L ABG O2 Saturation (94-97) % Carbon Dioxide (22-30) mmol/L BUN (9-20) mg/dL Creatinine (0.66-1.25) mg/dL Glucose (74-99) mg/dL POC Glucose (mg/dL) 213 H 196 H 200 H (70-110) mg/dL Calcium (8.4-10.2) mg/dL 07/23/22 07/23/22 07/23/22 Range/Units 02:36 03:07 04:30 WBC 16.6 H (3.8-10.6) k/uL Neutrophils # 12.8 H (1.3-7.7) k/uL Monocytes # 1.1 H (0-1.0) k/uL ABG pH (7.35-7.45) ABG pCO2 (35-45) mmHg ABG pO2 (83-108) mmHg ABG HCO3 (21-25) mmol/L ABG Total CO2 (19-24) mmol/L ABG O2 Saturation (94-97) % Carbon Dioxide (22-30) mmol/L BUN (9-20) mg/dL Creatinine (0.66-1.25) mg/dL Glucose (74-99) mg/dL POC Glucose (mg/dL) 182 H 185 H (70-110) mg/dL Calcium (8.4-10.2) mg/dL 07/23/22 07/23/22 07/23/22 Range/Units 04:30 04:30 05:10 WBC (3.8-10.6) k/uL Neutrophils # (1.3-7.7) k/uL Monocytes # (0-1.0) k/uL ABG pH (7.35-7.45) ABG pCO2 (35-45) mmHg ABG pO2 (83-108) mmHg ABG HCO3 (21-25) mmol/L ABG Total CO2 (19-24) mmol/L ABG O2 Saturation (94-97) % Carbon Dioxide 16 L (22-30) mmol/L BUN 88 H (9-20) mg/dL Creatinine 3.39 H (0.66-1.25) mg/dL Glucose 150 H (74-99) mg/dL POC Glucose (mg/dL) 156 H 169 H (70-110) mg/dL Calcium 7.5 L (8.4-10.2) mg/dL 07/23/22 07/23/22 07/23/22 Range/Units 05:52 06:23 07:15 WBC (3.8-10.6) k/uL Neutrophils # (1.3-7.7) k/uL Monocytes # (0-1.0) k/uL ABG pH 7.33 L (7.35-7.45) ABG pCO2 32 L (35-45) mmHg ABG pO2 261 H (83-108) mmHg ABG HCO3 17 L (21-25) mmol/L ABG Total CO2 18 L (19-24) mmol/L ABG O2 Saturation 98.0 H (94-97) % Carbon Dioxide (22-30) mmol/L BUN (9-20) mg/dL Creatinine (0.66-1.25) mg/dL Glucose (74-99) mg/dL POC Glucose (mg/dL) 135 H 130 H (70-110) mg/dL Calcium (8.4-10.2) mg/dL 07/23/22 Range/Units 07:48 WBC (3.8-10.6) k/uL Neutrophils # (1.3-7.7) k/uL Monocytes # (0-1.0) k/uL ABG pH (7.35-7.45) ABG pCO2 (35-45) mmHg ABG pO2 (83-108) mmHg ABG HCO3 (21-25) mmol/L ABG Total CO2 (19-24) mmol/L ABG O2 Saturation (94-97) % Carbon Dioxide (22-30) mmol/L BUN (9-20) mg/dL Creatinine (0.66-1.25) mg/dL Glucose (74-99) mg/dL POC Glucose (mg/dL) 150 H (70-110) mg/dL Calcium (8.4-10.2) mg/dL Microbiology - Last 24 Hours (Table) 07/19/22 16:40 Blood Culture - Preliminary Blood No Growth after 72 hours 07/18/22 09:50 Blood Culture - Preliminary Blood No Growth after 96 hours 07/18/22 09:35 Blood Culture - Preliminary Blood No Growth after 96 hours Assessment and Plan Assessment: 1. Acute hypoxemic respiratory failure; multifactorial - Related to CHF exacerbation and pneumonia - Patient remains on BiPAP with FiO2 of 75%; plan is to titrate/green FiO2 keeping O2 saturation above 90% - Might require intubation and mechanical ventilation if respiratory status continues to worsen 2. Acute exacerbation systolic CHF; echocardiogram reveals preserved left ventricular function with EF of 90%; continue with current dose of IV Lasix; we will monitor strict KATINA's, daily weights, low salt and fluid restricted diet 3. Elevated troponin; possible non-ST segment elevation NH; troponin trending down and is down to 0.8 3. Extensive left lower lobe pneumonia; patient remains on IV cefepime and Levaquin; pro-calcitonin level at 0.48 with mild leukocytosis - We will continue with current IV antibiotics and monitor CBC, CRP and pro- calcitonin levels 4. Atrial fibrillation with RVR; patient was placed back on anticoagulation with Eliquis. The patient was also started on Cardizem drip for rate control at 5 mg an hour and the patient is taking metoprolol 50 mg by mouth 3 times a day. The Cardizem drip will be titrated to maintain a heart rate of above 100; patient remains anticoagulated with Eliquis 5. Diabetes mellitus; monitor Accu-Cheks every before meals and at bedtime with insulin sliding scale 6. Hypertension; currently hypotensive related to NSTEMI/CHF/pneumonia; patient has been taken off of pressors; we'll monitor blood pressure closely and initiate antihypertensive therapy once blood pressure improves 7. Urinary retention/BPH; patient has history of cystoscopy with transurethral resection of prostate/TURP DVT prophylaxis; SCDs/systemic anticoagulation CODE STATUS; full code
--- NOTE | 2022-07-23 17:02 | P.PN ---
Subjective Progress Note Date: 07/22/22 Principal diagnosis: Pneumonia Patient is a 72-year-old male presenting to the hospital for increasing shortness of breath in this patient with initial treatment for CHF without any improvement and concern for possible pneumonia. Patient did have worsening of discitis status and ended up getting intubated on 07/22/2022 On today's evaluation that is 07/22/2022 the patient continues to be afebrile, patient is requiring low-dose pressor support per the nursing staff patient is intubated on the vent with FiO2 of 100%, no significant purulent secretions through the ET or diarrhea reported by the nursing staff Objective - Vital Signs Vital signs: Vital Signs Temp 97.6 F 07/22/22 12:00 Pulse 81 07/22/22 15:00 Resp 21 07/22/22 15:00 BP 86/37 07/22/22 15:00 Pulse Ox 100 07/22/22 15:00 FiO2 70 07/22/22 15:14 Intake & Output 07/21/22 07/22/22 07/22/22 18:59 06:59 18:59 Intake Total 802.191 844.226 196.755 Output Total 1015 160 15 Balance -212.809 684.226 181.755 Weight 143 kg Intake: IV 570 270 10 Cefepime 2 gm In Sodium 100 150 Chloride 0.9% 100 ml @ 25 mls/hr IVPB Q8HR [facility] Rx# :[id number] KVO 70 120 10 Levofloxacin 750Mg-D5w 100 Pmx 750 mg In Dextrose/ Water 1 150ml.bag @ 100 mls/hr IVPB Q24H [facility] Rx#: [id number] Potassium Chloride 10 meq 300 In Water For Injection 1 100ml.bag @ 100 mls/hr IVPB Q1H [facility] Rx#: [id number] Intake, IV Titration 232.191 574.226 186.755 Amount ACETAMINOPHEN IV (For NPO 100 ) 1,000 mg In Empty Bag 1 bag @ 400 mls/hr IVPB Q6HR PRN Rx#:[id number] Dexmedetomidine/0.9% NaCl 53.665 183.583 7.195 (Pmx) 400 mcg In Empty Bag 1 bag @ 0.2 MCG/KG/HR 7.195 mls/hr IV .[id number] [facility] Rx#:[id number] Diltiazem 125 mg In 140.333 50.25 Sodium Chloride 0.9% 100 ml @ Per Protocol IV .Q0M [facility] Rx#:[id number] Insulin Regular 100 unit 0 In Sodium Chloride 0.9% 100 ml @ Titrate IV .Q0M [facility] Rx#:[id number] Norepinephrine 4 mg In 38.193 240.393 179.560 Sodium Chloride 0.9% 250 ml @ 0.05 MCG/KG/MIN 25. 923 mls/hr IV .Q9H48M [facility] Rx#:[id number] Output: Urine 1015 160 15 Other: Voiding Method Indwelling Catheter Indwelling Catheter ABP, PAP, CO, CI - Last Documented Arterial Blood Pressure 96/60 - Exam GENERAL DESCRIPTION: An elderly male intubated on the vent RESPIRATORY SYSTEM: Unlabored breathing , decreased breath sounds at bases HEART: S1 S2 regular rate and rhythm , ABDOMEN: Soft , no tenderness EXTREMITIES: No edema feet - Labs CBC & Chem 7: 07/23/22 04:30 07/23/22 04:30 Labs: Abnormal Lab Results - Last 24 Hours (Table) 07/21/22 07/21/22 07/22/22 Range/Units 17:39 20:34 06:02 WBC (3.8-10.6) k/uL Neutrophils # (1.3-7.7) k/uL ABG pH (7.35-7.45) ABG pCO2 30 L (35-45) mmHg ABG pO2 68 L (83-108) mmHg ABG HCO3 20 L (21-25) mmol/L ABG Total CO2 (19-24) mmol/L ABG O2 Saturation 91.2 L (94-97) % Sodium (137-145) mmol/L Carbon Dioxide (22-30) mmol/L BUN (9-20) mg/dL Creatinine (0.66-1.25) mg/dL Glucose (74-99) mg/dL POC Glucose (mg/dL) 232 H 283 H (70-110) mg/dL 07/22/22 07/22/22 07/22/22 Range/Units 06:05 06:05 07:06 WBC 12.7 H (3.8-10.6) k/uL Neutrophils # 9.8 H (1.3-7.7) k/uL ABG pH (7.35-7.45) ABG pCO2 (35-45) mmHg ABG pO2 (83-108) mmHg ABG HCO3 (21-25) mmol/L ABG Total CO2 (19-24) mmol/L ABG O2 Saturation (94-97) % Sodium 136 L (137-145) mmol/L Carbon Dioxide 18 L (22-30) mmol/L BUN 74 H (9-20) mg/dL Creatinine 2.13 H (0.66-1.25) mg/dL Glucose 299 H (74-99) mg/dL POC Glucose (mg/dL) 311 H (70-110) mg/dL 07/22/22 07/22/22 07/22/22 Range/Units 10:15 13:26 13:28 WBC (3.8-10.6) k/uL Neutrophils # (1.3-7.7) k/uL ABG pH 7.33 L 7.23 L (7.35-7.45) ABG pCO2 33 L (35-45) mmHg ABG pO2 54 L* (83-108) mmHg ABG HCO3 13 L (21-25) mmol/L ABG Total CO2 14 L (19-24) mmol/L ABG O2 Saturation 80.0 L (94-97) % Sodium (137-145) mmol/L Carbon Dioxide (22-30) mmol/L BUN (9-20) mg/dL Creatinine (0.66-1.25) mg/dL Glucose (74-99) mg/dL POC Glucose (mg/dL) 285 H (70-110) mg/dL 07/22/22 07/22/22 Range/Units 13:59 15:19 WBC (3.8-10.6) k/uL Neutrophils # (1.3-7.7) k/uL ABG pH (7.35-7.45) ABG pCO2 (35-45) mmHg ABG pO2 (83-108) mmHg ABG HCO3 (21-25) mmol/L ABG Total CO2 (19-24) mmol/L ABG O2 Saturation (94-97) % Sodium (137-145) mmol/L Carbon Dioxide (22-30) mmol/L BUN (9-20) mg/dL Creatinine (0.66-1.25) mg/dL Glucose (74-99) mg/dL POC Glucose (mg/dL) 266 H 309 H (70-110) mg/dL Microbiology - Last 24 Hours (Table) 07/18/22 09:50 Blood Culture - Preliminary Blood No Growth after 96 hours 07/18/22 09:35 Blood Culture - Preliminary Blood No Growth after 96 hours 07/19/22 16:40 Blood Culture - Preliminary Blood No Growth after 48 hours Assessment and Plan (1) UTI (urinary tract infection) Current Visit: Yes Status: Acute Code(s): N39.0 - URINARY TRACT INFECTION, SITE NOT SPECIFIED SNOMED Code(s): 39542736 (2) Pneumonia Current Visit: Yes Status: Acute Code(s): J18.9 - PNEUMONIA, UNSPECIFIED ORGANISM SNOMED Code(s): 744378471 Plan: 1patient presented to hospital with increasing shortness of breath which is likely multifactorial in this patient with interstitial infiltrate high clinic suspicious for possible fluid related underlying pneumonia less likely but not entirely excluded in this patient with Negative COVID test. 2positive UA had concern for possible UTI likely from enteric gram-negative pathogen, urine cultures have been negative so far. 3patient did have a negative RSV and influenza PCR however urine for Legionella antigen is negative as well. 4patient did have worsening of respiratory status requiring intubation, sputum culture have been requested, patient to continue with the cefepime and Levaquin while awaiting for the sputum culture to be finalize Time with Patient: Less than 30
--- NOTE | 2022-07-23 17:03 | P.PN ---
Subjective Progress Note Date: 07/23/22 Principal diagnosis: Pneumonia Patient is a 72-year-old male presenting to the hospital for increasing shortness of breath in this patient with initial treatment for CHF without any improvement and concern for possible pneumonia. Patient did have worsening of discitis status and ended up getting intubated on 07/22/2022 On today's evaluation that is 07/23/2022 the patient remains to be afebrile, patient remains to be intubated on the vent with FiO2 is down to 50 %, no significant purulent secretions through the ET or diarrhea reported by the nursing staff Objective - Vital Signs Vital signs: Vital Signs Temp 98.4 F 07/23/22 12:00 Pulse 120 H 07/23/22 15:47 Resp 26 H 07/23/22 15:45 BP 92/39 07/23/22 12:45 Pulse Ox 96 07/23/22 15:45 FiO2 50 07/23/22 15:22 Intake & Output 07/22/22 07/23/22 07/23/22 18:59 06:59 18:59 Intake Total 4248.743 2697.488 1672.866 Output Total 125 140 95 Balance 4123.743 2557.488 1577.866 Weight 154 kg 154 kg Intake: IV 3610 1360 876 0.9 pressure bags 36 Cefepime 2 gm In Sodium 100 100 Chloride 0.9% 100 ml @ 25 mls/hr IVPB Q8HR [facility] Rx# :[id number] Dextrose 5% in Water 1, 240 000 ml @ 80 mls/hr IV . [id number] [facility] with Sodium Bicarb (1 Meq/ml) 150 ml Rx#:[id number] KVO 60 60 Levofloxacin 750Mg-D5w 150 Pmx 750 mg In Dextrose/ Water 1 150ml.bag @ 100 mls/hr IVPB Q24H [facility] Rx#: [id number] Sodium Chloride 0.9% 1, 300 1200 600 000 ml @ 100 mls/hr IV . Q10H [facility] Rx#:[id number] Sodium Chloride 0.9% 1, 3000 000 ml @ 999 mls/hr IV . Q1H1M [facility] Rx#:[id number] Intake, IV Titration 410.130 3554.488 716.866 Amount Dexmedetomidine/0.9% NaCl 7.195 (Pmx) 400 mcg In Empty Bag 1 bag @ 0.2 MCG/KG/HR 7.195 mls/hr IV .[id number] [facility] Rx#:[id number] Insulin Regular 100 unit 24.1 157.700 10.983 In Sodium Chloride 0.9% 100 ml @ Titrate IV .Q0M [facility] Rx#:[id number] Norepinephrine 4 mg In 433.560 706.874 508 Sodium Chloride 0.9% 250 ml @ 0.05 MCG/KG/MIN 25. 923 mls/hr IV .Q9H48M [facility] Rx#:[id number] propofoL 1,000 mg In 173.888 342.914 197.883 Empty Bag 1 bag @ 40 MCG/ KG/MIN 34.32 mls/hr IV . Q2H55M [facility] Rx#:[id number] Oral 20 Tube Feeding 70 60 Other 60 Output: Urine 125 140 95 Other: Voiding Method Indwelling Catheter Indwelling Catheter Indwelling Catheter ABP, PAP, CO, CI - Last Documented Arterial Blood Pressure 115/68 - Exam GENERAL DESCRIPTION: An elderly male intubated on the vent RESPIRATORY SYSTEM: Unlabored breathing , decreased breath sounds at bases HEART: S1 S2 regular rate and rhythm , ABDOMEN: Soft , no tenderness EXTREMITIES: No edema feet - Labs CBC & Chem 7: 07/23/22 04:30 07/23/22 04:30 Labs: Abnormal Lab Results - Last 24 Hours (Table) 07/22/22 07/22/22 07/22/22 Range/Units 18:14 18:58 19:23 WBC (3.8-10.6) k/uL Neutrophils # (1.3-7.7) k/uL Monocytes # (0-1.0) k/uL ABG pH 7.27 L (7.35-7.45) ABG pCO2 31 L (35-45) mmHg ABG pO2 220 H (83-108) mmHg ABG HCO3 14 L (21-25) mmol/L ABG Total CO2 15 L (19-24) mmol/L ABG O2 Saturation 97.6 H (94-97) % Carbon Dioxide (22-30) mmol/L BUN (9-20) mg/dL Creatinine (0.66-1.25) mg/dL Glucose (74-99) mg/dL POC Glucose (mg/dL) 249 H 263 H (70-110) mg/dL Calcium (8.4-10.2) mg/dL 07/22/22 07/22/22 07/22/22 Range/Units 20:15 21:24 22:24 WBC (3.8-10.6) k/uL Neutrophils # (1.3-7.7) k/uL Monocytes # (0-1.0) k/uL ABG pH (7.35-7.45) ABG pCO2 (35-45) mmHg ABG pO2 (83-108) mmHg ABG HCO3 (21-25) mmol/L ABG Total CO2 (19-24) mmol/L ABG O2 Saturation (94-97) % Carbon Dioxide (22-30) mmol/L BUN (9-20) mg/dL Creatinine (0.66-1.25) mg/dL Glucose (74-99) mg/dL POC Glucose (mg/dL) 213 H 268 H 215 H (70-110) mg/dL Calcium (8.4-10.2) mg/dL 07/22/22 07/23/22 07/23/22 Range/Units 23:07 00:15 01:27 WBC (3.8-10.6) k/uL Neutrophils # (1.3-7.7) k/uL Monocytes # (0-1.0) k/uL ABG pH (7.35-7.45) ABG pCO2 (35-45) mmHg ABG pO2 (83-108) mmHg ABG HCO3 (21-25) mmol/L ABG Total CO2 (19-24) mmol/L ABG O2 Saturation (94-97) % Carbon Dioxide (22-30) mmol/L BUN (9-20) mg/dL Creatinine (0.66-1.25) mg/dL Glucose (74-99) mg/dL POC Glucose (mg/dL) 213 H 196 H 200 H (70-110) mg/dL Calcium (8.4-10.2) mg/dL 07/23/22 07/23/22 07/23/22 Range/Units 02:36 03:07 04:30 WBC 16.6 H (3.8-10.6) k/uL Neutrophils # 12.8 H (1.3-7.7) k/uL Monocytes # 1.1 H (0-1.0) k/uL ABG pH (7.35-7.45) ABG pCO2 (35-45) mmHg ABG pO2 (83-108) mmHg ABG HCO3 (21-25) mmol/L ABG Total CO2 (19-24) mmol/L ABG O2 Saturation (94-97) % Carbon Dioxide (22-30) mmol/L BUN (9-20) mg/dL Creatinine (0.66-1.25) mg/dL Glucose (74-99) mg/dL POC Glucose (mg/dL) 182 H 185 H (70-110) mg/dL Calcium (8.4-10.2) mg/dL 07/23/22 07/23/22 07/23/22 Range/Units 04:30 04:30 05:10 WBC (3.8-10.6) k/uL Neutrophils # (1.3-7.7) k/uL Monocytes # (0-1.0) k/uL ABG pH (7.35-7.45) ABG pCO2 (35-45) mmHg ABG pO2 (83-108) mmHg ABG HCO3 (21-25) mmol/L ABG Total CO2 (19-24) mmol/L ABG O2 Saturation (94-97) % Carbon Dioxide 16 L (22-30) mmol/L BUN 88 H (9-20) mg/dL Creatinine 3.39 H (0.66-1.25) mg/dL Glucose 150 H (74-99) mg/dL POC Glucose (mg/dL) 156 H 169 H (70-110) mg/dL Calcium 7.5 L (8.4-10.2) mg/dL 07/23/22 07/23/22 07/23/22 Range/Units 05:52 06:23 07:15 WBC (3.8-10.6) k/uL Neutrophils # (1.3-7.7) k/uL Monocytes # (0-1.0) k/uL ABG pH 7.33 L (7.35-7.45) ABG pCO2 32 L (35-45) mmHg ABG pO2 261 H (83-108) mmHg ABG HCO3 17 L (21-25) mmol/L ABG Total CO2 18 L (19-24) mmol/L ABG O2 Saturation 98.0 H (94-97) % Carbon Dioxide (22-30) mmol/L BUN (9-20) mg/dL Creatinine (0.66-1.25) mg/dL Glucose (74-99) mg/dL POC Glucose (mg/dL) 135 H 130 H (70-110) mg/dL Calcium (8.4-10.2) mg/dL 07/23/22 07/23/22 07/23/22 Range/Units 07:48 09:56 12:09 WBC (3.8-10.6) k/uL Neutrophils # (1.3-7.7) k/uL Monocytes # (0-1.0) k/uL ABG pH (7.35-7.45) ABG pCO2 (35-45) mmHg ABG pO2 (83-108) mmHg ABG HCO3 (21-25) mmol/L ABG Total CO2 (19-24) mmol/L ABG O2 Saturation (94-97) % Carbon Dioxide (22-30) mmol/L BUN (9-20) mg/dL Creatinine (0.66-1.25) mg/dL Glucose (74-99) mg/dL POC Glucose (mg/dL) 150 H 174 H 198 H (70-110) mg/dL Calcium (8.4-10.2) mg/dL 07/23/22 07/23/22 07/23/22 Range/Units 13:10 14:13 15:32 WBC (3.8-10.6) k/uL Neutrophils # (1.3-7.7) k/uL Monocytes # (0-1.0) k/uL ABG pH (7.35-7.45) ABG pCO2 (35-45) mmHg ABG pO2 (83-108) mmHg ABG HCO3 (21-25) mmol/L ABG Total CO2 (19-24) mmol/L ABG O2 Saturation (94-97) % Carbon Dioxide (22-30) mmol/L BUN (9-20) mg/dL Creatinine (0.66-1.25) mg/dL Glucose (74-99) mg/dL POC Glucose (mg/dL) 210 H 244 H 259 H (70-110) mg/dL Calcium (8.4-10.2) mg/dL Microbiology - Last 24 Hours (Table) 07/18/22 09:50 Blood Culture - Preliminary Blood No Growth after 120 hours 07/18/22 09:35 Blood Culture - Preliminary Blood No Growth after 120 hours 07/22/22 19:27 Sputum Culture - Preliminary Sputum 07/19/22 16:40 Blood Culture - Preliminary Blood No Growth after 72 hours Assessment and Plan (1) UTI (urinary tract infection) Current Visit: Yes Status: Acute Code(s): N39.0 - URINARY TRACT INFECTION, SITE NOT SPECIFIED SNOMED Code(s): 27664304 (2) Pneumonia Current Visit: Yes Status: Acute Code(s): J18.9 - PNEUMONIA, UNSPECIFIED ORGANISM SNOMED Code(s): 900961202 Plan: 1patient presented to hospital with increasing shortness of breath which is likely multifactorial in this patient with interstitial infiltrate high clinic suspicious for possible fluid related underlying pneumonia less likely but not entirely excluded in this patient with Negative COVID test. 2positive UA had concern for possible UTI likely from enteric gram-negative pathogen, urine cultures have been negative so far. 3patient did have a negative RSV and influenza PCR however urine for Legionella antigen is negative as well. 4patient respiratory status did have some improvement with FiO2 down to 50%, patient to with the cefepime and Levaquin while awaiting for the sputum culture to be finalize
[2022-07-23] MEDS: DILTIAZEM 125 MG in SODIUM CHLORIDE 0.9% 100 ML IV SCH (17:11)
[2022-07-23 17:20] LABS: Glucose,Whole Blood 272 mg/dL (70-110)
[2022-07-23 18:21] LABS: Glucose,Whole Blood 266 mg/dL (70-110)
[2022-07-23 18:54] LABS: Glucose,Whole Blood 288 mg/dL (70-110)
[2022-07-23 20:44] LABS: Glucose,Whole Blood 280 mg/dL (70-110)
[2022-07-23] MEDS: CEFEPIME 1 GM in SODIUM CHLORIDE 0.9% 50 ML IVPB SCH (21:29)
[2022-07-23 21:38] LABS: Glucose,Whole Blood 249 mg/dL (70-110)
[2022-07-23 22:24] LABS: Glucose,Whole Blood 264 mg/dL (70-110)
[2022-07-23 23:19] LABS: Glucose,Whole Blood 286 mg/dL (70-110)
[2022-07-23 23:19] LABS: Glucose,Whole Blood 258 mg/dL (70-110)
[2022-07-24 00:22] LABS: Glucose,Whole Blood 223 mg/dL (70-110)
[2022-07-24] MEDS: INSULIN REGULAR 100 UNIT in SODIUM CHLORIDE 0.9% 100 ML IV SCH ×3 (00:47→10:47)
[2022-07-24 01:29] LABS: Glucose,Whole Blood 217 mg/dL (70-110)
[2022-07-24 02:17] LABS: Glucose,Whole Blood 197 mg/dL (70-110)
[2022-07-24] MEDS: IPRATROPIUM-ALBUTEROL 3 ML NEB INHALATION SCH ×5 (03:01→19:21)
[2022-07-24] MEDS: NOREPINEPHRINE 4 MG in SODIUM CHLORIDE 0.9% 250 ML IV SCH ×4 (03:05→18:28)
[2022-07-24 03:36] LABS: Glucose,Whole Blood 188 mg/dL (70-110)
[2022-07-24] MEDS: DILTIAZEM 125 MG in SODIUM CHLORIDE 0.9% 100 ML IV SCH ×2 (03:39→14:54)
[2022-07-24] MEDS: DEXTROSE 5% IN WATER 1,000 ML with SODIUM BICARB (1 MEQ/ML) 150 ML IV SCH (03:39)
[2022-07-24 04:22] LABS: Glucose,Whole Blood 205 mg/dL (70-110)
[2022-07-24 04:33] LABS: Basophils # (A) 0.1 k/uL (0-0.2); Basophils % (A) 1 %; Eosinophils # (A) 0.1 k/uL (0-0.7); Eosinophils % (A) 1 %; HGB 12.3 gm/dL (13.0-17.5); Lymphocytes # (A) 1.6 k/uL (1.0-4.8); Lymphocytes % (A) 11 %; MCH 29.1 pg (25.0-35.0); MCHC 32.5 g/dL (31.0-37.0); MCV 89.4 fL (80.0-100.0); Monocytes # (A) 0.8 k/uL (0-1.0); Monocytes % (A) 6 %; Neutrophils # (A) 11.2 k/uL (1.3-7.7); Neutrophils % (A) 81 %; Platelet Count 109 k/uL (150-450); RBC 4.25 m/uL (4.30-5.90); RDW 15.3 % (11.5-15.5); WBC 13.9 k/uL (3.8-10.6)
[2022-07-24 05:07] LABS: Albumin 2.3 g/dL (3.5-5.0); Calcium 7.1 mg/dL (8.4-10.2); Potassium 3.7 mmol/L (3.5-5.1); Total Bilirubin 2.3 mg/dL (0.2-1.3); Total Protein 4.9 g/dL (6.3-8.2)
[2022-07-24 05:10] LABS: ABG Base Excess -6.9 mmol/L; ABG HCO3 19 mmol/L (21-25); ABG Hematocrit 38 % (34.0-46.0); ABG Oxygen Saturation 86.1 % (94-97); ABG PCO2 36 mmHg (35-45); ABG PH 7.33 (7.35-7.45); ABG TCO2 20 mmol/L (19-24)
[2022-07-24 05:13] LABS: Glucose,Whole Blood 163 mg/dL (70-110)
[2022-07-24 05:15] LABS: ABG PO2 59 mmHg (83-108); Allen Test Performed? no
[2022-07-24 06:11] LABS: Glucose,Whole Blood 158 mg/dL (70-110)
[2022-07-24 07:06] LABS: Glucose,Whole Blood 144 mg/dL (70-110)
--- NOTE | 2022-07-24 07:12 | XR ---
EXAMINATION TYPE: XR chest 1V portable DATE OF EXAM: 07/24/2022 6:00 AM COMPARISON: Chest radiographs from 07/23/2022 TECHNIQUE: XR chest 1V portable Frontal view of the chest. CLINICAL INDICATION:Male, 72 years old with history of Tube placement; FINDINGS: Lungs/Pleura: No pneumothorax. Redemonstration of bibasilar airspace infiltrates and consolidation. S mall bilateral pleural effusions. Pulmonary vascularity: Unremarkable. Heart/mediastinum: Cardiomediastinal silhouette is unremarkable. Musculoskeletal: No acute osseous pa thology. Lines/Tubes: Endotracheal tube with distal tip 4.1 cm above the scott. Left IJ central venous catheter tip terminating in the high SVC. Enteric tube demonstrated in stable position. IMPRESSION: 1. Small bilateral pleural effusions with similar bibasilar multifocal patchy airspace disease concer pj for multifocal pneumonia. 2. Stable position of support lines and tubes.
[2022-07-24 07:59] LABS: Glucose,Whole Blood 177 mg/dL (70-110)
[2022-07-24] MEDS: CHLORHEXIDINE GLUCONATE 15 ML CUP MUCOUS MEM SCH ×2 (08:21→20:40)
[2022-07-24] MEDS ORDERED: FUROSEMIDE 10 MG/ML 10 ML VIAL IV STA (08:55)
[2022-07-24] MEDS ORDERED: LEVOFLOXACIN 750MG-D5W PMX 750 MG in DEXTROSE/WATER 1 150ML.BAG IVPB SCH (09:00)
[2022-07-24 09:08] LABS: Glucose,Whole Blood 226 mg/dL (70-110)
[2022-07-24 09:26] LABS: ABG Base Excess -7.7 mmol/L; ABG HCO3 19 mmol/L (21-25); ABG Hematocrit 39 % (34.0-46.0); ABG Oxygen Saturation 77.1 % (94-97); ABG PCO2 42 mmHg (35-45); ABG PH 7.27 (7.35-7.45); ABG TCO2 21 mmol/L (19-24)
[2022-07-24 09:27] LABS: ABG PO2 50 mmHg (83-108)
--- NOTE | 2022-07-24 09:34 | P.PN ---
Subjective Progress Note Date: 07/24/22 Very pleasant 72-year-old male patient who has a history of diabetes mellitus, uncontrolled, hyperlipidemia, hypertension, morbid obesity, obstructive sleep apnea maintained on CPAP, atrial fibrillation not on anticoagulants currently, BPH with recent surgery and clot evacuation in March and then again in April and the patient did have hematuria and is Eliquis that time. He presented to the emergency room following this morning with difficulty in breathing. He also had some increased swelling of his lower extremities. Chest x-ray revealed diffuse moderate to severe bilateral lower lung edema and/or atypical infiltrates. EKG revealed atrial fibrillation with a rapid ventricular response and nonspecific ST and T wave abnormalities. Lactic acid 2.4, troponin 2.1, 2.38, blood glucose 373. White count 17.6. Hemoglobin 15.7. INR 1.0. Sodium 142. Potassium 3.6. Bicarb 24. BUN 29. Creatinine 1.08. He ST 49. ALT 15. ProBNP 1530. His oxygen saturation was 85% on room air at presentation. He is seen today in consultation in the emergency department. He's currently on BiPAP at 18/10 and 40% FiO2 with O2 saturations in the 90s. Mostly BiPAP dependent since admission. He is also hypotensive requiring norepinephrine currently at 0.05 mcg/kg/m. He's been given Lasix 40 mg IVP 1 with minimal urine output. He is also initiated on ceftriaxone and azithromycin. He was initiated back on Eliquis. On 07/19/2022, the patient is sitting better compared to yesterday. A Lezama catheter was inserted yesterday. The patient is producing adequate amount of urine output and the patient is a negative fluid balance of at least 1 L over the past 24 hours. He spent the night on BiPAP at a pressure 15/10 cm of water and FiO2 of 50%. This morning, the patient was taken off the BiPAP and the patient is currently on 4 L of O2 nasal cannula. The patient was also taken off the norepinephrine infusion since 10 PM yesterday. Remains on a combination of Rocephin and Zithromax. Repeat chest x-ray from today shows residual infiltration of the left although improved. Infiltration of the right is also improved. The patient is hemodynamically stable. The patient is afebrile. The white cell count of 12.8. Normal coagulation profile. BUN is a 45 and a creatinine of 1.3. The hemoglobin A1c was 11 indicating it for blood sugar control. Sodium level is at 139. Urine cultures still negative for now. A limited echocardiogram was done in the emergency department and the patient had a technically difficult study. There was mild LVH. There was normal LV function with an ejection fraction of 60%. The patient remains in atrial fibrillation. The patient is also on anticoagulation with Eliquis 5 mg by mouth twice a day. 07/20/2022, the patient is BiPAP dependent. He did have some time while off the BiPAP yesterday. Nevertheless, subsequently became short of breath and he was on the BiPAP and this morning is still on the BiPAP at a pressure of 18/10 cm of water and FiO2 of 50%. He is degenerative tidal volume is around 900 mL with a respiratory rate of 22. He seems to be quite dependent on the BiPAP. The chest x-ray showing resolving pulmonary edema. There is extensive consolidation of the left lower lobe consistent with an underlying pneumonia. The patient was receiving a combination of Rocephin and Zithromax. I'm going to modify the antibiotic coverage for now and step of the antibiotic coverage. Cultures are negative thus far. The patient is hemodynamically stable. Is currently off pressors. In fact he is normotensive and tachycardic with atrial fibrillation. He was started on Cardizem drip at 5 mg an hour for rate control in addition to metoprolol 50 mg by mouth 3 times a day. His pro-calcitonin level was at 0.48. His white cell count is still mildly elevated at 16 with a hemoglobin 13.5 and a platelet count of 277. His BUN is at 52 with a creatinine of 1.1 and sodium level of 136 and a chloride level of 97 with a bicarb level of 25. Blood sugars are elevated. He is awake and oriented to his communicating. His underlying LV function is essentially within normal limits and he remains on long-term and coagulation with Eliquis. 07/21/2022, the patient is struggling with his breathing. Overnight, the patient continued to have difficulty with breathing and episodic oxygen desaturations. The patient would desaturate easily once off the BiPAP machine. Earlier this morning, evaluated the patient patient was having labored breathing. His aspiration was in the low 30s. He was on a BiPAP pressure of 18/10 cm of water and FiO2 of 75%. A repeat chest x-ray was done yesterday and showed persistent consolidation of left lower lobe. There is also evidence of some mild CHF and cardiomegaly. The patient remains on examination cefepime and Levaquin. The white cell count is at 13 with hemoglobin 15.9. The COVID 19 juan carlos ting was negative. Influenza a and B were both negative and the RSV by PCR was also negative. The patient's troponin down trended down to 0.8. The patient continues to be in atrial fibrillation. The Cardizem drip is being titrated to maintain a adequate heart rate at this point. Blood gases from today showed a pH of 7.48 with a pCO2 of 40 and pO2 of 66 and this was on FiO2 of 50%. Accordingly, the FiO2 was brought up. His breathing is labored. Is a high likelihood that the patient may require intubation mechanical ventilation. I give him additional dose of Lasix this morning. His BUN at 54 with a creatinine of 1.05. His sodium level is at 138. All of the blood cultures of been ne gative thus far. I also had a discussion with his daughter the bedside. 07/22/2022, the patient is being seen in for a follow-up. He continues to struggle with his breathing. Despite being on a BiPAP, the patient states that he is having hard time breathing and is unable to breathe comfortably or maintain his aspiration. This morning, the patient's was on Precedex at 0.2 mics and respiratory per hour. The patient was also on a BiPAP at a pressure 18/10 with an FiO2 of 100%. Blood gases from today showed a pH of 7.43 with a pCO2 of 30 and pO2 of 68. Nevertheless, the patient's chest x-ray showing extensive bilateral lower lobe consolidation along with cardiomegaly and the patient is currently covered with a combination of cefepime and Levaquin. At the same time, the patient was being diuresed due to concern of an underlying CHF. Along with diuresis, the patient became hypotensive and he was started on norepinephrine which was running at a dose of 0.03 mcg/kg per minute this mo rning and the patient also developed an acute kidney injury with a creatinine was found to be elevated at 2.1 with a 74. Serum bicarbonate of 18 with a sodium level of 136. Based on this decline in overall condition respirator status, I made decision to proceed with intubation mechanical ventilation. I intubated patient with a #8 endotracheal tube. I placed on a mechanical ventilator. Note that the patient was immediately given a total of 2 L of IV fluid normal saline and he was started on a maintenance of 100 mL an hour normal saline and the norepinephrine dose will be titrated accordingly to maintain a saturation above 90%. Post intubation chest x-ray showed adequate positioning of the oral check and orogastric tube. The patient also had a triple lumen catheter inserted in the left internal jugular vein without any complications and the catheter was in a good location. The patient is going to undergo a computed tomography scan of the chest once condition is more stabilized. He'll be kept on propofol which is running at 40 mcg/kg per minute at this point in time. Enteral feeding will be also initiated. On 07/23/2022, the patient is intubated on a mechanical ventilator. The patient is sedated with propofol which is running at 25 Spencer respiratory kilogram per minute. The patient is quite symptomatic and is a mechanical ventilator. His assist-control mode of mechanical ventilation with a rate of 26 and a tidal volume of 600 and FiO2 of 50% with a PEEP of 18. Peak airway pressures around 34. Pages of 7.33 with a pCO2 of 32 and pO2 of 261. The patient's chest x-ray shows consolidations and diffusion lung bases bilaterally. ET tube is in a good location. CAT scan of the chest was also done yesterday and the patient was found to have moderate-sized bilateral pleural effusion worse on the right and some atelectatic changes and bibasilar consolidation most of the lung bases bilaterally. The patient is not having a significant orotracheal secretions. A bronchoscopy was done at the bedside and bronchioloalveolar lavage of the right middle lobe was obtained. Cultures will be sent for further analysis. Meanwhile, the patient remains on a combination of cefepime and Levaquin. Is afebrile for now. Hemodynamically, he remains hypotensive and the patient remains on norepinephrine at 0.13 Spencer respiratory kilogram per minute. His urine output is in order of 5 mL an hour and he has a very poor urine output. Fluid balance is +6 L over the past 24 hours as the patient received a total of 3 L bolus and currently is on normal saline at the rate of 100 mL an hour. He remains in atrial fibrillation. Rate is controlled. He is currently off C ardizem. He is on insulin drip on and off for tighter blood sugar control. He is also on vital high protein at the rate of 10 mL an hour. On today's blood work, the patient's creatinine is on the rise as the patient developed an acute kidney injury and the patient's BUN is at 88 with a creatinine of 3.3. Sodium is at 13 with a potassium level of 3.9. Serum bicarbs at 16. The white cell count is 16.6 and hemoglobin 15.2 and platelet count of 195. 07/24/2022, the patient remains intubated on a mechanical ventilator. This morning, the patient is sedated with propofol which is running at 35 mcg/kg per minute. The patient is quite comfortable and sedated and he is synchronous the mechanical ventilator. He is on assist control mode and he was earlier this morning on a PEEP of 15 with an FiO2 of 50% and his rate is currently at 26 and a tidal volume of 600. The morning blood gases showed a pH of 7.33 with a pCO2 of 36 and pO2 of 59. Based on that I increased the FiO2 up to 60% initially. Later on, as the patient was still staying hypoxic, I increased the PEEP back up to 18 and the patient is currently on FiO2 of 100%. Repeat blood gases are pending for now. Meanwhile, the chest x-ray is showing bilateral lower lobe consolidation and moderate-sized bilateral pleural effusions. Hemodynamically, the patient is still on pressors. He is on norepinephrine infusion currently running at 0.12 mcg/kg per minute. Overnight, the patient was having issues with atrial fibrillation with rapid ventricular response. Cardiology was involved again the patient was started on a Cardizem and the patient is currently Cardizem drip at the rate of 10 mg an hour. His heart rate is under better control and is currently less than 100. He remains in atrial fibrillation for now. The patient's urine output is quite low and nephrology was involved. The patient has an acute kidney injury and today's blood work also showed a component of shock liver. A hemodialysis catheter was inserted yesterday and this was inserted in the left femoral vein. The patient will be started on low slow efficiency dialysis today with ultrafiltration. He obviously has signs of fluid overload. On today's blood work, his BUN is 102 with a creatinine of 5.3. Sodium is at 137. Serum bicarbs at 17. Otherwise a positive D point hemoglobin of 12.3. The patient does have a component of shock liver. AST and ALP are both elevated significantly, please refer to the labs. The BUN is 102 with a creatinine of 5.3. The patient is covered with empiric antibiotics and the patient remains on a combination of cefepime and Levaquin. I performed a bronchoscopy on the patient yesterday and the results of the bronchioloalveolar lavage are still pending. Earlier sputum cultures of been negative. Earlier blood cultures have been negative. Objective - Vital Signs Vital signs: Vital Signs Temp 98.9 F 07/23/22 16:00 Pulse 81 07/24/22 07:56 Resp 26 H 07/24/22 07:56 BP 128/84 07/24/22 06:45 Pulse Ox 88 L 07/24/22 06:45 FiO2 80 07/24/22 07:39 Intake & Output 07/23/22 07/24/22 07/24/22 18:59 06:59 18:59 Intake Total 2398.421 2770.494 156.533 Output Total 125 85 5 Balance 2273.421 2685.494 151.533 Weight 154 kg 158 kg Intake: IV 1220 946 86 0.9 pressure bags 60 66 6 Dextrose 5% in Water 1, 560 880 80 000 ml @ 80 mls/hr IV . [id number] [facility] with Sodium Bicarb (1 Meq/ml) 150 ml Rx#:[id number] Sodium Chloride 0.9% 1, 600 000 ml @ 100 mls/hr IV . Q10H [facility] Rx#:[id number] Intake, IV Titration 2461.300 6484.494 30.533 Amount Cefepime 1 gm In Sodium 100 Chloride 0.9% 50 ml @ 12. 5 mls/hr IVPB Q12HR [facility] Rx#:[id number] Diltiazem 125 mg In 5.083 94.5 Sodium Chloride 0.9% 100 ml @ Per Protocol IV .Q0M [facility] Rx#:[id number] Insulin Regular 100 unit 29.516 134.967 30.533 In Sodium Chloride 0.9% 100 ml @ Titrate IV .Q0M [facility] Rx#:[id number] Norepinephrine 4 mg In 708.556 748.565 Sodium Chloride 0.9% 250 ml @ 0.05 MCG/KG/MIN 25. 923 mls/hr IV .Q9H48M [facility] Rx#:[id number] propofoL 1,000 mg In 295.266 376.462 Empty Bag 1 bag @ 40 MCG/ KG/MIN 34.32 mls/hr IV . Q2H55M [facility] Rx#:[id number] Oral 80 Tube Feeding 60 280 40 Other 90 Output: Urine 125 85 5 Other: Voiding Method Indwelling Catheter Indwelling Catheter ABP, PAP, CO, CI - Last Documented Arterial Blood Pressure 109/67 - Exam GENERAL EXAM: Alert, doesn't obese 72-year-old male patient on mechanical ventilator and the patient is currently intubated on mechanical ventilator, sedated with propofol and orotracheal and orogastric tube are both in place. HEAD: Normocephalic. EYES: Normal reaction of pupils, equal size. NOSE: Clear with pink turbinates. THROAT: No erythema or exudates. NECK: No masses, no JVD., And the patient has a triple-lumen catheter in the left IJ CHEST: No chest wall deformity. LUNGS: Equal air entry with crackles in the bilateral bases. The patient has crackles most on the left lung base CVS: S1 and S2 normal with no audible murmur, regular rhythm. ABDOMEN: No hepatosplenomegaly, normal bowel sounds, no guarding or rigidity. SPINE: No scoliosis or deformity SKIN: No rashes CENTRAL NERVOUS SYSTEM: The patient was awake and alert prior to the intubation process. Currently is well sedated. EXTREMITIES: There is one plus peripheral edema. No clubbing, no cyanosis. Peripheral pulses are diminished as the patient developed hypotension postintubation. - Labs CBC & Chem 7: 07/24/22 04:15 07/24/22 04:15 Labs: Abnormal Lab Results - Last 24 Hours (Table) 07/23/22 07/23/22 07/23/22 Range/Units 09:56 12:09 13:10 WBC (3.8-10.6) k/uL RBC (4.30-5.90) m/uL Hgb (13.0-17.5) gm/dL Hct (39.0-53.0) % Plt Count (150-450) k/uL Neutrophils # (1.3-7.7) k/uL ABG pH (7.35-7.45) ABG pO2 (83-108) mmHg ABG HCO3 (21-25) mmol/L ABG O2 Saturation (94-97) % Hemoglobin (13.0-17.5) gm/dL Carbon Dioxide (22-30) mmol/L BUN (9-20) mg/dL Creatinine (0.66-1.25) mg/dL Glucose (74-99) mg/dL POC Glucose (mg/dL) 174 H 198 H 210 H (70-110) mg/dL Calcium (8.4-10.2) mg/dL Total Bilirubin (0.2-1.3) mg/dL AST (17-59) U/L ALT (4-49) U/L Alkaline Phosphatase (38-126) U/L Total Protein (6.3-8.2) g/dL Albumin (3.5-5.0) g/dL 07/23/22 07/23/22 07/23/22 Range/Units 14:13 15:32 17:18 WBC (3.8-10.6) k/uL RBC (4.30-5.90) m/uL Hgb (13.0-17.5) gm/dL Hct (39.0-53.0) % Plt Count (150-450) k/uL Neutrophils # (1.3-7.7) k/uL ABG pH (7.35-7.45) ABG pO2 (83-108) mmHg ABG HCO3 (21-25) mmol/L ABG O2 Saturation (94-97) % Hemoglobin (13.0-17.5) gm/dL Carbon Dioxide (22-30) mmol/L BUN (9-20) mg/dL Creatinine (0.66-1.25) mg/dL Glucose (74-99) mg/dL POC Glucose (mg/dL) 244 H 259 H 272 H (70-110) mg/dL Calcium (8.4-10.2) mg/dL Total Bilirubin (0.2-1.3) mg/dL AST (17-59) U/L ALT (4-49) U/L Alkaline Phosphatase (38-126) U/L Total Protein (6.3-8.2) g/dL Albumin (3.5-5.0) g/dL 07/23/22 07/23/22 07/23/22 Range/Units 18:19 18:52 20:42 WBC (3.8-10.6) k/uL RBC (4.30-5.90) m/uL Hgb (13.0-17.5) gm/dL Hct (39.0-53.0) % Plt Count (150-450) k/uL Neutrophils # (1.3-7.7) k/uL ABG pH (7.35-7.45) ABG pO2 (83-108) mmHg ABG HCO3 (21-25) mmol/L ABG O2 Saturation (94-97) % Hemoglobin (13.0-17.5) gm/dL Carbon Dioxide (22-30) mmol/L BUN (9-20) mg/dL Creatinine (0.66-1.25) mg/dL Glucose (74-99) mg/dL POC Glucose (mg/dL) 266 H 288 H 280 H (70-110) mg/dL Calcium (8.4-10.2) mg/dL Total Bilirubin (0.2-1.3) mg/dL AST (17-59) U/L ALT (4-49) U/L Alkaline Phosphatase (38-126) U/L Total Protein (6.3-8.2) g/dL Albumin (3.5-5.0) g/dL 07/23/22 07/23/22 07/23/22 Range/Units 21:37 22:22 23:16 WBC (3.8-10.6) k/uL RBC (4.30-5.90) m/uL Hgb (13.0-17.5) gm/dL Hct (39.0-53.0) % Plt Count (150-450) k/uL Neutrophils # (1.3-7.7) k/uL ABG pH (7.35-7.45) ABG pO2 (83-108) mmHg ABG HCO3 (21-25) mmol/L ABG O2 Saturation (94-97) % Hemoglobin (13.0-17.5) gm/dL Carbon Dioxide (22-30) mmol/L BUN (9-20) mg/dL Creatinine (0.66-1.25) mg/dL Glucose (74-99) mg/dL POC Glucose (mg/dL) 249 H 264 H 286 H (70-110) mg/dL Calcium (8.4-10.2) mg/dL Total Bilirubin (0.2-1.3) mg/dL AST (17-59) U/L ALT (4-49) U/L Alkaline Phosphatase (38-126) U/L Total Protein (6.3-8.2) g/dL Albumin (3.5-5.0) g/dL 07/23/22 07/24/22 07/24/22 Range/Units 23:17 00:21 01:27 WBC (3.8-10.6) k/uL RBC (4.30-5.90) m/uL Hgb (13.0-17.5) gm/dL Hct (39.0-53.0) % Plt Count (150-450) k/uL Neutrophils # (1.3-7.7) k/uL ABG pH (7.35-7.45) ABG pO2 (83-108) mmHg ABG HCO3 (21-25) mmol/L ABG O2 Saturation (94-97) % Hemoglobin (13.0-17.5) gm/dL Carbon Dioxide (22-30) mmol/L BUN (9-20) mg/dL Creatinine (0.66-1.25) mg/dL Glucose (74-99) mg/dL POC Glucose (mg/dL) 258 H 223 H 217 H (70-110) mg/dL Calcium (8.4-10.2) mg/dL Total Bilirubin (0.2-1.3) mg/dL AST (17-59) U/L ALT (4-49) U/L Alkaline Phosphatase (38-126) U/L Total Protein (6.3-8.2) g/dL Albumin (3.5-5.0) g/dL 07/24/22 07/24/22 07/24/22 Range/Units 02:16 03:35 04:15 WBC 13.9 H (3.8-10.6) k/uL RBC 4.25 L (4.30-5.90) m/uL Hgb 12.3 L (13.0-17.5) gm/dL Hct 38.0 L (39.0-53.0) % Plt Count 109 L (150-450) k/uL Neutrophils # 11.2 H (1.3-7.7) k/uL ABG pH (7.35-7.45) ABG pO2 (83-108) mmHg ABG HCO3 (21-25) mmol/L ABG O2 Saturation (94-97) % Hemoglobin (13.0-17.5) gm/dL Carbon Dioxide (22-30) mmol/L BUN (9-20) mg/dL Creatinine (0.66-1.25) mg/dL Glucose (74-99) mg/dL POC Glucose (mg/dL) 197 H 188 H (70-110) mg/dL Calcium (8.4-10.2) mg/dL Total Bilirubin (0.2-1.3) mg/dL AST (17-59) U/L ALT (4-49) U/L Alkaline Phosphatase (38-126) U/L Total Protein (6.3-8.2) g/dL Albumin (3.5-5.0) g/dL 07/24/22 07/24/22 07/24/22 Range/Units 04:15 04:20 05:10 WBC (3.8-10.6) k/uL RBC (4.30-5.90) m/uL Hgb (13.0-17.5) gm/dL Hct (39.0-53.0) % Plt Count (150-450) k/uL Neutrophils # (1.3-7.7) k/uL ABG pH 7.33 L (7.35-7.45) ABG pO2 59 L* (83-108) mmHg ABG HCO3 19 L (21-25) mmol/L ABG O2 Saturation 86.1 L (94-97) % Hemoglobin 12.4 L (13.0-17.5) gm/dL Carbon Dioxide 17 L (22-30) mmol/L BUN 102 H* (9-20) mg/dL Creatinine 5.31 H (0.66-1.25) mg/dL Glucose 195 H (74-99) mg/dL POC Glucose (mg/dL) 205 H (70-110) mg/dL Calcium 7.1 L (8.4-10.2) mg/dL Total Bilirubin 2.3 H (0.2-1.3) mg/dL AST 7346 H (17-59) U/L ALT 2870 H (4-49) U/L Alkaline Phosphatase 190 H (38-126) U/L Total Protein 4.9 L (6.3-8.2) g/dL Albumin 2.3 L (3.5-5.0) g/dL 07/24/22 07/24/22 07/24/22 Range/Units 05:11 06:09 07:04 WBC (3.8-10.6) k/uL RBC (4.30-5.90) m/uL Hgb (13.0-17.5) gm/dL Hct (39.0-53.0) % Plt Count (150-450) k/uL Neutrophils # (1.3-7.7) k/uL ABG pH (7.35-7.45) ABG pO2 (83-108) mmHg ABG HCO3 (21-25) mmol/L ABG O2 Saturation (94-97) % Hemoglobin (13.0-17.5) gm/dL Carbon Dioxide (22-30) mmol/L BUN (9-20) mg/dL Creatinine (0.66-1.25) mg/dL Glucose (74-99) mg/dL POC Glucose (mg/dL) 163 H 158 H 144 H (70-110) mg/dL Calcium (8.4-10.2) mg/dL Total Bilirubin (0.2-1.3) mg/dL AST (17-59) U/L ALT (4-49) U/L Alkaline Phosphatase (38-126) U/L Total Protein (6.3-8.2) g/dL Albumin (3.5-5.0) g/dL 07/24/22 07/24/22 Range/Units 07:58 09:06 WBC (3.8-10.6) k/uL RBC (4.30-5.90) m/uL Hgb (13.0-17.5) gm/dL Hct (39.0-53.0) % Plt Count (150-450) k/uL Neutrophils # (1.3-7.7) k/uL ABG pH (7.35-7.45) ABG pO2 (83-108) mmHg ABG HCO3 (21-25) mmol/L ABG O2 Saturation (94-97) % Hemoglobin (13.0-17.5) gm/dL Carbon Dioxide (22-30) mmol/L BUN (9-20) mg/dL Creatinine (0.66-1.25) mg/dL Glucose (74-99) mg/dL POC Glucose (mg/dL) 177 H 226 H (70-110) mg/dL Calcium (8.4-10.2) mg/dL Total Bilirubin (0.2-1.3) mg/dL AST (17-59) U/L ALT (4-49) U/L Alkaline Phosphatase (38-126) U/L Total Protein (6.3-8.2) g/dL Albumin (3.5-5.0) g/dL Microbiology - Last 24 Hours (Table) 07/19/22 16:40 Blood Culture - Preliminary Blood No Growth after 96 hours 07/18/22 09:50 Blood Culture - Preliminary Blood No Growth after 120 hours 07/18/22 09:35 Blood Culture - Preliminary Blood No Growth after 120 hours 07/22/22 19:27 Sputum Culture - Preliminary Sputum Assessment and Plan Assessment: Acute hypoxemic respiratory failure secondary to extensive bilateral lower lobe pneumonia and consolidation. On follow-up CAT scan of the chest, the patient had moderate-sized right-sided pleural effusion and atelectatic changes and infiltrates in lung bases bilaterally. Unfortunately, the patient has not given us any positive cultures and the patient is still covered with broad-spectrum antibiotics with a combination of cefepime and Levaquin. The patient also developed an acute kidney injury and he does have an acute on top of chronic heart failure secondary to diastolic heart failure further decompensated by Susanne cardoso RVR at time of admission. Note that the patient is currently on a mechanical ventilator with high PEEP and pO2 is improved. The patient was intubated yesterday on 07/22/2022 and remains on a mechanical ventilator. After some initial improvement in oxygenation, this morning oxygenation is worse and we are in the process of making adjustment mechanical ventilator with increased PEEP to maintain oxygenation. Awaiting a follow-up blood gases. The patient is also going to start on slow low efficiency dialysis today with ultrafiltration. Hemodynamically, the patient is a shock with multisystem organ failure. He has shock liver, acute kidney injury, acute respiratory failure. Bronchoscopy and bronchial lavage was done yesterday and results are still pending for now. Acute respiratory failure was hypoxic initially admitted to pneumonia and bilateral pleural effusion fluid overload and CHF. There may be also a com ponent of ARDS and oxygenation is significantly impaired at this point in time. Acute kidney injury, secondary to diuresis intravascular volume depletion, and hypotension, and the patient is currently oliguric and his creatinine is on the rise and the patient is going to start dialysis Elevated troponin possible non-ST segment elevation myocardial infarction, downtrending and the most recent troponin level is down to 0.8 Atrial fibrillation with rapid ventricular response At the time of the admission and the patient's heart is under better control and the patient on a Cardizem drip at 10 mg an hour Acute hypotension/shock currently on pressors with norepinephrine could become initial septic/cardiogenic and the patient is currently on norepinephrine running at 0.12 mcg/kg per minute Acute shock liver with abnormal LFTs Benign prosthetic hypertrophy with recent surgery in March and then again in April 2022 Morbid obesity, body mass index of 40.7 History of hypertension Diabetes mellitus, poorly controlled, currently on insulin drip for blood sugar control Urinary retention secondary to BPH Known history of obstructive sleep apnea maintained on CPAP therapy on outpatient basis Previous history of hematuria for that reason the patient took himself off anticoagulation Previous history of cystoscopy on bipolar transurethral resection of the prostate/TURP for symptoms of BPH Plan: Keep the patient sedated with propofol Continue ventilator support and increase the PEEP up to 22 with an FiO2 of 100% and a blood gas Bronchoscopy and the bronchioloalveolar lavage of the right middle lobe was done and results are still pending for now Initiated slow low efficiency dialysis today Eliquis dose of 2.5 mg twice a day The patient will be given another dose of Lasix she 80 mg of Lasix IV push upon the recommendations of nephrology May benefit from dialysis as long as the patient may stay hemodynamically stable Continue enteral feeding for nutritional support, the patient is on bipolar HP Keep same antibiotic coverage Monitor electrolytes IV fluids to KVO Prognosis poor CODE STATUS to full Evaluation was done and more than 30 minutes and there is a critically care evaluation Time with Patient: Greater than 30
--- NOTE | 2022-07-24 09:45 | P.PN ---
Subjective Patient is seen for follow-up for acute kidney injury. He was admitted to the hospital with shortness of breath. Patient had progressive respiratory failure and was eventually intubated. Patient has been hypotensive and is maintained on pressors. He is maintained on antibiotics for pneumonia. Patient also has significant volume overload. He remains oliguric. Renal function has been progressively worsening Temporary dialysis catheter was placed yesterday for for first dialysis treatment however patient's heart rate was high in the 1:30 to 140 range and therefore dialysis was held yesterday. FiO2 is at 50% yesterday however overnight patient became hypoxic and currently is at 100%. Urine output remains low Patient will be dialyzed today. He is maintained on Cardizem drip. Heart rate is in the 80s Objective - Vital Signs Vital signs: Vital Signs Temp 98.9 F 07/23/22 16:00 Pulse 81 07/24/22 07:56 Resp 26 H 07/24/22 07:56 BP 128/84 07/24/22 06:45 Pulse Ox 88 L 07/24/22 06:45 FiO2 80 07/24/22 07:39 Intake & Output 07/23/22 07/24/22 07/24/22 18:59 06:59 18:59 Intake Total 2398.421 2770.494 156.533 Output Total 125 85 5 Balance 2273.421 2685.494 151.533 Weight 154 kg 158 kg Intake: IV 1220 946 86 0.9 pressure bags 60 66 6 Dextrose 5% in Water 1, 560 880 80 000 ml @ 80 mls/hr IV . [id number] JELLY with Sodium Bicarb (1 Meq/ml) 150 ml Rx#:[id number] Sodium Chloride 0.9% 1, 600 000 ml @ 100 mls/hr IV . Q10H JELLY Rx#:[id number] Intake, IV Titration 6616.833 2922.494 30.533 Amount Cefepime 1 gm In Sodium 100 Chloride 0.9% 50 ml @ 12. 5 mls/hr IVPB Q12HR JELLY Rx#:[id number] Diltiazem 125 mg In 5.083 94.5 Sodium Chloride 0.9% 100 ml @ Per Protocol IV .Q0M JELLY Rx#:[id number] Insulin Regular 100 unit 29.516 134.967 30.533 In Sodium Chloride 0.9% 100 ml @ Titrate IV .Q0M JELLY Rx#:[id number] Norepinephrine 4 mg In 708.556 748.565 Sodium Chloride 0.9% 250 ml @ 0.05 MCG/KG/MIN 25. 923 mls/hr IV .Q9H48M JELLY Rx#:[id number] propofoL 1,000 mg In 295.266 376.462 Empty Bag 1 bag @ 40 MCG/ KG/MIN 34.32 mls/hr IV . Q2H55M JELLY Rx#:[id number] Oral 80 Tube Feeding 60 280 40 Other 90 Output: Urine 125 85 5 Other: Voiding Method Indwelling Catheter Indwelling Catheter ABP, PAP, CO, CI - Last Documented Arterial Blood Pressure 109/67 - Exam Currently sedated and on the vent Examination of the heart S1 and S2 Examination lungs bilateral breath sounds are heard Abdomen is soft nontender distended Examination lower extremities shows edema 1+ bilaterally and in the upper extremities as well EDGE [employer]ER exam cannot be performed - Labs CBC & Chem 7: 07/24/22 04:15 07/24/22 04:15 Labs: Abnormal Lab Results - Last 24 Hours (Table) 07/23/22 07/23/22 07/23/22 Range/Units 09:56 12:09 13:10 WBC (3.8-10.6) k/uL RBC (4.30-5.90) m/uL Hgb (13.0-17.5) gm/dL Hct (39.0-53.0) % Plt Count (150-450) k/uL Neutrophils # (1.3-7.7) k/uL ABG pH (7.35-7.45) ABG pO2 (83-108) mmHg ABG HCO3 (21-25) mmol/L ABG O2 Saturation (94-97) % Hemoglobin (13.0-17.5) gm/dL Carbon Dioxide (22-30) mmol/L BUN (9-20) mg/dL Creatinine (0.66-1.25) mg/dL Glucose (74-99) mg/dL POC Glucose (mg/dL) 174 H 198 H 210 H (70-110) mg/dL Calcium (8.4-10.2) mg/dL Total Bilirubin (0.2-1.3) mg/dL AST (17-59) U/L ALT (4-49) U/L Alkaline Phosphatase (38-126) U/L Total Protein (6.3-8.2) g/dL Albumin (3.5-5.0) g/dL 07/23/22 07/23/22 07/23/22 Range/Units 14:13 15:32 17:18 WBC (3.8-10.6) k/uL RBC (4.30-5.90) m/uL Hgb (13.0-17.5) gm/dL Hct (39.0-53.0) % Plt Count (150-450) k/uL Neutrophils # (1.3-7.7) k/uL ABG pH (7.35-7.45) ABG pO2 (83-108) mmHg ABG HCO3 (21-25) mmol/L ABG O2 Saturation (94-97) % Hemoglobin (13.0-17.5) gm/dL Carbon Dioxide (22-30) mmol/L BUN (9-20) mg/dL Creatinine (0.66-1.25) mg/dL Glucose (74-99) mg/dL POC Glucose (mg/dL) 244 H 259 H 272 H (70-110) mg/dL Calcium (8.4-10.2) mg/dL Total Bilirubin (0.2-1.3) mg/dL AST (17-59) U/L ALT (4-49) U/L Alkaline Phosphatase (38-126) U/L Total Protein (6.3-8.2) g/dL Albumin (3.5-5.0) g/dL 07/23/22 07/23/22 07/23/22 Range/Units 18:19 18:52 20:42 WBC (3.8-10.6) k/uL RBC (4.30-5.90) m/uL Hgb (13.0-17.5) gm/dL Hct (39.0-53.0) % Plt Count (150-450) k/uL Neutrophils # (1.3-7.7) k/uL ABG pH (7.35-7.45) ABG pO2 (83-108) mmHg ABG HCO3 (21-25) mmol/L ABG O2 Saturation (94-97) % Hemoglobin (13.0-17.5) gm/dL Carbon Dioxide (22-30) mmol/L BUN (9-20) mg/dL Creatinine (0.66-1.25) mg/dL Glucose (74-99) mg/dL POC Glucose (mg/dL) 266 H 288 H 280 H (70-110) mg/dL Calcium (8.4-10.2) mg/dL Total Bilirubin (0.2-1.3) mg/dL AST (17-59) U/L ALT (4-49) U/L Alkaline Phosphatase (38-126) U/L Total Protein (6.3-8.2) g/dL Albumin (3.5-5.0) g/dL 07/23/22 07/23/22 07/23/22 Range/Units 21:37 22:22 23:16 WBC (3.8-10.6) k/uL RBC (4.30-5.90) m/uL Hgb (13.0-17.5) gm/dL Hct (39.0-53.0) % Plt Count (150-450) k/uL Neutrophils # (1.3-7.7) k/uL ABG pH (7.35-7.45) ABG pO2 (83-108) mmHg ABG HCO3 (21-25) mmol/L ABG O2 Saturation (94-97) % Hemoglobin (13.0-17.5) gm/dL Carbon Dioxide (22-30) mmol/L BUN (9-20) mg/dL Creatinine (0.66-1.25) mg/dL Glucose (74-99) mg/dL POC Glucose (mg/dL) 249 H 264 H 286 H (70-110) mg/dL Calcium (8.4-10.2) mg/dL Total Bilirubin (0.2-1.3) mg/dL AST (17-59) U/L ALT (4-49) U/L Alkaline Phosphatase (38-126) U/L Total Protein (6.3-8.2) g/dL Albumin (3.5-5.0) g/dL 07/23/22 07/24/22 07/24/22 Range/Units 23:17 00:21 01:27 WBC (3.8-10.6) k/uL RBC (4.30-5.90) m/uL Hgb (13.0-17.5) gm/dL Hct (39.0-53.0) % Plt Count (150-450) k/uL Neutrophils # (1.3-7.7) k/uL ABG pH (7.35-7.45) ABG pO2 (83-108) mmHg ABG HCO3 (21-25) mmol/L ABG O2 Saturation (94-97) % Hemoglobin (13.0-17.5) gm/dL Carbon Dioxide (22-30) mmol/L BUN (9-20) mg/dL Creatinine (0.66-1.25) mg/dL Glucose (74-99) mg/dL POC Glucose (mg/dL) 258 H 223 H 217 H (70-110) mg/dL Calcium (8.4-10.2) mg/dL Total Bilirubin (0.2-1.3) mg/dL AST (17-59) U/L ALT (4-49) U/L Alkaline Phosphatase (38-126) U/L Total Protein (6.3-8.2) g/dL Albumin (3.5-5.0) g/dL 07/24/22 07/24/22 07/24/22 Range/Units 02:16 03:35 04:15 WBC 13.9 H (3.8-10.6) k/uL RBC 4.25 L (4.30-5.90) m/uL Hgb 12.3 L (13.0-17.5) gm/dL Hct 38.0 L (39.0-53.0) % Plt Count 109 L (150-450) k/uL Neutrophils # 11.2 H (1.3-7.7) k/uL ABG pH (7.35-7.45) ABG pO2 (83-108) mmHg ABG HCO3 (21-25) mmol/L ABG O2 Saturation (94-97) % Hemoglobin (13.0-17.5) gm/dL Carbon Dioxide (22-30) mmol/L BUN (9-20) mg/dL Creatinine (0.66-1.25) mg/dL Glucose (74-99) mg/dL POC Glucose (mg/dL) 197 H 188 H (70-110) mg/dL Calcium (8.4-10.2) mg/dL Total Bilirubin (0.2-1.3) mg/dL AST (17-59) U/L ALT (4-49) U/L Alkaline Phosphatase (38-126) U/L Total Protein (6.3-8.2) g/dL Albumin (3.5-5.0) g/dL 07/24/22 07/24/22 07/24/22 Range/Units 04:15 04:20 05:10 WBC (3.8-10.6) k/uL RBC (4.30-5.90) m/uL Hgb (13.0-17.5) gm/dL Hct (39.0-53.0) % Plt Count (150-450) k/uL Neutrophils # (1.3-7.7) k/uL ABG pH 7.33 L (7.35-7.45) ABG pO2 59 L* (83-108) mmHg ABG HCO3 19 L (21-25) mmol/L ABG O2 Saturation 86.1 L (94-97) % Hemoglobin 12.4 L (13.0-17.5) gm/dL Carbon Dioxide 17 L (22-30) mmol/L BUN 102 H* (9-20) mg/dL Creatinine 5.31 H (0.66-1.25) mg/dL Glucose 195 H (74-99) mg/dL POC Glucose (mg/dL) 205 H (70-110) mg/dL Calcium 7.1 L (8.4-10.2) mg/dL Total Bilirubin 2.3 H (0.2-1.3) mg/dL AST 7346 H (17-59) U/L ALT 2870 H (4-49) U/L Alkaline Phosphatase 190 H (38-126) U/L Total Protein 4.9 L (6.3-8.2) g/dL Albumin 2.3 L (3.5-5.0) g/dL 07/24/22 07/24/22 07/24/22 Range/Units 05:11 06:09 07:04 WBC (3.8-10.6) k/uL RBC (4.30-5.90) m/uL Hgb (13.0-17.5) gm/dL Hct (39.0-53.0) % Plt Count (150-450) k/uL Neutrophils # (1.3-7.7) k/uL ABG pH (7.35-7.45) ABG pO2 (83-108) mmHg ABG HCO3 (21-25) mmol/L ABG O2 Saturation (94-97) % Hemoglobin (13.0-17.5) gm/dL Carbon Dioxide (22-30) mmol/L BUN (9-20) mg/dL Creatinine (0.66-1.25) mg/dL Glucose (74-99) mg/dL POC Glucose (mg/dL) 163 H 158 H 144 H (70-110) mg/dL Calcium (8.4-10.2) mg/dL Total Bilirubin (0.2-1.3) mg/dL AST (17-59) U/L ALT (4-49) U/L Alkaline Phosphatase (38-126) U/L Total Protein (6.3-8.2) g/dL Albumin (3.5-5.0) g/dL 07/24/22 07/24/22 07/24/22 Range/Units 07:58 09:06 09:23 WBC (3.8-10.6) k/uL RBC (4.30-5.90) m/uL Hgb (13.0-17.5) gm/dL Hct (39.0-53.0) % Plt Count (150-450) k/uL Neutrophils # (1.3-7.7) k/uL ABG pH 7.27 L (7.35-7.45) ABG pO2 50 L* (83-108) mmHg ABG HCO3 19 L (21-25) mmol/L ABG O2 Saturation 77.1 L (94-97) % Hemoglobin 12.6 L (13.0-17.5) gm/dL Carbon Dioxide (22-30) mmol/L BUN (9-20) mg/dL Creatinine (0.66-1.25) mg/dL Glucose (74-99) mg/dL POC Glucose (mg/dL) 177 H 226 H (70-110) mg/dL Calcium (8.4-10.2) mg/dL Total Bilirubin (0.2-1.3) mg/dL AST (17-59) U/L ALT (4-49) U/L Alkaline Phosphatase (38-126) U/L Total Protein (6.3-8.2) g/dL Albumin (3.5-5.0) g/dL Microbiology - Last 24 Hours (Table) 07/19/22 16:40 Blood Culture - Preliminary Blood No Growth after 96 hours 07/18/22 09:50 Blood Culture - Preliminary Blood No Growth after 120 hours 07/18/22 09:35 Blood Culture - Preliminary Blood No Growth after 120 hours 07/22/22 19:27 Sputum Culture - Preliminary Sputum Assessment and Plan Assessment: 1. Acute kidney injury oliguric ATN secondary to hypotension and sepsis. Patient was also on NSAIDs which is now discontinued. UA showed 1+ protein and large blood and significant WBCs. Urine culture is negative. Check urine eosinophils to rule out acute interstitial nephritis although unlikely. There is evidence of volume overload. Given the persistent volume overload and worsening oxygen requirement patient will be dialyzed. Dialysis catheter was placed yesterday but patient was not dialyzed as his heart rate was high in the 1:30 to 140 range. We are planning on SLED procedure 2. Acute hypoxic respiratory failure secondary to pneumonia, currently maintained on the vent 3. Pyuria with negative urine cultures 4. A. fib with RVR, Ellquis on hold 5. BPH with recent surgery and hematuria. History of TURP and cystoscopy 6. Metabolic acidosis associated with acute kidney injury Plan: Hemodialysis today with ultrafiltration as tolerated. We are planning on SLED procedure however patient is hypotensive.. His heart rate is better controlled with Cardizem therefore I'm hoping he'll be able to t olerate this treatment. IV Lasix 80 mg 1
[2022-07-24 10:10] LABS: ABG Base Excess -7.7 mmol/L; ABG HCO3 20 mmol/L (21-25); ABG Hematocrit 40 % (34.0-46.0); ABG Oxygen Saturation 81.6 % (94-97); ABG PCO2 48 mmHg (35-45); ABG PH 7.23 (7.35-7.45); ABG TCO2 21 mmol/L (19-24)
[2022-07-24 10:10] LABS: Glucose,Whole Blood 226 mg/dL (70-110)
[2022-07-24 10:11] LABS: ABG PO2 58 mmHg (83-108)
--- NOTE | 2022-07-24 10:21 | P.PN ---
Subjective Patient presented with pneumonitis and A. fib with RVR Progressive worsening of respiratory status requiring intubation Yesterday he had A. fib with RVR and I was called by the nurse He was on norepinephrine drip but we still start him on low-dose Cardizem Over the last 24 hours we've been able to wean off the norepinephrine drip to extremely low levels He is on IV Cardizem and his rates are better controlled between 8200 beats a minute He did undergo dialysis today His breath sounds are reduced bilaterally Heart sounds are distant He is intubated Blood pressure 128/84 mmHg still on pressors Overall prognosis is poor Impression A. fib with RVR Admitted with pneumonitis,/sepsis Acute history failure requiring intubation Worsening renal function from 1.13 and now to 5.31 Continue IV Cardizem for now Continue ELIQUIS Continue baby aspirin Continue Lasix Metoprolol on hold Objective - Vital Signs Vital signs: Vital Signs Temp 98.1 F 07/24/22 08:00 Pulse 89 07/24/22 09:30 Resp 26 H 07/24/22 09:30 BP 128/84 07/24/22 09:30 Pulse Ox 72 L 07/24/22 09:30 FiO2 60 07/24/22 08:30 Intake & Output 07/23/22 07/24/22 07/24/22 18:59 06:59 18:59 Intake Total 2398.421 2770.494 722.536 Output Total 125 85 25 Balance 2273.421 2685.494 697.536 Weight 154 kg 158 kg Intake: IV 1220 946 278 0.9 pressure bags 60 66 18 Dextrose 5% in Water 1, 560 880 240 000 ml @ 80 mls/hr IV . [id number] JELLY with Sodium Bicarb (1 Meq/ml) 150 ml Rx#:[id number] Sodium Chloride 0.9% 1, 600 20 000 ml @ 100 mls/hr IV . Q10H JELLY Rx#:[id number] Intake, IV Titration 2197.233 2615.494 324.536 Amount Cefepime 1 gm In Sodium 100 Chloride 0.9% 50 ml @ 12. 5 mls/hr IVPB Q12HR JELLY Rx#:[id number] Diltiazem 125 mg In 5.083 94.5 Sodium Chloride 0.9% 100 ml @ Per Protocol IV .Q0M JELLY Rx#:[id number] Insulin Regular 100 unit 29.516 134.967 40.866 In Sodium Chloride 0.9% 100 ml @ Titrate IV .Q0M JELLY Rx#:[id number] Norepinephrine 4 mg In 708.556 748.565 184.571 Sodium Chloride 0.9% 250 ml @ 0.05 MCG/KG/MIN 25. 923 mls/hr IV .Q9H48M JELLY Rx#:[id number] propofoL 1,000 mg In 295.266 376.462 99.099 Empty Bag 1 bag @ 40 MCG/ KG/MIN 34.32 mls/hr IV . Q2H55M JELLY Rx#:[id number] Oral 80 Tube Feeding 60 280 120 Other 90 Output: Urine 125 85 25 Other: Voiding Method Indwelling Catheter Indwelling Catheter ABP, PAP, CO, CI - Last Documented Arterial Blood Pressure 129/67 - Labs CBC & Chem 7: 07/24/22 04:15 07/24/22 04:15 Labs: Abnormal Lab Results - Last 24 Hours (Table) 07/23/22 07/23/22 07/23/22 Range/Units 12:09 13:10 14:13 WBC (3.8-10.6) k/uL RBC (4.30-5.90) m/uL Hgb (13.0-17.5) gm/dL Hct (39.0-53.0) % Plt Count (150-450) k/uL Neutrophils # (1.3-7.7) k/uL ABG pH (7.35-7.45) ABG pCO2 (35-45) mmHg ABG pO2 (83-108) mmHg ABG HCO3 (21-25) mmol/L ABG O2 Saturation (94-97) % Hemoglobin (13.0-17.5) gm/dL Carbon Dioxide (22-30) mmol/L BUN (9-20) mg/dL Creatinine (0.66-1.25) mg/dL Glucose (74-99) mg/dL POC Glucose (mg/dL) 198 H 210 H 244 H (70-110) mg/dL Calcium (8.4-10.2) mg/dL Total Bilirubin (0.2-1.3) mg/dL AST (17-59) U/L ALT (4-49) U/L Alkaline Phosphatase (38-126) U/L Total Protein (6.3-8.2) g/dL Albumin (3.5-5.0) g/dL 07/23/22 07/23/22 07/23/22 Range/Units 15:32 17:18 18:19 WBC (3.8-10.6) k/uL RBC (4.30-5.90) m/uL Hgb (13.0-17.5) gm/dL Hct (39.0-53.0) % Plt Count (150-450) k/uL Neutrophils # (1.3-7.7) k/uL ABG pH (7.35-7.45) ABG pCO2 (35-45) mmHg ABG pO2 (83-108) mmHg ABG HCO3 (21-25) mmol/L ABG O2 Saturation (94-97) % Hemoglobin (13.0-17.5) gm/dL Carbon Dioxide (22-30) mmol/L BUN (9-20) mg/dL Creatinine (0.66-1.25) mg/dL Glucose (74-99) mg/dL POC Glucose (mg/dL) 259 H 272 H 266 H (70-110) mg/dL Calcium (8.4-10.2) mg/dL Total Bilirubin (0.2-1.3) mg/dL AST (17-59) U/L ALT (4-49) U/L Alkaline Phosphatase (38-126) U/L Total Protein (6.3-8.2) g/dL Albumin (3.5-5.0) g/dL 07/23/22 07/23/22 07/23/22 Range/Units 18:52 20:42 21:37 WBC (3.8-10.6) k/uL RBC (4.30-5.90) m/uL Hgb (13.0-17.5) gm/dL Hct (39.0-53.0) % Plt Count (150-450) k/uL Neutrophils # (1.3-7.7) k/uL ABG pH (7.35-7.45) ABG pCO2 (35-45) mmHg ABG pO2 (83-108) mmHg ABG HCO3 (21-25) mmol/L ABG O2 Saturation (94-97) % Hemoglobin (13.0-17.5) gm/dL Carbon Dioxide (22-30) mmol/L BUN (9-20) mg/dL Creatinine (0.66-1.25) mg/dL Glucose (74-99) mg/dL POC Glucose (mg/dL) 288 H 280 H 249 H (70-110) mg/dL Calcium (8.4-10.2) mg/dL Total Bilirubin (0.2-1.3) mg/dL AST (17-59) U/L ALT (4-49) U/L Alkaline Phosphatase (38-126) U/L Total Protein (6.3-8.2) g/dL Albumin (3.5-5.0) g/dL 07/23/22 07/23/22 07/23/22 Range/Units 22:22 23:16 23:17 WBC (3.8-10.6) k/uL RBC (4.30-5.90) m/uL Hgb (13.0-17.5) gm/dL Hct (39.0-53.0) % Plt Count (150-450) k/uL Neutrophils # (1.3-7.7) k/uL ABG pH (7.35-7.45) ABG pCO2 (35-45) mmHg ABG pO2 (83-108) mmHg ABG HCO3 (21-25) mmol/L ABG O2 Saturation (94-97) % Hemoglobin (13.0-17.5) gm/dL Carbon Dioxide (22-30) mmol/L BUN (9-20) mg/dL Creatinine (0.66-1.25) mg/dL Glucose (74-99) mg/dL POC Glucose (mg/dL) 264 H 286 H 258 H (70-110) mg/dL Calcium (8.4-10.2) mg/dL Total Bilirubin (0.2-1.3) mg/dL AST (17-59) U/L ALT (4-49) U/L Alkaline Phosphatase (38-126) U/L Total Protein (6.3-8.2) g/dL Albumin (3.5-5.0) g/dL 07/24/22 07/24/22 07/24/22 Range/Units 00:21 01:27 02:16 WBC (3.8-10.6) k/uL RBC (4.30-5.90) m/uL Hgb (13.0-17.5) gm/dL Hct (39.0-53.0) % Plt Count (150-450) k/uL Neutrophils # (1.3-7.7) k/uL ABG pH (7.35-7.45) ABG pCO2 (35-45) mmHg ABG pO2 (83-108) mmHg ABG HCO3 (21-25) mmol/L ABG O2 Saturation (94-97) % Hemoglobin (13.0-17.5) gm/dL Carbon Dioxide (22-30) mmol/L BUN (9-20) mg/dL Creatinine (0.66-1.25) mg/dL Glucose (74-99) mg/dL POC Glucose (mg/dL) 223 H 217 H 197 H (70-110) mg/dL Calcium (8.4-10.2) mg/dL Total Bilirubin (0.2-1.3) mg/dL AST (17-59) U/L ALT (4-49) U/L Alkaline Phosphatase (38-126) U/L Total Protein (6.3-8.2) g/dL Albumin (3.5-5.0) g/dL 07/24/22 07/24/22 07/24/22 Range/Units 03:35 04:15 04:15 WBC 13.9 H (3.8-10.6) k/uL RBC 4.25 L (4.30-5.90) m/uL Hgb 12.3 L (13.0-17.5) gm/dL Hct 38.0 L (39.0-53.0) % Plt Count 109 L (150-450) k/uL Neutrophils # 11.2 H (1.3-7.7) k/uL ABG pH (7.35-7.45) ABG pCO2 (35-45) mmHg ABG pO2 (83-108) mmHg ABG HCO3 (21-25) mmol/L ABG O2 Saturation (94-97) % Hemoglobin (13.0-17.5) gm/dL Carbon Dioxide 17 L (22-30) mmol/L BUN 102 H* (9-20) mg/dL Creatinine 5.31 H (0.66-1.25) mg/dL Glucose 195 H (74-99) mg/dL POC Glucose (mg/dL) 188 H (70-110) mg/dL Calcium 7.1 L (8.4-10.2) mg/dL Total Bilirubin 2.3 H (0.2-1.3) mg/dL AST 7346 H (17-59) U/L ALT 2870 H (4-49) U/L Alkaline Phosphatase 190 H (38-126) U/L Total Protein 4.9 L (6.3-8.2) g/dL Albumin 2.3 L (3.5-5.0) g/dL 07/24/22 07/24/22 07/24/22 Range/Units 04:20 05:10 05:11 WBC (3.8-10.6) k/uL RBC (4.30-5.90) m/uL Hgb (13.0-17.5) gm/dL Hct (39.0-53.0) % Plt Count (150-450) k/uL Neutrophils # (1.3-7.7) k/uL ABG pH 7.33 L (7.35-7.45) ABG pCO2 (35-45) mmHg ABG pO2 59 L* (83-108) mmHg ABG HCO3 19 L (21-25) mmol/L ABG O2 Saturation 86.1 L (94-97) % Hemoglobin 12.4 L (13.0-17.5) gm/dL Carbon Dioxide (22-30) mmol/L BUN (9-20) mg/dL Creatinine (0.66-1.25) mg/dL Glucose (74-99) mg/dL POC Glucose (mg/dL) 205 H 163 H (70-110) mg/dL Calcium (8.4-10.2) mg/dL Total Bilirubin (0.2-1.3) mg/dL AST (17-59) U/L ALT (4-49) U/L Alkaline Phosphatase (38-126) U/L Total Protein (6.3-8.2) g/dL Albumin (3.5-5.0) g/dL 07/24/22 07/24/22 07/24/22 Range/Units 06:09 07:04 07:58 WBC (3.8-10.6) k/uL RBC (4.30-5.90) m/uL Hgb (13.0-17.5) gm/dL Hct (39.0-53.0) % Plt Count (150-450) k/uL Neutrophils # (1.3-7.7) k/uL ABG pH (7.35-7.45) ABG pCO2 (35-45) mmHg ABG pO2 (83-108) mmHg ABG HCO3 (21-25) mmol/L ABG O2 Saturation (94-97) % Hemoglobin (13.0-17.5) gm/dL Carbon Dioxide (22-30) mmol/L BUN (9-20) mg/dL Creatinine (0.66-1.25) mg/dL Glucose (74-99) mg/dL POC Glucose (mg/dL) 158 H 144 H 177 H (70-110) mg/dL Calcium (8.4-10.2) mg/dL Total Bilirubin (0.2-1.3) mg/dL AST (17-59) U/L ALT (4-49) U/L Alkaline Phosphatase (38-126) U/L Total Protein (6.3-8.2) g/dL Albumin (3.5-5.0) g/dL 07/24/22 07/24/22 07/24/22 Range/Units 09:06 09:23 10:07 WBC (3.8-10.6) k/uL RBC (4.30-5.90) m/uL Hgb (13.0-17.5) gm/dL Hct (39.0-53.0) % Plt Count (150-450) k/uL Neutrophils # (1.3-7.7) k/uL ABG pH 7.27 L 7.23 L (7.35-7.45) ABG pCO2 48 H (35-45) mmHg ABG pO2 50 L* 58 L* (83-108) mmHg ABG HCO3 19 L 20 L (21-25) mmol/L ABG O2 Saturation 77.1 L 81.6 L (94-97) % Hemoglobin 12.6 L (13.0-17.5) gm/dL Carbon Dioxide (22-30) mmol/L BUN (9-20) mg/dL Creatinine (0.66-1.25) mg/dL Glucose (74-99) mg/dL POC Glucose (mg/dL) 226 H (70-110) mg/dL Calcium (8.4-10.2) mg/dL Total Bilirubin (0.2-1.3) mg/dL AST (17-59) U/L ALT (4-49) U/L Alkaline Phosphatase (38-126) U/L Total Protein (6.3-8.2) g/dL Albumin (3.5-5.0) g/dL 07/24/22 Range/Units 10:08 WBC (3.8-10.6) k/uL RBC (4.30-5.90) m/uL Hgb (13.0-17.5) gm/dL Hct (39.0-53.0) % Plt Count (150-450) k/uL Neutrophils # (1.3-7.7) k/uL ABG pH (7.35-7.45) ABG pCO2 (35-45) mmHg ABG pO2 (83-108) mmHg ABG HCO3 (21-25) mmol/L ABG O2 Saturation (94-97) % Hemoglobin (13.0-17.5) gm/dL Carbon Dioxide (22-30) mmol/L BUN (9-20) mg/dL Creatinine (0.66-1.25) mg/dL Glucose (74-99) mg/dL POC Glucose (mg/dL) 226 H (70-110) mg/dL Calcium (8.4-10.2) mg/dL Total Bilirubin (0.2-1.3) mg/dL AST (17-59) U/L ALT (4-49) U/L Alkaline Phosphatase (38-126) U/L Total Protein (6.3-8.2) g/dL Albumin (3.5-5.0) g/dL Microbiology - Last 24 Hours (Table) 07/19/22 16:40 Blood Culture - Preliminary Blood No Growth after 96 hours 07/18/22 09:50 Blood Culture - Preliminary Blood No Growth after 120 hours 07/18/22 09:35 Blood Culture - Preliminary Blood No Growth after 120 hours 07/22/22 19:27 Sputum Culture - Preliminary Sputum
[2022-07-24] MEDS: FUROSEMIDE 10 MG/ML 4 ML VIAL IV SCH (10:30)
[2022-07-24] MEDS: METOPROLOL TARTRATE 50 MG TAB PO SCH ×2 (10:32→17:16)
[2022-07-24] MEDS: ASPIRIN 81 MG PO SCH (10:33)
[2022-07-24] MEDS: FAMOTIDINE 20 MG/2 ML VIAL IV SCH (10:33)
[2022-07-24] MEDS: APIXABAN 5 MG TAB PO SCH (10:33)
[2022-07-24] MEDS: CEFEPIME 1 GM in SODIUM CHLORIDE 0.9% 50 ML IVPB SCH ×2 (10:37→20:40)
[2022-07-24 11:06] LABS: Glucose,Whole Blood 184 mg/dL (70-110)
[2022-07-24 12:04] LABS: Glucose,Whole Blood 172 mg/dL (70-110)
[2022-07-24 12:08] LABS: ABG Base Excess -5.1 mmol/L; ABG HCO3 22 mmol/L (21-25); ABG Hematocrit 42 % (34.0-46.0); ABG Oxygen Saturation 95.6 % (94-97); ABG PCO2 53 mmHg (35-45); ABG PH 7.23 (7.35-7.45); ABG PO2 113 mmHg (83-108); ABG TCO2 24 mmol/L (19-24)
[2022-07-24 13:03] LABS: Glucose,Whole Blood 158 mg/dL (70-110)
[2022-07-24 14:06] LABS: Glucose,Whole Blood 140 mg/dL (70-110)
[2022-07-24 15:04] LABS: Glucose,Whole Blood 123 mg/dL (70-110)
[2022-07-24 16:04] LABS: Glucose,Whole Blood 156 mg/dL (70-110)
[2022-07-24 17:03] LABS: Glucose,Whole Blood 172 mg/dL (70-110)
[2022-07-24 18:04] LABS: Glucose,Whole Blood 178 mg/dL (70-110)
[2022-07-24 19:02] LABS: Glucose,Whole Blood 196 mg/dL (70-110)
[2022-07-24 20:45] LABS: Glucose,Whole Blood 193 mg/dL (70-110)
[2022-07-24] MEDS ORDERED: LEVOFLOXACIN 500MG-D5W PMX 500 MG in DEXTROSE/WATER 1 100ML.BAG IVPB SCH (21:00)
[2022-07-24 22:06] LABS: Glucose,Whole Blood 211 mg/dL (70-110)
--- NOTE | 2022-07-24 23:14 | P.PN ---
Subjective 61-year-old pleasant female came in with compensative chest pain on the left side of the chest lasted for 5 minutes 7/10 in severity associated with lightheadedness denied any shortness of breath possible diaphoresis as well. Chest pain radiates to the right side of the chest and also to the mandible nausea. Chest pain is nonpruritic in nature not associated with food pressure- like sensation appears to be nonexertional patient had a stress test in 2019 patient denied any other cardiac history does have history of hypertension. Patient had nonspecific ST-T wave changes in the inferior leads and intraventricular conduction delay with a split QRS complex in the lateral leads. No previous EKG to compare with 07/19/2022 Patient this morning was seen in the ICU, he was sitting in bed, fully awake and oriented, tired looking, slightly tachypneic, he got short of breath easily when he tried to talk. He used to BiPAP overnight and he was using 4 L of oxygen per minute. His throat is secondary to CHF exacerbation, less likely pneumonia. Patient on IV Lasix and ceftriaxone and Zithromax, Lasix no swelling be lowered to 40 mg twice daily down to once daily from tomorrow. Chest x-ray showing improvement. Blood pressure is borderline as well as slightly tachycardic and tachypneic. 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 glucose was getting out of control and patient was placed on insulin drip today. Also patient is some Cardizem drip Patient currently is on Eliquis 5 mg as well. Home dose of aspirin 81 mg 07/20/2022 Patient remains in the ICU in critical condition. He still mildly hypoxic and tachypneic and tachycardic. His chest x-ray today showing similar appearance but increased infiltrate in the left lower lung which is suspicious for worsening pneumonia, therefore his antib iotics was adjusted Zithromax and ceftriaxone into cefepime and levofloxacin. While he is kept on IV Lasix 40 mg daily. Other than that his sugar remains elevated more than 300, his place on Levemir 40 units twice a day compared to 30 before and we increased his NovoLog 6 units and 212 units with meals Labs: Creatinine 1.1, WBC 12.8, M resume the care of the patient 07/24/2022 Patient's currently intubated and sedated in the ICU, with pulmonary/critical care to help and with his vent management. He is also being treated for bilateral multifocal pneumonia evident on the chest x-ray again today. And his been currently covered with Levaquin and cefepime. He is status post bronchial alveolar low fat yesterday after bronchoscopy, culture results also done and they are pending. Chest x-ray showing bilateral pleural effusion and multifocal pneumonia Continue on same antibiotics as above, Eliquis 2.5 mg Lasix 40 mg IV daily, insulin drip, Cardizem drip, baby aspirin and Pepcid Objective - Vital Signs Vital signs: Vital Signs Temp 98.1 F 07/24/22 08:00 Pulse 89 07/24/22 09:30 Resp 26 H 07/24/22 09:30 BP 128/84 07/24/22 09:30 Pulse Ox 72 L 07/24/22 09:30 FiO2 60 07/24/22 08:30 Intake & Output 07/23/22 07/24/22 07/24/22 18:59 06:59 18:59 Intake Total 2398.421 2770.494 722.536 Output Total 125 85 25 Balance 2273.421 2685.494 697.536 Weight 154 kg 158 kg Intake: IV 1220 946 278 0.9 pressure bags 60 66 18 Dextrose 5% in Water 1, 560 880 240 000 ml @ 80 mls/hr IV . [id number] JELLY with Sodium Bicarb (1 Meq/ml) 150 ml Rx#:[id number] Sodium Chloride 0.9% 1, 600 20 000 ml @ 100 mls/hr IV . Q10H [facility] Rx#:[id number] Intake, IV Titration 8810.410 6745.494 324.536 Amount Cefepime 1 gm In Sodium 100 Chloride 0.9% 50 ml @ 12. 5 mls/hr IVPB Q12HR JE[facility] Rx#:[id number] Diltiazem 125 mg In 5.083 94.5 Sodium Chloride 0.9% 100 ml @ Per Protocol IV .Q0M JELLY Rx#:[id number] Insulin Regular 100 unit 29.516 134.967 40.866 In Sodium Chloride 0.9% 100 ml @ Titrate IV .Q0M [facility] Rx#:[id number] Norepinephrine 4 mg In 708.556 748.565 184.571 Sodium Chloride 0.9% 250 ml @ 0.05 MCG/KG/MIN 25. 923 mls/hr IV .Q9H48M [facility] Rx#:[id number] propofoL 1,000 mg In 295.266 376.462 99.099 Empty Bag 1 bag @ 40 MCG/ KG/MIN 34.32 mls/hr IV . Q2H55M [facility] Rx#:[id number] Oral 80 Tube Feeding 60 280 120 Other 90 Output: Urine 125 85 25 Other: Voiding Method Indwelling Catheter Indwelling Catheter ABP, PAP, CO, CI - Last Documented Arterial Blood Pressure 129/67 - Exam -GENERAL: The patient is intubated and sedated HEENT: Pupils are round and equally reacting to light. EOMI. No scleral icterus. No conjunctival pallor. Normocephalic, atraumatic. No pharyngeal erythema. No thyromegaly. CARDIOVASCULAR: S1 and S2 present. No murmurs, rubs, or gallops. -PULMONARY: Chest is clear to auscultation, no wheezing. Bilateral basal crepitation ABDOMEN: Soft, nontender, nondistended, normoactive bowel sounds. No palpable organomegaly. MUSCULOSKELETAL: No joint swelling or deformity. -EXTREMITIES: No cyanosis, clubbing,. 1+ bilateral pitting like edema NEUROLOGICAL: Gross neurological examination did not reveal any focal deficits. SKIN: No rashes. no petechiae. - Labs CBC & Chem 7: 07/24/22 04:15 07/24/22 04:15 Labs: Abnormal Lab Results - Last 24 Hours (Table) 07/23/22 07/23/22 07/23/22 Range/Units 12:09 13:10 14:13 WBC (3.8-10.6) k/uL RBC (4.30-5.90) m/uL Hgb (13.0-17.5) gm/dL Hct (39.0-53.0) % Plt Count (150-450) k/uL Neutrophils # (1.3-7.7) k/uL ABG pH (7.35-7.45) ABG pCO2 (35-45) mmHg ABG pO2 (83-108) mmHg ABG HCO3 (21-25) mmol/L ABG O2 Saturation (94-97) % Hemoglobin (13.0-17.5) gm/dL Carbon Dioxide (22-30) mmol/L BUN (9-20) mg/dL Creatinine (0.66-1.25) mg/dL Glucose (74-99) mg/dL POC Glucose (mg/dL) 198 H 210 H 244 H (70-110) mg/dL Calcium (8.4-10.2) mg/dL Total Bilirubin (0.2-1.3) mg/dL AST (17-59) U/L ALT (4-49) U/L Alkaline Phosphatase (38-126) U/L Total Protein (6.3-8.2) g/dL Albumin (3.5-5.0) g/dL 07/23/22 07/23/22 07/23/22 Range/Units 15:32 17:18 18:19 WBC (3.8-10.6) k/uL RBC (4.30-5.90) m/uL Hgb (13.0-17.5) gm/dL Hct (39.0-53.0) % Plt Count (150-450) k/uL Neutrophils # (1.3-7.7) k/uL ABG pH (7.35-7.45) ABG pCO2 (35-45) mmHg ABG pO2 (83-108) mmHg ABG HCO3 (21-25) mmol/L ABG O2 Saturation (94-97) % Hemoglobin (13.0-17.5) gm/dL Carbon Dioxide (22-30) mmol/L BUN (9-20) mg/dL Creatinine (0.66-1.25) mg/dL Glucose (74-99) mg/dL POC Glucose (mg/dL) 259 H 272 H 266 H (70-110) mg/dL Calcium (8.4-10.2) mg/dL Total Bilirubin (0.2-1.3) mg/dL AST (17-59) U/L ALT (4-49) U/L Alkaline Phosphatase (38-126) U/L Total Protein (6.3-8.2) g/dL Albumin (3.5-5.0) g/dL 07/23/22 07/23/22 07/23/22 Range/Units 18:52 20:42 21:37 WBC (3.8-10.6) k/uL RBC (4.30-5.90) m/uL Hgb (13.0-17.5) gm/dL Hct (39.0-53.0) % Plt Count (150-450) k/uL Neutrophils # (1.3-7.7) k/uL ABG pH (7.35-7.45) ABG pCO2 (35-45) mmHg ABG pO2 (83-108) mmHg ABG HCO3 (21-25) mmol/L ABG O2 Saturation (94-97) % Hemoglobin (13.0-17.5) gm/dL Carbon Dioxide (22-30) mmol/L BUN (9-20) mg/dL Creatinine (0.66-1.25) mg/dL Glucose (74-99) mg/dL POC Glucose (mg/dL) 288 H 280 H 249 H (70-110) mg/dL Calcium (8.4-10.2) mg/dL Total Bilirubin (0.2-1.3) mg/dL AST (17-59) U/L ALT (4-49) U/L Alkaline Phosphatase (38-126) U/L Total Protein (6.3-8.2) g/dL Albumin (3.5-5.0) g/dL 07/23/22 07/23/22 07/23/22 Range/Units 22:22 23:16 23:17 WBC (3.8-10.6) k/uL RBC (4.30-5.90) m/uL Hgb (13.0-17.5) gm/dL Hct (39.0-53.0) % Plt Count (150-450) k/uL Neutrophils # (1.3-7.7) k/uL ABG pH (7.35-7.45) ABG pCO2 (35-45) mmHg ABG pO2 (83-108) mmHg ABG HCO3 (21-25) mmol/L ABG O2 Saturation (94-97) % Hemoglobin (13.0-17.5) gm/dL Carbon Dioxide (22-30) mmol/L BUN (9-20) mg/dL Creatinine (0.66-1.25) mg/dL Glucose (74-99) mg/dL POC Glucose (mg/dL) 264 H 286 H 258 H (70-110) mg/dL Calcium (8.4-10.2) mg/dL Total Bilirubin (0.2-1.3) mg/dL AST (17-59) U/L ALT (4-49) U/L Alkaline Phosphatase (38-126) U/L Total Protein (6.3-8.2) g/dL Albumin (3.5-5.0) g/dL 07/24/22 07/24/22 07/24/22 Range/Units 00:21 01:27 02:16 WBC (3.8-10.6) k/uL RBC (4.30-5.90) m/uL Hgb (13.0-17.5) gm/dL Hct (39.0-53.0) % Plt Count (150-450) k/uL Neutrophils # (1.3-7.7) k/uL ABG pH (7.35-7.45) ABG pCO2 (35-45) mmHg ABG pO2 (83-108) mmHg ABG HCO3 (21-25) mmol/L ABG O2 Saturation (94-97) % Hemoglobin (13.0-17.5) gm/dL Carbon Dioxide (22-30) mmol/L BUN (9-20) mg/dL Creatinine (0.66-1.25) mg/dL Glucose (74-99) mg/dL POC Glucose (mg/dL) 223 H 217 H 197 H (70-110) mg/dL Calcium (8.4-10.2) mg/dL Total Bilirubin (0.2-1.3) mg/dL AST (17-59) U/L ALT (4-49) U/L Alkaline Phosphatase (38-126) U/L Total Protein (6.3-8.2) g/dL Albumin (3.5-5.0) g/dL 07/24/22 07/24/22 07/24/22 Range/Units 03:35 04:15 04:15 WBC 13.9 H (3.8-10.6) k/uL RBC 4.25 L (4.30-5.90) m/uL Hgb 12.3 L (13.0-17.5) gm/dL Hct 38.0 L (39.0-53.0) % Plt Count 109 L (150-450) k/uL Neutrophils # 11.2 H (1.3-7.7) k/uL ABG pH (7.35-7.45) ABG pCO2 (35-45) mmHg ABG pO2 (83-108) mmHg ABG HCO3 (21-25) mmol/L ABG O2 Saturation (94-97) % Hemoglobin (13.0-17.5) gm/dL Carbon Dioxide 17 L (22-30) mmol/L BUN 102 H* (9-20) mg/dL Creatinine 5.31 H (0.66-1.25) mg/dL Glucose 195 H (74-99) mg/dL POC Glucose (mg/dL) 188 H (70-110) mg/dL Calcium 7.1 L (8.4-10.2) mg/dL Total Bilirubin 2.3 H (0.2-1.3) mg/dL AST 7346 H (17-59) U/L ALT 2870 H (4-49) U/L Alkaline Phosphatase 190 H (38-126) U/L Total Protein 4.9 L (6.3-8.2) g/dL Albumin 2.3 L (3.5-5.0) g/dL 07/24/22 07/24/22 07/24/22 Range/Units 04:20 05:10 05:11 WBC (3.8-10.6) k/uL RBC (4.30-5.90) m/uL Hgb (13.0-17.5) gm/dL Hct (39.0-53.0) % Plt Count (150-450) k/uL Neutrophils # (1.3-7.7) k/uL ABG pH 7.33 L (7.35-7.45) ABG pCO2 (35-45) mmHg ABG pO2 59 L* (83-108) mmHg ABG HCO3 19 L (21-25) mmol/L ABG O2 Saturation 86.1 L (94-97) % Hemoglobin 12.4 L (13.0-17.5) gm/dL Carbon Dioxide (22-30) mmol/L BUN (9-20) mg/dL Creatinine (0.66-1.25) mg/dL Glucose (74-99) mg/dL POC Glucose (mg/dL) 205 H 163 H (70-110) mg/dL Calcium (8.4-10.2) mg/dL Total Bilirubin (0.2-1.3) mg/dL AST (17-59) U/L ALT (4-49) U/L Alkaline Phosphatase (38-126) U/L Total Protein (6.3-8.2) g/dL Albumin (3.5-5.0) g/dL 07/24/22 07/24/22 07/24/22 Range/Units 06:09 07:04 07:58 WBC (3.8-10.6) k/uL RBC (4.30-5.90) m/uL Hgb (13.0-17.5) gm/dL Hct (39.0-53.0) % Plt Count (150-450) k/uL Neutrophils # (1.3-7.7) k/uL ABG pH (7.35-7.45) ABG pCO2 (35-45) mmHg ABG pO2 (83-108) mmHg ABG HCO3 (21-25) mmol/L ABG O2 Saturation (94-97) % Hemoglobin (13.0-17.5) gm/dL Carbon Dioxide (22-30) mmol/L BUN (9-20) mg/dL Creatinine (0.66-1.25) mg/dL Glucose (74-99) mg/dL POC Glucose (mg/dL) 158 H 144 H 177 H (70-110) mg/dL Calcium (8.4-10.2) mg/dL Total Bilirubin (0.2-1.3) mg/dL AST (17-59) U/L ALT (4-49) U/L Alkaline Phosphatase (38-126) U/L Total Protein (6.3-8.2) g/dL Albumin (3.5-5.0) g/dL 07/24/22 07/24/22 07/24/22 Range/Units 09:06 09:23 10:07 WBC (3.8-10.6) k/uL RBC (4.30-5.90) m/uL Hgb (13.0-17.5) gm/dL Hct (39.0-53.0) % Plt Count (150-450) k/uL Neutrophils # (1.3-7.7) k/uL ABG pH 7.27 L 7.23 L (7.35-7.45) ABG pCO2 48 H (35-45) mmHg ABG pO2 50 L* 58 L* (83-108) mmHg ABG HCO3 19 L 20 L (21-25) mmol/L ABG O2 Saturation 77.1 L 81.6 L (94-97) % Hemoglobin 12.6 L (13.0-17.5) gm/dL Carbon Dioxide (22-30) mmol/L BUN (9-20) mg/dL Creatinine (0.66-1.25) mg/dL Glucose (74-99) mg/dL POC Glucose (mg/dL) 226 H (70-110) mg/dL Calcium (8.4-10.2) mg/dL Total Bilirubin (0.2-1.3) mg/dL AST (17-59) U/L ALT (4-49) U/L Alkaline Phosphatase (38-126) U/L Total Protein (6.3-8.2) g/dL Albumin (3.5-5.0) g/dL 07/24/22 Range/Units 10:08 WBC (3.8-10.6) k/uL RBC (4.30-5.90) m/uL Hgb (13.0-17.5) gm/dL Hct (39.0-53.0) % Plt Count (150-450) k/uL Neutrophils # (1.3-7.7) k/uL ABG pH (7.35-7.45) ABG pCO2 (35-45) mmHg ABG pO2 (83-108) mmHg ABG HCO3 (21-25) mmol/L ABG O2 Saturation (94-97) % Hemoglobin (13.0-17.5) gm/dL Carbon Dioxide (22-30) mmol/L BUN (9-20) mg/dL Creatinine (0.66-1.25) mg/dL Glucose (74-99) mg/dL POC Glucose (mg/dL) 226 H (70-110) mg/dL Calcium (8.4-10.2) mg/dL Total Bilirubin (0.2-1.3) mg/dL AST (17-59) U/L ALT (4-49) U/L Alkaline Phosphatase (38-126) U/L Total Protein (6.3-8.2) g/dL Albumin (3.5-5.0) g/dL Microbiology - Last 24 Hours (Table) 07/19/22 16:40 Blood Culture - Preliminary Blood No Growth after 96 hours 07/18/22 09:50 Blood Culture - Preliminary Blood No Growth after 120 hours 07/18/22 09:35 Blood Culture - Preliminary Blood No Growth after 120 hours 07/22/22 19:27 Sputum Culture - Preliminary Sputum Assessment and Plan Assessment: Bilateral multifocal pneumonia, gram-negative suspected, status post bronchoscopy and BAL on 07/23 Acute congestive heart failure, diastolic with ejection fraction 60% Diabetes mellitus with hyperglycemia Paroxysmal A. fib with RVR Elevated troponin most likely type II myocardial infarction secondary to hypoxia History of BPH Morbid obesity with BMI of 42.9 Diabetes mellitus with hyperglycemia Plan: This is a pleasant 72 years old male who presents with hypoxia, CHF, pneumonia less likely Continue with IV Lasix and follow creatinine and input and output Continue with cefepime and Levaquin Continue with the Eliquis Continue with IV Lasix Continue with metoprolol Continue with insulin Cardiology and pulmonary consult on the case Labs and medication were reviewed.. Continue same treatment. Continue with symptomatic treatment. Resume home medication. Monitor lytes and vitals. DVT and GI prophylaxis. Further recommendations as per clinical course of the patient DVT prophylaxis: Eliquis GI Prophylaxis: Pepcid PT/OT: Pending Prognosis is guarded
[2022-07-24 23:40] LABS: Glucose,Whole Blood 178 mg/dL (70-110)
[2022-07-25] MEDS: NOREPINEPHRINE 4 MG in SODIUM CHLORIDE 0.9% 250 ML IV SCH ×2 (00:21→09:20)
[2022-07-25 00:28] LABS: Glucose,Whole Blood 184 mg/dL (70-110)
[2022-07-25 01:05] LABS: Glucose,Whole Blood 188 mg/dL (70-110)
[2022-07-25] MEDS: IPRATROPIUM-ALBUTEROL 3 ML NEB INHALATION SCH ×4 (01:21→11:05)
[2022-07-25] MEDS: METOPROLOL TARTRATE 50 MG TAB PO SCH ×2 (01:33→08:40)
[2022-07-25 02:44] LABS: Glucose,Whole Blood 181 mg/dL (70-110)
[2022-07-25] MEDS: INSULIN REGULAR 100 UNIT in SODIUM CHLORIDE 0.9% 100 ML IV SCH (02:46)
[2022-07-25] MEDS: DILTIAZEM 125 MG in SODIUM CHLORIDE 0.9% 100 ML IV SCH (02:48)
[2022-07-25 03:06] LABS: Glucose,Whole Blood 192 mg/dL (70-110)
[2022-07-25 04:24] LABS: Glucose,Whole Blood 161 mg/dL (70-110)
[2022-07-25 05:17] VITALS: RESP 26
[2022-07-25 05:29] LABS: Glucose,Whole Blood 189 mg/dL (70-110)
[2022-07-25 06:13] LABS: Glucose,Whole Blood 173 mg/dL (70-110)
[2022-07-25 06:14] LABS: ABG Base Excess -3.2 mmol/L; ABG HCO3 24 mmol/L (21-25); ABG Hematocrit 41 % (34.0-46.0); ABG Oxygen Saturation 90.3 % (94-97); ABG PCO2 50 mmHg (35-45); ABG PH 7.28 (7.35-7.45); ABG PO2 69 mmHg (83-108); ABG TCO2 25 mmol/L (19-24); Allen Test Performed? Yes
[2022-07-25 06:28] LABS: Albumin 2.5 g/dL (3.5-5.0); Calcium 7.1 mg/dL (8.4-10.2); Potassium 4.8 mmol/L (3.5-5.1); Total Bilirubin 2.9 mg/dL (0.2-1.3); Total Protein 5.3 g/dL (6.3-8.2)
[2022-07-25 07:01] LABS: Glucose,Whole Blood 191 mg/dL (70-110)
[2022-07-25 07:15] LABS: HCT 42.1 % (39.0-53.0); HGB 13.4 gm/dL (13.0-17.5); Hypochromasia Slight; MCHC 31.8 g/dL (31.0-37.0); MCV 91.4 fL (80.0-100.0); Mean Platelet Volume 9.5; Platelet Count 140 k/uL (150-450); RBC 4.61 m/uL (4.30-5.90); RDW 15.6 % (11.5-15.5)
--- NOTE | 2022-07-25 08:00 | P.PN ---
Subjective Progress Note Date: 07/24/22 Principal diagnosis: Pneumonia Patient is a 72-year-old male presenting to the hospital for increasing shortness of breath in this patient with initial treatment for CHF without any improvement and concern for possible pneumonia. Patient did have worsening of respiratory status and ended up getting intubated on 07/22/2022, the patient is status post bronchoscopy completed on 07/23/2022 On today's evaluation that is 07/24/2022 the patient remains to be afebrile, pat ient is intubated on the vent with FiO2 is slightly up to 60 %, patient did have some blood stained secretions through the ET , no diarrhea reported by the nursing staff Objective - Vital Signs Vital signs: Vital Signs Temp 97.8 F 07/24/22 16:00 Pulse 93 07/24/22 19:37 Resp 26 H 07/24/22 19:15 BP 107/66 07/24/22 19:00 Pulse Ox 93 L 07/24/22 19:15 FiO2 60 07/24/22 19:21 Intake & Output 07/24/22 07/24/22 07/25/22 06:59 18:59 06:59 Intake Total 2770.494 2038.462 169.617 Output Total 85 2070 5 Balance 2685.494 -31.538 164.617 Weight 158 kg Intake: IV 946 507 11 0.9 pressure bags 66 72 6 Cefepime 2 gm In Sodium 100 Chloride 0.9% 100 ml @ 25 mls/hr IVPB Q8HR JE[facility] Rx# :[id number] Dextrose 5% in Water 1, 880 240 0 000 ml @ 80 mls/hr IV . [id number] JELLY with Sodium Bicarb (1 Meq/ml) 150 ml Rx#:[id number] KVO 75 5 Sodium Chloride 0.9% 1, 20 000 ml @ 100 mls/hr IV . Q10H JELLY Rx#:[id number] Intake, IV Titration 3327.688 1234.462 108.617 Amount Cefepime 1 gm In Sodium 100 Chloride 0.9% 50 ml @ 12. 5 mls/hr IVPB Q12HR JELLY Rx#:[id number] Diltiazem 125 mg In 94.5 112.5 Sodium Chloride 0.9% 100 ml @ Per Protocol IV .Q0M JELLY Rx#:[id number] Insulin Regular 100 unit 134.967 94.766 8.617 In Sodium Chloride 0.9% 100 ml @ Titrate IV .Q0M JE[facility] Rx#:[id number] Norepinephrine 4 mg In 748.565 508.000 Sodium Chloride 0.9% 250 ml @ 0.05 MCG/KG/MIN 25. 923 mls/hr IV .Q9H48M [facility] Rx#:[id number] propofoL 1,000 mg In 376.462 296.196 100 Empty Bag 1 bag @ 40 MCG/ KG/MIN 34.32 mls/hr IV . Q2H55M JELLY Rx#:[id number] Oral 400 50 Tube Feeding 280 120 Other 90 Output: Urine 85 70 5 Hemodialysis 1999 Other: Voiding Method Indwelling Catheter Indwelling Catheter ABP, PAP, CO, CI - Last Documented Arterial Blood Pressure 118/68 - Exam GENERAL DESCRIPTION: An elderly male intubated on the vent RESPIRATORY SYSTEM: Unlabored breathing , decreased breath sounds at bases HEART: S1 S2 regular rate and rhythm , ABDOMEN: Soft , no tenderness EXTREMITIES: No edema feet - Labs CBC & Chem 7: 07/25/22 05:29 07/25/22 05:29 Labs: Abnormal Lab Results - Last 24 Hours (Table) 07/23/22 07/23/22 07/23/22 Range/Units 22:22 23:16 23:17 WBC (3.8-10.6) k/uL RBC (4.30-5.90) m/uL Hgb (13.0-17.5) gm/dL Hct (39.0-53.0) % Plt Count (150-450) k/uL Neutrophils # (1.3-7.7) k/uL ABG pH (7.35-7.45) ABG pCO2 (35-45) mmHg ABG pO2 (83-108) mmHg ABG HCO3 (21-25) mmol/L ABG O2 Saturation (94-97) % Hemoglobin (13.0-17.5) gm/dL Carbon Dioxide (22-30) mmol/L BUN (9-20) mg/dL Creatinine (0.66-1.25) mg/dL Glucose (74-99) mg/dL POC Glucose (mg/dL) 264 H 286 H 258 H (70-110) mg/dL Calcium (8.4-10.2) mg/dL Total Bilirubin (0.2-1.3) mg/dL AST (17-59) U/L ALT (4-49) U/L Alkaline Phosphatase (38-126) U/L Total Protein (6.3-8.2) g/dL Albumin (3.5-5.0) g/dL 07/24/22 07/24/22 07/24/22 Range/Units 00:21 01:27 02:16 WBC (3.8-10.6) k/uL RBC (4.30-5.90) m/uL Hgb (13.0-17.5) gm/dL Hct (39.0-53.0) % Plt Count (150-450) k/uL Neutrophils # (1.3-7.7) k/uL ABG pH (7.35-7.45) ABG pCO2 (35-45) mmHg ABG pO2 (83-108) mmHg ABG HCO3 (21-25) mmol/L ABG O2 Saturation (94-97) % Hemoglobin (13.0-17.5) gm/dL Carbon Dioxide (22-30) mmol/L BUN (9-20) mg/dL Creatinine (0.66-1.25) mg/dL Glucose (74-99) mg/dL POC Glucose (mg/dL) 223 H 217 H 197 H (70-110) mg/dL Calcium (8.4-10.2) mg/dL Total Bilirubin (0.2-1.3) mg/dL AST (17-59) U/L ALT (4-49) U/L Alkaline Phosphatase (38-126) U/L Total Protein (6.3-8.2) g/dL Albumin (3.5-5.0) g/dL 07/24/22 07/24/22 07/24/22 Range/Units 03:35 04:15 04:15 WBC 13.9 H (3.8-10.6) k/uL RBC 4.25 L (4.30-5.90) m/uL Hgb 12.3 L (13.0-17.5) gm/dL Hct 38.0 L (39.0-53.0) % Plt Count 109 L (150-450) k/uL Neutrophils # 11.2 H (1.3-7.7) k/uL ABG pH (7.35-7.45) ABG pCO2 (35-45) mmHg ABG pO2 (83-108) mmHg ABG HCO3 (21-25) mmol/L ABG O2 Saturation (94-97) % Hemoglobin (13.0-17.5) gm/dL Carbon Dioxide 17 L (22-30) mmol/L BUN 102 H* (9-20) mg/dL Creatinine 5.31 H (0.66-1.25) mg/dL Glucose 195 H (74-99) mg/dL POC Glucose (mg/dL) 188 H (70-110) mg/dL Calcium 7.1 L (8.4-10.2) mg/dL Total Bilirubin 2.3 H (0.2-1.3) mg/dL AST 7346 H (17-59) U/L ALT 2870 H (4-49) U/L Alkaline Phosphatase 190 H (38-126) U/L Total Protein 4.9 L (6.3-8.2) g/dL Albumin 2.3 L (3.5-5.0) g/dL 07/24/22 07/24/22 07/24/22 Range/Units 04:20 05:10 05:11 WBC (3.8-10.6) k/uL RBC (4.30-5.90) m/uL Hgb (13.0-17.5) gm/dL Hct (39.0-53.0) % Plt Count (150-450) k/uL Neutrophils # (1.3-7.7) k/uL ABG pH 7.33 L (7.35-7.45) ABG pCO2 (35-45) mmHg ABG pO2 59 L* (83-108) mmHg ABG HCO3 19 L (21-25) mmol/L ABG O2 Saturation 86.1 L (94-97) % Hemoglobin 12.4 L (13.0-17.5) gm/dL Carbon Dioxide (22-30) mmol/L BUN (9-20) mg/dL Creatinine (0.66-1.25) mg/dL Glucose (74-99) mg/dL POC Glucose (mg/dL) 205 H 163 H (70-110) mg/dL Calcium (8.4-10.2) mg/dL Total Bilirubin (0.2-1.3) mg/dL AST (17-59) U/L ALT (4-49) U/L Alkaline Phosphatase (38-126) U/L Total Protein (6.3-8.2) g/dL Albumin (3.5-5.0) g/dL 07/24/22 07/24/22 07/24/22 Range/Units 06:09 07:04 07:58 WBC (3.8-10.6) k/uL RBC (4.30-5.90) m/uL Hgb (13.0-17.5) gm/dL Hct (39.0-53.0) % Plt Count (150-450) k/uL Neutrophils # (1.3-7.7) k/uL ABG pH (7.35-7.45) ABG pCO2 (35-45) mmHg ABG pO2 (83-108) mmHg ABG HCO3 (21-25) mmol/L ABG O2 Saturation (94-97) % Hemoglobin (13.0-17.5) gm/dL Carbon Dioxide (22-30) mmol/L BUN (9-20) mg/dL Creatinine (0.66-1.25) mg/dL Glucose (74-99) mg/dL POC Glucose (mg/dL) 158 H 144 H 177 H (70-110) mg/dL Calcium (8.4-10.2) mg/dL Total Bilirubin (0.2-1.3) mg/dL AST (17-59) U/L ALT (4-49) U/L Alkaline Phosphatase (38-126) U/L Total Protein (6.3-8.2) g/dL Albumin (3.5-5.0) g/dL 07/24/22 07/24/22 07/24/22 Range/Units 09:06 09:23 10:07 WBC (3.8-10.6) k/uL RBC (4.30-5.90) m/uL Hgb (13.0-17.5) gm/dL Hct (39.0-53.0) % Plt Count (150-450) k/uL Neutrophils # (1.3-7.7) k/uL ABG pH 7.27 L 7.23 L (7.35-7.45) ABG pCO2 48 H (35-45) mmHg ABG pO2 50 L* 58 L* (83-108) mmHg ABG HCO3 19 L 20 L (21-25) mmol/L ABG O2 Saturation 77.1 L 81.6 L (94-97) % Hemoglobin 12.6 L (13.0-17.5) gm/dL Carbon Dioxide (22-30) mmol/L BUN (9-20) mg/dL Creatinine (0.66-1.25) mg/dL Glucose (74-99) mg/dL POC Glucose (mg/dL) 226 H (70-110) mg/dL Calcium (8.4-10.2) mg/dL Total Bilirubin (0.2-1.3) mg/dL AST (17-59) U/L ALT (4-49) U/L Alkaline Phosphatase (38-126) U/L Total Protein (6.3-8.2) g/dL Albumin (3.5-5.0) g/dL 07/24/22 07/24/22 07/24/22 Range/Units 10:08 11:05 12:01 WBC (3.8-10.6) k/uL RBC (4.30-5.90) m/uL Hgb (13.0-17.5) gm/dL Hct (39.0-53.0) % Plt Count (150-450) k/uL Neutrophils # (1.3-7.7) k/uL ABG pH 7.23 L (7.35-7.45) ABG pCO2 53 H (35-45) mmHg ABG pO2 113 H (83-108) mmHg ABG HCO3 (21-25) mmol/L ABG O2 Saturation (94-97) % Hemoglobin (13.0-17.5) gm/dL Carbon Dioxide (22-30) mmol/L BUN (9-20) mg/dL Creatinine (0.66-1.25) mg/dL Glucose (74-99) mg/dL POC Glucose (mg/dL) 226 H 184 H (70-110) mg/dL Calcium (8.4-10.2) mg/dL Total Bilirubin (0.2-1.3) mg/dL AST (17-59) U/L ALT (4-49) U/L Alkaline Phosphatase (38-126) U/L Total Protein (6.3-8.2) g/dL Albumin (3.5-5.0) g/dL 07/24/22 07/24/22 07/24/22 Range/Units 12:03 13:01 14:04 WBC (3.8-10.6) k/uL RBC (4.30-5.90) m/uL Hgb (13.0-17.5) gm/dL Hct (39.0-53.0) % Plt Count (150-450) k/uL Neutrophils # (1.3-7.7) k/uL ABG pH (7.35-7.45) ABG pCO2 (35-45) mmHg ABG pO2 (83-108) mmHg ABG HCO3 (21-25) mmol/L ABG O2 Saturation (94-97) % Hemoglobin (13.0-17.5) gm/dL Carbon Dioxide (22-30) mmol/L BUN (9-20) mg/dL Creatinine (0.66-1.25) mg/dL Glucose (74-99) mg/dL POC Glucose (mg/dL) 172 H 158 H 140 H (70-110) mg/dL Calcium (8.4-10.2) mg/dL Total Bilirubin (0.2-1.3) mg/dL AST (17-59) U/L ALT (4-49) U/L Alkaline Phosphatase (38-126) U/L Total Protein (6.3-8.2) g/dL Albumin (3.5-5.0) g/dL 07/24/22 07/24/22 07/24/22 Range/Units 15:02 16:02 17:02 WBC (3.8-10.6) k/uL RBC (4.30-5.90) m/uL Hgb (13.0-17.5) gm/dL Hct (39.0-53.0) % Plt Count (150-450) k/uL Neutrophils # (1.3-7.7) k/uL ABG pH (7.35-7.45) ABG pCO2 (35-45) mmHg ABG pO2 (83-108) mmHg ABG HCO3 (21-25) mmol/L ABG O2 Saturation (94-97) % Hemoglobin (13.0-17.5) gm/dL Carbon Dioxide (22-30) mmol/L BUN (9-20) mg/dL Creatinine (0.66-1.25) mg/dL Glucose (74-99) mg/dL POC Glucose (mg/dL) 123 H 156 H 172 H (70-110) mg/dL Calcium (8.4-10.2) mg/dL Total Bilirubin (0.2-1.3) mg/dL AST (17-59) U/L ALT (4-49) U/L Alkaline Phosphatase (38-126) U/L Total Protein (6.3-8.2) g/dL Albumin (3.5-5.0) g/dL 07/24/22 07/24/22 07/24/22 Range/Units 18:03 19:00 20:44 WBC (3.8-10.6) k/uL RBC (4.30-5.90) m/uL Hgb (13.0-17.5) gm/dL Hct (39.0-53.0) % Plt Count (150-450) k/uL Neutrophils # (1.3-7.7) k/uL ABG pH (7.35-7.45) ABG pCO2 (35-45) mmHg ABG pO2 (83-108) mmHg ABG HCO3 (21-25) mmol/L ABG O2 Saturation (94-97) % Hemoglobin (13.0-17.5) gm/dL Carbon Dioxide (22-30) mmol/L BUN (9-20) mg/dL Creatinine (0.66-1.25) mg/dL Glucose (74-99) mg/dL POC Glucose (mg/dL) 178 H 196 H 193 H (70-110) mg/dL Calcium (8.4-10.2) mg/dL Total Bilirubin (0.2-1.3) mg/dL AST (17-59) U/L ALT (4-49) U/L Alkaline Phosphatase (38-126) U/L Total Protein (6.3-8.2) g/dL Albumin (3.5-5.0) g/dL Microbiology - Last 24 Hours (Table) 07/19/22 16:40 Blood Culture - Preliminary Blood No Growth after 120 hours 07/18/22 09:50 Blood Culture - Final Blood No Growth after 144 hours 07/18/22 09:35 Blood Culture - Final Blood No Growth after 144 hours 07/22/22 19:27 Gram Stain - Preliminary Sputum Sputum Culture - Preliminary 07/23/22 09:40 Acid Fast Bacilli Culture - Preliminary Bronchoalviolar Lavage - Right 07/23/22 09:40 Bronchial Washings Culture - Preliminary Bronchoalviolar Lavage - Right 07/23/22 09:40 Fungal Culture - Preliminary Bronchoalviolar Lavage - Right Assessment and Plan (1) UTI (urinary tract infection) Current Visit: Yes Status: Acute Code(s): N39.0 - URINARY TRACT INFECTION, SITE NOT SPECIFIED SNOMED Code(s): 93666936 (2) Pneumonia Current Visit: Yes Status: Acute Code(s): J18.9 - PNEUMONIA, UNSPECIFIED ORGANISM SNOMED Code(s): 384952006 Plan: 1patient presented to hospital with increasing shortness of breath which is likely multifactorial in this patient with interstitial infiltrate high clinic suspicious for possible fluid related underlying pneumonia less likely but not entirely excluded in this patient with Negative COVID test. 2positive UA had concern for possible UTI likely from enteric gram-negative pathogen, urine cultures have been negative so far. 3patient did have a negative RSV and influenza PCR however urine for Legionella antigen is negative as well. 4patient is status post bronchoscopy and those cultures are currently pending 5we will continue the patient on cefepime and Levaquin while waiting for cultures to finalize
[2022-07-25 08:08] LABS: Band Neutrophils % 2 %; Lymphocytes # (M) 1.39 k/uL (1.0-4.8); Metamyelocytes % 3 %; Monocytes # (M) 2.39 k/uL (0-1.0); Myelocytes % 1 %; Neutrophils % (M) 75 %; Nucleated Red Blood Cells 2 /100 WBC (0-0); Total Cells Counted 200; WBC 19.9 k/uL (3.8-10.6)
[2022-07-25 08:09] LABS: Poikilocytosis (M) Present; Polychromasia Present
--- NOTE | 2022-07-25 08:14 | XR ---
EXAMINATION TYPE: XR chest 1V portable DATE OF EXAM: 07/25/2022 COMPARISON: Chest x-ray 07/24/2022 HISTORY: Intubated TECHNIQUE: Single frontal view of the chest is obtained. FINDINGS: Endotracheal tube, NG tube are overlying appropriate positions, distal tip of the NG tube not seen with certainty. There is a left jugular central venous catheter with distal tip near the cav oatrial junction level, there are overlying artifacts. No evident pneumothorax. Cardiac mediastinal s ilhouette is stable. Patchy basilar density is again noted, aorta is dense. IMPRESSION: There may be basilar atelectasis versus pneumonia, edema or effusion.
[2022-07-25] MEDS: ASPIRIN 81 MG PO SCH (08:40)
[2022-07-25] MEDS: FUROSEMIDE 10 MG/ML 4 ML VIAL IV SCH (08:40)
[2022-07-25] MEDS: CHLORHEXIDINE GLUCONATE 15 ML CUP MUCOUS MEM SCH (08:40)
[2022-07-25] MEDS: FAMOTIDINE 20 MG/2 ML VIAL IV SCH (08:40)
[2022-07-25] MEDS: CEFEPIME 1 GM in SODIUM CHLORIDE 0.9% 50 ML IVPB SCH (08:42)
[2022-07-25 08:48] LABS: Glucose,Whole Blood 169 mg/dL (70-110)
[2022-07-25] MEDS ORDERED: APIXABAN 2.5 MG TABLET PO SCH (09:00)
[2022-07-25 10:56] LABS: Glucose,Whole Blood 140 mg/dL (70-110)
[2022-07-25] MEDS ORDERED: CISATRACURIUM 200 MG in SODIUM CHLORIDE 0.9% 180 ML IV SCH (11:00)
--- NOTE | 2022-07-25 12:06 | P.PN ---
Subjective Progress Note Date: 07/25/22 Principal diagnosis: Acute hypoxic respiratory failure secondary to extensive bilateral lower lobe pneumonia, community-acquired. Very pleasant 72-year-old male patient who has a history of diabetes mellitus, uncontrolled, hyperlipidemia, hypertension, morbid obesity, obstructive sleep apnea maintained on CPAP, atrial fibrillation not on anticoagulants currently, BPH with recent surgery and clot evacuation in March and then again in April and the patient did have hematuria and is Eliquis that time. He presented to the emergency room following this morning with difficulty in breathing. He also had some increased swelling of his lower extremities. Chest x-ray revealed diffuse moderate to severe bilateral lower lung edema and/or atypical infiltrates. EKG revealed atrial fibrillation with a rapid ventricular response and nonspecific ST and T wave abnormalities. Lactic acid 2.4, troponin 2.1, 2.38, blood glucose 373. White count 17.6. Hemoglobin 15.7. INR 1.0. Sodium 142. Potassium 3.6. Bicarb 24. BUN 29. Creatinine 1.08. He ST 49. ALT 15. ProBNP 1530. His oxygen saturation was 85% on room air at presentation. He is seen today in consultation in the emergency department. He's currently on BiPAP at 18/10 and 40% FiO2 with O2 saturations in the 90s. Mostly BiPAP dependent since admission. He is also hypotensive requiring norepinephrine currently at 0.05 mcg/kg/m. He's been given Lasix 40 mg IVP 1 with minimal urine output. He is also initiated on ceftriaxone and azithromycin. He was initiated back on Eliquis. 07/24/2022, the patient remains intubated on a mechanical ventilator. This morning, the patient is sedated with propofol which is running at 35 mcg/kg per minute. The patient is quite comfortable and sedated and he is synchronous the mechanical ventilator. He is on assist control mode and he was earlier this morning on a PEEP of 15 with an FiO2 of 50% and his rate is currently at 26 and a tidal volume of 600. The morning blood gases showed a pH of 7.33 with a pCO2 of 36 and pO2 of 59. Based on that I increased the FiO2 up to 60% initially. Later on, as the patient was still staying hypoxic, I increased the PEEP back up to 18 and the patient is currently on FiO2 of 100%. Repeat blood gases are pending for now. Meanwhile, the chest x-ray is showing bilateral lower lobe consolidation and moderate-sized bilateral pleural effusions. Hemodynamically, the patient is still on pressors. He is on norepinephrine infusion currently running at 0.12 mcg/kg per minute. Overnight, the patient was having issues with atrial fibrillation with rapid ventricular response. Cardiology was involved again the patient was started on a Cardizem and the patient is currently Cardizem drip at the rate of 10 mg an hour. His heart rate is under better control and is currently less than 100. He remains in atrial fibrillation for now. The patient's urine output is quite low and nephrology was involved. The patient has an acute kidney injury and today's blood work also showed a component of shock liver. A hemodialysis catheter was inserted yesterday and this was inserted in the left femoral vein. The patient will be s tarted on low slow efficiency dialysis today with ultrafiltration. He obviously has signs of fluid overload. On today's blood work, his BUN is 102 with a creatinine of 5.3. Sodium is at 137. Serum bicarbs at 17. Otherwise a positive D point hemoglobin of 12.3. The patient does have a component of shock liver. AST and ALP are both elevated significantly, please refer to the labs. The BUN is 102 with a creatinine of 5.3. The patient is covered with empiric antibiotics and the patient remains on a combination of cefepime and Levaquin. I performed a bronchoscopy on the patient yesterday and the results of the bronchioloalveolar lavage are still pending. Earlier sputum cultures of been negative. Earlier blood cultures have been negative. On 07/25/2022, patient remains intubated and mechanically ventilated. Patient is on assist control rate of 26 tidal volume 500 FiO2 65% and PEEP of 22. ABG showed a pO2 of 113 pCO2 53 pH of 7.28. Patient is requiring norepinephrine at 0.04 mcg/kg/m, he is on insulin at 10 units per hour, propofol at 35 but Mary Carmen per kilo per minute, receiving vital HP at 57 mL/h/goal. Patient is on Cardizem at 10 mg per hour. Patient was initially intubated on 07/22/22, CODE STATUS has been changed to DO NOT RESUSCITATE CODE STATUS. Chest x-ray continues to show by basilar atelectasis/pneumonia and pleural effusions, left more so than right. Patient is obviously in ARDS, he still requiring relatively high PEEP of 22. His FiO2 is down to 65%, and I'm planning to start the patient on Nimbex hopefully to improve his oxygenation on lower FiO2 and will later address his PEEP. Endotracheal tube was noted to be relatively high in the trachea, and we advanced the endotracheal tube about to see him. Nimbex would be started today. WBC count is 19.9 hemoglobin is 13.4. Electrolytes are normal BUN however is 93 creatinine 5.87, patient is receiving hemodialysis liver enzymes are elevated with AST of just over 2000 and ALT is 2228. Alkaline phosphatase is 271. Objective - Vital Signs Vital signs: Vital Signs Temp 99.1 F 07/25/22 08:00 Pulse 99 07/25/22 11:22 Resp 26 H 07/25/22 11:22 BP 107/66 07/25/22 06:45 Pulse Ox 94 L 07/25/22 11:00 FiO2 65 07/25/22 11:05 Intake & Output 07/24/22 07/25/22 07/25/22 18:59 06:59 18:59 Intake Total 2038.462 1890.406 215.616 Output Total 2070 30 Balance -31.538 1860.406 215.616 Weight 162.1 kg Intake: IV 507 132 11 0.9 pressure bags 72 72 6 Cefepime 2 gm In Sodium 100 Chloride 0.9% 100 ml @ 25 mls/hr IVPB Q8HR [facility] Rx# :[id number] Dextrose 5% in Water 1, 240 0 000 ml @ 80 mls/hr IV . [id number] [facility] with Sodium Bicarb (1 Meq/ml) 150 ml Rx#:[id number] KVO 75 60 5 Sodium Chloride 0.9% 1, 20 000 ml @ 100 mls/hr IV . Q10H [facility] Rx#:[id number] Intake, IV Titration 4719.610 0107.406 154.616 Amount Cefepime 1 gm In Sodium 100 Chloride 0.9% 50 ml @ 12. 5 mls/hr IVPB Q12HR [facility] Rx#:[id number] Diltiazem 125 mg In 112.5 119 Sodium Chloride 0.9% 100 ml @ Per Protocol IV .Q0M [facility] Rx#:[id number] Insulin Regular 100 unit 94.766 81.383 55.517 In Sodium Chloride 0.9% 100 ml @ Titrate IV .Q0M [facility] Rx#:[id number] Levofloxacin 750Mg-D5w 100 Pmx 750 mg In Dextrose/ Water 1 150ml.bag @ 100 mls/hr IVPB Q48H [facility] Rx#: [id number] Norepinephrine 4 mg In 508.000 498.023 Sodium Chloride 0.9% 250 ml @ 0.05 MCG/KG/MIN 25. 923 mls/hr IV .Q9H48M [facility] Rx#:[id number] propofoL 1,000 mg In 296.196 300 99.099 Empty Bag 1 bag @ 40 MCG/ KG/MIN 34.32 mls/hr IV . Q2H55M [facility] Rx#:[id number] Oral 400 50 Tube Feeding 120 450 50 Other 60 Output: Urine 70 30 Hemodialysis 2000 Other: Voiding Method Indwelling Catheter Indwelling Catheter ABP, PAP, CO, CI - Last Documented Arterial Blood Pressure 95/61 - Exam GENERAL EXAM: 72-year-old white male obese, intubated mechanically ventilated, in no distress. HEAD: Atraumatic, Normocephalic. EYES: Normal reaction of pupils, equal size. NOSE: Clear with pink turbinates. THROAT: No erythema or exudates. Endotracheal tube is intact, orogastric tube is intact NECK: No masses, no JVD., And the patient has a triple-lumen catheter in the left IJ CHEST: No chest wall deformity. LUNGS: Crackles and rhonchi at the bases bilaterally. CVS: Irregular irregular rhythm, distant S1 and S2, no S3 gallop. ABDOMEN: Obese, No hepatosplenomegaly, normal bowel sounds, no guarding or rigidity. SPINE: No scoliosis or deformity SKIN: No rashes CENTRAL NERVOUS SYSTEM: Unable to assess, patient is sedated on propofol, and Nimbex would be added. EXTREMITIES: There is one plus peripheral edema. No clubbing, no cyanosis. Peripheral pulses are diminished - Labs CBC & Chem 7: 07/25/22 05:29 07/25/22 05:29 Labs: Abnormal Lab Results - Last 24 Hours (Table) 07/24/22 07/24/22 07/24/22 Range/Units 12:01 12:03 13:01 WBC (3.8-10.6) k/uL RDW (11.5-15.5) % Plt Count (150-450) k/uL Neutrophils # (Manual) (1.3-7.7) k/uL Monocytes # (Manual) (0-1.0) k/uL Metamyelocytes # (Man) (0) k/uL Myelocytes # (Manual) (0) k/uL Nucleated RBCs (0-0) /100 WBC ABG pH 7.23 L (7.35-7.45) ABG pCO2 53 H (35-45) mmHg ABG pO2 113 H (83-108) mmHg ABG Total CO2 (19-24) mmol/L ABG O2 Saturation (94-97) % BUN (9-20) mg/dL Creatinine (0.66-1.25) mg/dL Glucose (74-99) mg/dL POC Glucose (mg/dL) 172 H 158 H (70-110) mg/dL Calcium (8.4-10.2) mg/dL Total Bilirubin (0.2-1.3) mg/dL AST (17-59) U/L ALT (4-49) U/L Alkaline Phosphatase (38-126) U/L Total Protein (6.3-8.2) g/dL Albumin (3.5-5.0) g/dL 07/24/22 07/24/22 07/24/22 Range/Units 14:04 15:02 16:02 WBC (3.8-10.6) k/uL RDW (11.5-15.5) % Plt Count (150-450) k/uL Neutrophils # (Manual) (1.3-7.7) k/uL Monocytes # (Manual) (0-1.0) k/uL Metamyelocytes # (Man) (0) k/uL Myelocytes # (Manual) (0) k/uL Nucleated RBCs (0-0) /100 WBC ABG pH (7.35-7.45) ABG pCO2 (35-45) mmHg ABG pO2 (83-108) mmHg ABG Total CO2 (19-24) mmol/L ABG O2 Saturation (94-97) % BUN (9-20) mg/dL Creatinine (0.66-1.25) mg/dL Glucose (74-99) mg/dL POC Glucose (mg/dL) 140 H 123 H 156 H (70-110) mg/dL Calcium (8.4-10.2) mg/dL Total Bilirubin (0.2-1.3) mg/dL AST (17-59) U/L ALT (4-49) U/L Alkaline Phosphatase (38-126) U/L Total Protein (6.3-8.2) g/dL Albumin (3.5-5.0) g/dL 07/24/22 07/24/22 07/24/22 Range/Units 17:02 18:03 19:00 WBC (3.8-10.6) k/uL RDW (11.5-15.5) % Plt Count (150-450) k/uL Neutrophils # (Manual) (1.3-7.7) k/uL Monocytes # (Manual) (0-1.0) k/uL Metamyelocytes # (Man) (0) k/uL Myelocytes # (Manual) (0) k/uL Nucleated RBCs (0-0) /100 WBC ABG pH (7.35-7.45) ABG pCO2 (35-45) mmHg ABG pO2 (83-108) mmHg ABG Total CO2 (19-24) mmol/L ABG O2 Saturation (94-97) % BUN (9-20) mg/dL Creatinine (0.66-1.25) mg/dL Glucose (74-99) mg/dL POC Glucose (mg/dL) 172 H 178 H 196 H (70-110) mg/dL Calcium (8.4-10.2) mg/dL Total Bilirubin (0.2-1.3) mg/dL AST (17-59) U/L ALT (4-49) U/L Alkaline Phosphatase (38-126) U/L Total Protein (6.3-8.2) g/dL Albumin (3.5-5.0) g/dL 07/24/22 07/24/22 07/24/22 Range/Units 20:44 22:04 23:39 WBC (3.8-10.6) k/uL RDW (11.5-15.5) % Plt Count (150-450) k/uL Neutrophils # (Manual) (1.3-7.7) k/uL Monocytes # (Manual) (0-1.0) k/uL Metamyelocytes # (Man) (0) k/uL Myelocytes # (Manual) (0) k/uL Nucleated RBCs (0-0) /100 WBC ABG pH (7.35-7.45) ABG pCO2 (35-45) mmHg ABG pO2 (83-108) mmHg ABG Total CO2 (19-24) mmol/L ABG O2 Saturation (94-97) % BUN (9-20) mg/dL Creatinine (0.66-1.25) mg/dL Glucose (74-99) mg/dL POC Glucose (mg/dL) 193 H 211 H 178 H (70-110) mg/dL Calcium (8.4-10.2) mg/dL Total Bilirubin (0.2-1.3) mg/dL AST (17-59) U/L ALT (4-49) U/L Alkaline Phosphatase (38-126) U/L Total Protein (6.3-8.2) g/dL Albumin (3.5-5.0) g/dL 07/25/22 07/25/22 07/25/22 Range/Units 00:26 01:04 02:42 WBC (3.8-10.6) k/uL RDW (11.5-15.5) % Plt Count (150-450) k/uL Neutrophils # (Manual) (1.3-7.7) k/uL Monocytes # (Manual) (0-1.0) k/uL Metamyelocytes # (Man) (0) k/uL Myelocytes # (Manual) (0) k/uL Nucleated RBCs (0-0) /100 WBC ABG pH (7.35-7.45) ABG pCO2 (35-45) mmHg ABG pO2 (83-108) mmHg ABG Total CO2 (19-24) mmol/L ABG O2 Saturation (94-97) % BUN (9-20) mg/dL Creatinine (0.66-1.25) mg/dL Glucose (74-99) mg/dL POC Glucose (mg/dL) 184 H 188 H 181 H (70-110) mg/dL Calcium (8.4-10.2) mg/dL Total Bilirubin (0.2-1.3) mg/dL AST (17-59) U/L ALT (4-49) U/L Alkaline Phosphatase (38-126) U/L Total Protein (6.3-8.2) g/dL Albumin (3.5-5.0) g/dL 07/25/22 07/25/22 07/25/22 Range/Units 03:04 04:23 05:28 WBC (3.8-10.6) k/uL RDW (11.5-15.5) % Plt Count (150-450) k/uL Neutrophils # (Manual) (1.3-7.7) k/uL Monocytes # (Manual) (0-1.0) k/uL Metamyelocytes # (Man) (0) k/uL Myelocytes # (Manual) (0) k/uL Nucleated RBCs (0-0) /100 WBC ABG pH (7.35-7.45) ABG pCO2 (35-45) mmHg ABG pO2 (83-108) mmHg ABG Total CO2 (19-24) mmol/L ABG O2 Saturation (94-97) % BUN (9-20) mg/dL Creatinine (0.66-1.25) mg/dL Glucose (74-99) mg/dL POC Glucose (mg/dL) 192 H 161 H 189 H (70-110) mg/dL Calcium (8.4-10.2) mg/dL Total Bilirubin (0.2-1.3) mg/dL AST (17-59) U/L ALT (4-49) U/L Alkaline Phosphatase (38-126) U/L Total Protein (6.3-8.2) g/dL Albumin (3.5-5.0) g/dL 07/25/22 07/25/22 07/25/22 Range/Units 05:29 05:29 06:00 WBC 19.9 H (3.8-10.6) k/uL RDW 15.6 H (11.5-15.5) % Plt Count 140 L (150-450) k/uL Neutrophils # (Manual) 15.30 H (1.3-7.7) k/uL Monocytes # (Manual) 2.39 H (0-1.0) k/uL Metamyelocytes # (Man) 0.60 H (0) k/uL Myelocytes # (Manual) 0.20 H (0) k/uL Nucleated RBCs 2 H (0-0) /100 WBC ABG pH 7.28 L (7.35-7.45) ABG pCO2 50 H (35-45) mmHg ABG pO2 69 L (83-108) mmHg ABG Total CO2 25 H (19-24) mmol/L ABG O2 Saturation 90.3 L (94-97) % BUN 93 H (9-20) mg/dL Creatinine 5.87 H (0.66-1.25) mg/dL Glucose 192 H (74-99) mg/dL POC Glucose (mg/dL) (70-110) mg/dL Calcium 7.1 L (8.4-10.2) mg/dL Total Bilirubin 2.9 H (0.2-1.3) mg/dL AST 2133 H (17-59) U/L ALT 2228 H (4-49) U/L Alkaline Phosphatase 271 H (38-126) U/L Total Protein 5.3 L (6.3-8.2) g/dL Albumin 2.5 L (3.5-5.0) g/dL 07/25/22 07/25/22 07/25/22 Range/Units 06:12 07:00 08:46 WBC (3.8-10.6) k/uL RDW (11.5-15.5) % Plt Count (150-450) k/uL Neutrophils # (Manual) (1.3-7.7) k/uL Monocytes # (Manual) (0-1.0) k/uL Metamyelocytes # (Man) (0) k/uL Myelocytes # (Manual) (0) k/uL Nucleated RBCs (0-0) /100 WBC ABG pH (7.35-7.45) ABG pCO2 (35-45) mmHg ABG pO2 (83-108) mmHg ABG Total CO2 (19-24) mmol/L ABG O2 Saturation (94-97) % BUN (9-20) mg/dL Creatinine (0.66-1.25) mg/dL Glucose (74-99) mg/dL POC Glucose (mg/dL) 173 H 191 H 169 H (70-110) mg/dL Calcium (8.4-10.2) mg/dL Total Bilirubin (0.2-1.3) mg/dL AST (17-59) U/L ALT (4-49) U/L Alkaline Phosphatase (38-126) U/L Total Protein (6.3-8.2) g/dL Albumin (3.5-5.0) g/dL 07/25/22 Range/Units 10:55 WBC (3.8-10.6) k/uL RDW (11.5-15.5) % Plt Count (150-450) k/uL Neutrophils # (Manual) (1.3-7.7) k/uL Monocytes # (Manual) (0-1.0) k/uL Metamyelocytes # (Man) (0) k/uL Myelocytes # (Manual) (0) k/uL Nucleated RBCs (0-0) /100 WBC ABG pH (7.35-7.45) ABG pCO2 (35-45) mmHg ABG pO2 (83-108) mmHg ABG Total CO2 (19-24) mmol/L ABG O2 Saturation (94-97) % BUN (9-20) mg/dL Creatinine (0.66-1.25) mg/dL Glucose (74-99) mg/dL POC Glucose (mg/dL) 140 H (70-110) mg/dL Calcium (8.4-10.2) mg/dL Total Bilirubin (0.2-1.3) mg/dL AST (17-59) U/L ALT (4-49) U/L Alkaline Phosphatase (38-126) U/L Total Protein (6.3-8.2) g/dL Albumin (3.5-5.0) g/dL Microbiology - Last 24 Hours (Table) 07/23/22 09:40 Gram Stain - Preliminary Bronchoalviolar Lavage - Right Bronchial Washings Culture - Preliminary 07/22/22 19:27 Gram Stain - Final Sputum Sputum Culture - Final 07/19/22 16:40 Blood Culture - Preliminary Blood No Growth after 120 hours 07/18/22 09:50 Blood Culture - Final Blood No Growth after 144 hours 07/18/22 09:35 Blood Culture - Final Blood No Growth after 144 hours 07/23/22 09:40 Acid Fast Bacilli Culture - Preliminary Bronchoalviolar Lavage - Right 07/23/22 09:40 Fungal Culture - Preliminary Bronchoalviolar Lavage - Right Assessment and Plan Assessment: Impression: Acute hypoxic or for failure secondary to bilateral pneumonia/community-acq uired, BAL cultures have been negative so far, and the patient has underlying ARDS. Acute kidney injury Elevated troponin, possible non-ST elevation myocardial infarction Paroxysmal atrial fibrillation with RVR requiring Cardizem drip Acute shock liver with abnormal liver function tests Septic shock, possible underlying cardiogenic shock Morbid obesity Benign essential hypertension Type 2 diabetes Obstructive sleep apnea syndrome on CPAP on outpatient basis history of TURP. Recommendation: Continue ventilatory support Continue relatively high PEEP and high FiO2, hence we'll start the patient on Nimbex. Cultures from the BAL/bronchoscopy are negative so far. Continue hemodialysis. Continue anticoagulation therapy/eliquis at 2.5 mg twice a day Continue diuretics and continue hemodialysis as per nephrology Continue enteral feeding/interstitial support Continue hemodynamic support/norepinephrine and titrate accordingly Continue to monitor electrolytes. Continue empiric antibiotics. Prognosis remains poor and guarded. Critical care time is over 30 minutes. Time with Patient: Greater than 30
[2022-07-25 12:24] LABS: Glucose,Whole Blood 151 mg/dL (70-110)
[2022-07-25 12:56] VITALS: PULSE 87; TEMP 99.2
[2022-07-25] MEDS ORDERED: SODIUM CHLORIDE 0.9% 100 ML BAG IV ONE (15:43)
[2022-07-25] MEDS ORDERED: ATROPINE OPHTH SOLN 1% 5ML BTL ONE (15:43)
[2022-07-25] MEDS ORDERED: MORPHINE SULFATE 100 MG/2ML 20ML (MDV) ONE (15:43)
[2022-07-25] MEDS ORDERED: SCOPOLAMINE 1 MG/72 HR PATCH TRANSDERM ONE (15:43)
[2022-07-25] MEDS ORDERED: MORPHINE SULFATE 4 MG/ML SYRINGE ONE (15:43)
[2022-07-25] MEDS ORDERED: METOPROLOL TARTRATE 50 MG TAB ONE (16:00)
[2022-07-25] MEDS ORDERED: IPRATROPIUM-ALBUTEROL 3 ML NEB ONE (16:00)
[2022-07-25 19:09] LABS: Glucose,Whole Blood 149 mg/dL (70-110)
--- NOTE | 2022-07-25 21:05 | P.DS ---
Providers Date of admission: 07/18/22 08:56 Attending physician: Eduarda Suarez Consults: 07/18/22 09:39 Consult Physician Urgent Consulting Provider: Mick Brunson Consult Reason/Comments: NSTEMi Do you want consulting provider notified?: Already Contacted 07/18/22 13:19 Consult Physician Urgent Consulting Provider: Saman Cormier Consult Reason/Comments: acute hypoxic resp failure, bipap dependant Do you want consulting provider notified?: Already Contacted 07/20/22 08:57 Consult Physician Routine Consulting Provider: Benjamin Danielle Consult Reason/Comments: Pneumonia ? UTI Do you want consulting provider notified?: Yes 07/23/22 08:31 Consult Physician Routine Consulting Provider: Karla Treviño Consult Reason/Comments: FELIPE Do you want consulting provider notified?: Yes 07/23/22 12:48 Consult Physician Routine Consulting Provider: Salvatore Gutierrez Consult Reason/Comments: Hemodialysis Do you want consulting provider notified?: Already Contacted Primary care physician: Fantasma Ragsdale Hospital Course: Diagnoses: Bilateral multifocal pneumonia, gram-negative suspected, status post bronchoscopy and BAL on 07/23 Acute hypoxic respiratory failure requiring intubation and mechanical ventilation Acute congestive heart failure, diastolic with ejection fraction 60% Diabetes mellitus with hyperglycemia Paroxysmal A. fib with RVR Elevated troponin most likely type II myocardial infarction secondary to hypoxia History of BPH Morbid obesity with BMI of 42.9 Diabetes mellitus with hyperglycemia Hospital course: This is a 72 years old male who presents initially with respiratory distress found secondary to bilateral multifocal pneumonia and hypoxia required intubation and mechanical ventilation. Since admission patient has been placed on broad-spectrum antibiotic with Levaquin and cefepime, his been followed closely by several consultants including pulmonary/critical care, cardiology, nephrology and ID team. Also patient has evidence of cardiac arrhythmia with A. fib and RVR. Despite extensive management and medication patient did not show much improvement. Patient underwent bronchoscopy and bronchoalveolar lavage on 07/23. Today after rounds family decided to make the patient comfort care with the staff and eventually . Please refer to nurses note for more details Physical exam, prior to expiration Gen: patient is a intubated and sedated CVS: S1-S2, RRR, no murmur Lungs: B/L CTA, no wheezing. Bilateral crepitation Abdomen: soft, no distention, no tenderness, positive bowel sounds Extremity: no leg edema or induration Time spent more than 35 minutes Patient Condition at Discharge: Serious Plan - Discharge Summary Discharge Rx Participant: No New Discharge Prescriptions: No Action Ascorbic Acid [Vitamin C] 500 mg PO DAILY Potassium Chloride ER [K-Dur 20] 40 meq PO BID Insulin Aspart [NovoLOG Flexpen] 18 units SQ TID-W/MEALS Aspirin EC [Ecotrin Low Dose] 81 mg PO DAILY Metoprolol Tartrate [Lopressor] 25 mg PO DAILY Ginkgo Biloba [place] Extract [Ginkgo Biloba] 125 mg PO DAILY Cod Liver Oil 1 cap PO DAILY Cholecalciferol [Vitamin D3 (125 Mcg = 5000 Iu)] 125 mcg PO DAILY Chlorthalidone 50 mg PO DAILY Metoprolol Tartrate [Lopressor] 50 mg PO HS Insulin Detemir (Levemir) [Levemir] 30 unit SQ BID Discharge Medication List Ascorbic Acid [Vitamin C] 500 mg PO DAILY 03/26/22 [History] Chlorthalidone 50 mg PO DAILY 03/26/22 [History] Cholecalciferol [Vitamin D3 (125 Mcg = 5000 Iu)] 125 mcg PO DAILY 03/26/22 [History] Potassium Chloride ER [K-Dur 20] 40 meq PO BID 03/26/22 [History] Insulin Aspart [NovoLOG Flexpen] 18 units SQ TID-W/MEALS 04/18/22 [History] Aspirin EC [Ecotrin Low Dose] 81 mg PO DAILY 07/18/22 [History] Cod Liver Oil 1 cap PO DAILY 07/18/22 [History] Ginkgo Biloba [place] Extract [Ginkgo Biloba] 125 mg PO DAILY 07/18/22 [History] Insulin Detemir (Levemir) [Levemir] 30 unit SQ BID 07/18/22 [History] Metoprolol Tartrate [Lopressor] 25 mg PO DAILY 07/18/22 [History] Metoprolol Tartrate [Lopressor] 50 mg PO HS 07/18/22 [History] Follow up Appointment(s)/Referral(s): Fantasma Ragsdale MD [Primary Care Provider] - 1-2 days Discharge Disposition: Plan of Treatment: pneumonia - Preliminary Cause of Preliminary Cause of : pneumonia
--- NOTE | 2022-07-25 22:00 | PN ---
PROGRESS NOTE SUBJECTIVE: Melvin is a 72-year-old gentleman with pneumonia and respiratory failure, currently intubated on vent and is being dialyzed. We are involved in his care because of atrial fibrillation with poorly controlled ventricular rate. OBJECTIVE: VITAL SIGNS: At the time of my evaluation this morning, his heart rate is better controlled at 90 beats per minute, blood pressure is 95/68, respiratory rate is 26. CHEST: Reveals diminished air entry bilaterally. HEART: Reveals first and second heart sounds. Irregular rhythm. EXTREMITIES: Reveal bilateral pitting edema. LABORATORY DATA: Show a white cell count of 19, hemoglobin is 13.4, platelet count is 140. Potassium is 4.8, BUN is 93, creatinine is 5.8. AST and ALT are elevated in 1999s, which is coming down from the 0s that it was when the patient first came. ASSESSMENT: Persistent atrial fibrillation with poorly controlled ventricular rate. PLAN: The patient is doing better. Heart rate is better controlled on intravenous Cardizem. The patient is anticoagulated with Eliquis. MMODL / IJN: [id number] /
[2022-07-26 10:19] VITALS: BP 101/52
[2022-07-26 14:22] LABS: C-ANCA <1:20 Titer (<1:20)
--- NOTE | 2022-07-27 06:39 | PN ---
PROGRESS NOTE SUBJECTIVE: The patient is seen for followup for acute kidney injury. Currently, he is on the vent. He has not had any significant urine output. The patient tolerated his hemodialysis yesterday. He will be dialyzed again today. PHYSICAL EXAMINATION: VITAL SIGNS: Blood pressure 90/56, heart rate 80 per minute. The patient is afebrile. HEART: S1, S2. LUNGS: Bilateral breath sounds are heard. ABDOMEN: Distended, soft, obese. EXTREMITIES: Lower extremities shows trace edema. INCOME TAX INVESTIGATOR: Cannot be performed. LABORATORY DATA: Show sodium of 141, potassium 4.8, chloride 104, BUN 93, serum creatinine 5.87. ASSESSMENT: 1. Acute kidney injury, acute tubular necrosis, oliguric secondary to hypotension and sepsis, receiving second treatment. The patient will be dialyzed again today. 2. Volume overload, expect improvement with ongoing ultrafiltration and hemodialysis. 3. Shock liver. 4. Acute hypoxic respiratory failure. PLAN: Hemodialysis today and then again in a.m. Increase UF as tolerated. Decrease IV bicarb. Repeat labs in a.m. MMODL / IJN: [id number] /
--- NOTE | 2022-07-27 07:55 | CDI ---
Documentation Clarification Form Date: 07/27/2022 07:22:00 AM From: Tiffany Jaimes Admit Date: 07/18/2022 08:56:00 AM Patient Name: Melvin Bills Visit Number: [id number] Discharge Date: 07/25/2022 07:00:00 PM ATTENTION: The Clinical Documentation Specialists (CDI) and [facility] Coding Staff appreciate your assistance in clarifying documentation. Please respond to the clarification below the line at the bottom and electronically sign. The CDI & [facility] Coding staff will review the response and follow-up if needed. Please note: Queries are made part of the Legal Health Record. If you have any questions, please contact the author of this message via ITS. Dr. Eduarda Suarez The patient presented to ER meeting criteria for sepsis. Cardiology and Nephrology also document sepsis/shock in their consults and PN's. Additional clarification regarding if patient had sepsis/shock or was it ruled out. History/Risk Factors: gram negative pneumonia. Patient meeting criteria for sepsis in ER, ARDS, shock Clinical Indicators: WBC: 17.6 Lactic acid: 5.4 Blood cultures: negative Vitals signs: 97.9 F, 80 bpm - 129 bpm, 42, 178/128 85% on bipap Treatment: IV antibiotics, vasopressors, fluid bolus ID Consult: Antibiotics: Zithromax, Rocephin, Levaquin, Cefepime IV Bolus: 30 mi/kg In your professional opinion, please clarify if these findings signify one of the following conditions: [ ] Sepsis POA [ ] Sepsis, Not POA [ ] Sepsis ruled out [ ] Severe Sepsis with organ failure [ ] Septic Shock [ ] SIRS, without underlying infectious process [ ] Other, please specify [ ] Unable to determine SIRS Criteria: 2 or more of the following may indicate SIRS -Temperature < 96.8F (36C) or > 101.0F (38.3C) -Heart Rate > 90 bpm -Respiratory Rate > 20 breaths/min or PaCO2 < 32 mmHg -White Blood Cell Count > 12,000 or < 4,000 cells/mm3 or > 10% band Wrong doctor MTDD
--- NOTE | 2022-08-01 21:33 | P.PN ---
Subjective Progress Note Date: 07/25/22 Principal diagnosis: Pneumonia Patient is a 72-year-old male presenting to the hospital for increasing shortness of breath in this patient with initial treatment for CHF without any improvement and concern for possible pneumonia. Patient did have worsening of respiratory status and ended up getting intubated on 07/22/2022, the patient is status post bronchoscopy completed on 07/23/2022 On today's evaluation that is 07/25/2022 the patient continues to be afebrile, patient is intubated on the vent with FiO2 is slightly up to 65 %, no significant purulent secretions through the ET or diarrhea reported by the nursing staff Objective - Vital Signs Vital signs: Vital Signs Temp 99.2 F 07/25/22 12:15 Pulse 87 07/25/22 12:45 Resp 26 H 07/25/22 12:45 BP 107/66 07/25/22 06:45 Pulse Ox 95 07/25/22 12:45 FiO2 65 07/25/22 12:15 Intake & Output 07/25/22 07/25/22 07/26/22 06:59 18:59 06:59 Intake Total 1890.406 655.616 Output Total 30 0 Balance 1860.406 655.616 Weight 162.1 kg Intake: IV 132 106 0.9 pressure bags 72 36 Cefepime 1 gm In Sodium 50 Chloride 0.9% 50 ml @ 12. 5 mls/hr IVPB Q12HR [facility] Rx#:[id number] Dextrose 5% in Water 1, 0 000 ml @ 80 mls/hr IV . [id number] [facility] with Sodium Bicarb (1 Meq/ml) 150 ml Rx#:[id number] KVO 60 20 Intake, IV Titration 1198.406 154.616 Amount Cefepime 1 gm In Sodium 100 Chloride 0.9% 50 ml @ 12. 5 mls/hr IVPB Q12HR [facility] Rx#:[id number] Diltiazem 125 mg In 119 Sodium Chloride 0.9% 100 ml @ Per Protocol IV .Q0M [facility] Rx#:[id number] Insulin Regular 100 unit 81.383 55.517 In Sodium Chloride 0.9% 100 ml @ Titrate IV .Q0M [facility] Rx#:[id number] Levofloxacin 750Mg-D5w 100 Pmx 750 mg In Dextrose/ Water 1 150ml.bag @ 100 mls/hr IVPB Q48H [facility] Rx#: [id number] Norepinephrine 4 mg In 498.023 Sodium Chloride 0.9% 250 ml @ 0.05 MCG/KG/MIN 25. 923 mls/hr IV .Q9H48M [facility] Rx#:[id number] propofoL 1,000 mg In 300 99.099 Empty Bag 1 bag @ 40 MCG/ KG/MIN 34.32 mls/hr IV . Q2H55M [facility] Rx#:[id number] Oral 50 Tube Feeding 450 335 Other 60 60 Output: Urine 30 0 Other: Voiding Method Indwelling Catheter # Voids 0 ABP, PAP, CO, CI - Last Documented Arterial Blood Pressure 105/64 - Exam GENERAL DESCRIPTION: An elderly male intubated on the vent RESPIRATORY SYSTEM: Unlabored breathing , decreased breath sounds at bases HEART: S1 S2 regular rate and rhythm , ABDOMEN: Soft , no tenderness EXTREMITIES: No edema feet - Labs CBC & Chem 7: 07/25/22 05:29 07/25/22 05:29 Labs: Abnormal Lab Results - Last 24 Hours (Table) 07/24/22 07/24/22 07/25/22 Range/Units 22:04 23:39 00:26 WBC (3.8-10.6) k/uL RDW (11.5-15.5) % Plt Count (150-450) k/uL Neutrophils # (Manual) (1.3-7.7) k/uL Monocytes # (Manual) (0-1.0) k/uL Metamyelocytes # (Man) (0) k/uL Myelocytes # (Manual) (0) k/uL Nucleated RBCs (0-0) /100 WBC ABG pH (7.35-7.45) ABG pCO2 (35-45) mmHg ABG pO2 (83-108) mmHg ABG Total CO2 (19-24) mmol/L ABG O2 Saturation (94-97) % BUN (9-20) mg/dL Creatinine (0.66-1.25) mg/dL Glucose (74-99) mg/dL POC Glucose (mg/dL) 211 H 178 H 184 H (70-110) mg/dL Calcium (8.4-10.2) mg/dL Total Bilirubin (0.2-1.3) mg/dL AST (17-59) U/L ALT (4-49) U/L Alkaline Phosphatase (38-126) U/L Total Protein (6.3-8.2) g/dL Albumin (3.5-5.0) g/dL 07/25/22 07/25/22 07/25/22 Range/Units 01:04 02:42 03:04 WBC (3.8-10.6) k/uL RDW (11.5-15.5) % Plt Count (150-450) k/uL Neutrophils # (Manual) (1.3-7.7) k/uL Monocytes # (Manual) (0-1.0) k/uL Metamyelocytes # (Man) (0) k/uL Myelocytes # (Manual) (0) k/uL Nucleated RBCs (0-0) /100 WBC ABG pH (7.35-7.45) ABG pCO2 (35-45) mmHg ABG pO2 (83-108) mmHg ABG Total CO2 (19-24) mmol/L ABG O2 Saturation (94-97) % BUN (9-20) mg/dL Creatinine (0.66-1.25) mg/dL Glucose (74-99) mg/dL POC Glucose (mg/dL) 188 H 181 H 192 H (70-110) mg/dL Calcium (8.4-10.2) mg/dL Total Bilirubin (0.2-1.3) mg/dL AST (17-59) U/L ALT (4-49) U/L Alkaline Phosphatase (38-126) U/L Total Protein (6.3-8.2) g/dL Albumin (3.5-5.0) g/dL 07/25/22 07/25/22 07/25/22 Range/Units 04:23 05:28 05:29 WBC 19.9 H (3.8-10.6) k/uL RDW 15.6 H (11.5-15.5) % Plt Count 140 L (150-450) k/uL Neutrophils # (Manual) 15.30 H (1.3-7.7) k/uL Monocytes # (Manual) 2.39 H (0-1.0) k/uL Metamyelocytes # (Man) 0.60 H (0) k/uL Myelocytes # (Manual) 0.20 H (0) k/uL Nucleated RBCs 2 H (0-0) /100 WBC ABG pH (7.35-7.45) ABG pCO2 (35-45) mmHg ABG pO2 (83-108) mmHg ABG Total CO2 (19-24) mmol/L ABG O2 Saturation (94-97) % BUN (9-20) mg/dL Creatinine (0.66-1.25) mg/dL Glucose (74-99) mg/dL POC Glucose (mg/dL) 161 H 189 H (70-110) mg/dL Calcium (8.4-10.2) mg/dL Total Bilirubin (0.2-1.3) mg/dL AST (17-59) U/L ALT (4-49) U/L Alkaline Phosphatase (38-126) U/L Total Protein (6.3-8.2) g/dL Albumin (3.5-5.0) g/dL 07/25/22 07/25/22 07/25/22 Range/Units 05:29 06:00 06:12 WBC (3.8-10.6) k/uL RDW (11.5-15.5) % Plt Count (150-450) k/uL Neutrophils # (Manual) (1.3-7.7) k/uL Monocytes # (Manual) (0-1.0) k/uL Metamyelocytes # (Man) (0) k/uL Myelocytes # (Manual) (0) k/uL Nucleated RBCs (0-0) /100 WBC ABG pH 7.28 L (7.35-7.45) ABG pCO2 50 H (35-45) mmHg ABG pO2 69 L (83-108) mmHg ABG Total CO2 25 H (19-24) mmol/L ABG O2 Saturation 90.3 L (94-97) % BUN 93 H (9-20) mg/dL Creatinine 5.87 H (0.66-1.25) mg/dL Glucose 192 H (74-99) mg/dL POC Glucose (mg/dL) 173 H (70-110) mg/dL Calcium 7.1 L (8.4-10.2) mg/dL Total Bilirubin 2.9 H (0.2-1.3) mg/dL AST 2133 H (17-59) U/L ALT 2228 H (4-49) U/L Alkaline Phosphatase 271 H (38-126) U/L Total Protein 5.3 L (6.3-8.2) g/dL Albumin 2.5 L (3.5-5.0) g/dL 07/25/22 07/25/22 07/25/22 Range/Units 07:00 08:46 10:55 WBC (3.8-10.6) k/uL RDW (11.5-15.5) % Plt Count (150-450) k/uL Neutrophils # (Manual) (1.3-7.7) k/uL Monocytes # (Manual) (0-1.0) k/uL Metamyelocytes # (Man) (0) k/uL Myelocytes # (Manual) (0) k/uL Nucleated RBCs (0-0) /100 WBC ABG pH (7.35-7.45) ABG pCO2 (35-45) mmHg ABG pO2 (83-108) mmHg ABG Total CO2 (19-24) mmol/L ABG O2 Saturation (94-97) % BUN (9-20) mg/dL Creatinine (0.66-1.25) mg/dL Glucose (74-99) mg/dL POC Glucose (mg/dL) 191 H 169 H 140 H (70-110) mg/dL Calcium (8.4-10.2) mg/dL Total Bilirubin (0.2-1.3) mg/dL AST (17-59) U/L ALT (4-49) U/L Alkaline Phosphatase (38-126) U/L Total Protein (6.3-8.2) g/dL Albumin (3.5-5.0) g/dL 07/25/22 07/25/22 Range/Units 12:23 13:17 WBC (3.8-10.6) k/uL RDW (11.5-15.5) % Plt Count (150-450) k/uL Neutrophils # (Manual) (1.3-7.7) k/uL Monocytes # (Manual) (0-1.0) k/uL Metamyelocytes # (Man) (0) k/uL Myelocytes # (Manual) (0) k/uL Nucleated RBCs (0-0) /100 WBC ABG pH (7.35-7.45) ABG pCO2 (35-45) mmHg ABG pO2 (83-108) mmHg ABG Total CO2 (19-24) mmol/L ABG O2 Saturation (94-97) % BUN (9-20) mg/dL Creatinine (0.66-1.25) mg/dL Glucose (74-99) mg/dL POC Glucose (mg/dL) 151 H 149 H (70-110) mg/dL Calcium (8.4-10.2) mg/dL Total Bilirubin (0.2-1.3) mg/dL AST (17-59) U/L ALT (4-49) U/L Alkaline Phosphatase (38-126) U/L Total Protein (6.3-8.2) g/dL Albumin (3.5-5.0) g/dL Microbiology - Last 24 Hours (Table) 07/19/22 16:40 Blood Culture - Final Blood No Growth after 144 hours 07/23/22 09:40 Gram Stain - Preliminary Bronchoalviolar Lavage - Right Bronchial Washings Culture - Preliminary 07/22/22 19:27 Gram Stain - Final Sputum Sputum Culture - Final Assessment and Plan (1) UTI (urinary tract infection) Status: Acute Code(s): N39.0 - URINARY TRACT INFECTION, SITE NOT SPECIFIED SNOMED Code(s): 04478672 (2) Pneumonia Status: Acute Code(s): J18.9 - PNEUMONIA, UNSPECIFIED ORGANISM SNOMED Code(s): 330468699 Plan: 1patient presented to hospital with increasing shortness of breath which is likely multifactorial in this patient with interstitial infiltrate high clinic suspicious for possible fluid related underlying pneumonia less likely but not entirely excluded in this patient with Negative COVID test. 2positive UA had concern for possible UTI likely from enteric gram-negative pathogen however urine cultures have been negative so far. 3patient did have a negative RSV and influenza PCR however urine for Legionella antigen is negative as well. 4patient is status post bronchoscopy and those cultures are not completed yet 5the patient will continue continue the patient on cefepime and Levaquin and monitor clinical course closely Time with Patient: Less than 30
--- NOTE | 2022-08-03 11:44 | CDI ---
Documentation Clarification Form Date: 08/03/22 From: Tiffany Jaimes/Kristina Lopez Admit Date: 07/18/2022 08:56:00 AM Patient Name: Melvin Bills Visit Number: [id number] Discharge Date: 07/25/2022 07:00:00 PM ATTENTION: The Clinical Documentation Specialists (CDI) and [facility] Coding Staff appreciate your assistance in clarifying documentation. Please respond to the clarification below the line at the bottom and electronically sign. The CDI & [facility] Coding staff will review the response and follow-up if needed. Please note: Queries are made part of the Legal Health Record. If you have any questions, please contact the author of this message via ITS. Dr. Espinosa E Sheet The patient presented to ER meeting criteria for sepsis. Cardiology and Nephrology also document sepsis/shock in their consults and PN's. Additional clarification regarding if patient had sepsis/shock or was it ruled out. History/Risk Factors: gram negative pneumonia. Patient meeting criteria for sepsis in ER, ARDS, shock Clinical Indicators: WBC: 17.6 Lactic acid: 5.4 Blood cultures: negative Vitals signs: 97.9 F, 80 bpm - 129 bpm, 42, 178/128 85% on bipap Treatment: IV antibiotics, vasopressors, fluid bolus Antibiotics: Zithromax, Rocephin, Levaquin, Cefepime IV Bolus: 30 mi/kg In your professional opinion, please clarify if these findings signify one of the following conditions: [ ] Sepsis POA [ ] Sepsis, Not POA [ ] Sepsis ruled out [ ] SIRS, without underlying infectious process [ ] Other, please specify [ ] Unable to determine sepsis is unlikely on admission, has no fever, only mild leukocytosis . tachypnea and tachyardia can be explained by acute chf MTDD
== END 2022-07-25 19:00 | disposition expired | DRG 208 ==
LOC: EC 06:53 → SUPCPDRO 06:53 → 3SCARD 08:56 → 2SICU 13:21
PROVIDERS: ADMIT Internal Medicine; ATTEND Internal Medicine
PROC: 3E043XZ Introduction of Vasopressor into Central Vein, Percutaneous Approach (ICD-10-PCS; 2022-07-18)
PROC: 5A09457 Assistance with Respiratory Ventilation, 24-96 Consecutive Hours, Continuous Positive Airway Pressure (ICD-10-PCS; 2022-07-18)
PROC: 0BH17EZ Insertion of Endotracheal Airway into Trachea, Via Natural or Artificial Opening (ICD-10-PCS; principal; 2022-07-22)
PROC: 5A1945Z Respiratory Ventilation, 24-96 Consecutive Hours (ICD-10-PCS; principal; 2022-07-22)
PROC: 04HY32Z Insertion of Monitoring Device into Lower Artery, Percutaneous Approach (ICD-10-PCS; principal; 2022-07-22)
PROC: 4A133B1 Monitoring of Arterial Pressure, Peripheral, Percutaneous Approach (ICD-10-PCS; principal; 2022-07-22)
PROC: 02HV33Z Insertion of Infusion Device into Superior Vena Cava, Percutaneous Approach (ICD-10-PCS; principal; 2022-07-22)
PROC: 4A133J1 Monitoring of Arterial Pulse, Peripheral, Percutaneous Approach (ICD-10-PCS; principal; 2022-07-22)
PROC: 0B9D8ZX Drainage of Right Middle Lung Lobe, Via Natural or Artificial Opening Endoscopic, Diagnostic (ICD-10-PCS; 2022-07-23)
PROC: 0DH67UZ Insertion of Feeding Device into Stomach, Via Natural or Artificial Opening (ICD-10-PCS; 2022-07-23)
PROC: 3E0G76Z Introduction of Nutritional Substance into Upper GI, Via Natural or Artificial Opening (ICD-10-PCS; 2022-07-23)
PROC: 5A1D70Z Performance of Urinary Filtration, Intermittent, Less than 6 Hours Per Day (ICD-10-PCS; 2022-07-24)
DX: J15.6 Pneumonia due to other Gram-negative bacteria (principal); I21.A1 Myocardial infarction type 2; I50.43 Acute on chronic combined systolic (congestive) and diastolic (congestive) heart failure; J80 Acute respiratory distress syndrome; K72.00 Acute and subacute hepatic failure without coma; N17.0 Acute kidney failure with tubular necrosis; E87.2 Acidosis; I48.19 Other persistent atrial fibrillation; J98.11 Atelectasis; N39.0 Urinary tract infection, site not specified; Z68.41 Body mass index [BMI] 40.0-44.9, adult; R57.0 Cardiogenic shock; I11.0 Hypertensive heart disease with heart failure; I34.0 Nonrheumatic mitral (valve) insufficiency; E11.65 Type 2 diabetes mellitus with hyperglycemia; E66.01 Morbid (severe) obesity due to excess calories; E78.5 Hyperlipidemia, unspecified; Z20.822 Contact with and (suspected) exposure to COVID-19; G47.33 Obstructive sleep apnea (adult) (pediatric); J98.09 Other diseases of bronchus, not elsewhere classified; N40.1 Benign prostatic hyperplasia with lower urinary tract symptoms; Z51.5 Encounter for palliative care; Z66 Do not resuscitate; Z79.01 Long term (current) use of anticoagulants; T50.2X5A Adverse effect of carbonic-anhydrase inhibitors, benzothiadiazides and other diuretics, initial encounter; R33.8 Other retention of urine; Z79.4 Long term (current) use of insulin; Z79.82 Long term (current) use of aspirin; I45.9 Conduction disorder, unspecified; E86.1 Hypovolemia; Z79.899 Other long term (current) drug therapy; Z71.3 Dietary counseling and surveillance; Z88.8 Allergy status to other drugs, medicaments and biological substances; Z91.041 Radiographic dye allergy status; Z87.01 Personal history of pneumonia (recurrent); Z28.310 Unvaccinated for COVID-19; Z82.49 Family history of ischemic heart disease and other diseases of the circulatory system
CPT/HCPCS: 31624; 36415; 36600; 71045; 71250; 80048; 80053; 80061; 81001; 82805; 83036; 83516; 83605; 83735; 83880; 84132; 84145; 84484; 85025; 85027; 85379; 85610; 85730; 86255; 87040; 87070; 87086; 87102; 87116; 87205; 87206; 87252; 87449; 87496; 87498; 87502; 87529; 87634; 87635; 87798; 90935; 93005; 93308; 94002; 94003; 94640; 94660; 96365; 96366; 96368; 96375; 96376; 99291